=== PATIENT | male | born 1940 | race Caucasian/White ===

== ENCOUNTER 2018-06-30 15:00 | Inpatient (IN) | payer MEDICARE, OTHER ==
[~2018-06-30] VITALS: Ht 185.4 cm; Wt 75.7 kg
--- NOTE | 2018-06-30 15:08 | ERD ---
ER Documentation Chief Complaint Chief Complaint Altered Level of consciousness HPI The patient signed out AGAINST MEDICAL ADVICE. Risks, benefits, alternatives were explained to the patient. Risks include but not limited to and permanent disability The patient is a 77-year-old male, presenting to the ER because he has altered level consciousness since this morning, exact time is unknown. He is unable to provide any history, he knows his name and follow commands. It is unknown what his baseline is. 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 Past surgical history: Tracheostomy, G-tube ROS All systems reviewed and are negative except as per history of present illness. Medications Home Meds Reported Medications Zolpidem Tartrate* (Zolpidem Tartrate*) 5 Mg Tablet, 5 MG GTB Q24H PRN for INSOMNIA, #30 TAB 06/30/18 Fluoxetine Hcl* (Prozac*) 10 Mg Tablet, 10 MG GTB DAILY, TAB 06/30/18 Protein Supplement (Promod) 946 Ml Liquid, 30 ML GTB DAILY 06/30/18 Chlorhexidine Gluconate (Peridex) 473 Ml Mouthwash, 15 ML MM Q12H, BOTTLE 06/30/18 Ondansetron Hcl* (Zofran*) 4 Mg Tab, 4 MG GTB Q6H PRN for NAUSEA AND OR VOMITING, TAB 06/30/18 Multivitamin With Minerals (BIOSUPP) 473 Ml Liquid, 30 ML GTB DAILY 06/30/18 Metoprolol Tartrate* (Lopressor*) 25 Mg Tab, 37.5 MG GTB BID, #60 TAB HOLD IF SBP<110 OR HR<60 06/30/18 Lactobacillus Acidophilus* (Lactinex*) 1 Tab Chew, 1 TAB GTB TID, TAB 06/30/18 Insulin NPH Human Isophane (Humulin N) 100 Unit/1 Ml Vial, 10 UNIT SQ BID, VIAL 06/30/18 Glucagon,Human Recombinant (Glucagon Emergency Kit) 1 Mg Kit, 1 MG IJ NEEDED, KIT 06/30/18 Ferrous Sulfate* (Ferrous Sulfate*) 325 Mg Tabec, 325 MG GTB BID, TAB 06/30/18 Famotidine* (Famotidine*) 20 Mg Tablet, 20 MG GTB BID, #60 TAB 06/30/18 Ipratropium-Albuterol (Ipratropium-Albuterol) 0.5-3 Mg/3 Ml Ampul.neb, 3 ML INHALATION Q6 PRN for SHORTNESS OF BREATH, #30 VIAL 06/30/18 Donepezil* (Donepezil*) 10 Mg Tablet, 10 MG GTB DAILY, #30 TAB 06/30/18 Clonidine Hcl* (Clonidine Hcl*) 0.1 Mg Tab, 0.1 MG GTB Q6 PRN for NEEDED, TAB GIVE IF SBP>160 06/30/18 Atorvastatin Calcium (Atorvastatin Calcium) 10 Mg Tablet, 10 MG GTB QHS, #30 TAB 06/30/18 Amlodipine Besylate* (Amlodipine Besylate*) 2.5 Mg Tablet, 2.5 MG GTB DAILY, #30 TAB HOLD FOR SBP<110 OR HR<60 06/30/18 Insulin Lispro (Humalog Adolph Kwikpen) 100 Unit/1 Ml Ins.pen.hf, 0 SQ SLIDING SCALE IF BS 70-150=0 UNIT,151-200=2 UNITS,201-250=4 UNITS,251-300=6 UNITS,301-350=8 UNITS,351-400=10 UNITS,IF BS>400=12 UNITS AND CALL MD 06/30/18 Acetaminophen* (Acetaminophen* Susp) 325 Mg/10.15 Ml Solution, 650 MG GTB Q6H PRN for MILD PAIN LEVEL 1-3, ML 06/30/18 Allergies Allergies: Coded Allergies: Penicillins (Unverified Allergy, Unknown, 06/30/18) Physical Exam Vitals Vital Signs Date Temp Pulse Resp B/P (MAP) Pulse Ox O2 O2 Flow FiO2 Time Delivery Rate 06/30/18 98.8 116 18 107/70 98 2.0 17:29 (82) 06/30/18 98.9 104 22 128/74 95 15:12 (92) 06/30/18 2 15:00 Physical Exam Const: No acute distress. Head: Atraumatic. Eyes: Normal Conjunctiva. ENT: Normal External Ears, Nose and Mouth. Neck: Full range of motion. No meningismus. Resp: Clear to auscultation bilaterally. Cardio: Irregularly irregular tachycardic. Midsternal incision is erythematous with discharge Abd: Soft, non distended, normal bowel sounds, non tender. Skin: No petechiae or rashes. Back: No midline or flank tenderness. Ext: No cyanosis, or edema. Neur: Due to his condition, follow commands, moving all extremity Psych: Unable to perform due to his condition Result Diagram: 06/30/18 1527 06/30/18 1526 Results 24 hrs Laboratory Tests Test 06/30/18 15:26 06/30/18 15:27 06/30/18 15:29 06/30/18 15:41 Prothrombin 18.6 Sec Time Prothrombin 1.5 Time Ratio INR 1.52 International Normalized Rati o Activated 45.5 Sec Partial Thrombo plast Time Sodium Level 143 mmol/L Potassium Level 3.6 mmol/L Chloride Level 99 mmol/L Carbon Dioxide 38 mmol/L Level Anion Gap 6 Blood Urea 32 mg/dl Nitrogen Creatinine 0.68 mg/dl Est Glomerular mL/min Filtrat Rate mL/min Glucose Level 176 mg/dl Calcium Level 9.7 mg/dl Total Bilirubin 0.6 mg/dl Direct 0.00 mg/dl Bilirubin Indirect 0.6 mg/dl Bilirubin Aspartate Amino 27 IU/L Transf (AST/SGO T) Alanine 28 IU/L Aminotransferas e (ALT/SGPT) Alkaline 93 IU/L Phosphatase Troponin I 0.016 ng/ml Total Protein 6.5 g/dl Albumin 3.5 g/dl Globulin 3.00 g/dl Albumin/Globuli 1.16 n Ratio White Blood 20.3 10^3/ul Count Red Blood Count 3.89 10^6/ul Hemoglobin 11.2 g/dl Hematocrit 36.2 % Mean 93.1 fl Corpuscular Volume Mean 28.8 pg Corpuscular Hemoglobin Mean 30.9 g/dl Corpuscular Hemoglobin Conc ent Red Cell 15.5 % Distribution Width Platelet Count 324 10^3/UL Mean Platelet 10.9 fl Volume Immature 5.400 % Granulocytes % Neutrophils % % Segmented 89 % Neutrophils % (Manual) Band 4 % Neutrophils % (Manual) Lymphocytes % % Lymphocytes % 2 % (Manual) Monocytes % % Monocytes % 3 % (Manual) Eosinophils % % Basophils % % Basophils % 1 % (Manual) Myelocytes % 1 % (Manual) Nucleated Red 0.0 /100WBC Blood Cells % Immature 1.090 10^3/ul Granulocytes # Neutrophils # 10^3/ul Neutrophils # 18.2 10^3/ul (Manual) Band 0.8 10^3/ul Neutrophils # Lymphocytes 0.4 10^3/ul (Manual) Lymphocytes # 10^3/ul Monocytes # 10^3/ul Monocytes # 0.6 10^3/ul (Manual) Eosinophils # 10^3/ul Basophils # 10^3/ul Basophils # 0.2 10^3/ul (Manual) Myelocytes # 0.2 10^3/ul Nucleated Red 10^3/ul Blood Cells # Platelet NORMAL Estimate Poikilocytosis 1+ Anisocytosis 1+ Microcytosis 1+ Ovalocytes 1+ POC Venous 1.7 mmol/L Lactate Urine Color YELLOW Urine Clarity CLEAR Urine pH 5.0 Urine Specific 1.025 [place] Urine Ketones NEGATIVE mg/dL Urine Nitrite NEGATIVE mg/dL Urine Bilirubin NEGATIVE mg/dL Urine 1+ mg/dL Urobilinogen Urine Leukocyte NEGATIVE Cathy/ul Esterase Urine 2 /HPF Microscopic RBC Urine 3 /HPF Microscopic WBC Urine Bacteria FEW /HPF Urine Mucus FEW /HPF Urine NEGATIVE mg/dL Hemoglobin Urine Glucose NEGATIVE mg/dL Urine Total 1+ mg/dl Protein Current Medications Medications Dose Sig/Darrian Start Time Status Last (Trade) Ordered Route PRN Stop Time Admin Dose Reason Admin Sodium 2,270 ml @ BOLUS X1 06/30/18 06/30/18 Chloride 1,135 mls/hr ONCE IV 17:30 17:52 06/30/18 19:29 Vancomycin 250 ml @ ONCE IVPB 06/30/18 06/30/18 HCl 125 mls/hr 17:30 18:29 06/30/18 19:29 50 ml @ ONCE STAT 06/30/18 DC 06/30/18 Meropenem/Sod 100 mls/hr IVPB 17:05 17:52 ium Chloride 06/30/18 17:37 Procedures/MDM [place] [id number] Radiology Main Line: [phone] DIAGNOSTIC IMAGING REPORT Patient: JOE HORTON : 1940 Age: 77 Sex: M MR #: [id number] DOS: 06/30/18 1512 Ordering MD: LITZY HUERTA MD Location: E/R Room/Bed: AMENDMENT: 06/30/2018 3:34:54 PM David Aquino M.d Comparison: 04/25/2018 PROCEDURE: XR Chest. CLINICAL INDICATION: Chest pain TECHNIQUE: Single frontal view of the chest was obtained COMPARISON: None FINDINGS: The lung apices are partially obscured by patient's chin. The heart is enlarged. The thoracic aorta is calcified. There is mild left lower lobe atelectasis. There is a tracheostomy tube in place. There is no pleural effusion or pneumothorax. RPTAT: AA IMPRESSION: Mild cardiomegaly. Calcified aorta consistent with atherosclerotic disease. Limited study. Lung apices not completely seen. Mild left lower lobe atelectasis. .David Aquino MD, MD Date Time Electronically viewed and signed by .David Aquino MD, MD on 06/30/2018 15:34 .S/ CC: LITZY HUERTA MD [phone] The patient is awaiting for the brain MRI because the CT is not working EKG: At 4:46 PM read by emergency physician Rate/Rhythm: Atrial fibrillation 124 beats/min QRS, ST, T-waves: No ST elevation, specific T abnormality Impression: Abnormal EKG EKG: At 5:52 PM read by emergency physician Rate/Rhythm: Atrial fibrillation 128 beats/min QRS, ST, T-waves: No ST elevation, specific T abnormality Impression: Abnormal EKG MEDICAL MAKING DECISION: The patient is a 77-year-old male, presenting with acute encephalopathy of unclear etiology, acute chest cellulitis, atrial fibrillation with RVR, acute dehydration. He was treated with normosaline 30 mm/kg IV, vancomycin IV, meropenem IV for acute chest wall cellulitis and acute dehydration with good response. The differential diagnoses considered include but are not limited to chest cellulitis/abscess, pneumonia, UTI, pyelonephritis, ventilator associated pneumonia, septic encephalopathy, metabolic encephalopathy, delirium, worsening dementia Departure Diagnosis: Primary Impression: Encephalopathy acute Additional Impressions: Cellulitis Atrial fibrillation with RVR Dehydration Anemia Condition: Stable Comments I discussed the findings with the patient. I discussed the patient with the patient's physician Dr. Andino at 5:50 pm who was made aware of the lab, the treatment, the patient condition, pending brain MRI. The patient is admitted to [facility] Disclaimer: Inadvertent spelling and grammatical errors are likely due to EHR/dictation software use and do not reflect on the overall quality of patient care. Also, please note that the electronic time recorded on this note does not necessarily reflect the actual time of the patient encounter. LITZY HUERTA MD Jun 30, 2018 15:07
[2018-06-30] MEDS ORDERED: MEROPENEM 1 GM/50ML(PMX) 50 ML IVPB STA (17:05)
[2018-06-30] MEDS ORDERED: VANCOMYCIN 1 GM (PMX) 250 ML IVPB SCH (17:30)
[2018-06-30] MEDS ORDERED: SOD CHLORIDE 0.9% IV ONE (17:30)
[2018-06-30] MEDS ORDERED: ACET325S GTB (17:56)
[2018-06-30] MEDS ORDERED: INSU100I35 SQ (17:59)
[2018-06-30] MEDS ORDERED: AMLO2.5T78 GTB (18:00)
[2018-06-30] MEDS ORDERED: ATOR10TA65 GTB (18:00)
[2018-06-30] MEDS ORDERED: DONE10TA7 GTB (18:02)
[2018-06-30] MEDS ORDERED: CLON-379 GTB (18:02)
[2018-06-30] MEDS ORDERED: FAMO20TA18 GTB (18:03)
[2018-06-30] MEDS ORDERED: IPRA3AMP29 INHALATION (18:03)
[2018-06-30] MEDS ORDERED: FER325 GTB (18:04)
[2018-06-30] MEDS ORDERED: GLUC1KIT IJ (18:04)
[2018-06-30] MEDS ORDERED: NPH,100V SQ (18:05)
[2018-06-30] MEDS ORDERED: LACTINEX GTB (18:05)
[2018-06-30] MEDS ORDERED: METO-448 GTB (18:07)
[2018-06-30] MEDS ORDERED: ONDA4TAB13 GTB (18:10)
[2018-06-30] MEDS ORDERED: [UNRECOGNIZED DRUG - CODE] GTB (18:10)
[2018-06-30] MEDS ORDERED: CHLO473M4 MM (18:11)
[2018-06-30] MEDS ORDERED: PROT946L GTB (18:12)
[2018-06-30] MEDS ORDERED: ZOLP5TAB7 GTB (18:14)
[2018-06-30] MEDS ORDERED: FLUO10TA GTB (18:14)
[2018-06-30 23:00] VITALS: BP 142/82; PULSE 143; RESP 35
[2018-06-30] MEDS ORDERED: ACETAMINOPHEN 650MG/20.3ML CUP GTB PRN (23:00)
[2018-06-30] MEDS ORDERED: VANCOMYCIN IV PER PHARMACY XX SCH (23:00)
[2018-06-30] MEDS ORDERED: DILTIAZEM 25 MG INJ ONE (23:15)
[2018-06-30] MEDS ORDERED: ACETYLCYSTEINE 20% 4 ML VIAL ONE (23:57)
[2018-06-30] MEDS ORDERED: LEVALBUTEROL (NEB) 0.31 MG/3 ML AMP ONE (23:57)
[2018-07-01] VITALS (69 sets, daily range): BP systolic 66–139; BP diastolic 52–120; PULSE 81–135; RESP 10–28
[2018-07-01] MEDS: SOD CHLORIDE 0.9% 1,000 ML IV SCH ×3 (00:10→20:07)
[2018-07-01] MEDS: LEVALBUTEROL (NEB) 0.63 MG/3 ML AMP HHN SCH ×2 (00:12→05:17)
[2018-07-01] MEDS: ACETYLCYSTEINE 20% 4 ML VIAL NEB SCH ×6 (00:13→21:50)
[2018-07-01] MEDS ORDERED: NORepinephrine 8MG/250 ML (PMX 250 ML IV PRN (01:30)
[2018-07-01] MEDS ORDERED: SOD CHLORIDE 0.9% 1,000 ML IV ONE ×2 (01:30→09:00)
[2018-07-01] MEDS: INSULIN ASPART [NOVOLOG] 3 ML PEN SC SCH ×5 (01:57→23:56)
--- NOTE | 2018-07-01 02:44 | HP ---
DATE OF ADMISSION: 06/30/2018 CHIEF COMPLAINT AND HISTORY OF PRESENT ILLNESS: The patient is a 77-year-old gentleman with a histor y of hypertension, diabetes, atrial fibrillation, depression, dementia, dyslipidemia, and myasthenia gravis who was recently admitted at [facility] and underwent a thymectomy. The patient is c urrently a resident of [facility]. I was called from the [facility] that davey perla is confused, although awake and alert. At baseline, patient is awake, alert, fairly oriented, and is interactive. The patient was sent to [facility] ER because of altered mental status. e patient, however, upon arrival in the ER was noted to be awake, alert, and was oriented to place an d person. The patient did not have any focal weakness. The patient at the time of examination in e ER did not have any vent. The patient underwent multiple diagnostic studies including CBC, which r evealed white count of 20.3, up from 9.1 back in April. Sodium 143, potassium 3.6, BUN 32, creatin ine 0.6, glucose 176, lactic acid 2.7, calcium 9.7. Liver enzymes revealed AST 27, ALT 28, alkaline phosphatase 93. Chest x-ray revealed mild cardiomegaly, mild left lower lobe atelectasis. The patie nt spent most of the time in his bed, although he is able to sit in chair. The patient is being admi tted for further evaluation and management. FAMILY HISTORY: Positive for CAD. SOCIAL HISTORY: No smoking. No alcohol. PAST SURGICAL HISTORY: Thymectomy, tracheostomy, and G-tube placement. PHYSICAL EXAMINATION: GENERAL: The patient is awake, alert, and oriented x2. HEENT: No eye discharge or redness. Conjunctivae and lids normal. Oropharynx clear. NECK: Supple. No mass or thyromegaly. CHEST: Fairly clear. No use of accessory muscles. CARDIOVASCULAR: S1 and S2 normal. No murmur. ABDOMEN: Soft, nondistended, nontender. G-tube in place. NEUROLOGIC: The patient has generalized weakness, although there is no gross focal weakness. LABORATORY DATA: White count 20.3, hemoglobin 9.2, platelets 324. Sodium 143, potassium 3.6, BUN 32 , creatinine 0.6. IMPRESSION: 1. Acute encephalopathy, improved. The patient is approaching his baseline. Continue to monitor cl osely. No sedative at this time. 2. Elevated white count; however, patient has no fever. The patient will be empirically started on vancomycin and meropenem pending result of urine and blood culture. 3. Atrial fibrillation. The patient after admission went into rapid ventricular response and had to be started on Cardizem and Eliquis. We will keep patient on telemetry. 4. ABG done in the ER revealed pH of 7.29, pCO2 of 16.9, pO2 of 55. The patient was diagnosed with acute hypoxemic and hypercarbic respiratory failure. The patient will be attached to the vent, and p ulmonary consult with Dr. Mustafa will be obtained. 5. Dysphagia. Continue G-tube feeding. 6. Diabetes. We will place him on sliding scale insulin for now until more information is available from subacute unit. According to the patient's nurse, there was no medication reconciliation done a nd no medications were available. 7. Myasthenia gravis, status post thymectomy. 8. Dyslipidemia. The patient used to be on Lipitor. Again, the medication list from the [facility] facility has not been received. Continue Lipitor. 9. Hypertension and coronary artery disease. Continue metoprolol and p.r.n. IV diltiazem. 10. The patient apparently also has history of depression. We will resume Prozac. 11. The patient has mild dementia. We will continue Aricept. We will discuss with the family when available. Pulmonary, ID, and cardiac consultation will be obta ined. Further recommendations will depend on the patient's hospital course and recommendations from consultants. Dictated By: ALE LONGORIA/JOSE Conf#: [id number] DID#: [id number]
--- NOTE | 2018-07-01 02:59 | NUR ---
PT IS RECEIVING LOW VOLUMES WITH SETTINGS ORDERED PER MD
--- NOTE | 2018-07-01 03:00 | NUR ---
Pt on vent, no longer in acute resp distress. However, trach site at this time remains blocked, but spo2 maintaining >95%. Dr. Dobbins notified at 2230 upon admission. At that time, orders obtained for medications. MD was notified of resp distress, and uncontrolled afib. Per MD request, RT changed out pt's trach to see if that would resolve the blockage. That was unsuccessful. Shortly after the trach was changed, the pt began desaturating and bradying down in 40's HR. At this time, around 2340, a code blue was called. Prior to the arrival of the ER physician, the pt was able to be appropriate ventilated, saturation levels went back up to 92%, and HR went back up to 100. The ER physician was notified of the guarded nature of the pt condition, however was unable to assist. Shilpi was notified, as was the switch house operator and Dr. Blulock. Dr. Bullock assessed the pt, confirmed the blockage of the trach site. Per Dr. Dobbins's request, I called the pulmonology team for the ICU. I called the exchange service at 0100, 0200, and 0315. I was unable to get through to any bottoming machine operator during these times. After 0130, the pt began tolerating the ventilator and was no longer in acute resp distress.
--- NOTE | 2018-07-01 04:29 | NUR ---
VANCO PER PHARMACY: Diagnosis Acute encephalopathy , acute chest cellulitis Vanco X 1 GM was given in ER Then Vanco 1 .5 gm x1 and thereafter Vanco 1 gm q 12 hrs Predicted peak (mcg/mL): 28 Predicted trough (mcg/mL): 13 Pharmacy to follow
[2018-07-01] MEDS: MEROPENEM 1 GM/50ML(PMX) 50 ML IVPB SCH ×3 (05:39→21:45)
[2018-07-01] MEDS: DILTIAZEM 25 MG INJ IV PRN ×2 (05:50→09:51)
[2018-07-01] MEDS ORDERED: VANCOMYCIN 1.5 GM in SOD CHLORIDE 0.9% 250 ML IVPB SCH (06:00)
--- NOTE | 2018-07-01 07:30 | NUR ---
ALSO RECEIVE PT IN UNCONTROL AFIB WITH HR IN THE 130'S. DR CHUN ORDERED FOR RECORDING CLERK CONSULT AND ALSO 2D ECHO ORDER PENDING. ONGOING CARE WILL CONTINUE
--- NOTE | 2018-07-01 08:15 | NUR ---
RECEIVE PT IN TRACH TO VENT BUT IN RESPIRATORY DISTRESS POSSIBLY D/T AN OBSTRUCTION. NOTED RESP RATE IN THE 30'S AND AUDIBLE LOUD LEAKAGE FROM TRACH SITE. DR BOYER CALLED AND GIVEN THE ABG RESULT WITH PH AT 7.12 CO2 99 AND HCO3 31. NEW ORDER GIVEN TO INTUBATE THE PT. DR PIERCE HERE AND PT INTUBATED PER PROTOCOL Addendum: 07/01/18 at 1530 by FRANKLIN QUAN RN PT'S OLD PORTEX #8 REMOVED POST INTUBATION. GAUZE APPLIED TO SITE. PENDING CONSULT FROM DR HARRELL.
--- NOTE | 2018-07-01 08:54 | CONS ---
Date/Time of Note Date/Time of Note DATE: 07/01/18 TIME: 08:50 Assessment/Plan Assessment/Plan Additional Assessment/Plan Chest x-ray is essentially unremarkable. Ventilator setting; AC of 14, pressure control mode of ventilation, PEEP of 5, 100% FiO2. Assessment recommendations; 1. Patient admitted with altered mental status with severe acute hypercapnic respiratory failure possibly from tracheostomy dislodgment. 2. Possibly early pneumonia. Patient currently on appropriate antimicrobial regimen. 3. History of my [place] gravis. 4. Chronic atrial fibrillation. 5. History of hypertension. 6. History of thymectomy. 7. History of prior CABG. 8. Acute encephalopathy likely from underlying severe hypercapnia and respiratory acidosis. Patient orally intubated without difficulty. Will obtain follow-up ABG. Post intubation chest x-ray is again essentially unremarkable. Resume tube feeding. Further recommendations once culture results are obtained. Further recommendations once his repeat ABG is obtained as well. Will consult cardiothoracic surgeon for redo tracheostomy. 40 minutes of critical care time was spent evaluating the patient. Consultation Date/Type/Reason Admit Date/Time Jun 30, 2018 at 18:05 Date of Consultation: Jul 01, 2018 Type of Consult Pulmonary/critical care History of presenting illness; patient is a 77-year-old male who was transferred over to the hospital from residential because of altered mental status. The patient was found to be severely hypercapnic and apparently there was an issue w ith the tracheostomy being dislodged. The patient having low tidal volumes and had to be switched to pressure control mode of ventilation with persistent severe hypercapnia. By the time I saw him, patient is on ventilator via tracheostomy and is unresponsive. History was obtained from medical records. Past medical history; 1. Chronic respiratory failure, and VDR F. 2. History of myasthenia gravis. 3. Apparently mild dementia. 4. History of tracheostomy and G-tube placement. 5. History of hypertension. 6. Chronic atrial fibrillation. Medications; reviewed. Allergies; penicillin. Social history, family history, occupational history not available. Review of system; unable to be obtained. General exam; elderly male, on ventilator via tracheostomy, unresponsive, tachypneic. Social History Smoking Status: Never smoker Exam/Review of Systems Vital Signs Vitals Vital Signs Date Temp Pulse Resp B/P (MAP) Pulse Ox O2 O2 Flow FiO2 Time Delivery Rate 07/01/18 120 28 126/76 100 Mechanical 06:00 (93) Ventilator 07/01/18 50 05:21 07/01/18 97.6 04:00 06/30/18 10.0 23:00 Intake and Output 06/30/18 06/30/18 07/01/18 1515:00 23:00 07:00 IntakeIntake Total 1395 ml OutputOutput Total 175 ml BalanceBalance 1220 ml Exam HEENT exam; supple neck, no JVD. No lymphadenopathy. Midline trachea. No t hyromegaly. Patient is edentulous. Tracheostomy in place. Chest exam; diminished breath sounds throughout. S1-S2 audible, no murmurs. Irregular rhythm. There is a well-healed sternal scar. Abdomen exam; soft, scaphoid. G-tube in place. Bowel sounds audible. No organomegaly. Extremity exam; no peripheral edema. ELECTRICAL AND INSTRUMENTATION MANAGER exam; patient remains unresponsive. Medications Medications Current Medications Albuterol/ Ipratropium (Duoneb) 3 ml Q6H RESP THERAPY PRN HHN SHORTNESS OF BREATH; Start 06/30/18 at 23:00 Vancomycin HCl (Vanco Iv Per Pharmacy) VANCOMYCIN PER PHARMACY PER PROTOCOL XX ; Start 06/30/18 at 23:00 Meropenem/Sodium Chloride 50 ml @ 100 mls/hr Q8 IVPB Last administered on 07/01/18at 05:39; Admin Dose 100 MLS/HR; Start 07/01/18 at 06:00 Acetaminophen (Tylenol Liquid) 650 mg Q4H PRN GTB MILD PAIN(1-3)OR ELEVATED TEMP; Start 06/30/18 at 23:00 Insulin Aspart (Novolog Insulin Pen) NOVOLOG *MILD* ALGORI... Q6H SC Last a dministered on 07/01/18at 06:08; Admin Dose 2 UNIT; Start 07/01/18 at 00:00 Apixaban (Eliquis) 2.5 mg BID PO ; Start 07/01/18 at 09:00 Sodium Chloride 1,000 ml @ 75 mls/hr [id number] IV Last administered on 07/01/18at 00:10; Admin Dose 75 MLS/HR; Start 06/30/18 at 23:00 Metoprolol Tartrate (Lopressor) 50 mg BID GTB ; Start 07/01/18 at 09:00 Diltiazem HCl (Cardizem Iv) 10 mg Q4H PRN IV for HR>110 Last administered on 07/01/18at 05:50; Admin Dose 10 MG; Start 06/30/18 at 23:00 Acetylcysteine (Mucomyst) 2 ml Q4H RESP THERAPY NEB Last administered on 07/01/18at 05:18; Admin Dose 2 ML; Start 07/01/18 at 00:00 Norepinephrine 250 ml @ 1.875 mls/ hr TITRATE PRN IV BLOOD PRESSURE SUPPORT; Start 07/01/18 at 01:30 Vancomycin HCl 1.5 gm/Sodium Chloride 250 ml @ 83.333 mls/ hr ONCE IVPB Last administered on 07/01/18at 06:07; Admin Dose 83.333 MLS/HR; Start 07/01/18 at 06:00; Stop 07/01/18 at 08:59 Vancomycin HCl 250 ml @ 125 mls/hr Q12H IVPB ; Start 07/01/18 at 18:00 Levalbuterol (Xopenex Hfa) 1 puff Q8H RESP THERAPY INH ; Start 07/01/18 at 16:00 Results Result Diagram: 07/01/18 0520 07/01/18 0520 Results 24 hrs Laboratory Tests Test 06/30/18 15:26 06/30/18 15:27 06/30/18 15:29 06/30/18 15:41 Prothrombin 18.6 #H Time Prothrombin 1.5 Time Ratio INR 1.52 International Normalized Rati o Activated 45.5 H Partial Thrombo plast Time Sodium Level 143 Potassium Level 3.6 Chloride Level 99 Carbon Dioxide 38 H Level Anion Gap 6 Blood Urea 32 H Nitrogen Creatinine 0.68 Est Glomerular Filtrat Rate mL/min Glucose Level 176 Calcium Level 9.7 Total Bilirubin 0.6 Direct 0.00 Bilirubin Indirect 0.6 Bilirubin Aspartate Amino 27 Transf (AST/SGO T) Alanine 28 Aminotransferas e (ALT/SGPT) Alkaline 93 Phosphatase Troponin I 0.016 Total Protein 6.5 Albumin 3.5 Globulin 3.00 Albumin/Globuli 1.16 n Ratio White Blood 20.3 #H Count Red Blood Count 3.89 L Hemoglobin 11.2 L Hematocrit 36.2 L Mean 93.1 Corpuscular Volume Mean 28.8 L Corpuscular Hemoglobin Mean 30.9 L Corpuscular Hemoglobin Conc ent Red Cell 15.5 H Distribution Width Platelet Count 324 Mean Platelet 10.9 H Volume Immature 5.400 H Granulocytes % Neutrophils % Segmented 89 H Neutrophils % (Manual) Band 4 Neutrophils % (Manual) Lymphocytes % Lymphocytes % 2 L (Manual) Monocytes % Monocytes % 3 (Manual) Eosinophils % Basophils % Basophils % 1 (Manual) Myelocytes % 1 H (Manual) Nucleated Red 0.0 Blood Cells % Immature 1.090 H Granulocytes # Neutrophils # Neutrophils # 18.2 H (Manual) Band 0.8 H Neutrophils # Lymphocytes 0.4 L (Manual) Lymphocytes # Monocytes # Monocytes # 0.6 (Manual) Eosinophils # Basophils # Basophils # 0.2 H (Manual) Myelocytes # 0.2 H Nucleated Red Blood Cells # Platelet NORMAL Estimate Poikilocytosis 1+ Anisocytosis 1+ Microcytosis 1+ Ovalocytes 1+ POC Venous 1.7 Lactate Urine Color YELLOW Urine Clarity CLEAR Urine pH 5.0 Urine Specific 1.025 [place] Urine Ketones NEGATIVE Urine Nitrite NEGATIVE Urine Bilirubin NEGATIVE Urine 1+ H Urobilinogen Urine Leukocyte NEGATIVE Esterase Urine 2 Microscopic RBC Urine 3 Microscopic WBC Urine Bacteria FEW A Urine Mucus FEW A Urine NEGATIVE Hemoglobin Urine Glucose NEGATIVE Urine Total 1+ H Protein Test 06/30/18 19:13 06/30/18 22:27 06/30/18 22:50 07/01/18 01:53 Lactic Acid 2.7 *H Level Blood Gas Blood Specimen arterial Source Arterial Blood 06/30/2018 10: Date Drawn 30:27 PM Arterial Blood 7.290 *L pH (Temp corrected ) Arterial Blood 67.9 H pCO2 (Temp correct) Arterial Blood 55.0 L pO2 (Temp corrected ) Arterial Blood 31.9 H HCO3 Arterial Blood 3.5 H Base Excess Arterial Blood 85.7 L Oxygen Saturati on Go Test N/A Arterial Blood Right Gas Brachial Puncture Site Arterial 1.0 Blood Carboxyhe moglobin Arterial Blood 0.1 Methemoglobin Blood Gas A-a 590.1 H O2 Differential Oxyhemoglobin 84.8 L Percent Blood Gas 37.0 Temperature Blood Gas TRACH COLLAR Modality FiO2 100.0 Blood Gas Nadia ROSARIO RN Critical Value Read Back Blood Gas Notified Whom Blood Gas 06/30/2018 10: Notified Time 42:27 PM Bedside Glucose 221 H 241 H Test 07/01/18 03:20 07/01/18 05:20 07/01/18 06:06 07/01/18 07:00 Blood Gas Blood arterial Blood Specimen arterial Source Arterial Blood 07/01/2018 4:03 07/01/2018 7:1 Date Drawn :38 AM 7:00 AM Arterial Blood 7.539 H 7.116 *L pH (Temp corrected ) Arterial Blood 34.5 L 98.6 *H pCO2 (Temp correct) Arterial Blood 541.0 H 468.3 H pO2 (Temp corrected ) Arterial Blood 28.8 H 31.0 H HCO3 Arterial Blood 6.1 H -0.7 Base Excess Arterial Blood 99.6 99.8 Oxygen Saturati on Go Test ACCEPTAB ACCEPTAB Arterial Blood Right Radial Right Radial Gas Puncture Site Arterial 0.3 0.3 Blood Carboxyhe moglobin Arterial Blood 0 0.3 Methemoglobin Blood Gas A-a 137.5 H 146.1 H O2 Differential Oxyhemoglobin 99.3 H 99.2 H Percent Blood Gas 37.0 37.0 Temperature Blood Gas 14.0 14.0 Respiration Rate Blood Gas 15 14 Actual Respiration Rat e Blood Gas VENT - PC VENT - PC Modality FiO2 100.0 100.0 Blood Gas Low 5.0 5.0 PEEP Setting Blood Gas 25.0 Inspiratory Pressure Blood Gas Evan EMERGENCY MANAGEMENT DIRECTOR Notified Whom Blood Gas 07/01/2018 4:17 07/01/2018 7:3 Notified Time :22 AM 5:00 AM White Blood 18.4 H Count Red Blood Count 3.58 L Hemoglobin 10.1 L Hematocrit 33.6 L Mean 93.9 Corpuscular Volume Mean 28.2 L Corpuscular Hemoglobin Mean 30.1 L Corpuscular Hemoglobin Conc ent Red Cell 15.5 H Distribution Width Platelet Count 323 Mean Platelet 11.5 H Volume Immature 4.300 H Granulocytes % Neutrophils % 80.9 H Lymphocytes % 5.9 L Monocytes % 8.6 Eosinophils % 0.1 Basophils % 0.2 Nucleated Red 0.0 Blood Cells % Immature 0.790 H Granulocytes # Neutrophils # 14.9 H Lymphocytes # 1.1 Monocytes # 1.6 H Eosinophils # 0.0 Basophils # 0.0 Nucleated Red 0.0 Blood Cells # Sodium Level 146 H Potassium Level 3.7 Chloride Level 107 Carbon Dioxide 32 H Level Anion Gap 7 Blood Urea 31 H Nitrogen Creatinine 0.72 Est Glomerular Filtrat Rate mL/min Glucose Level 179 Calcium Level 9.0 Bedside Glucose 215 Blood Gas REZA BURCIAGA Critical Value Read Back ANSELMO PIERCE Jul 01, 2018 08:54
--- NOTE | 2018-07-01 08:56 | EN ---
Date/Time of Note Date/Time of Note DATE: 07/01/18 TIME: 08:55 Event Note Medicine Medicine Event Note Oral intubation. Indications tracheostomy dislodgment. Patient was given 10 mg of vecuronium preceded by 40 mg of etomidate IV. Vision was orally intubated with 7.5 endotracheal tube without difficulty. Trache ostomy was subsequently removed. Patient has adequate placement of endotracheal tube. Confirmed by post intubation chest x-ray. Follow-up ABG is pending. ANSELMO PIERCE Jul 01, 2018 08:56
[2018-07-01] MEDS ORDERED: ENOXAPARIN 30 MG/0.3 ML SYG SC SCH (09:00)
[2018-07-01] MEDS ORDERED: METOPROLOL 50 MG TAB GTB SCH (09:00)
[2018-07-01] MEDS ORDERED: APIXABAN 5 MG TABLET PO SCH (09:00)
[2018-07-01] MEDS ORDERED: NORepinephrine 8MG/250 ML (PMX 250 ML IV SCH (09:00)
[2018-07-01] MEDS: LANSOPRAZOLE 30 MG CAP GTB SCH (10:59)
[2018-07-01] MEDS: MIDAZOLAM (DRIP) 50 mg/50 mL 50 ML IV SCH (11:40)
[2018-07-01] MEDS ORDERED: LIDOCAINE 1% (MPF) 5 ML VIAL SC ONE (13:00)
--- NOTE | 2018-07-01 13:37 | CONS ---
Date/Time of Note Date/Time of Note DATE: 07/01/18 TIME: 13:15 Assessment/Plan Assessment/Plan Additional Assessment/Plan Acute on chronic respiratory failure Atrial fibrillation with rapid ventricular rates, improved Preserved ejection fraction Hypotension on IV pressor Myasthenia gravis -Patient presented with respiratory failure thought secondary to tracheal dislodgment. He is status post intubation. Initially with atrial fibrillation with rapid ventricular rates but heart rates have improved. Patient is on IV pressor, titrate as needed to maintain SBP greater than 90 and/or map above 60 with close monitoring of heart rate. Continue anticoagulation if no contraindication. DC beta-eddie in the current time given patient is on IV pressor. Consultation Date/Type/Reason Admit Date/Time Jun 30, 2018 at 18:05 Type of Consult cv Reason for Consultation Atrial fibrillation Hx of Present Illness This is a 69-year-old male with past medical history of respiratory failure, myasthenia gravis, atrial fibrillation who was brought to emergency room secondary to altered mental status and hypoxia. Patient thought to have trach dislodgment and status post intubation. Patient initially with atrial ablation with rapid ventricular rates but has since improved. History and for medical chart and nursing staff. Unable to be performed at the current time given patient intubated and sedated Past Medical History Chronic respiratory failure Myasthenia gravis Atrial fibrillation Hypertension Past Surgical History Including but not limited to tracheostomy, PEG placement Family History Significant Family History: no pertinent family hx Social History Smoking Status: Never smoker Exam/Review of Systems Vital Signs Vitals Vital Signs Date Temp Pulse Resp B/P (MAP) Pulse Ox O2 O2 Flow FiO2 Time Delivery Rate 07/01/18 87 18 100 50 13:04 07/01/18 96.2 136/73 08:00 (94) 07/01/18 Mechanical 07:00 Ventilator 06/30/18 10.0 23:00 Intake and Output 06/30/18 06/30/18 07/01/18 1515:00 23:00 07:00 IntakeIntake Total 1395 ml OutputOutput Total 175 ml BalanceBalance 1220 ml Exam Intubated and sedated, no apparent distress Head: normocephalic ENMT: intubated Respiratory: other (Coarse breath sounds bilaterally, no wheezing) Cardiovascular: irregular rhythm, other (S1-S2 heard) Gastrointestinal: soft, non-tender, bowel sounds Extremities: edema (Trace) Medications Medications Current Medications Albuterol/ Ipratropium (Duoneb) 3 ml Q6H RESP THERAPY PRN HHN SHORTNESS OF BREATH; Start 06/30/18 at 23:00 Vancomycin HCl (Vanco Iv Per Pharmacy) VANCOMYCIN PER PHARMACY PER PROTOCOL XX ; Start 06/30/18 at 23:00 Meropenem/Sodium Chloride 50 ml @ 100 mls/hr Q8 IVPB Last administered on 07/01/18at 05:39; Admin Dose 100 MLS/HR; Start 07/01/18 at 06:00 Acetaminophen (Tylenol Liquid) 650 mg Q4H PRN GTB MILD PAIN(1-3)OR ELEVATED TEMP; Start 06/30/18 at 23:00 Insulin Aspart (Novolog Insulin Pen) NOVOLOG *MILD* ALGORI... Q6H SC Last administered on 07/01/18at 12:50; Admin Dose 1 UNIT; Start 07/01/18 at 00:00 Apixaban (Eliquis) 2.5 mg BID PO Last administered on 07/01/18at 09:50; Admin Dose 2.5 MG; Start 07/01/18 at 09:00 Sodium Chloride 1,000 ml @ 75 mls/hr [id number] IV Last administered on 07/01/18at 00:10; Admin Dose 75 MLS/HR; Start 06/30/18 at 23:00 Metoprolol Tartrate (Lopressor) 50 mg BID GTB ; Start 07/01/18 at 09:00 Diltiazem HCl (Cardizem Iv) 10 mg Q4H PRN IV for HR>110 Last administered on 07/01/18at 09:51; Admin Dose 10 MG; Start 06/30/18 at 23:00 Acetylcysteine (Mucomyst) 2 ml Q4H RESP THERAPY NEB Last administered on 1 09/01/17at 12:25; Admin Dose 2 ML; Start 07/01/18 at 00:00 Vancomycin HCl 250 ml @ 125 mls/hr Q12H IVPB ; Start 07/01/18 at 18:00 Levalbuterol (Xopenex Hfa) 1 puff Q8H RESP THERAPY INH ; Start 07/01/18 at 16:00 Norepinephrine 16 mg/Dextrose 500 ml @ 0 mls/hr TITRATE IV Last administered on 07/01/18at 12:10; Admin Dose 9.38 MLS/HR; Start 07/01/18 at 11:00 Lansoprazole (Prevacid) 30 mg DAILY@06 GTB Last administered on 07/01/18at 10:59; Admin Dose 30 MG; Start 07/01/18 at 09:00 Midazolam HCl 50 ml @ 1 mls/hr TITRATE IV Last administered on 07/01/18at 11:40; Admin Dose 2 MLS/HR; Start 07/01/18 at 11:30 Results Result Diagram: 07/01/18 0520 07/01/18 0520 Results 24 hrs Laboratory Tests Test 06/30/18 15:26 06/30/18 15:27 06/30/18 15:29 06/30/18 15:41 Prothrombin 18.6 #H Time Prothrombin 1.5 Time Ratio INR 1.52 International Normalized Rati o Activated 45.5 H Partial Thrombo plast Time Sodium Level 143 Potassium Level 3.6 Chloride Level 99 Carbon Dioxide 38 H Level Anion Gap 6 Blood Urea 32 H Nitrogen Creatinine 0.68 Est Glomerular Filtrat Rate mL/min Glucose Level 176 Calcium Level 9.7 Total Bilirubin 0.6 Direct 0.00 Bilirubin Indirect 0.6 Bilirubin Aspartate Amino 27 Transf (AST/SGO T) Alanine 28 Aminotransferas e (ALT/SGPT) Alkaline 93 Phosphatase Troponin I 0.016 Total Protein 6.5 Albumin 3.5 Globulin 3.00 Albumin/Globuli 1.16 n Ratio White Blood 20.3 #H Count Red Blood Count 3.89 L Hemoglobin 11.2 L Hematocrit 36.2 L Mean 93.1 Corpuscular Volume Mean 28.8 L Corpuscular Hemoglobin Mean 30.9 L Corpuscular Hemoglobin Conc ent Red Cell 15.5 H Distribution Width Platelet Count 324 Mean Platelet 10.9 H Volume Immature 5.400 H Granulocytes % Neutrophils % Segmented 89 H Neutrophils % (Manual) Band 4 Neutrophils % (Manual) Lymphocytes % Lymphocytes % 2 L (Manual) Monocytes % Monocytes % 3 (Manual) Eosinophils % Basophils % Basophils % 1 (Manual) Myelocytes % 1 H (Manual) Nucleated Red 0.0 Blood Cells % Immature 1.090 H Granulocytes # Neutrophils # Neutrophils # 18.2 H (Manual) Band 0.8 H Neutrophils # Lymphocytes 0.4 L (Manual) Lymphocytes # Monocytes # Monocytes # 0.6 (Manual) Eosinophils # Basophils # Basophils # 0.2 H (Manual) Myelocytes # 0.2 H Nucleated Red Blood Cells # Platelet NORMAL Estimate Poikilocytosis 1+ Anisocytosis 1+ Microcytosis 1+ Ovalocytes 1+ POC Venous 1.7 Lactate Urine Color YELLOW Urine Clarity CLEAR Urine pH 5.0 Urine Specific 1.025 [place] Urine Ketones NEGATIVE Urine Nitrite NEGATIVE Urine Bilirubin NEGATIVE Urine 1+ H Urobilinogen Urine Leukocyte NEGATIVE Esterase Urine 2 Microscopic RBC Urine 3 Microscopic WBC Urine Bacteria FEW A Urine Mucus FEW A Urine NEGATIVE Hemoglobin Urine Glucose NEGATIVE Urine Total 1+ H Protein Test 06/30/18 19:13 06/30/18 22:27 06/30/18 22:50 07/01/18 01:53 Lactic Acid 2.7 *H Level Blood Gas Blood Specimen arterial Source Arterial Blood 06/30/2018 10: Date Drawn 30:27 PM Arterial Blood 7.290 *L pH (Temp corrected ) Arterial Blood 67.9 H pCO2 (Temp correct) Arterial Blood 55.0 L pO2 (Temp corrected ) Arterial Blood 31.9 H HCO3 Arterial Blood 3.5 H Base Excess Arterial Blood 85.7 L Oxygen Saturati on Go Test N/A Arterial Blood Right Gas Brachial Puncture Site Arterial 1.0 Blood Carboxyhe moglobin Arterial Blood 0.1 Methemoglobin Blood Gas A-a 590.1 H O2 Differential Oxyhemoglobin 84.8 L Percent Blood Gas 37.0 Temperature Blood Gas TRACH COLLAR Modality FiO2 100.0 Blood Gas Nadia ROSARIO RN Critical Value Read Back Blood Gas Notified Whom Blood Gas 06/30/2018 10: Notified Time 42:27 PM Bedside Glucose 221 H 241 H Test 07/01/18 03:20 07/01/18 05:18 07/01/18 05:20 07/01/18 06:06 Blood Gas Blood arterial Specimen Source Arterial Blood 07/01/2018 4:03 Date Drawn :38 AM Arterial Blood 7.539 H pH (Temp corrected ) Arterial Blood 34.5 L pCO2 (Temp correct) Arterial Blood 541.0 H pO2 (Temp corrected ) Arterial Blood 28.8 H HCO3 Arterial Blood 6.1 H Base Excess Arterial Blood 99.6 Oxygen Saturati on Go Test ACCEPTAB Arterial Blood Right Radial Gas Puncture Site Arterial 0.3 Blood Carboxyhe moglobin Arterial Blood 0 Methemoglobin Blood Gas A-a 137.5 H O2 Differential Oxyhemoglobin 99.3 H Percent Blood Gas 37.0 Temperature Blood Gas 14.0 Respiration Rate Blood Gas 15 Actual Respiration Rat e Blood Gas VENT - PC Modality FiO2 100.0 Blood Gas Low 5.0 PEEP Setting Blood Gas 25.0 Inspiratory Pressure Blood Gas Evan [facility] Notified Whom Blood Gas 07/01/2018 4:17 Notified Time :22 AM Thyroid 1.810 Stimulating Hormone (TSH) White Blood 18.4 H Count Red Blood Count 3.58 L Hemoglobin 10.1 L Hematocrit 33.6 L Mean 93.9 Corpuscular Volume Mean 28.2 L Corpuscular Hemoglobin Mean 30.1 L Corpuscular Hemoglobin Conc ent Red Cell 15.5 H Distribution Width Platelet Count 323 Mean Platelet 11.5 H Volume Immature 4.300 H Granulocytes % Neutrophils % 80.9 H Lymphocytes % 5.9 L Monocytes % 8.6 Eosinophils % 0.1 Basophils % 0.2 Nucleated Red 0.0 Blood Cells % Immature 0.790 H Granulocytes # Neutrophils # 14.9 H Lymphocytes # 1.1 Monocytes # 1.6 H Eosinophils # 0.0 Basophils # 0.0 Nucleated Red 0.0 Blood Cells # Sodium Level 146 H Potassium Level 3.7 Chloride Level 107 Carbon Dioxide 32 H Level Anion Gap 7 Blood Urea 31 H Nitrogen Creatinine 0.72 Est Glomerular Filtrat Rate mL/min Glucose Level 179 Calcium Level 9.0 Bedside Glucose 215 Test 07/01/18 07:00 07/01/18 09:00 07/01/18 11:45 Blood Gas Blood arterial Blood Specimen arterial Source Arterial Blood 07/01/2018 7:17 07/01/2018 9:1 Date Drawn :00 AM 5:51 AM Arterial Blood 7.116 *L 7.342 L pH (Temp corrected ) Arterial Blood 98.6 *H 47.4 H pCO2 (Temp correct) Arterial Blood 468.3 H 494.8 H pO2 (Temp corrected ) Arterial Blood 31.0 H 25.1 HCO3 Arterial Blood -0.7 -0.9 Base Excess Arterial Blood 99.8 99.8 Oxygen Saturati on Go Test ACCEPTAB ACCEPTAB Arterial Blood Right Radial Right Radial Gas Puncture Site Arterial 0.3 0.3 Blood Carboxyhe moglobin Arterial Blood 0.3 0.1 Methemoglobin Blood Gas A-a 146.1 H 170.8 H O2 Differential Oxyhemoglobin 99.2 H 99.4 H Percent Blood Gas 37.0 37.0 Temperature Blood Gas 14.0 18.0 Respiration Rate Blood Gas 14 18 Actual Respiration Rat e Blood Gas VENT - PC VENT - AC Modality FiO2 100.0 100.0 Blood Gas Low 5.0 5.0 PEEP Setting Blood Gas REZA BURCIAGA Critical Value Read Back Blood Gas TM TM Notified Whom Blood Gas 07/01/2018 7:35 07/01/2018 9:2 Notified Time :00 AM 4:20 AM Blood Gas [place] 500.0 Volume Bedside Glucose 168 Imaging ECG with atrial fibrillation in the 120s, QRS 72 ms, nonspecific ST abnormalities Evan Armas DO Jul 01, 2018 13:34
[2018-07-01] MEDS ORDERED: GLUCOSE GEL 15 GRAM TUBE BUCCAL PRN (14:00)
[2018-07-01] MEDS ORDERED: GLUCOSE GEL 15 GRAM TUBE PO PRN ×2 (14:00)
[2018-07-01] MEDS ORDERED: DEXTROSE 50% 50 ML SYRINGE IV PRN ×2 (14:00)
[2018-07-01] MEDS ORDERED: DIGOXIN 500 MCG INJ IV ONE (14:00)
[2018-07-01] MEDS ORDERED: GLUCAGON 1 MG INJ IM PRN (14:00)
--- NOTE | 2018-07-01 15:25 | NUR ---
VANCOMYCIN PER PHARMACY DUE TO PT'S AGE (77) AND SLIGHT INCREASE IN SCR, CHANGE TO VANCOMYCIN 1.5 GRAM Q24 HOURS FOR NOW. NEXT DOSE DUE 07/02 AT 0600. CHECK TROUGH PRIOR TO 4TH DOSE. PHARMACY WILL FOLLOW. THANK YOU.
--- NOTE | 2018-07-01 15:28 | NUR ---
PICC LINE RN IN ROOM TO INSERT PICC LINE FOR VASOACTIVE INFUSION
--- NOTE | 2018-07-01 15:42 | NUR ---
NUTRITION NOTE: PATIENT ADMIT FROM SNF, CHRONIC TRACH/G-TUBE. ACUTE HYPOXIC/HYPERCARBIC RESPIRATORY FAILURE. HX/O DM2, NO HGB AIC AVAILABLE, POC GLUCOSE <180, ON ASPART MILD ALG. SEDATED, G-TUBE CLAMPED. WHEN MEDICALLY ABLE, TUBE FEEDING MAY BE STARTED W/ DIABETISOURCE AC @ 30 ML/HR TO GOAL OF 50 ML/HR TO PROVIDE 1440 RADHA/ 72 PROT/ 980 FREE WATER. WATER FLUSHES 50 ML Q 6 HOURS OR PER .
--- NOTE | 2018-07-01 16:30 | NUR ---
PICC Insertion. Received order in the Radiology Department for peripherally inserted central catheter (PICC) insertion at bedside. Orders verified and history reviewed. Patient intubated and on a ventilator, eyes closed but withdraws to tactile stimuli, wrist restraints in place. Procedure reviewed prior to starting. Telephone consent on chart for PICC. Mid-LOS circumference 25cm. LUE prepped with chlorhexidene, then maximum barrier drape applied. Xylocaine 1% given SC at the intended insertion site. Left brachial vein accessed with 21G needle. 5 FR double lumen Arrow Power PICC, Lot#[id number], Product #[id number], inserted into brachial vein after trimming catheter down to 44cm, using U/S guidance, sterile technique, and a tika wire to successfully advance the catheter. Brisk blood return from both ports. CXR performed X4. On final image, tip verbally confirmed in the Mid-SVC with 44cm internal and none out. All wires removed and accounted for. Sterile dressing applied. Patient tolerated procedure well.
[2018-07-01] MEDS: LEVALBUTEROL (HFA) 15 GM INHALER INH SCH (16:43)
--- NOTE | 2018-07-01 17:21 | QN ---
Documentation Comment ID consult requested by Dr. Dobbins. Dr. Stanton is aware and will see this pt. Thank you for the consult. PATRICE SANDRA NP Jul 01, 2018 17:21
--- NOTE | 2018-07-01 17:37 | NUR ---
EOSS PT IN BED INTUBATED AND SEDATED WITH VERSED. PT ALSO ON LEVOPHED AT 8 MCGS AT THIS TIME VIA LEFT UPPER ARM PICC LINE. PT'S OLD TRACH REMOVED D/T RESPIRATORY DISTRESS. OLD TRACHED SITE COVERED WITH GAUZE WITH SOME MUCUS SECRETION. PENDING CONSULT FOR RETRACH. PT IS STABLE AT THIS MOMENT WITH BILATERAL SOFT WRIST RESTRAINT. CARE GIVEN PER PROTOCOL
[2018-07-01] MEDS ORDERED: VANCOMYCIN 1 GM 250 ML IVPB SCH (18:00)
[2018-07-01] MEDS: ATORVASTATIN 10 MG TAB GTB SCH (20:07)
[2018-07-01] MEDS: NPH, HUMAN INSULIN ISOPHANE 3ML VIAL SC SCH (20:10)
--- NOTE | 2018-07-01 20:52 | PN ---
Date/Time of Note Date/Time of Note DATE: 07/01/18 TIME: 20:31 Assessment/Plan VTE Prophylaxis Risk score (from Ns)>0 risk: 7 SCD applied (from Ns): Yes Pharmacological prophylaxis: other Lines/Catheters IV Catheter Type (from Nrsg): PICC Line Central line still needed: Yes Urinary Cath still in place: Yes Reason Cath still needed: urinary retention Assessment/Plan Assessment/Plan 1. Acute encephalopathy, improved. The patient is approaching his baseline. Continue to monitor closely. No sedative at this time. 2. Elevated white count; however, patient has no fever. - cont vancomycin and meropenem - pending result of urine and blood culture. 3. Atrial fibrillation. The patient after admission went into rapid ventricular response and had to be started on Cardizem and Eliquis. We will keep patient on telemetry. 4. ABG done in the ER revealed pH of 7.29, pCO2 of 16.9, pO2 of 55. The patient was diagnosed with acute hypoxemic and hypercarbic respiratory failure. The patient will be attached to the vent, and pulmonary consult with Dr. Mustafa will be obtained. 5. Dysphagia. Continue G-tube feeding. 6. Diabetes. We will place him on sliding scale insulin for now until more information is available from subacute unit. According to the patient's nurse, there was no medication reconciliation done and no medications were available. 7. Myasthenia gravis, status post thymectomy. 8. Dyslipidemia. The patient used to be on Lipitor. Again, the medication list from the [place] [facility] facility has not been received. Continue Lipitor. 9. Hypertension and coronary artery disease. Continue metoprolol and p.r.n. IV diltiazem. 10. The patient apparently also has history of depression. We will resume Prozac. 11. The patient has mild dementia. We will continue Aricept. Total critical care time spent [address] Dobbins tried to contact grand daughter Bruna but her voice mail was full. Further recommendations will depend on the patient's hospital course and recommendations from consultants. Subjective 24 Hr Interval Summary Free Text/Dictation -NAD -On Levo 5 mcg now - sp PICC line placement - dw staff Subjective hx not possible: pt non-verbal, pt critical Constitutional: requiring IVF, requiring O2 Exam/Review of Systems Vital Signs Vitals Vital Signs Date Temp Pulse Resp B/P (MAP) Pulse Ox O2 O2 Flow FiO2 Time Delivery Rate 07/01/18 80 18 100 50 19:56 07/01/18 131/79 18:15 (96) 07/01/18 97.8 16:00 07/01/18 Mechanical 12:00 Ventilator 06/30/18 10.0 23:00 Intake and Output 06/30/18 06/30/18 07/01/18 1515:00 23:00 07:00 IntakeIntake Total 1395 ml OutputOutput Total 195 ml BalanceBalance 1200 ml Exam Constitutional: non-verbal Psych: nl mood/affect Eyes: nl lids ENMT: nl external ears & nose Neck: non-tender, other (ET TUBE INTACT) Respiratory: diminished breath sounds Cardiovascular: nl pulses, other (s1s2) Gastrointestinal: soft Musculoskeletal: muscle weakness, range of motion Extremities: normal pulses Neurological: other Skin: other COREY LARIOS Jul 01, 2018 20:42
[2018-07-01] MEDS: ALBUTEROL/IPRATROPIUM (NEB) 3 ML AMP HHN PRN (21:50)
[2018-07-02] VITALS (101 sets, daily range): BP systolic 82–164; BP diastolic 38–120; PULSE 82–152; RESP 9–29
[2018-07-02] MEDS: LEVALBUTEROL (HFA) 15 GM INHALER INH SCH
[2018-07-02] MEDS: MIDAZOLAM (DRIP) 50 mg/50 mL 50 ML IV SCH ×3 (00:06→23:01)
[2018-07-02] MEDS: ALBUTEROL/IPRATROPIUM (NEB) 3 ML AMP HHN PRN (02:41)
[2018-07-02] MEDS: ACETYLCYSTEINE 20% 4 ML VIAL NEB SCH ×2 (02:41→05:15)
--- NOTE | 2018-07-02 05:14 | NUR ---
EOSS Pt intubated, sedated. Afebrile. Spo2>95% on vent. Pt was intubated earlier today due to trach blockage. Trach has been removed. Trach stoma care performed. Pt turned q2h, skin and wound care provided. Pt is sedated, however has periods of agitation, specifically during turns, and attempts to pull lines and tubes. Restraints remain on, per order. Pt's afib is controlled at this time. During periods of agitation, HR in 120's w/ afib but comes down gradually as pt relaxes. TF started, tolerating well. Adequate UOP. Levo titrated to 2mcg at this time, SBP maintained >90. Comfort and safety measures addressed, no other acute events to report.
[2018-07-02] MEDS: LANSOPRAZOLE 30 MG CAP GTB SCH (05:42)
[2018-07-02] MEDS: MEROPENEM 1 GM/50ML(PMX) 50 ML IVPB SCH ×3 (05:42→21:03)
[2018-07-02] MEDS: INSULIN ASPART [NOVOLOG] 3 ML PEN SC SCH ×3 (05:44→18:43)
[2018-07-02] MEDS: VANCOMYCIN 1.5 GM in SOD CHLORIDE 0.9% 250 ML IVPB SCH (06:22)
--- NOTE | 2018-07-02 08:15 | CONS ---
Date/Time of Note Date/Time of Note DATE: 07/02/18 TIME: 08:11 Assessment/Plan Assessment/Plan Additional Assessment/Plan Ventilator setting; AC of 18, tidal volume 500, PEEP of 5, 50% FiO2. Patient is currently on Levophed 1.5 mics per minute, Versed 4 mg/h. Assessment recommendations; 1. Patient admitted with acute hypercapnic respiratory failure due to tracheostomy dislodgment, status post oral intubation with marked improvement in gas exchange. With correction of respiratory acidosis. 2. History of dementia with apparent baseline adequate mental status. 3. Gram-positive bacteremia. 4. Prior CABG. 5. Mild hypotension. Requiring low-dose Levophed. 6. Hypernatremia. 7. History of myasthenia gravis status post thymectomy in the past. 8. Anemia. 9. Chronic atrial fibrillation. Discontinue normal saline drip. Add free water via G-tube to 250 mL every 6 hours. Monitor serum sodium level. Hold sedation to assess mental status. Continue current antibiotics and other supportive measures. Resume Eloquis. Patient scheduled for evaluation of redo tracheostomy. 35 minutes of critical care time was spent evaluating the patient. Consultation Date/Type/Reason Admit Date/Time Jun 30, 2018 at 18:05 Initial Consult Date 07/01/18 Type of Consult Pulmonary/critical care History of presenting illness; patient is a 77-year-old male who was transferred over to the hospital from senior living because of altered mental status. The patient was found to be severely hypercapnic and apparently there was an issue with the tracheostomy being dislodged. The patient having low tidal volumes and had to be switched to pressure control mode of ventilation with persistent severe hypercapnia. By the time I saw him, patient is on ventilator via tr acheostomy and is unresponsive. History was obtained from medical records. Past medical history; 1. Chronic respiratory failure, and VDR F. 2. History of myasthenia gravis. 3. Apparently mild dementia. 4. History of tracheostomy and G-tube placement. 5. History of hypertension. 6. Chronic atrial fibrillation. Medications; reviewed. Allergies; penicillin. Social history, family history, occupational history not available. Review of system; unable to be obtained. General exam; elderly male, on ventilator via tracheostomy, unresponsive, tachypneic. 24 HR Interval Summary Free Text/Dictation Patient's condition remains critical. Patient had to be intubated orally yesterday morning for tracheostomy dislodgment. Follow-up ABG showed significant and marked improvement in PCO2 level. Patient however still sedated as he got agitated and required Versed for sedation. General exam; elderly male, orally intubated, sedated, currently no distress. Exam/Review of Systems Vital Signs Vitals Vital Signs Date Temp Pulse Resp B/P (MAP) Pulse Ox O2 O2 Flow FiO2 Time Delivery Rate 07/02/18 98 14 110/63 97 07:15 (79) 07/02/18 Mechanical 06:00 Ventilator 07/02/18 50 05:28 07/02/18 97.7 04:00 06/30/18 10.0 23:00 Intake and Output 07/01/18 07/01/18 07/02/18 1515:00 23:00 07:00 IntakeIntake Total 1547.88 ml 780.39 ml 1058.15 ml OutputOutput Total 225 ml 425 ml 400 ml BalanceBalance 1322.88 ml 355.39 ml 658.15 ml Exam HEENT exam; supple neck, no JVD. No lymphadenopathy. Midline trachea. No thyromegaly. Orally intubated. Patient is edentulous. Pupils are small bilaterally. No neck masses. Chest exam; diminished but clear breath sounds. S1-S2 audible, no murmurs. Irregular rhythm. There is a well-healed sternal scar. Abdomen exam; soft, scaphoid. No organomegaly. G-tube in place. Bowel sounds audible. Extremity exam; no peripheral edema. [employer] DEVELOPER exam; patient is sedated. ANSELMO PIERCE Jul 02, 2018 08:15
[2018-07-02] MEDS: NPH, HUMAN INSULIN ISOPHANE 3ML VIAL SC SCH ×2 (09:00→20:55)
[2018-07-02] MEDS ORDERED: POTASSIUM CHLORIDE 20 MEQ POWDER FOR ORAL SOLN GTB ONE (09:00)
[2018-07-02] MEDS: APIXABAN 5 MG TABLET PO SCH ×2 (10:57→21:03)
--- NOTE | 2018-07-02 12:01 | NUR ---
Notified Dr. Dobbins of low phos level, received order to replace. Order placed to recheck am labs. Reminded MD to renew Restraint order. Requested consult for Dr. Black, stated that Dr. Carolina already spoke with him yesterday and that order in the computer is unnecessary.
--- NOTE | 2018-07-02 12:28 | RADRPT ---
Echocardiogram Report Patient Name: JOE HORTON Gender: Male Date: 1940 Study Date: 01-Jul-2018 Manager Study: Ethan Trevino RDCS Location: [facility] Ref. Physician: ALE CHUN Quality: Technically Difficult Study Procedures: Transthoracic echocardiogram with complete 2D, M-Mode, and doppler examination. Indications: Atrial Fibrillation. 2D/M Mode Doppler Measurement Value Normal Ranges Measurement Value Normal Ranges LVIDd 2D 3.6 3.5 - 5.6 cm AV Peak Tony 0.9 m/sec LVIDs 2D 2.5 2.1 - 4.1 cm AV Peak PG 3.0 mmHg FS 2D 30.9 % LVOT Peak Tony 0.8 m/sec LVPWd 2D 1.3 0.6 - 1.1 cm LVOT Peak PG 2.0 mmHg IVSd 2D 1.3 0.6 - 1.1 cm TR Peak Tony 2.5 m/sec IVS/LVPW 2D 1.0 TR Peak PG 25.0 mmHg AoR Diam 2D 2.5 2.0 - 3.7 cm RVSP 40.0 mmHg LA/Ao 2D 1 0 - 1 RA Pressure 15.0 EDV 2D 45.1 cm3 ESV 2D 14.9 cm3 LA Dimen 2D 2.6 2.3 - 4.0 cm Findings Left Ventricle: Lower limits of normal systolic function. Normal left ventricular cavity size. Mild concentric left ventricular hypertrophy. Ejection fraction is visually estimated at 50 %. Abnormal Diastolic Function. Right Ventricle: Normal right ventricular size. Normal right ventricular systolic function. Left Atrium: The left atrium is normal in size. Right Atrium: The right atrium is normal in size. Mitral Valve: Mild mitral leaflet calcification. Moderate mitral annular calcification. Mild mitral valve regurgitation. Aortic Valve: No significant aortic stenosis or insufficiency. Aortic cusps appear mildly calcified. Tricuspid Valve: Normal appearance of the tricuspid valve. Estimated peak PA systolic pressure 40 mmHg. There is mild tricuspid regurgitation. Pulmonic Valve: Normal pulmonic valve appearance. Pericardium: Normal pericardium with no significant pericardial effusion. Aorta: Normal aortic root. IVC: Dilated IVC without respiratory collapse, however, patient on ventilator. Conclusions Lower limits of normal systolic function. Normal left ventricular cavity size. Mild concentric left ventricular hypertrophy. Ejection fraction is visually estimated at 50 %. Abnormal Diastolic Function. Normal right ventricular size. Normal right ventricular systolic function. The left atrium is normal in size. The right atrium is normal in size. Mild mitral valve regurgitation. No significant aortic stenosis or insufficiency. Estimated peak PA systolic pressure 40 mmHg. There is mild tricuspid regurgitation. Normal pericardium with no significant pericardial effusion. Electronically Signed By: Evan Armas 02-Jul-2018 12:27:51 -0800 Patient Name: JOE HORTON Study Date: 01-Jul-2018 [id number]
--- NOTE | 2018-07-02 12:51 | CONS ---
Date/Time of Note Date/Time of Note DATE: 07/02/18 TIME: 12:49 Assessment/Plan Assessment/Plan Additional Assessment/Plan Acute on chronic respiratory failure Possible trach dislodgment status post intubation Atrial fibrillation with rapid ventricular rates, improved Preserved ejection fraction Hypotension on IV pressor Myasthenia gravis -Patient's blood pressure improving and on low-dose IV pressor. Continue to titrate off to maintain SBP greater than 90 and/or map above 60. Heart rate trend overall improved. Would order additional potassium supplementation to ideally maintain above 4.0. Continue anticoagulation if no contraindication. Consultation Date/Type/Reason Admit Date/Time Jun 30, 2018 at 18:05 Initial Consult Date 07/01/18 Type of Consult cv 24 HR Interval Summary Free Text/Dictation pt seen and examined Exam/Review of Systems Vital Signs Vitals Vital Signs Date Temp Pulse Resp B/P (MAP) Pulse Ox O2 O2 Flow FiO2 Time Delivery Rate 07/02/18 106 18 100 12:15 07/02/18 98.6 97/55 (69) Mechanical 12:00 Ventilator 07/02/18 50 08:00 06/30/18 10.0 23:00 Intake and Output 07/01/18 07/01/18 07/02/18 1515:00 23:00 07:00 IntakeIntake Total 1547.88 ml 780.39 ml 1088.15 ml OutputOutput Total 225 ml 425 ml 400 ml BalanceBalance 1322.88 ml 355.39 ml 688.15 ml Exam Intubated and sedated, no apparent distress Head: normocephalic ENMT: intubated Respiratory: other (Coarse breath sounds bilaterally, no wheezing) Cardiovascular: irregular rhythm, other (S1-S2 heard) Gastrointestinal: soft, non-tender, bowel sounds Extremities: edema (Trace) Evan Armas DO Jul 02, 2018 12:51
[2018-07-02] MEDS ORDERED: POTASSIUM CHLORIDE 20 MEQ POWDER FOR ORAL SOLN NGT ONE (13:00)
[2018-07-02] MEDS ORDERED: POTASSIUM PHOSPHATE 20 MM in SOD CHLORIDE 0.9% 250 ML IVPB ONE (13:30)
--- NOTE | 2018-07-02 14:42 | PN ---
Date/Time of Note Date/Time of Note DATE: 07/02/18 TIME: 14:35 Assessment/Plan VTE Prophylaxis Risk score (from [facility])>0 risk: 11 SCD applied (from [facility]): Yes SCD contraindicated: other Pharmacological prophylaxis: other Pharm contraindication: other Lines/Catheters IV Catheter Type (from [facility]): PICC Line Central line still needed: Yes Urinary Cath still in place: Yes Reason Cath still needed: urinary retention Assessment/Plan Assessment/Plan - hypokalemia- replaced- fu am labs 1. Acute encephalopathy, improved. The patient is approaching his baseline. Continue to monitor closely. No sedative at this time. 2. Elevated white count; however, patient has no fever. - per ID - cont vancomycin and meropenem - pending result of urine and blood culture. 3. Atrial fibrillation. The patient after admission went into rapid ventricular response and had to be started on Cardizem and Eliquis. We will keep patient on telemetry. 4. Acute hypoxemic and hypercarbic respiratory failure. - PER pulmonary consult with Dr. Mustafa 5. Dysphagia. Continue G-tube feeding. 6. Diabetes. 7. Myasthenia gravis, status post thymectomy. 8. Dyslipidemia. The patient used to be on Lipitor. Again, the medication list from the [place] [facility] facility has not been received. Continue Lipitor. 9. Hypertension and coronary artery disease. Continue metoprolol and p.r.n. IV diltiazem. 10. The patient apparently also has history of depression. We will resume Prozac. 11. The patient has mild dementia. We will continue Aricept. Total critical care time spent [address] Dobbins tried to contact grand daughter Bruna but her voice mail was full. Further recommendations will depend on the patient's hospital course and recommendations from consultants. Subjective 24 Hr Interval Summary Free Text/Dictation - afebrile; tachy; hypotensive - - on vasopressor - restraints renewed Subjective hx not possible: pt non-verbal Constitutional: requiring IVF, requiring O2 Exam/Review of Systems Vital Signs Vitals Vital Signs Date Temp Pulse Resp B/P (MAP) Pulse Ox O2 O2 Flow FiO2 Time Delivery Rate 07/02/18 106 18 100 12:15 07/02/18 98.6 97/55 (69) Mechanical 12:00 Ventilator 07/02/18 50 08:00 06/30/18 10.0 23:00 Intake and Output 07/01/18 07/01/18 07/02/18 1515:00 23:00 07:00 IntakeIntake Total 1547.88 ml 780.39 ml 1088.15 ml OutputOutput Total 225 ml 425 ml 400 ml BalanceBalance 1322.88 ml 355.39 ml 688.15 ml Exam Constitutional: non-verbal, frail Eyes: nl conjunctiva, nl sclera ENMT: nl external ears & nose Neck: non-tender Respiratory: diminished breath sounds Cardiovascular: nl pulses, other (s1s2) Gastrointestinal: soft, other Musculoskeletal: muscle weakness, range of motion Extremities: normal pulses Neurological: lethargic Skin: other COREY LARIOS Jul 02, 2018 14:42
[2018-07-02] MEDS: FENTAnyl (DRIP) 1000 mcg/100mL 100 ML IV SCH (15:25)
--- NOTE | 2018-07-02 15:47 | CONS ---
Date/Time of Note Date/Time of Note DATE: 07/02/18 TIME: 15:47 Assessment/Plan Assessment/Plan Chief Complaint/Hosp Course patient seen and examined. full note to follow momentarily. Consultation Date/Type/Reason Admit Date/Time Jun 30, 2018 at 18:05 Initial Consult Date 07/01/18 Exam/Review of Systems Vital Signs Vitals Vital Signs Date Temp Pulse Resp B/P (MAP) Pulse Ox O2 O2 Flow FiO2 Time Delivery Rate 07/02/18 106 18 100 12:15 07/02/18 98.6 97/55 (69) Mechanical 12:00 Ventilator 07/02/18 50 08:00 06/30/18 10.0 23:00 Intake and Output 07/01/18 07/01/18 07/02/18 1515:00 23:00 07:00 IntakeIntake Total 1547.88 ml 780.39 ml 1088.15 ml OutputOutput Total 225 ml 425 ml 400 ml BalanceBalance 1322.88 ml 355.39 ml 688.15 ml PETER LUTZ MD Jul 02, 2018 15:47
--- NOTE | 2018-07-02 15:59 | CONS ---
Date/Time of Note Date/Time of Note DATE: 07/02/18 TIME: 15:50 Assessment/Plan Assessment/Plan Chief Complaint/Hosp Course 1. Probable MRSA soft tissue abscess--> Septic Shock 2. Resp failure 3. complicated pmh that includes: hypertension, diabetes, atrial fibrillation, depression, dementia, dyslipide oksana, and myasthenia gravis s/p recent thymectomy R: cont. vanco cont. Merrem for now but suspect may be able to stop soon if sputum cx neg. serial cxr will order sputum will review records from recent hospitalization/[place] consider ent evaluation and/or surgical evaluation of trach site as likely source; additional imaging such as CT neck should also be considered wound care neck lesion will continue to follow this critically ill gentleman closely with you ty Consultation Date/Type/Reason Admit Date/Time Jun 30, 2018 at 18:05 Date of Consultation: Jul 02, 2018 Type of Consult ID Reason for Consultation SEPTIC SHOCK Requesting Provider: ALE CHUN MD Hx of Present Illness 77 YO male with pmh of htn, dm, afib, depression, dementia, myasthenia gravis, admitted from [facility] with resp distress and Shock. His cxs have all revealed staph aures. His previous trach site has purulent drainage also growing staph. He is unable to give any hx. He is currently intubated and requiring pressor support. patient unable to provide Past Medical History as per [facility] Medications Current Medications Albuterol/ Ipratropium (Duoneb) 3 ml Q6H RESP THERAPY PRN HHN SHORTNESS OF BREATH Last administered on 07/02/18at 02:41; Admin Dose 3 ML; Start 06/30/18 at 23:00 Vancomycin HCl (Vanco Iv Per Pharmacy) VANCOMYCIN PER PHARMACY PER PROTOCOL XX ; Start 06/30/18 at 23:00 Meropenem/Sodium Chloride 50 ml @ 100 mls/hr Q8 IVPB Last administered on at 14:19; Admin Dose 100 MLS/HR; Start 07/01/18 at 06:00 Acetaminophen (Tylenol Liquid) 650 mg Q4H PRN GTB MILD PAIN(1-3)OR ELEVATED TEMP; Start 06/30/18 at 23:00 Insulin Aspart (Novolog Insulin Pen) NOVOLOG *MILD* ALGORI... Q6H SC Last administered on 07/02/18at 05:44; Admin Dose 1 UNIT; Start 07/01/18 at 00:00 Diltiazem HCl (Cardizem Iv) 10 mg Q4H PRN IV for HR>110 Last administered on 07/01/18at 09:51; Admin Dose 10 MG; Start 06/30/18 at 23:00 Norepinephrine 16 mg/Dextrose 500 ml @ 0 mls/hr TITRATE IV Last administered on 07/01/18at 12:10; Admin Dose 9.38 MLS/HR; Start 07/01/18 at 11:00 Lansoprazole (Prevacid) 30 mg DAILY@06 GTB Last administered on 07/02/18at 05:42; Admin Dose 30 MG; Start 07/01/18 at 09:00 Midazolam HCl 50 ml @ 1 mls/hr TITRATE IV Last administered on 07/02/18at 15:14; Admin Dose 6 MLS/HR; Start 07/01/18 at 11:30 Miscellaneous Information 1 ea NOTE XX ; Start 07/01/18 at 14:00 Glucose (Glutose) 15 gm Q15M PRN PO DECREASED GLUCOSE; Start 07/01/18 at 14:00 Glucose (Glutose) 22.5 gm Q15M PRN PO DECREASED GLUCOSE; Start 07/01/18 at 14:00 Dextrose (D50w Syringe) 25 ml Q15M PRN IV DECREASED GLUCOSE; Start 07/01/18 at 14:00 Dextrose (D50w Syringe) 50 ml Q15M PRN IV DECREASED GLUCOSE; Start 07/01/18 at 14:00 Glucagon (Glucagen) 1 mg Q15M PRN IM DECREASED GLUCOSE; Start 07/01/18 at 14:00 Glucose (Glutose) 15 gm Q15M PRN BUCCAL DECREASED GLUCOSE; Start 07/01/18 at 14:00 Vancomycin HCl 1.5 gm/Sodium Chloride 250 ml @ 83.333 mls/ hr Q24H IVPB Last administered on 07/02/18at 06:22; Admin Dose 83.333 MLS/HR; Start 07/02/18 at 06:00 Atorvastatin Calcium (Lipitor) 10 mg HS GTB Last administered on 07/01/18at 20:07; Admin Dose 10 MG; Start 07/01/18 at 21:00 Insulin Human NPH (Humulin N) 10 unit BID@08,20 SC Last administered on 07/02/18at 09:00; Admin Dose 10 UNIT; Start 07/01/18 at 20:00 IV Flush (NS 10 ml) 10 ml PRN PRN IV IV PROTOCOL; Start 07/01/18 at 17:00 Apixaban (Eliquis) 2.5 mg BID PO Last administered on 07/02/18at 10:57; Admin Dose 2.5 MG; Start 07/02/18 at 09:00 Miscellaneous Information (*Rx Drug Level Order Reminder*) VANCO TR AT 0,500 ONCE ONCE XX ; Start 07/03/18 at 05:00; Stop 07/03/18 at 05:01 Potassium Phosphate 20 mm/ Sodium Chloride 256.6667 ml @ 64.167 m... ONCE ONCE IVPB Last administered on 07/02/18at 12:57; Admin Dose 64.167 MLS/HR; Start 07/02/18 at 13:30; Stop 07/02/18 at 17:29 Fentanyl 100 ml @ 2.5 mls/hr TITRATE IV Last administered on 07/02/18at 15:25; Admin Dose 2.5 MLS/HR; Start 07/02/18 at 16:00 Allergies: Coded Allergies: Penicillins (Unverified Allergy, Unknown, 06/30/18) Social History Smoking Status: Never smoker Exam/Review of Systems Vital Signs Vitals Vital Signs Date Temp Pulse Resp B/P (MAP) Pulse Ox O2 O2 Flow FiO2 Time Delivery Rate 07/02/18 106 18 100 12:15 07/02/18 98.6 97/55 (69) Mechanical 12:00 Ventilator 07/02/18 50 08:00 06/30/18 10.0 23:00 Intake and Output 07/01/18 07/01/18 07/02/18 1515:00 23:00 07:00 IntakeIntake Total 1547.88 ml 780.39 ml 1088.15 ml OutputOutput Total 225 ml 425 ml 400 ml BalanceBalance 1322.88 ml 355.39 ml 688.15 ml Exam Constitutional: non-verbal, distress Psych: confusion Head: normocephalic Eyes: EOMI ENMT: nl external ears & nose, other (previous trach site with purulent drainage) Cardiovascular: regular rate and rhythm Gastrointestinal: soft Neurological: JDE DEVELOPER II-XII intact PETER LUTZ MD Jul 02, 2018 15:59
[2018-07-02] MEDS: DILTIAZEM 25 MG INJ IV PRN (17:05)
--- NOTE | 2018-07-02 18:07 | NUR ---
Pt remains orally intubated on ventilator, only change Fi02 now at 30%, since a.m. Titrated up on Versed and started patient on Fentanyl gtt. Much less agitated and appears more comfortable, furrowed brow gone and not has tense. Remains in Afib, treated with Diltiazem x 1 this evening d/t elevated HR. BP stable, although remains on low dose Levophed. IVF stopped d/t elevated sodium. K+ and phos replaced today, will recheck in the morning. TF's now at goal and tolerating well, free H2O increased to 250mls q6h. Flanagan with adequate UOP. Remains in BUE restraints at this time. Urine and Chest wound culture came back positive for MRSA, sputum specimen ordered and obtained. q2h turns, padded bony prominences, foam dressings on sacrum and heals, and BUE and BLE elevated off of bed with pillows and leg wedge.
[2018-07-02] MEDS: NORepinephrine 8MG/250 ML (PMX 250 ML IV SCH (20:56)
[2018-07-02] MEDS: ATORVASTATIN 10 MG TAB GTB SCH (21:02)
[2018-07-03] VITALS (79 sets, daily range): BP systolic 84–118; BP diastolic 55–88; PULSE 78–123; RESP 7–24
[2018-07-03] MEDS: LANSOPRAZOLE 30 MG CAP GTB SCH (05:16)
[2018-07-03] MEDS: MEROPENEM 1 GM/50ML(PMX) 50 ML IVPB SCH ×3 (05:16→22:04)
[2018-07-03] MEDS: INSULIN ASPART [NOVOLOG] 3 ML PEN SC SCH ×5 (05:59→23:52)
[2018-07-03] MEDS: VANCOMYCIN 1.5 GM in SOD CHLORIDE 0.9% 250 ML IVPB SCH (06:03)
--- NOTE | 2018-07-03 06:11 | NUR ---
end of shift report no acute events over night. pt remains intubated and in restraints. pt continues to attempt to reach for ETT tube, being slighly restless. bed bath done, tolerated well. oral care provided. vitals wnl with 1mcg of levo. pt tolerating feeding well. bs wnl.
[2018-07-03] MEDS: FENTAnyl (DRIP) 1000 mcg/100mL 100 ML IV SCH (06:53)
--- NOTE | 2018-07-03 07:49 | PN ---
DATE: 07/02/2018 ADDENDUM I was able to get in touch with the patient's daughter, Bruna Nicholson, at telephone number . I explained to her regarding patient's condition and diagnosis and explained to her that yuki hennessy remains critically ill. The patient currently is intubated. The patient was in full-blown sept ic shock earlier, but now is off vasopressor. Goals of care including code status discussed with her . She requested that patient remains full code for now. Dictated By: ALE LONGORIA/NTS Conf#: [id number] DID#: [id number]
--- NOTE | 2018-07-03 08:29 | CONS ---
Date/Time of Note Date/Time of Note DATE: 07/03/18 TIME: 08:26 Assessment/Plan Assessment/Plan Additional Assessment/Plan Chest x-ray was reviewed from today which is essentially unremarkable. Ventilator setting; AC of 18, tidal volume 500, PEEP of 5, 30% FiO2. Patient is currently on Levophed at 1 narendra per minute. Fentanyl and Versed are on hold. Assessment recommendations; 1. Patient admitted with severe hypercapnic respiratory failure due to tracheostomy dislodgment, requiring oral intubation. With marked improvement in gas exchange. 2. Possible underlying dementia patient apparently however exhibiting adequate mental status at detention on T-piece. 3. History of myasthenia gravis status post thymectomy. Possibly the reason for tracheostomy. 4. Gram-positive bacteremia, currently on appropriate antimicrobial regimen. Most recent blood cultures are negative. 5. Significant improvement in leukocytosis. 6. Improving hypernatremia. 7. Anemia. Continue to hold sedation. Wean off Levophed as tolerated. Continue current supportive care. The patient likely will need to have a redo tracheostomy performed on basis of history of myasthenia gravis. Patient currently awaiting cardiothoracic surgery evaluation. Consultation Date/Type/Reason Admit Date/Time Jun 30, 2018 at 18:05 Initial Consult Date 07/01/18 Type of Consult Pulmonary/critical care History of presenting illness; patient is a 77-year-old male who was transferred over to the hospital from detention because of altered mental status. The patient was found to be severely hypercapnic and apparently there was an issue with the tracheostomy being dislodged. The patient having low tidal volumes and had to be switched to pressure control mode of ventilation with persistent severe hypercapnia. By the time I saw him, patient is on ventilator via tracheostomy and is unresponsive. History was obtained from medical records. Past medical history; 1. Chronic respiratory failure, and VDR F. 2. History of myasthenia gravis. 3. Apparently mild dementia. 4. History of tracheostomy and G-tube placement. 5. History of hypertension. 6. Chronic atrial fibrillation. Medications; reviewed. Allergies; penicillin. Social history, family history, occupational history not available. Review of system; unable to be obtained. General exam; elderly male, on ventilator via tracheostomy, unresponsive, tachypneic. Requesting Provider: ALE CHUN MD 24 HR Interval Summary Free Text/Dictation Patient's condition is critical. Patient has been taken off sedation around 4 AM today and is still under sedative effect. Patient requiring low-dose Levophed for hypotension. General exam; elderly male, orally intubated, sedated, currently in no distress. Exam/Review of Systems Vital Signs Vitals Vital Signs Date Temp Pulse Resp B/P (MAP) Pulse Ox O2 O2 Flow FiO2 Time Delivery Rate 07/03/18 98 18 93/58 (70) 100 06:00 07/03/18 30 04:45 07/03/18 98.1 04:00 07/02/18 Mechanical 23:00 Ventilator 06/30/18 10.0 23:00 Intake and Output 07/02/18 07/02/18 07/03/18 1414:59 22:59 06:59 IntakeIntake Total 774.38 ml 1163.710 ml 727.000 ml OutputOutput Total 450 ml 300 ml 485 ml BalanceBalance 324.38 ml 863.710 ml 242.000 ml Exam HEENT exam; supple neck, no JVD. No lymphadenopathy. Midline trachea. No thyromegaly. Patient is edentulous. Pupils are small bilaterally. No neck masses. Chest exam; diminished but clear breath sounds. S1-S2 audible, no murmurs. Regular rhythm. There is a well-healed sternal scar. Abdomen exam; soft, no organomegaly. G-tube in place. Bowel sounds audible. Extremity exam; no peripheral edema or clubbing. 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 ANSELMO PIERCE Jul 03, 2018 08:29
[2018-07-03] MEDS ORDERED: POTASSIUM CHLORIDE 20 MEQ POWDER FOR ORAL SOLN GTB ONE (09:00)
[2018-07-03] MEDS: APIXABAN 5 MG TABLET PO SCH ×2 (09:03→21:37)
[2018-07-03] MEDS: NPH, HUMAN INSULIN ISOPHANE 3ML VIAL SC SCH ×2 (09:10→21:37)
--- NOTE | 2018-07-03 09:37 | CONS ---
Date/Time of Note Date/Time of Note DATE: 07/03/18 TIME: 09:36 Assessment/Plan Assessment/Plan Chief Complaint/Hosp Course - Severe sepsis with septic shock d/t MRSA - leukocytosis resolved, tachycardia improving, still on Levophed - MRSA soft tissue abscess on chest - UTI d/t MRSA - MRSA bacteremia - Acute hypercarbic respiratory failure d/t tracheostomy dislodgement requiring oral intubation 07/01/2018 - Acute encephalopathy - Atrial fibrillation s/p RVR - CAD - H/o HTN - T2DM - HLD - Myasthenia gravis s/p recent thymectomy - Dysphagia s/p PEG - Depression - on Prozac at [facility] - Mild dementia - on Aricept at [facility] Recommendations: - continue vancomycin (06/30/2018-) - continue Merrem (06/30/2018-) for now but suspect may be able to stop soon if sputum cx neg. - pending: sputum cx, repeat blood cx (NGTD) - consider ENT evaluation and/or surgical evaluation of trach site as likely source; additional imaging such as CT neck should also be considered - continue local wound care of neck lesion Management d/w [employer]PA[employer] Claudia and Dr. Stanton Critical care time spent: 45 min We will continue to follow this critically ill gentleman closely with you. Thank you. Consultation Date/Type/Reason Admit Date/Time Jun 30, 2018 at 18:05 Initial Consult Date 07/02/18 Type of Consult Infectious Disease Requesting Provider: ALE CHUN MD 24 HR Interval Summary Free Text/Dictation Pt is on Levophed at 1 mcg/min; sputum cx will be re-sent today as lab did not receive specimen that was sent yesterday per d/w [employer] REPA[employer]ER. Subjective hx not possible: pt critical, other (orally intubated and sedated) Exam/Review of Systems Vital Signs Vitals Vital Signs Date Temp Pulse Resp B/P (MAP) Pulse Ox O2 O2 Flow FiO2 Time Delivery Rate 07/03/18 30 08:00 07/03/18 104 08:00 07/03/18 18 93/58 (70) 100 06:00 07/03/18 98.1 04:00 07/02/18 Mechanical 23:00 Ventilator 06/30/18 10.0 23:00 Intake and Output 07/02/18 07/02/18 07/03/18 1414:59 22:59 06:59 IntakeIntake Total 774.38 ml 1163.710 ml 727.000 ml OutputOutput Total 450 ml 300 ml 485 ml BalanceBalance 324.38 ml 863.710 ml 242.000 ml Exam Constitutional: well developed, non-verbal, frail Psych: other (unable to assess) Head: normocephalic, atraumatic Eyes: nl conjunctiva, nl lids ENMT: nl external ears & nose, nl nasal mucosa & septum, other (ETT in place) Neck: other (previous trach site is covered with dressing stained, dry, intact) Respiratory: clear to auscultation, diminished breath sounds; No wheezing Cardiovascular: nl pulses, irregular rhythm Gastrointestinal: soft, non-tender, other (G-tube with tube feedings in progress) Genitourinary - Male: nl penis, nl scrotum, other (Flanagan in place with yellow urine) Musculoskeletal: muscle weakness Extremities: other (LUE PICC c/d/i; bilateral wrist restraints in place); No cyanosis, No edema Neurological: other (sedated) Skin: nl turgor, other (see nurse notes and photos in chart for details - sacrocccyx stage I) Additional Comments CXR 07/02/2018: FINDINGS: Endotracheal tube and left-sided PICC line remain in place. Stable bibasilar atelectasis. No acute infiltrate, pleural effusion or pneumothorax. Stable mild cardiomegaly. Aortic atherosclerotic calcification is noted. Status post sternotomy. The osseous structures are remarkable for degenerative enthesopathy of the spine. IMPRESSION: 1. Lines and tubes remain in place. 2. Stable bibasilar atelectasis. 3. Stable mild cardiomegaly and aortic atherosclerosis. 4. No significant interval change. Labs Hematology Labs Laboratory Tests Test 07/02/18 12:42 07/02/18 18:29 07/02/18 20:51 07/03/18 01:12 Bedside Glucose 110 mg/dL 123 mg/dL 114 mg/dL 87 mg/dL Test 07/03/18 04:00 07/03/18 05:49 White Blood 9.1 10^3/ul Count Red Blood Count 3.17 10^6/ul Hemoglobin 8.9 g/dl Hematocrit 29.3 % Mean Corpuscular 92.4 fl Volume Mean Corpuscular 28.1 pg Hemoglobin Mean Corpuscular 30.4 g/dl Hemoglobin Fransisca nt Red Cell 15.8 % Distribution Width Platelet Count 276 10^3/UL Mean Platelet 11.3 fl Volume Immature 1.400 % Granulocytes % Neutrophils % 76.1 % Lymphocytes % 13.1 % Monocytes % 6.0 % Eosinophils % 3.2 % Basophils % 0.2 % Nucleated Red 0.0 /100WBC Blood Cells % Immature 0.130 10^3/ul Granulocytes # Neutrophils # 6.9 10^3/ul Lymphocytes # 1.2 10^3/ul Monocytes # 0.6 10^3/ul Eosinophils # 0.3 10^3/ul Basophils # 0.0 10^3/ul Nucleated Red 0.0 10^3/ul Blood Cells # Sodium Level 150 mmol/L Potassium Level 3.2 mmol/L Chloride Level 115 mmol/L Carbon Dioxide 34 mmol/L Level Anion Gap 1 Blood Urea 29 mg/dl Nitrogen Creatinine 0.58 mg/dl Est Glomerular mL/min Filtrat Rate mL/min Glucose Level 92 mg/dl Calcium Level 8.0 mg/dl Phosphorus Level 2.3 mg/dl Magnesium Level 2.2 mg/dl Total Bilirubin 0.2 mg/dl Direct Bilirubin 0.00 mg/dl Indirect 0.2 mg/dl Bilirubin Aspartate Amino 20 IU/L Transf (AST/SGOT ) Alanine 28 IU/L Aminotransferase (ALT/SGPT) Alkaline 81 IU/L Phosphatase Total Protein 4.7 g/dl Albumin 2.2 g/dl Globulin 2.50 g/dl Albumin/Globulin 0.88 Ratio Vancomycin Level 10.2 ug/ml Trough Bedside Glucose 96 mg/dL Current Medications Medications Dose Sig/Darrian Start Time Status Last (Trade) Ordered Route PRN Stop Time Admin Dose Reason Admin Sodium 2,270 ml @ BOLUS X1 18 DC 06/30/18 Chloride 1,135 mls/hr ONCE IV 17:30 17:52 06/30/18 19:29 Vancomycin 250 ml @ ONCE IVPB 18 DC 06/30/18 HCl 125 mls/hr 17:30 18:29 18 19:29 50 ml @ ONCE STAT 06/30/18 DC 06/30/18 Meropenem/Sod 100 mls/hr IVPB 17:05 17:52 ium Chloride 06/30/18 17:37 Albuterol/ 3 ml Q6H RESP 06/30/18 07/02/18 Ipratropium THERAPY PRN 23:00 02:41 (Duoneb) HHN SHORTNESS OF BREATH Vancomycin VANCOMYCIN PER 06/30/18 HCl (Vanco PER PHARMACY PROTOCOL XX 23:00 Iv Per Pharmacy) 50 ml @ Q8 IVPB 07/01/18 07/03/18 Meropenem/Sod 100 mls/hr 06:00 05:16 ium Chloride Enoxaparin 30 mg DAILY SC 07/01/18 DC Sodium 09:00 (Lovenox) 07/01/18 09:00 650 mg Q4H PRN 06/30/18 Acetaminophen GTB MILD 23:00 (Tylenol PAIN(1-3)OR Liquid) ELEVATED TEMP Discontinue ONCE ONCE 06/30/18 DC Miscellaneous current oral XX 23:00 sulfonylur... 07/01/18 Information 00:07 (* Miscellaneous Pharmacy Order) ONCE ONCE 06/30/18 DC Miscellaneous HYPOGLYCEMIA XX 23:00 PROTOCOL 07/01/18 Information w... 00:07 (* Miscellaneous Pharmacy Order) Insulin NOVOLOG Q6H SC 18 07/02/18 Aspart *MILD* 00:00 18:43 (Novolog ALGORI... Insulin Pen) Discontinue ONCE ONCE 06/30/18 DC Miscellaneous all previ... XX 23:00 07/01/18 Information 00:07 (* Miscellaneous Pharmacy Order) Apixaban 2.5 mg BID PO 07/01/18 DC 07/01/18 (Eliquis) 09:00 09:50 07/01/18 13:37 Sodium 1,000 ml @ [id number] IV 06/30/18 DC 07/01/18 Chloride 75 mls/hr 23:00 20:07 07/02/18 08:32 Metoprolol 50 mg BID GTB 07/01/18 DC Tartrate 09:00 (Lopressor) 07/01/18 13:37 Diltiazem 10 mg Q4H PRN 06/30/18 07/02/18 HCl IV for 23:00 17:05 (Cardizem Iv) HR>110 Diltiazem 25 mg STK-MED 06/30/18 DC HCl ONCE .ROUTE 23:15 (Cardizem Iv) 06/30/18 23:16 2 ml Q4H RESP 07/01/18 DC 07/02/18 Acetylcystein THERAPY NEB 00:00 05:15 e 07/02/18 (Mucomyst) 13:07 0.63 mg Q4H RESP 07/01/18 DC 07/01/18 Levalbuterol THERAPY HHN 00:00 05:17 (Xopenex 07/01/18 Neb) 08:30 4 ml STK-MED 06/30/18 DC Acetylcystein ONCE .ROUTE 23:57 e 06/30/18 (Mucomyst) 23:58 0.31 mg STK-MED 06/30/18 DC Levalbuterol ONCE .ROUTE 23:57 (Xopenex 06/30/18 Neb) 23:58 Sodium 1,000 ml @ Q1H ONCE 07/01/18 DC 07/01/18 Chloride 1,000 mls/hr IV 01:30 02:00 07/01/18 02:29 250 ml @ TITRATE 07/01/18 DC Norepinephrin 1.875 mls/ PRN IV 01:30 e hr BLOOD 07/01/18 PRESSURE 10:59 SUPPORT Vancomycin 250 ml @ ONCE IVPB 07/01/18 DC 07/01/18 HCl 1.5 83.333 mls/ 06:00 06:07 gm/Sodium hr 07/01/18 Chloride 08:59 Vancomycin 250 ml @ Q12H IVPB 07/01/18 DC HCl 125 mls/hr 18:00 07/01/18 18:00 1 puff Q8H RESP 07/01/18 DC 07/01/18 Levalbuterol THERAPY INH 16:00 16:43 (Xopenex 07/02/18 Hfa) 13:07 Sodium 1,000 ml @ Q1H ONCE 07/01/18 DC 07/01/18 Chloride 1,000 mls/hr IV 09:00 08:35 07/01/18 09:59 250 ml @ TITRATE IV 07/01/18 DC Norepinephrin 1.875 mls/ 09:00 e hr 07/01/18 09:00 500 ml @ 0 TITRATE IV 07/01/18 DC 07/01/18 Norepinephrin mls/hr 11:00 12:10 e 16 12/19/18 mg/Dextrose 19:53 30 mg DAILY@06 07/01/18 07/03/18 Lansoprazole GTB 09:00 05:16 (Prevacid) Midazolam 50 ml @ 1 TITRATE IV 07/01/18 07/02/18 HCl mls/hr 11:30 23:01 Lidocaine 5 ml ONCE ONCE 07/01/18 DC 07/01/18 (Xylocaine SC 13:00 15:45 1% (Mpf)) 07/01/18 13:01 Digoxin 250 mcg ONCE ONCE 07/01/18 DC 07/01/18 (Digoxin) IV 14:00 14:41 07/01/18 14:01 1 ea NOTE XX 07/01/18 Miscellaneous 14:00 Information Glucose 15 gm Q15M PRN 07/01/18 (Glutose) PO DECREASED 14:00 GLUCOSE Glucose 22.5 gm Q15M PRN 07/01/18 (Glutose) PO DECREASED 14:00 GLUCOSE Dextrose 25 ml Q15M PRN 07/01/18 (D50w IV DECREASED 14:00 Syringe) GLUCOSE Dextrose 50 ml Q15M PRN 07/01/18 (D50w IV DECREASED 14:00 Syringe) GLUCOSE Glucagon 1 mg Q15M PRN 07/01/18 (Glucagen) IM DECREASED 14:00 GLUCOSE Glucose 15 gm Q15M PRN 07/01/18 (Glutose) BUCCAL 14:00 DECREASED GLUCOSE Vancomycin 250 ml @ Q24H IVPB 07/02/18 DC 07/03/18 HCl 1.5 83.333 mls/ 06:00 06:03 gm/Sodium hr 07/03/18 Chloride 09:00 10 mg HS GTB 07/01/18 07/02/18 Atorvastatin 21:00 21:02 Calcium (Lipitor) Insulin 10 unit BID@08,20 07/01/18 07/03/18 Human NPH SC 20:00 09:10 (Humulin N) IV Flush 10 ml PRN PRN 07/01/18 (NS 10 ml) IV IV 17:00 PROTOCOL Apixaban 2.5 mg BID PO 07/02/18 07/03/18 (Eliquis) 09:00 09:03 Potassium 40 meq ONCE ONCE 07/02/18 DC 07/02/18 Chloride GTB 09:00 10:57 (Potassium 07/02/18 Chloride 10:00 Pwd/Soln) VANCO TR ONCE ONCE 07/03/18 DC Miscellaneous AT XX 05:00 0,500 07/03/18 Information 05:02 (*Rx Drug Level Order Reminder*) Potassium 256.6667 ml ONCE ONCE 07/02/18 DC 07/02/18 Phosphate 20 @ 64.167 IVPB 13:30 12:57 mm/ Sodium m... 07/02/18 Chloride 17:29 Potassium 40 meq ONCE ONCE 07/02/18 DC Chloride NGT 13:00 (Potassium 07/02/18 Chloride 13:07 Pwd/Soln) Fentanyl 100 ml @ TITRATE IV 07/02/18 07/03/18 2.5 mls/hr 16:00 06:53 250 ml @ TITRATE IV 07/02/18 07/02/18 Norepinephrin 1.875 mls/ 20:00 20:56 e hr Vancomycin 250 ml @ Q12H IVPB 07/03/18 HCl 125 mls/hr 18:00 Potassium 256.6667 ml ONCE ONCE 07/03/18 Phosphate 20 @ 64.167 IVPB 10:00 mm/ Sodium m... 07/03/18 Chloride 13:59 Potassium 40 meq ONCE ONCE 07/03/18 DC 07/03/18 Chloride GTB 09:00 09:03 (Potassium 07/03/18 Chloride 09:01 Pwd/Soln) PATRICE SANDRA NP Jul 03, 2018 09:37
[2018-07-03] MEDS ORDERED: POTASSIUM PHOSPHATE 20 MM in SOD CHLORIDE 0.9% 250 ML IVPB ONE (10:00)
--- NOTE | 2018-07-03 10:42 | NUR ---
WOUND CONSULT: 77 year old male admitted with Leukocytosis, encephalopathy, and atrial fibrillation per record. History of hypertension, diabetes, A.Fib, depression dementia, dyslipidemia, myasthenia gravis, s/p thymectomy per medical history. WBC 9.1. H&H 8.9/29.3. Albumin 2.2. Patient currently intubated. Bilateral soft wrist restrain. Patient appears restless. HR goes up to 140's. Flanagan cath. G-tube feeding. ASSESSMENT: - Trach ostomy site. - Mid upper sternum full thickness wound. Possible abscess per ID doctor. 1.5cmx1.4cmx0.5cm. Undermining from 12 to 12 o'clock. Max 3cm. Full thickness wound with red wound bed and pale yellow tissue. Periwound intact. Large bloody drainage. No odor. RECOMMENDATIONS: - Mid upper sternum wound: Cleanse with normal saline. Pat dry. Cover wound with Silver alginate (Melgisorb) dressing. Then, gauze and secure with Tegaderm. Change daily and as needed. Recommended to consider surgical consult for mid upper sternum wound. - Sacrococcyx: Apply Venelex ointment BID and cover with foam border dressing. - Bilateral heels and Bilateral ankles: Cover with foam border dressing for protection. And, apply socks to prevent friction. - Reposition every 2 hours. - Limit head of bed <30 degree if not contraindicate with patient's condition. Discussed assessment and plan of care with RNClaudia. RN to obtain wound care recommendations from . Maryjane Jaeger BSN RN CWOCN
[2018-07-03] MEDS: BALSAM PERU/CASTOR OIL 60 GM TUBE TOP SCH ×2 (13:00→21:37)
--- NOTE | 2018-07-03 13:41 | NUR ---
Vancomycin per Rx Vancomycin trough = 10.2 (drawn at 04:00) Dose = 1.5 g q24h CC: MRSA in blood, urine & chest cultures Other antibiotics: Merrem WBC 9.1 BUN/Scr 29/0.58 A/P: Increase to Vancomycin 1 gram IVPB q12h. Pharmacy to follow.
--- NOTE | 2018-07-03 15:32 | CONS ---
Date/Time of Note Date/Time of Note DATE: 07/03/18 TIME: 15:30 Assessment/Plan Assessment/Plan Additional Assessment/Plan Acute on chronic respiratory failure Possible trach dislodgment status post intubation Atrial fibrillation with rapid ventricular rates, improved Preserved ejection fraction Hypotension on IV pressor Myasthenia gravis -Patient's blood pressure improving and on low-dose IV pressor. Continue to titrate off to maintain SBP greater than 90 and/or map above 60. Heart rate trend overall stable. Maintain potassium above 4.0 and magnesium above 2.0. Potassium supplementation is already been ordered. Continue anticoagulation if no contraindication. Consultation Date/Type/Reason Admit Date/Time Jun 30, 2018 at 18:05 Initial Consult Date 07/01/18 Type of Consult cv Requesting Provider: ALE CHUN MD 24 HR Interval Summary Free Text/Dictation Patient seen and examined. Blood pressures and overall improving discussion with nursing staff Exam/Review of Systems Vital Signs Vitals Vital Signs Date Temp Pulse Resp B/P (MAP) Pulse Ox O2 O2 Flow FiO2 Time Delivery Rate 07/03/18 101 19 107/67 100 13:30 (80) 07/03/18 Mechanical 13:00 Ventilator 07/03/18 98.5 12:00 07/03/18 30 11:00 06/30/18 10.0 23:00 Intake and Output 07/02/18 07/02/18 07/03/18 1414:59 22:59 06:59 IntakeIntake Total 774.38 ml 1163.710 ml 727.000 ml OutputOutput Total 450 ml 300 ml 485 ml BalanceBalance 324.38 ml 863.710 ml 242.000 ml Exam Sedated and intubated, no apparent distress Head: normocephalic ENMT: intubated Respiratory: other (Coarse breath sounds bilaterally, no wheezing) Cardiovascular: irregular rhythm, other (S1-S2 heard) Gastrointestinal: soft, non-tender, bowel sounds Extremities: other (No significant edema) Evan Armas DO Jul 03, 2018 15:32
--- NOTE | 2018-07-03 16:08 | CONS ---
DATE OF ADMISSION: 06/30/2018 DATE OF CONSULTATION: REASON FOR CONSULTATION: Evaluation for a possible tracheostomy. HISTORY OF PRESENT ILLNESS: This is a 77-year-old male. Patient was admitted with a history of hype rtension, diabetes, atrial fibrillation, depression, dementia, dyslipidemia, myasthenia gravis with a cute encephalopathy, elevated white count, and exacerbation of myasthenia gravis. He had a tracheost dedrick that was dysfunctional, had to remove. Patient is currently intubated and the tracheostomy wound is open with drainage. PAST MEDICAL HISTORY: Hypertension, hyperlipidemia, myasthenia gravis, respiratory failure, hyperten love, atrial fibrillation. PAST SURGICAL HISTORY: G-tube, tracheostomy. ALLERGIES: NONE. SOCIAL HISTORY: Unknown. REVIEW OF SYSTEMS: Unable to be obtained. MEDICATIONS: List reviewed. PHYSICAL EXAMINATION: GENERAL: The patient is orotracheally intubated, comfortable. VITAL SIGNS: Blood pressure is 107/67, pulse is 101, respirations 18. CARDIOVASCULAR: Normal S1, S2. Irregularly irregular. LUNGS: Diminished breath sounds at the base. ABDOMEN: Soft. EXTREMITIES: Warm. Tracheostomy wound inspected. There is an opening with clear drainage. LABORATORY VALUES: Significant for white count of 9.1, hemoglobin 8.9, platelet count 276. INR 1.5. IMPRESSION: Status post tracheostomy, which has now been removed. RECOMMENDATIONS: The patient will need a new tracheostomy. The wound still with significant amount of drainage. We will discuss the timing of the surgery with the referring physicians. Dictated By: MEHREEN HARRELL MD FM/JOSE Conf#: [id number] DID#: [id number] CC: ALE CHUN MD;*EndCC*
--- NOTE | 2018-07-03 17:02 | PN ---
Date/Time of Note Date/Time of Note DATE: 07/03/18 TIME: 16:59 Assessment/Plan VTE Prophylaxis Risk score (from Ns)>0 risk: 13 SCD applied (from [facility]): Yes SCD contraindicated: other Pharmacological prophylaxis: other Lines/Catheters IV Catheter Type (from [facility]): PICC Line Central line still needed: Yes Urinary Cath still in place: Yes Reason Cath still needed: urinary retention Assessment/Plan Assessment/Plan - hypokalemia- replaced- fu am labs 1. Acute encephalopathy, improved. The patient is approaching his baseline. Continue to monitor closely. No sedative at this time. 2. Elevated white count; however, patient has no fever. - per ID - cont vancomycin and meropenem - pending result of urine and blood culture. 3. Atrial fibrillation. The patient after admission went into rapid ventricular response and had to be started on Cardizem and Eliquis. We will keep patient on telemetry. 4. Acute hypoxemic and hypercarbic respiratory failure. - PER pulmonary consult with Dr. Mustafa 5. Dysphagia. Continue G-tube feeding. 6. Diabetes. 7. Myasthenia gravis, status post thymectomy. 8. Dyslipidemia. The patient used to be on Lipitor. Again, the medication list from the group home facility has not been received. Continue Lipitor. 9. Hypertension and coronary artery disease. Continue metoprolol and p.r.n. IV diltiazem. 10. The patient apparently also has history of depression. We will resume Prozac. 11. The patient has mild dementia. We will continue Aricept. Total critical care time spent [address] Dobbins tried to contact grand daughter Bruna but her voice mail was full. Dr Dobbins Further recommendations will depend on the patient's hospital course and recommendations from consultants. Subjective 24 Hr Interval Summary Subjective hx not possible: pt non-verbal Constitutional: requiring IVF, requiring O2 Exam/Review of Systems Vital Signs Vitals Vital Signs Date Temp Pulse Resp B/P (MAP) Pulse Ox O2 O2 Flow FiO2 Time Delivery Rate 07/03/18 89 16:00 07/03/18 19 107/67 100 13:30 (80) 07/03/18 Mechanical 13:00 Ventilator 07/03/18 98.5 12:00 07/03/18 30 11:00 06/30/18 10.0 23:00 Intake and Output 07/02/18 07/02/18 07/03/18 1414:59 22:59 06:59 IntakeIntake Total 774.38 ml 1163.710 ml 727.000 ml OutputOutput Total 450 ml 300 ml 485 ml BalanceBalance 324.38 ml 863.710 ml 242.000 ml Exam Constitutional: non-verbal, frail Eyes: nl conjunctiva, nl lids ENMT: nl external ears & nose Neck: other (trach intact) Respiratory: diminished breath sounds (bilaterally) Cardiovascular: nl pulses Gastrointestinal: soft, other Musculoskeletal: muscle weakness, range of motion Extremities: normal pulses Neurological: unresponsive Skin: other COREY LARIOS Jul 03, 2018 17:02
[2018-07-03] MEDS: VANCOMYCIN 1 GM 250 ML IVPB SCH (18:45)
--- NOTE | 2018-07-03 19:00 | NUR ---
Patient remains orally intubated, no changes to ventilator settings. Levophed titrated off. Remains on Versed and Fentanyl gtts, moments of severe agitation with no commands followed but less agitated than prior days. TFs remain on and at goal, UOP adequate. Wound care consult performed, dressing changes per recommendations. Pts daughter arrived today, spoke with Dr. Shilpi RN unable to be a part of conversation d/t patient care.
[2018-07-03] MEDS: MIDAZOLAM (DRIP) 50 mg/50 mL 50 ML IV SCH (19:30)
[2018-07-03] MEDS: ATORVASTATIN 10 MG TAB GTB SCH (21:37)
[2018-07-04] VITALS (33 sets, daily range): BP systolic 82–111; BP diastolic 50–75; PULSE 82–131; RESP 10–21
[2018-07-04] MEDS: FENTAnyl (DRIP) 1000 mcg/100mL 100 ML IV SCH ×2 (00:34→13:38)
[2018-07-04] MEDS: VANCOMYCIN 1 GM 250 ML IVPB SCH ×2 (05:18→17:54)
[2018-07-04] MEDS: LANSOPRAZOLE 30 MG CAP GTB SCH (05:18)
[2018-07-04] MEDS: MEROPENEM 1 GM/50ML(PMX) 50 ML IVPB SCH ×2 (05:18→14:13)
[2018-07-04] MEDS: INSULIN ASPART [NOVOLOG] 3 ML PEN SC SCH ×4 (05:27→23:40)
--- NOTE | 2018-07-04 06:16 | NUR ---
end of shift report no acute events over night. pt remained off Levo throughout the shift. bed bath given, oral care provided. repositioned q2hrs and prn. urine output wnl.
--- NOTE | 2018-07-04 08:35 | PN ---
Date/Time of Note Date/Time of Note DATE: 07/04/18 TIME: 08:33 Assessment/Plan Lines/Catheters IV Catheter Type (from Nrsg): PICC Line Flanagan in Place (from Nrsg): Yes Assessment/Plan Assessment/Plan MPRESSION: Status post tracheostomy, which has now been removed. RECOMMENDATIONS: The patient will need a new tracheostomy. The wound still with significant amount of drainage. Plan for tracheostomy next week Subjective 24 Hr Interval Summary Constitutional: improved Pain Control: mild Exam/Review of Systems Vital Signs Vitals Vital Signs Date Temp Pulse Resp B/P (MAP) Pulse Ox O2 O2 Flow FiO2 Time Delivery Rate 07/04/18 98 08:01 07/04/18 19 84/63 (70) 100 06:00 07/04/18 30 05:05 07/04/18 98.6 04:00 07/03/18 Mechanical 18:00 Ventilator 06/30/18 10.0 23:00 Intake and Output 07/03/18 07/03/18 07/04/18 1515:00 23:00 07:00 IntakeIntake Total 1009.594 ml 776.0 ml 849.0 ml OutputOutput Total 450 ml 355 ml 620 ml BalanceBalance 559.594 ml 421.0 ml 229.0 ml Exam Eyes: nl conjunctiva, EOMI, nl lids, nl sclera ENMT: nl external ears & nose, nl lips & teeth, nl nasal mucosa & septum, mucos a pink and moist Neck: supple, non-tender Respiratory: clear to auscultation, normal air movement Cardiovascular: nl pulses Gastrointestinal: soft, nl liver, spleen, non-tender Results Result Diagram: 07/04/18 0500 07/04/18 0500 MEHREEN HARRELL MD Jul 04, 2018 08:35
[2018-07-04] MEDS: APIXABAN 5 MG TABLET PO SCH ×2 (09:02→20:40)
[2018-07-04] MEDS: BALSAM PERU/CASTOR OIL 60 GM TUBE TOP SCH ×2 (09:02→20:40)
[2018-07-04] MEDS: NPH, HUMAN INSULIN ISOPHANE 3ML VIAL SC SCH ×2 (09:15→20:48)
--- NOTE | 2018-07-04 09:22 | CONS ---
Date/Time of Note Date/Time of Note DATE: 07/04/18 TIME: 09:19 Assessment/Plan Assessment/Plan Additional Assessment/Plan Ventilator setting; AC of 18, tidal volume 500, PEEP of 5, 30% FiO2. Patient is on fentanyl 75 mics per hour. Assessment recommendations; 1. Patient admitted with tracheostomy dislodgment with severe hypercapnic respiratory failure and respiratory acidosis, Requiring oral intubation with marked improvement in gas exchange and correction of acidosis. 2. Encephalopathy with interval improvement. 3. History of thymectomy and myasthenia gravis. 4. Sternal wound with drainage of pus. 5. MRSA bacteremia as well as UTI. Currently on appropriate antimicrobial regimen. 6. Mild hypernatremia, on appropriate fluid replacement. 7. Chronic dysphagia, status post G-tube placement in the past. Continue current supportive care. Patient awaiting tracheostomy revision once sternal wound starts healing. Consultation Date/Type/Reason Admit Date/Time Jun 30, 2018 at 18:05 Initial Consult Date 07/01/18 Type of Consult Pulmonary/critical care History of presenting illness; patient is a 77-year-old male who was transferred over to the hospital from intermediate because of altered mental status. The patient was found to be severely hypercapnic and apparently there was an issue with the tracheostomy being dislodged. The patient having low tidal volumes and had to be switched to pressure control mode of ventilation with persistent severe hypercapnia. By the time I saw him, patient is on ventilator via tracheostomy and is unresponsive. History was obtained from medical records. Past medical history; 1. Chronic respiratory failure, and VDR F. 2. History of myasthenia gravis. 3. Apparently mild dementia. 4. History of tracheostomy and G-tube placement. 5. History of hypertension. 6. Chronic atrial fibrillation. Medications; reviewed. Allergies; penicillin. Social history, family history, occupational history not available. Review of system; unable to be obtained. General exam; elderly male, on ventilator via tracheostomy, unresponsive, tachypneic. Requesting Provider: ALE CHUN MD 24 HR Interval Summary Free Text/Dictation Patient's condition remains critical but stable. Patient has remained hemodynamically stable. Off Levophed. General exam; elderly male, orally intubated, awake and responsive. Currently in no distress. Exam/Review of Systems Vital Signs Vitals Vital Signs Date Temp Pulse Resp B/P (MAP) Pulse Ox O2 O2 Flow FiO2 Time Delivery Rate 07/04/18 98 08:01 07/04/18 19 84/63 (70) 100 06:00 07/04/18 30 05:05 07/04/18 98.6 04:00 07/03/18 Mechanical 18:00 Ventilator 06/30/18 10.0 23:00 Intake and Output 07/03/18 07/03/18 07/04/18 1515:00 23:00 07:00 IntakeIntake Total 1009.594 ml 776.0 ml 849.0 ml OutputOutput Total 450 ml 355 ml 620 ml BalanceBalance 559.594 ml 421.0 ml 229.0 ml Exam H EENT exam; supple neck, no JVD. No lymphadenopathy. Midline trachea. No thyromegaly. Orally intubated. Pupils are small bilaterally. Chest exam; diminished breath sounds bilaterally. S1-S2 audible, no murmurs. Regular rhythm. There is a well-healed sternal scar. There is a sternal wound with drainage of pus around it. Below the tracheostomy opening. Abdomen exam; soft, no organomegaly. Nondistended. G-tube in place. Bowel sounds audible. Extremity exam; no peripheral edema or clubbing. INSPECTOR AND TESTER exam; awake and responsive. ANSELMO PIERCE Jul 04, 2018 09:22
--- NOTE | 2018-07-04 10:56 | NUR ---
NUTRITION NOTE: Continues on TF Diabeticsource at goal 50 ml/hr. Pending plans for tracheostomy 2/2 pt admitted with trach dislodgement and was intubated orally. Noted Na+ =151, remains elevated over past 48 hours. No supplemental IVF at this time. Receives 250 ml free water flush every 6 hours. If no supplemental IVF is added, suggest changing free water flush to 200 ml every 4 hours.
--- NOTE | 2018-07-04 10:58 | CONS ---
Date/Time of Note Date/Time of Note DATE: 07/04/18 TIME: 10:57 Assessment/Plan Assessment/Plan Chief Complaint/Hosp Course - Severe sepsis with septic shock d/t MRSA - leukocytosis resolved, off pressors, tachycardia improving - MRSA soft tissue abscess on chest - UTI d/t MRSA - MRSA bacteremia d/t above. Repeat blood cx 07/01/2018 shows NGTD. TTE 07/01/2018 does not mention any vegetation - Acute hypercarbic respiratory failure d/t tracheostomy dislodgement requiring oral intubation 07/01/2018 - Acute encephalopathy - Atrial fibrillation with intermittent RVR - CAD - H/o HTN - T2DM - HLD - Myasthenia gravis s/p recent thymectomy - Dysphagia s/p PEG - Depression - on Prozac at [facility] - Mild dementia - on Aricept at [facility] - Moderate protein calorie malnutrition - Hypernatremia Recommendations: - DC Merrem - continue vancomycin (06/30/2018-) - pending: sputum cx, repeat blood cx (NGTD) - consider ENT evaluation and/or surgical evaluation of trach site as likely source; additional imaging such as CT neck should also be considered - continue local wound care of neck lesion Management d/w COMPUTER ANALYST Claudia and Dr. Stanton. Critical care time spent: 40 min Consultation Date/Type/Reason Admit Date/Time Jun 30, 2018 at 18:05 Initial Consult Date 07/02/18 Type of Consult Infectious Disease Requesting Provider: ALE CHUN MD 24 HR Interval Summary Free Text/Dictation Off Levophed since ~1600 yesterday; Low grade temp of 100 F this AM; still intubated and sedated; still with significant purulent drainage from previous trach site per d/w COMPUTER ANALYST. Planning for re-trach next week. WBC remains WNL. Remains intubated and sedated. Sputum cx prelim gram stain growing 2+ PMNs with no organism seen per d/w Mariajose in Micro. Exam/Review of Systems Vital Signs Vitals Vital Signs Date Temp Pulse Resp B/P (MAP) Pulse Ox O2 O2 Flow FiO2 Time Delivery Rate 07/04/18 105 18 96/65 (75) 99 [employer] 09:00 l Ventilato r 07/04/18 30 08:00 07/04/18 100.0 08:00 12/17/18 10.0 23:00 Intake and Output 07/03/18 07/03/18 07/04/18 1515:00 23:00 07:00 IntakeIntake Total 1009.594 ml 776.0 ml 908.5 ml OutputOutput Total 450 ml 355 ml 620 ml BalanceBalance 559.594 ml 421.0 ml 288.5 ml Exam Constitutional: well developed, non-verbal, frail Psych: other (unable to assess) Head: normocephalic, atraumatic Eyes: nl conjunctiva, nl lids ENMT: nl external ears & nose, nl nasal mucosa & septum, other (ETT in place) Neck: other (previous trach site is covered with dressing/Tegaderm intact with mild surrounding erythema) Respiratory: clear to auscultation, diminished breath sounds; No wheezing Cardiovascular: nl pulses, irregular rhythm Gastrointestinal: soft, non-tender, other (G-tube with tube feedings in progress) Genitourinary - Male: nl penis, nl scrotum, other (Flanagan in place with yellow urine) Musculoskeletal: muscle weakness Extremities: edema (trace on R hand), other (LUE PICC c/d/i; bilateral wrist restraints in place); No cyanosis Neurological: other (sedated) Skin: nl turgor, other (see nurse notes and photos in chart for details - sacro cccyx stage I) Additional Comments Laboratory Tests Test 07/03/18 12:30 07/03/18 18:47 07/03/18 21:34 07/03/18 23:52 Bedside Glucose 102 mg/dL 95 mg/dL 107 mg/dL 126 mg/dL Test 07/04/18 05:00 07/04/18 05:23 White Blood 8.8 10^3/ul Count Red Blood Count 3.23 10^6/ul Hemoglobin 9.2 g/dl Hematocrit 30.1 % Mean Corpuscular 93.2 fl Volume Mean Corpuscular 28.5 pg Hemoglobin Mean Corpuscular 30.6 g/dl Hemoglobin Fransisca nt Red Cell 15.9 % Distribution Width Platelet Count 250 10^3/UL Mean Platelet 11.2 fl Volume Immature 2.200 % Granulocytes % Neutrophils % 67.6 % Lymphocytes % 17.3 % Monocytes % 8.5 % Eosinophils % 3.9 % Basophils % 0.5 % Nucleated Red 0.0 /100WBC Blood Cells % Immature 0.190 10^3/ul Granulocytes # Neutrophils # 5.9 10^3/ul Lymphocytes # 1.5 10^3/ul Monocytes # 0.7 10^3/ul Eosinophils # 0.3 10^3/ul Basophils # 0.0 10^3/ul Nucleated Red 0.0 10^3/ul Blood Cells # Sodium Level 151 mmol/L Potassium Level 3.8 mmol/L Chloride Level 111 mmol/L Carbon Dioxide 35 mmol/L Level Anion Gap 5 Blood Urea 25 mg/dl Nitrogen Creatinine 0.55 mg/dl Est Glomerular mL/min Filtrat Rate mL/min Glucose Level 104 mg/dl Calcium Level 7.9 mg/dl Total Bilirubin 0.2 mg/dl Direct Bilirubin 0.00 mg/dl Indirect 0.2 mg/dl Bilirubin Aspartate Amino 20 IU/L Transf (AST/SGOT ) Alanine 24 IU/L Aminotransferase (ALT/SGPT) Alkaline 78 IU/L Phosphatase Total Protein 4.7 g/dl Albumin 2.3 g/dl Globulin 2.40 g/dl Albumin/Globulin 0.95 Ratio Bedside Glucose 116 mg/dL Current Medications Medications Dose Sig/Darrian Start Time Status Last (Trade) Ordered Route PRN Stop Time Admin Dose Reason Admin Sodium 2,270 ml @ BOLUS X1 06/30/18 DC 06/30/18 Chloride 1,135 mls/hr ONCE IV 17:30 17:52 06/30/18 19:29 Vancomycin 250 ml @ ONCE IVPB 06/30/18 DC 06/30/18 HCl 125 mls/hr 17:30 18:29 06/30/18 19:29 50 ml @ ONCE STAT 06/30/18 DC 06/30/18 Meropenem/Sod 100 mls/hr IVPB 17:05 17:52 ium Chloride 06/30/18 17:37 Albuterol/ 3 ml Q6H RESP 06/30/18 07/02/18 Ipratropium THERAPY PRN 23:00 02:41 (Duoneb) HHN SHORTNESS OF BREATH Vancomycin VANCOMYCIN PER 06/30/18 HCl (Vanco PER PHARMACY PROTOCOL XX 23:00 Iv Per Pharmacy) 50 ml @ Q8 IVPB 07/01/18 07/04/18 Meropenem/Sod 100 mls/hr 06:00 05:18 ium Chloride Enoxaparin 30 mg DAILY SC 07/01/18 DC Sodium 09:00 (Lovenox) 07/01/18 09:00 650 mg Q4H PRN 06/30/18 Acetaminophen GTB MILD 23:00 (Tylenol PAIN(1-3)OR Liquid) ELEVATED TEMP Discontinue ONCE ONCE 06/30/18 DC Miscellaneous current oral XX 23:00 sulfonylur... 07/01/18 Information 00:07 (* Miscellaneous Pharmacy Order) ONCE ONCE 06/30/18 DC Miscellaneous HYPOGLYCEMIA XX 23:00 PROTOCOL 07/01/18 Information w... 00:07 (* Miscellaneous Pharmacy Order) Insulin NOVOLOG Q6H SC 18 07/02/18 Aspart *MILD* 00:00 18:43 (Novolog ALGORI... Insulin Pen) Discontinue ONCE ONCE 06/30/18 DC Miscellaneous all previ... XX 23:00 07/01/18 Information 00:07 (* Miscellaneous Pharmacy Order) Apixaban 2.5 mg BID PO 07/01/18 DC 07/01/18 (Eliquis) 09:00 09:50 07/01/18 13:37 Sodium 1,000 ml @ [id number] IV 06/30/18 DC 07/01/18 Chloride 75 mls/hr 23:00 20:07 07/02/18 08:32 Metoprolol 50 mg BID GTB 07/01/18 DC Tartrate 09:00 (Lopressor) 07/01/18 13:37 Diltiazem 10 mg Q4H PRN 06/30/18 07/02/18 HCl IV for 23:00 17:05 (Cardizem Iv) sustained HR>130 Diltiazem 25 mg STK-MED 06/30/18 DC HCl ONCE .ROUTE 23:15 (Cardizem Iv) 06/30/18 23:16 2 ml Q4H RESP 18 DC 07/02/18 Acetylcystein THERAPY NEB 00:00 05:15 e 07/02/18 (Mucomyst) 13:07 0.63 mg Q4H RESP 18 DC 07/01/18 Levalbuterol THERAPY HHN 00:00 05:17 (Xopenex 07/01/18 Neb) 08:30 4 ml STK-MED 06/30/18 DC Acetylcystein ONCE .ROUTE 23:57 e 06/30/18 (Mucomyst) 23:58 0.31 mg STK-MED 06/30/18 DC Levalbuterol ONCE .ROUTE 23:57 (Xopenex 06/30/18 Neb) 23:58 Sodium 1,000 ml @ Q1H ONCE 07/01/18 DC 07/01/18 Chloride 1,000 mls/hr IV 01:30 02:00 07/01/18 02:29 250 ml @ TITRATE 07/01/18 DC Norepinephrin 1.875 mls/ PRN IV 01:30 e hr BLOOD 07/01/18 PRESSURE 10:59 SUPPORT Vancomycin 250 ml @ ONCE IVPB 07/01/18 DC 07/01/18 HCl 1.5 83.333 mls/ 06:00 06:07 gm/Sodium hr 07/01/18 Chloride 08:59 Vancomycin 250 ml @ Q12H IVPB 07/01/18 DC HCl 125 mls/hr 18:00 07/01/18 18:00 1 puff Q8H RESP 07/01/18 DC 07/01/18 Levalbuterol THERAPY INH 16:00 16:43 (Xopenex 07/02/18 Hfa) 13:07 Sodium 1,000 ml @ Q1H ONCE 07/01/18 DC 07/01/18 Chloride 1,000 mls/hr IV 09:00 08:35 07/01/18 09:59 250 ml @ TITRATE IV 07/01/18 DC Norepinephrin 1.875 mls/ 09:00 e hr 07/01/18 09:00 500 ml @ 0 TITRATE IV 07/01/18 DC 07/01/18 Norepinephrin mls/hr 11:00 12:10 e 16 07/02/18 mg/Dextrose 19:53 30 mg DAILY@06 07/01/18 07/04/18 Lansoprazole GTB 09:00 05:18 (Prevacid) Midazolam 50 ml @ 1 TITRATE IV 07/01/18 07/03/18 HCl mls/hr 11:30 19:30 Lidocaine 5 ml ONCE ONCE 07/01/18 DC 07/01/18 (Xylocaine SC 13:00 15:45 1% (Mpf)) 07/01/18 13:01 Digoxin 250 mcg ONCE ONCE 07/01/18 DC 07/01/18 (Digoxin) IV 14:00 14:41 07/01/18 14:01 1 ea NOTE XX 07/01/18 Miscellaneous 14:00 Information Glucose 15 gm Q15M PRN 07/01/18 (Glutose) PO DECREASED 14:00 GLUCOSE Glucose 22.5 gm Q15M PRN 07/01/18 (Glutose) PO DECREASED 14:00 GLUCOSE Dextrose 25 ml Q15M PRN 07/01/18 (D50w IV DECREASED 14:00 Syringe) GLUCOSE Dextrose 50 ml Q15M PRN 07/01/18 (D50w IV DECREASED 14:00 Syringe) GLUCOSE Glucagon 1 mg Q15M PRN 07/01/18 (Glucagen) IM DECREASED 14:00 GLUCOSE Glucose 15 gm Q15M PRN 07/01/18 (Glutose) BUCCAL 14:00 DECREASED GLUCOSE Vancomycin 250 ml @ Q24H IVPB 07/02/18 DC 07/03/18 HCl 1.5 83.333 mls/ 06:00 06:03 gm/Sodium hr 07/03/18 Chloride 09:00 10 mg HS GTB 07/01/18 07/03/18 Atorvastatin 21:00 21:37 Calcium (Lipitor) Insulin 10 unit BID@08,20 07/01/18 07/04/18 Human NPH SC 20:00 09:15 (Humulin N) IV Flush 10 ml PRN PRN 07/01/18 (NS 10 ml) IV IV 17:00 PROTOCOL Apixaban 2.5 mg BID PO 07/02/18 07/04/18 (Eliquis) 09:00 09:02 Potassium 40 meq ONCE ONCE 07/02/18 DC 07/02/18 Chloride GTB 09:00 10:57 (Potassium 07/02/18 Chloride 10:00 Pwd/Soln) VANCO TR ONCE ONCE 07/03/18 DC Miscellaneous AT XX 05:00 0,500 07/03/18 Information 05:02 (*Rx Drug Level Order Reminder*) Potassium 256.6667 ml ONCE ONCE 07/02/18 DC 07/02/18 Phosphate 20 @ 64.167 IVPB 13:30 12:57 mm/ Sodium m... 07/02/18 Chloride 17:29 Potassium 40 meq ONCE ONCE 07/02/18 DC Chloride NGT 13:00 (Potassium 07/02/18 Chloride 13:07 Pwd/Soln) Fentanyl 100 ml @ TITRATE IV 07/02/18 07/04/18 2.5 mls/hr 16:00 00:34 250 ml @ TITRATE IV 07/02/18 07/02/18 Norepinephrin 1.875 mls/ 20:00 20:56 e hr Vancomycin 250 ml @ Q12H IVPB 07/03/18 07/04/18 HCl 125 mls/hr 18:00 05:18 Potassium 256.6667 ml ONCE ONCE 07/03/18 DC 07/03/18 Phosphate 20 @ 64.167 IVPB 10:00 12:32 mm/ Sodium m... 07/03/18 Chloride 13:59 Potassium 40 meq ONCE ONCE 07/03/18 DC 07/03/18 Chloride GTB 09:00 09:03 (Potassium 07/03/18 Chloride 09:01 Pwd/Soln) Docusate 100 mg BID GTB 07/04/18 Sodium 10:00 (Colace Liquid Cup) 17 gm DAILY GTB 07/04/18 Polyethylene 10:00 Glycol (Miralax) TTE 07/01/2018: Lower limits of normal systolic function. Normal left ventricular cavity size. Mild concentric left ventricular hypertrophy. Ejection fraction is visually estimated at 50 %. Abnormal Diastolic Function. Normal right ventricular size. Normal right ventricular systolic function. The left atrium is normal in size. The right atrium is normal in size. Mild mitral valve regurgitation. No significant aortic stenosis or insufficiency. Estimated peak PA systolic pressure 40 mmHg. There is mild tricuspid regurgitation. Normal pericardium with no significant pericardial effusion. PATRICE SANDRA NP Jul 04, 2018 10:58
[2018-07-04] MEDS: POLYETHYLENE GLYCOL 17 GM PACKET GTB SCH (11:53)
[2018-07-04] MEDS: DOCUSATE SODIUM 10 MG/ML (10ML CUP) GTB SCH ×2 (11:53→20:40)
[2018-07-04] MEDS: MIDAZOLAM (DRIP) 50 mg/50 mL 50 ML IV SCH ×2 (11:54→22:23)
--- NOTE | 2018-07-04 13:00 | CONS ---
Date/Time of Note Date/Time of Note DATE: 07/04/18 TIME: 12:58 Assessment/Plan Assessment/Plan Additional Assessment/Plan Acute on chronic respiratory failure Possible trach dislodgment status post intubation Atrial fibrillation with rapid ventricular rates, improved Preserved ejection fraction Hypotension on IV pressor Myasthenia gravis -Continue to titrate IV pressor to maintain SBP greater than 90 and/or map above 60. Patient with episodes of atrial fibrillation with rapid ventricular rates, would give 2 doses of IV digoxin. Maintain potassium above 4.0 and magnesium above 2.0. Consultation Date/Type/Reason Admit Date/Time Jun 30, 2018 at 18:05 Initial Consult Date 07/01/18 Type of Consult cv Requesting Provider: ALE CHUN MD 24 HR Interval Summary Free Text/Dictation Patient seen and examined. Episodes of rapid ventricular rates. Still on IV pressor Exam/Review of Systems Vital Signs Vitals Vital Signs Date Temp Pulse Resp B/P (MAP) Pulse Ox O2 O2 Flow FiO2 Time Delivery Rate 07/04/18 118 12:01 07/04/18 99.9 21 83/55 (64) 99 Mechanical 12:00 Ventilator 07/04/18 30 08:00 06/30/18 10.0 23:00 Intake and Output 07/03/18 07/03/18 07/04/18 1515:00 23:00 07:00 IntakeIntake Total 1009.594 ml 776.0 ml 908.5 ml OutputOutput Total 450 ml 355 ml 620 ml BalanceBalance 559.594 ml 421.0 ml 288.5 ml Exam Sedated and intubated, no apparent distress Head: normocephalic ENMT: intubated Respiratory: other (Coarse breath sounds bilaterally, no wheezing) Cardiovascular: irregular rhythm, other (S1-S2 heard) Gastrointestinal: soft, non-tender, bowel sounds Extremities: edema (Trace) Evan Armas DO Jul 04, 2018 13:00
--- NOTE | 2018-07-04 13:35 | PN ---
Date/Time of Note Date/Time of Note DATE: 07/04/18 TIME: 13:35 Assessment/Plan VTE Prophylaxis Risk score (from [facility])>0 risk: 13 SCD applied (from [facility]): Yes SCD contraindicated: other Pharmacological prophylaxis: other Lines/Catheters IV Catheter Type (from [facility]): PICC Line Central line still needed: Yes Urinary Cath still in place: Yes Reason Cath still needed: urinary retention Assessment/Plan Assessment/Plan - Acute Hypernatremia- fu am labs 1. Acute encephalopathy, improved. The patient is approaching his baseline. Continue to monitor closely. No sedative at this time. 2. Elevated white count; however, patient has no fever. - per ID - cont vancomycin and meropenem - pending result of urine and blood culture. 3. Atrial fibrillation. The patient after admission went into rapid ventricular response and had to be started on Cardizem and Eliquis. We will keep patient on telemetry. 4. Acute hypoxemic and hypercarbic respiratory failure. - PER pulmonary consult with Dr. Mustafa 5. Dysphagia. Continue G-tube feeding. 6. Diabetes. 7. Myasthenia gravis, status post thymectomy. 8. Dyslipidemia. The patient used to be on Lipitor. Again, the medication list from the [facility] facility has not been received. Continue Lipitor. 9. Hypertension and coronary artery disease. Continue metoprolol and p.r.n. IV diltiazem. 10. The patient apparently also has history of depression. We will resume Prozac. 11. The patient has mild dementia. We will continue Aricept. Total critical care time spent [address] Dobbins tried to contact grand daughter Bruna but her voice mail was full. Further recommendations will depend on the patient's hospital course and recommendations from consultants. Subjective 24 Hr Interval Summary Subjective hx not possible: pt non-verbal, pt critical status Constitutional: requiring IVF, requiring O2 Exam/Review of Systems Vital Signs Vitals Vital Signs Date Temp Pulse Resp B/P (MAP) Pulse Ox O2 O2 Flow FiO2 Time Delivery Rate 07/04/18 118 12:01 07/04/18 99.9 21 83/55 (64) 99 Mechanical 12:00 Ventilator 07/04/18 30 08:00 06/30/18 10.0 23:00 Intake and Output 07/03/18 07/03/18 07/04/18 1515:00 23:00 07:00 IntakeIntake Total 1009.594 ml 776.0 ml 908.5 ml OutputOutput Total 450 ml 355 ml 620 ml BalanceBalance 559.594 ml 421.0 ml 288.5 ml Exam Constitutional: non-verbal, frail Psych: nl mood/affect Eyes: nl conjunctiva, nl lids ENMT: nl external ears & nose Neck: supple Respiratory: diminished breath sounds (bilatrally) Cardiovascular: nl pulses, other (s1s2) Gastrointestinal: soft Musculoskeletal: muscle weakness, range of motion Extremities: normal pulses Neurological: unresponsive COREY LARIOS Jul 04, 2018 13:35
[2018-07-04] MEDS: DIGOXIN 500 MCG INJ IV SCH ×3 (14:14→21:47)
[2018-07-04] MEDS: ATORVASTATIN 10 MG TAB GTB SCH (20:40)
[2018-07-05] VITALS (50 sets, daily range): BP systolic 82–145; BP diastolic 52–80; PULSE 42–133; RESP 12–32
--- NOTE | 2018-07-05 04:48 | NUR ---
AOx0; unable to follow commands; VSS with MAP ~66; controlled Afib HR<110; asymptomatic without any complaint during shift; wound care and mouth care done; urine output 50ml/hr; FiO2 30% saturating >92%; BS WNL; tolerating tube feeding with 20ml redidual feeding; continue to monitor and provide total care.
[2018-07-05] MEDS: FENTAnyl (DRIP) 1000 mcg/100mL 100 ML IV SCH (05:15)
[2018-07-05] MEDS: LANSOPRAZOLE 30 MG CAP GTB SCH (05:54)
[2018-07-05] MEDS: INSULIN ASPART [NOVOLOG] 3 ML PEN SC SCH ×4 (05:56→23:34)
--- NOTE | 2018-07-05 08:34 | NUR ---
Vancomycin per Rx Vancomycin trough = 21.9 (drawn at 05:00) Dose = 1 g 12h CC: MRSA bacteremia, UTI, chest wound Other antibiotics: Merrem WBC 9.2 BUN/Scr 23/0.6 A/P: Decrease to Vancomycin 750 mg IVPB q12h. Pharmacy to follow.
--- NOTE | 2018-07-05 08:44 | CONS ---
Date/Time of Note Date/Time of Note DATE: 07/05/18 TIME: 08:41 Assessment/Plan Assessment/Plan Additional Assessment/Plan Ventilator setting; AC of 18, tidal volume 500, PEEP of 5, 30% FiO2. Patient is currently on Versed 2 mg/h, fentanyl 30 mics per hour. Assessment recommendations; 1. Patient admitted with severe hypercapnic respiratory failure and Respiratory acidosis due to tracheostomy dislodgment, status post oral intub ation with marked improvement in gas exchange. 2. Underlying dementia with improvement in mental status. 3. History of myasthenia gravis, history of thymectomy. 4. Sternal abscess. 5. Anemia. 6. Chronic respiratory failure, patient however was maintained on T-piece at shelter. Continue current supportive care. Patient to undergo redo tracheostomy once sternal wound has healed. Meanwhile we will give sedation vacation to assess mental status. Consultation Date/Type/Reason Admit Date/Time Jun 30, 2018 at 18:05 Initial Consult Date 07/01/18 Type of Consult Pulmonary/critical care History of presenting illness; patient is a 77-year-old male who was transferred over to the hospital from shelter because of altered mental status. The patient was found to be severely hypercapnic and apparently there was an issue with the tracheostomy being dislodged. The patient having low tidal volumes and had to be switched to pressure control mode of ventilation with persistent severe hypercapnia. By the time I saw him, patient is on ventilator via tracheostomy and is unresponsive. History was obtained from medical records. Past medical history; 1. Chronic respiratory failure, and VDR F. 2. History of myasthenia gravis. 3. Apparently mild dementia. 4. History of tracheostomy and G-tube placement. 5. History of hypertension. 6. Chronic atrial fibrillation. Medications; reviewed. Allergies; penicillin. Social history, family history, occupational history not available. Review of system; unable to be obtained. General exam; elderly male, on ventilator via tracheostomy, unresponsive, tachypneic. Requesting Provider: ALE CHUN MD 24 HR Interval Summary Free Text/Dictation Patient's condition is critical but stable. Has remained hemodynamically sta ble. General exam; elderly male, orally intubated, sedated, currently in no distress. Exam/Review of Systems Vital Signs Vitals Vital Signs Date Temp Pulse Resp B/P (MAP) Pulse Ox O2 O2 Flow FiO2 Time Delivery Rate 07/05/18 80 23 82/56 (65) 100 Mechanical 06:00 Ventilator 07/05/18 30 05:16 07/05/18 98.5 04:00 Intake and Output 07/04/18 07/04/18 07/05/18 1515:00 23:00 07:00 IntakeIntake Total 1166.0 ml 915.0 ml 930.5 ml OutputOutput Total 435 ml 250 ml 572 ml BalanceBalance 731.0 ml 665.0 ml 358.5 ml Exam H HEENT exam; supple neck, no JVD. No lymphadenopathy. Midline trachea. No thyromegaly. Patient is edentulous. Orally intubated. Chest exam; diminished but clear breath sounds. S1-S2 audible, no murmurs. Dressing applied over prior tracheostomy site. Dressing applied to the sternum with sternal wound draining small amounts of purulent material. Abdomen exam; soft, no organomegaly. G-tube in place. Bowel sounds audible. Extremity exam; peripheral edema clubbing. CHECK PILOT exam; patient is sedated. ANSELMO PIERCE Jul 05, 2018 08:43
[2018-07-05] MEDS: BALSAM PERU/CASTOR OIL 60 GM TUBE TOP SCH ×2 (08:58→20:29)
[2018-07-05] MEDS: POLYETHYLENE GLYCOL 17 GM PACKET GTB SCH (08:58)
[2018-07-05] MEDS: DOCUSATE SODIUM 10 MG/ML (10ML CUP) GTB SCH ×2 (09:05→20:29)
[2018-07-05] MEDS: APIXABAN 5 MG TABLET PO SCH ×2 (09:06→20:29)
[2018-07-05] MEDS: NPH, HUMAN INSULIN ISOPHANE 3ML VIAL SC SCH ×2 (09:19→20:28)
--- NOTE | 2018-07-05 09:52 | CONS ---
Date/Time of Note Date/Time of Note DATE: 07/05/18 TIME: 09:49 Consult Date/Type/Reason Admit Date/Time Jun 30, 2018 at 18:05 Initial Consult Date 07/02/18 Requesting Provider: ALE CHUN MD Subjective Cardiology follow-up progress note Subjective: Case discussed with the staff and telemetry was reviewed. Patient remains in atrial fibrillation. Heart has been overall stable but this morning after weaning heart rate has been more elevated Patient is off pressors now blood pressure on the low side but is stable Patient is unable to provide reliable history to me. Objective: General: Elderly gentleman. Intubated on the vent HEENT: NC/AT. pupils are equal. round. NECK: Status with previous trach. no stridor. CV: Irregularly irregular. systolic murmur; no gallop or rubs. PULM: no wheezing. +honchi. GI: SOFT, NT, ND, no rebound or guarding Extremity: + B/L LE edema. no clubbing. neuro: Opens his eyes but is unable to answer my question Psych: calm rectal: deferred : normal Objective Vital Signs Date Temp Pulse Resp B/P (MAP) Pulse Ox O2 O2 Flow FiO2 Time Delivery Rate 07/05/18 80 23 82/56 (65) 100 Mechanical 06:00 Ventilator 07/05/18 30 05:16 07/05/18 98.5 04:00 Intake and Output 07/04/18 07/04/18 07/05/18 1515:00 23:00 07:00 IntakeIntake Total 1166.0 ml 915.0 ml 930.5 ml OutputOutput Total 435 ml 250 ml 572 ml BalanceBalance 731.0 ml 665.0 ml 358.5 ml Results/Medications Result Diagram: 07/05/18 0500 07/05/18 0500 Results 24 hrs Laboratory Tests Test 07/04/18 11:56 07/04/18 17:53 07/04/18 20:45 07/04/18 23:40 Bedside Glucose 118 116 128 104 Test 07/05/18 05:00 07/05/18 05:45 07/05/18 05:55 07/05/18 09:16 White Blood 9.2 Count Red Blood Count 3.07 L Hemoglobin 8.7 L Hematocrit 29.0 L Mean 94.5 Corpuscular Volume Mean 28.3 L Corpuscular Hemoglobin Mean 30.0 L Corpuscular Hemoglobin Conc ent Red Cell 15.8 H Distribution Width Platelet Count 265 Mean Platelet 11.7 H Volume Immature 2.200 H Granulocytes % Neutrophils % 68.1 Lymphocytes % 18.2 Monocytes % 6.2 Eosinophils % 4.9 Basophils % 0.4 Nucleated Red 0.0 Blood Cells % Immature 0.200 H Granulocytes # Neutrophils # 6.3 Lymphocytes # 1.7 Monocytes # 0.6 Eosinophils # 0.5 Basophils # 0.0 Nucleated Red 0.0 Blood Cells # Sodium Level 148 H Potassium Level 3.8 Chloride Level 110 Carbon Dioxide 33 H Level Anion Gap 5 Blood Urea 23 H Nitrogen Creatinine 0.60 L Est Glomerular Filtrat Rate mL/min Glucose Level 87 Calcium Level 7.7 L Magnesium Level 2.2 Vancomycin 21.9 *H Level Trough Lab Scanned REFERENCE LAB Report Bedside Glucose 111 120 Medications Current Medications Albuterol/ Ipratropium (Duoneb) 3 ml Q6H RESP THERAPY PRN HHN SHORTNESS OF BREATH Last administered on 07/02/18at 02:41; Admin Dose 3 ML; Start 06/30/18 at 23:00 Vancomycin HCl (Vanco Iv Per Pharmacy) VANCOMYCIN PER PHARMACY PER PROTOCOL XX ; Start 06/30/18 at 23:00 Acetaminophen (Tylenol Liquid) 650 mg Q4H PRN GTB MILD PAIN(1-3)OR ELEVATED TEMP; Start 06/30/18 at 23:00 Insulin Aspart (Novolog Insulin Pen) NOVOLOG *MILD* ALGORI... Q6H SC Last administered on 07/02/18at 18:43; Admin Dose 1 UNIT; Start 07/01/18 at 00:00 Diltiazem HCl (Cardizem Iv) 10 mg Q4H PRN IV for sustained HR>130 Last administ ered on 07/02/18at 17:05; Admin Dose 10 MG; Start 06/30/18 at 23:00 Lansoprazole (Prevacid) 30 mg DAILY@06 GTB Last administered on 07/05/18at 05:54; Admin Dose 30 MG; Start 07/01/18 at 09:00 Midazolam HCl 50 ml @ 1 mls/hr TITRATE IV Last administered on 07/04/18at 22:23; Admin Dose 4 MLS/HR; Start 07/01/18 at 11:30 Miscellaneous Information 1 ea NOTE XX ; Start 07/01/18 at 14:00 Glucose (Glutose) 15 gm Q15M PRN PO DECREASED GLUCOSE; Start 07/01/18 at 14:00 Glucose (Glutose) 22.5 gm Q15M PRN PO DECREASED GLUCOSE; Start 07/01/18 at 14:00 Dextrose (D50w Syringe) 25 ml Q15M PRN IV DECREASED GLUCOSE; Start 07/01/18 at 14:00 Dextrose (D50w Syringe) 50 ml Q15M PRN IV DECREASED GLUCOSE; Start 07/01/18 at 14:00 Glucagon (Glucagen) 1 mg Q15M PRN IM DECREASED GLUCOSE; Start 07/01/18 at 14:00 Glucose (Glutose) 15 gm Q15M PRN BUCCAL DECREASED GLUCOSE; Start 07/01/18 at 14:00 Atorvastatin Calcium (Lipitor) 10 mg HS GTB Last administered on 07/04/18at 20:40; Admin Dose 10 MG; Start 07/01/18 at 21:00 Insulin Human NPH (Humulin N) 10 unit BID@08,20 SC Last administered on at 09:19; Admin Dose 10 UNIT; Start 07/01/18 at 20:00 IV Flush (NS 10 ml) 10 ml PRN PRN IV IV PROTOCOL; Start 07/01/18 at 17:00 Apixaban (Eliquis) 2.5 mg BID PO Last administered on 07/05/18at 09:06; Admin Dose 2.5 MG; Start 07/02/18 at 09:00 Fentanyl 100 ml @ 2.5 mls/hr TITRATE IV Last administered on 07/05/18at 05:15; Admin Dose 7.5 MLS/HR; Start 07/02/18 at 16:00 Norepinephrine 250 ml @ 1.875 mls/ hr TITRATE IV Last administered on 07/02/18at 20:56; Admin Dose 1.875 MLS/HR; Start 07/02/18 at 20:00 Docusate Sodium (Colace Liquid Cup) 100 mg BID GTB Last administered on 07/05/18at 09:05; Admin Dose 100 MG; Start 07/04/18 at 10:00 Polyethylene Glycol (Miralax) 17 gm DAILY GTB Last administered on 07/05/18at 08:58; Admin Dose 17 GM; Start 07/04/18 at 10:00 Digoxin (Digoxin) 0.125 mg DAILY@13 PO ; Start 07/05/18 at 13:00 Vancomycin HCl 750 mg/Sodium Chloride 150 ml @ 75 mls/hr Q12H IVPB ; Start 07/05/18 at 10:00 Assessment/Plan Chief Complaint/Hosp Course Acute on chronic respiratory failure s/p trach dislodgment : Intubated now Atrial fibrillation : Heart rate appears to be controlled and patient with Preserved ejection fraction Status post shock and hypotension: Currently off of pressors Myasthenia gravis Anemia Recommendations: Continue with respiratory care. Anticoagulation with Eliquis as long as no active bleeding is noted Check the digoxin level and adjust the dose as needed. Antibiotic management as per internal medicine. Continue with ICU care for now Transfusion as needed Thank you for his referral. We will continue to follow along with you until Dr. Carter returns on Saturday TRUDY GAMBLE MD [facility] TRUDY GAMBLE MD Jul 05, 2018 09:52
--- NOTE | 2018-07-05 10:39 | PN ---
Date/Time of Note Date/Time of Note DATE: 07/05/18 TIME: 10:39 Assessment/Plan VTE Prophylaxis Risk score (from Ns)>0 risk: 11 SCD applied (from Ns): Yes Pharmacological prophylaxis: LMWH Lines/Catheters IV Catheter Type (from Nrs): PICC Line Central line still needed: Yes Urinary Cath still in place: Yes Reason Cath still needed: skin wounds contaminated by urine Assessment/Plan Hospital Course 1. Acute encephalopathy, improved. The patient is approaching his baseline. Continue to monitor closely. No sedative at this time. 2. Elevated white count; however, patient has no fever. - per ID - cont vancomycin and meropenem - pending result of urine and blood culture. 3. Atrial fibrillation. The patient after admission went into rapid ventricula r response and had to be started on Cardizem and Eliquis. We will keep patient on telemetry. 4. Acute hypoxemic and hypercarbic respiratory failure. - PER pulmonary consult with Dr. Mustafa 5. Dysphagia. Continue G-tube feeding. 6. Diabetes. 7. Myasthenia gravis, status post thymectomy. 8. Dyslipidemia. The patient used to be on Lipitor. Again, [facility] not been received. Continue Lipitor. 9. Hypertension and coronary artery disease. Continue metoprolol and p.r.n. IV diltiazem. 10. The patient apparently also has history of depression. We will resume Prozac. 11. The patient has mild dementia. We will continue Aricept. Subjective 24 Hr Interval Summary Free Text/Dictation Patient remain sedated, on ventilator support, blood pressure is on the lower side Exam/Review of Systems Vital Signs Vitals Vital Signs Date Temp Pulse Resp B/P (MAP) Pulse Ox O2 O2 Flow FiO2 Time Delivery Rate 07/05/18 80 23 82/56 (65) 100 Mechanical 06:00 Ventilator 07/05/18 30 05:16 07/05/18 98.5 04:00 Intake and Output 07/04/18 07/04/18 07/05/18 1515:00 23:00 07:00 IntakeIntake Total 1166.0 ml 915.0 ml 942.0 ml OutputOutput Total 435 ml 250 ml 572 ml BalanceBalance 731.0 ml 665.0 ml 370.0 ml Exam Constitutional: well developed Head: normocephalic, atraumatic Neck: supple Respiratory: diminished breath sounds Cardiovascular: regular rate and rhythm Gastrointestinal: soft, non-tender Extremities: normal pulses LISA JAVIER Jul 05, 2018 10:39
[2018-07-05] MEDS: VANCOMYCIN 750 MG in SOD CHLORIDE 0.9% 150 ML IVPB SCH ×2 (10:56→22:14)
[2018-07-05] MEDS: MIDAZOLAM (DRIP) 50 mg/50 mL 50 ML IV SCH (13:50)
[2018-07-05] MEDS: DIGOXIN 0.125 MG TAB PO SCH (14:30)
--- NOTE | 2018-07-05 14:31 | CONS ---
Date/Time of Note Date/Time of Note DATE: 07/05/18 TIME: 14:29 Assessment/Plan Assessment/Plan Chief Complaint/Hosp Course - Severe sepsis with septic shock d/t MRSA - leukocytosis resolved, off pressors, tachycardia improving - MRSA soft tissue abscess on chest - UTI d/t MRSA - MRSA bacteremia d/t above. Repeat blood cx 07/01/2018 shows NGTD. TTE 07/01/2018 does not mention any vegetation - Acute hypercarbic respiratory failure d/t tracheostomy dislodgement requiring oral intubation 07/01/2018 - Acute encephalopathy - Atrial fibrillation with intermittent RVR - CAD - H/o HTN - T2DM - HLD - Myasthenia gravis s/p recent thymectomy - Dysphagia s/p PEG - Depression - on Prozac at [facility] - Mild dementia - on Aricept at [facility] - Moderate protein calorie malnutrition - Hypernatremia Recommendations: - continue vancomycin (06/30/2018-) - f/u cxs - consider ENT evaluation and/or surgical evaluation of trach site as likely source; additional imaging such as CT neck should also be considered - continue local wound care of neck lesion Consultation Date/Type/Reason Admit Date/Time Jun 30, 2018 at 18:05 Initial Consult Date 07/01/18 Type of Consult ID Requesting Provider: ALE CHUN MD 24 HR Interval Summary Free Text/Dictation d/w nursing. on very low dose levophed per nursing with plan for further trach in coming days per report. Exam/Review of Systems Vital Signs Vitals Vital Signs Date Temp Pulse Resp B/P (MAP) Pulse Ox O2 O2 Flow FiO2 Time Delivery Rate 07/05/18 95 22 100 30 13:10 07/05/18 98.9 96/62 (73) Mechanical 12:00 Ventilator Intake and Output 07/04/18 07/04/18 07/05/18 1515:00 23:00 07:00 IntakeIntake Total 1166.0 ml 915.0 ml 992.0 ml OutputOutput Total 435 ml 250 ml 642 ml BalanceBalance 731.0 ml 665.0 ml 350.0 ml Exam Constitutional: alert, other (intubated and sedated) Head: normocephalic, atraumatic Eyes: nl conjunctiva, EOMI, nl lids, nl sclera, PERRL Respiratory: clear to auscultation, normal air movement Musculoskeletal: nl extremities to inspection, nl gait and stance PETER LUTZ MD Jul 05, 2018 14:31
--- NOTE | 2018-07-05 15:56 | PN ---
Date/Time of Note Date/Time of Note DATE: 07/05/18 TIME: 15:54 Assessment/Plan Lines/Catheters IV Catheter Type (from Nrsg): PICC Line Flanagan in Place (from Nrsg): Yes Assessment/Plan Assessment/Plan MPRESSION: Status post tracheostomy, which has now been removed. RECOMMENDATIONS: The patient will need a new tracheostomy. The wound still with significant amount of drainage. Plan for tracheostomy next week Subjective 24 Hr Interval Summary Constitutional: improved Pain Control: mild Exam/Review of Systems Vital Signs Vitals Vital Signs Date Temp Pulse Resp B/P (MAP) Pulse Ox O2 O2 Flow FiO2 Time Delivery Rate 07/05/18 95 22 100 30 13:10 07/05/18 98.9 96/62 (73) Mechanical 12:00 Ventilator Intake and Output 07/04/18 07/04/18 07/05/18 1515:00 23:00 07:00 IntakeIntake Total 1166.0 ml 915.0 ml 992.0 ml OutputOutput Total 435 ml 250 ml 642 ml BalanceBalance 731.0 ml 665.0 ml 350.0 ml Exam ENMT: nl external ears & nose, nl lips & teeth, nl nasal mucosa & septum, mucosa pink and moist Neck: supple, non-tender Respiratory: clear to auscultation, normal air movement Cardiovascular: regular rate and rhythm, nl pulses Gastrointestinal: soft, nl liver, spleen, non-tender Musculoskeletal: nl extremities to inspection, nl gait and stance Results Result Diagram: 07/05/18 0500 07/05/18 0500 MEHREEN HARRELL MD Jul 05, 2018 15:56
--- NOTE | 2018-07-05 19:40 | NUR ---
PT STABLE ON VENTILATOR. DURING SEDATION VACATION; PT BECAME AGITATED; STARTED BACK ON VERSED AT 4MG/HR AND FENTANYL AT 75MCG/HR. A FIB CONTROLLED AND BP STABLE THROUGHOUT SHIFT. TOLERATING TUBE FEEDS WELL. URINE OUTPUT ADEQUATE. AFEBRILE. ALL ABX AND MEDS GIVEN. GAVE 1 UNIT NOVOLOG DURING SHIFT. ALL INFORMATION ENDORSED TO DIGESTER NURSE.
[2018-07-05] MEDS: ATORVASTATIN 10 MG TAB GTB SCH (20:29)
--- NOTE | 2018-07-05 23:10 | NUR ---
Pt endorsed and bedside report given to Brenton BURCIAGA. Pt status and chart reviewed.
[2018-07-06] VITALS (93 sets, daily range): BP systolic 79–141; BP diastolic 46–94; PULSE 39–99; RESP 13–32
[2018-07-06] MEDS: MIDAZOLAM (DRIP) 50 mg/50 mL 50 ML IV SCH ×2 (00:39→15:48)
[2018-07-06] MEDS: FENTAnyl (DRIP) 1000 mcg/100mL 100 ML IV SCH ×2 (00:42→15:49)
[2018-07-06] MEDS: LANSOPRAZOLE 30 MG CAP GTB SCH (05:10)
[2018-07-06] MEDS: INSULIN ASPART [NOVOLOG] 3 ML PEN SC SCH ×4 (05:17→23:20)
[2018-07-06] MEDS: NPH, HUMAN INSULIN ISOPHANE 3ML VIAL SC SCH ×2 (08:04→20:00)
--- NOTE | 2018-07-06 08:29 | CONS ---
Date/Time of Note Date/Time of Note DATE: 07/06/18 TIME: 08:26 Assessment/Plan Assessment/Plan Additional Assessment/Plan Ventilator setting; AC of 16, tidal volume 500, PEEP of 5, 30% FiO2. Patient is currently on Versed 4 mg/h. Assessment recommendations; 1 patient with history of chronic respiratory failure admitted for tracheostomy dislodgment with severe respiratory acidosis and hypercapnia with significant improvement in gas exchange after patient orally intubated. 2. Underlying dementia. 3. Prior thymectomy due to myasthenia gravis. 4. At [facility], patient maintained on T-piece. 5. Anemia. 6. Sternal wound with Subcutaneous abscess. Continue current supportive care. Patient scheduled for revision tracheostomy once sternal wound starts healing. Consultation Date/Type/Reason Admit Date/Time Jun 30, 2018 at 18:05 Initial Consult Date 07/01/18 Type of Consult Pulmonary/critical care History of presenting illness; patient is a 77-year-old male who was transferred over to the hospital from [facility] because of altered mental status. The patient was found to be severely hypercapnic and apparently there was an issue with the tracheostomy being dislodged. The patient having low tidal volumes and had to be switched to pressure control mode of ventilation with persistent severe hypercapnia. By the time I saw him, patient is on ventilator via t racheostomy and is unresponsive. History was obtained from medical records. Past medical history; 1. Chronic respiratory failure, and VDR F. 2. History of myasthenia gravis. 3. Apparently mild dementia. 4. History of tracheostomy and G-tube placement. 5. History of hypertension. 6. Chronic atrial fibrillation. Medications; reviewed. Allergies; penicillin. Social history, family history, occupational history not available. Review of system; unable to be obtained. General exam; elderly male, on ventilator via tracheostomy, unresponsive, tachypneic. Requesting Provider: ALE CHUN MD 24 HR Interval Summary Free Text/Dictation Patient's condition is critical but stable. Patient currently on Versed drip at 4 mg/h. Patient exhibiting adequate mental status off sedation. General exam; elderly male, orally intubated, sedated, currently in no distress. Exam/Review of Systems Vital Signs Vitals Vital Signs Date Temp Pulse Resp B/P (MAP) Pulse Ox O2 O2 Flow FiO2 Time Delivery Rate 07/06/18 98 14 110/70 99 08:15 (83) 07/06/18 98.2 Mechanical 08:00 Ventilator 07/06/18 30 05:10 Intake and Output 07/05/18 07/05/18 07/06/18 1515:00 23:00 07:00 IntakeIntake Total 831.5 ml 710.0 ml 867.125 ml OutputOutput Total 535 ml 645 ml 345 ml BalanceBalance 296.5 ml 65.0 ml 522.125 ml Exam H EENT exam; supple neck, no JVD. No lymphadenopathy. Midline trachea. No thyromegaly. Patient is edentulous. Orally intubated. Chest exam; diminished but clear breath sounds. S1-S2 audible, no murmurs. Irregular rhythm. Dressing applied over prior tracheostomy site. Dressing applied over sternal wound. Pus is still draining from it. Abdomen exam; soft, scaphoid. No organomegaly. G-tube in place. Bowel sounds audible. Extremity exam; no edema or clubbing. [employer] exam; patient is sedated. ANSELMO PIERCE Jul 06, 2018 08:29
[2018-07-06] MEDS: DOCUSATE SODIUM 10 MG/ML (10ML CUP) GTB SCH ×2 (09:11→20:31)
[2018-07-06] MEDS: POLYETHYLENE GLYCOL 17 GM PACKET GTB SCH (09:11)
[2018-07-06] MEDS: APIXABAN 5 MG TABLET PO SCH ×2 (09:12→20:31)
[2018-07-06] MEDS: BALSAM PERU/CASTOR OIL 60 GM TUBE TOP SCH ×2 (09:12→20:30)
[2018-07-06] MEDS: VANCOMYCIN 750 MG in SOD CHLORIDE 0.9% 150 ML IVPB SCH ×2 (10:06→22:15)
[2018-07-06] MEDS: MUPIROCIN 2% 22 GM OINT TOP SCH ×2 (10:31→20:30)
--- NOTE | 2018-07-06 10:45 | PN ---
Date/Time of Note Date/Time of Note DATE: 07/06/18 TIME: 10:45 Assessment/Plan VTE Prophylaxis Risk score (from Ns)>0 risk: 11 SCD applied (from Ns): Yes Pharmacological prophylaxis: LMWH Lines/Catheters IV Catheter Type (from Nrs): PICC Line Central line still needed: Yes Urinary Cath still in place: Yes Reason Cath still needed: skin wounds contaminated by urine Assessment/Plan Hospital Course 1. Acute encephalopathy, improved. The patient is approaching his baseline. Continue to monitor closely. No sedative at this time. 2. Elevated white count; however, patient has no fever. - per ID - cont vancomycin and meropenem - pending result of urine and blood culture. 3. Atrial fibrillation. The patient after admission went into rapid ventricula r response and had to be started on Cardizem and Eliquis. We will keep patient on telemetry. 4. Acute hypoxemic and hypercarbic respiratory failure. - PER pulmonary consult with Dr. Mustafa 5. Dysphagia. Continue G-tube feeding. 6. Diabetes. 7. Myasthenia gravis, status post thymectomy. 8. Dyslipidemia. The patient used to be on Lipitor. Again, the medication list from the group home facility has not been received. Continue Lipitor. 9. Hypertension and coronary artery disease. Continue metoprolol and p.r.n. IV diltiazem. 10. The patient apparently also has history of depression. We will resume Prozac. 11. The patient has mild dementia. We will continue Aricept. Subjective 24 Hr Interval Summary Free Text/Dictation Patient remain sedated and intubated, plan is to place trach next week Exam/Review of Systems Vital Signs Vitals Vital Signs Date Temp Pulse Resp B/P (MAP) Pulse Ox O2 O2 Flow FiO2 Time Delivery Rate 07/06/18 98 14 110/70 99 08:15 (83) 07/06/18 30 08:00 07/06/18 98.2 Mechanical 08:00 Ventilator Intake and Output 07/05/18 07/05/18 07/06/18 1515:00 23:00 07:00 IntakeIntake Total 831.5 ml 710.0 ml 917.125 ml OutputOutput Total 535 ml 645 ml 405 ml BalanceBalance 296.5 ml 65.0 ml 512.125 ml Exam Constitutional: well developed Head: normocephalic, atraumatic Neck: supple Respiratory: diminished breath sounds Cardiovascular: regular rate and rhythm Gastrointestinal: soft, non-tender Extremities: normal pulses LISA JAVIER Jul 06, 2018 10:45
[2018-07-06] MEDS: DIGOXIN 0.125 MG TAB PO SCH (13:00)
--- NOTE | 2018-07-06 14:39 | PN ---
Date/Time of Note Date/Time of Note DATE: 07/06/18 TIME: 14:38 Assessment/Plan Lines/Catheters IV Catheter Type (from Nrsg): PICC Line Flanagan in Place (from Nrsg): Yes Subjective 24 Hr Interval Summary Constitutional: improved Pain Control: mild Exam/Review of Systems Vital Signs Vitals Vital Signs Date Temp Pulse Resp B/P (MAP) Pulse Ox O2 O2 Flow FiO2 Time Delivery Rate 07/06/18 59 18 116/69 100 12:30 (85) 07/06/18 98.4 Mechanical 12:00 Ventilator 07/06/18 30 08:00 Intake and Output 07/05/18 07/05/18 07/06/18 1515:00 23:00 07:00 IntakeIntake Total 831.5 ml 710.0 ml 917.125 ml OutputOutput Total 535 ml 645 ml 405 ml BalanceBalance 296.5 ml 65.0 ml 512.125 ml Exam Eyes: nl conjunctiva, EOMI, nl lids, nl sclera ENMT: nl external ears & nose, nl lips & teeth, nl nasal mucosa & septum, mucosa pink and moist Neck: supple, non-tender Respiratory: clear to auscultation, normal air movement Cardiovascular: regular rate and rhythm, nl pulses Gastrointestinal: soft, nl liver, spleen, non-tender Results Result Diagram: 07/05/18 0500 07/05/18 0500 MEHREEN HARRELL MD Jul 06, 2018 14:39
--- NOTE | 2018-07-06 15:24 | CONS ---
Date/Time of Note Date/Time of Note DATE: 07/06/18 TIME: 15:20 Assessment/Plan Assessment/Plan Chief Complaint/Hosp Course - Severe sepsis with septic shock d/t MRSA - leukocytosis resolved, levophed restarted, tachycardia improving - MRSA soft tissue abscess on chest - UTI d/t MRSA - MRSA bacteremia d/t above. Repeat blood cx 07/01/2018 shows NGTD. TTE 07/01/2018 does not mention any vegetation - MRSA nasal colonization - Acute hypercarbic respiratory failure d/t tracheostomy dislodgement requiring oral intubation 07/01/2018 - Acute encephalopathy - Atrial fibrillation with intermittent RVR - CAD - H/o HTN - T2DM - HLD - Myasthenia gravis s/p recent thymectomy - Dysphagia s/p PEG - Depression - on Prozac at [facility] - Mild dementia - on Aricept at [facility] - Moderate protein calorie malnutrition - Hypernatremia Recommendations: - ordered to repeat blood cx x2, 15 min apart (one set from PICC, one set peripheral stick) - continue vancomycin (06/30/2018-) - pending: repeat blood cx (staph aureus in 1 of 2 bottles on 07/01) - ordered mupirocin (07/06/2018-) to nares, bilateral axilla, groin, and anus for MRSA de-colonization - ordered chlorhexidine body wash daily - consider ENT evaluation and/or surgical evaluation of trach site as likely source; additional imaging such as CT neck should also be considered - continue local wound care of neck/upper chest lesion Management d/w ICU RNs Jan and Kenya and with Dr. Stanton. Critical care time spent: 45 min Consultation Date/Type/Reason Admit Date/Time Jun 30, 2018 at 18:05 Initial Consult Date 07/02/18 Type of Consult Infectious Disease Requesting Provider: ALE CHUN MD 24 HR Interval Summary Free Text/Dictation Repeat blood cx from 07/01/2018 is growing Staph aureus in 1 of 2 bottles. Remains intubated and sedated on Fentanyl and Versed. Pt still in Afib with episodes of bradycardia. Levophed restarted last night for hypotension. Upper chest wound with decreased purulent drainage per d/w [employer]. Mupirocin added for +MRSA in nares. Subjective hx not possible: pt non-verbal, pt critical status Exam/Review of Systems Vital Signs Vitals Vital Signs Date Temp Pulse Resp B/P (MAP) Pulse Ox O2 O2 Flow FiO2 Time Delivery Rate 07/06/18 73 20 100 30 14:56 07/06/18 112/66 14:45 (81) 07/06/18 Mechanical 14:00 Ventilator 07/06/18 98.4 12:00 Intake and Output 07/05/18 07/05/18 07/06/18 1515:00 23:00 07:00 IntakeIntake Total 831.5 ml 710.0 ml 917.125 ml OutputOutput Total 535 ml 645 ml 405 ml BalanceBalance 296.5 ml 65.0 ml 512.125 ml Exam Constitutional: well developed, non-verbal, frail, other (appears more alert) Psych: other (difficult to assess since on sedation but otherwise appears calm) Head: normocephalic, atraumatic Eyes: nl conjunctiva, nl lids ENMT: nl external ears & nose, nl nasal mucosa & septum, other (ETT in place; MM dry) Neck: other (previous trach site with closing wound with scant purulent drainage. Upper anterior chest is covered with dressing/Tegaderm intact with beige stain with mild surrounding erythema, less purulent drainage) Respiratory: clear to auscultation, diminished breath sounds; No wheezing Cardiovascular: nl pulses, irregular rhythm, other (RUE swollen with BP cuff in place) Gastrointestinal: soft, non-tender, other (G-tube with tube feedings in progress) Genitourinary - Male: nl penis, nl scrotum, other (Flanagan in place with yellow urine) Musculoskeletal: muscle weakness Extremities: edema (RUE), other (LUE PICC c/d/i; bilateral wrist restraints in place); No cyanosis Neurological: other (sedated; eyes open but no tracking and no commands) Skin: nl turgor, other (see nurse notes and photos in chart for details - sacrocccyx stage I) Additional Comments Laboratory Tests Test 07/05/18 18:57 07/05/18 20:25 07/05/18 23:34 07/06/18 05:16 Bedside Glucose 134 mg/dL 141 mg/dL 134 mg/dL 123 mg/dL Test 07/06/18 07:36 07/06/18 12:58 Bedside Glucose 135 mg/dL 90 mg/dL Current Medications Medications Dose Sig/Darrian Start Time Status Last (Trade) Ordered Route PRN Stop Time Admin Dose Reason Admin Sodium 2,270 ml @ BOLUS X1 06/30/18 DC 06/30/18 Chloride 1,135 mls/hr ONCE IV 17:30 17:52 06/30/18 19:29 Vancomycin 250 ml @ ONCE IVPB 18 DC 06/30/18 HCl 125 mls/hr 17:30 18:29 06/30/18 19:29 50 ml @ ONCE STAT 06/30/18 DC 06/30/18 Meropenem/Sod 100 mls/hr IVPB 17:05 17:52 ium Chloride 06/30/18 17:37 Albuterol/ 3 ml Q6H RESP 06/30/18 07/02/18 Ipratropium THERAPY PRN 23:00 02:41 (Duoneb) HHN SHORTNESS OF BREATH Vancomycin VANCOMYCIN PER 06/30/18 HCl (Vanco PER PHARMACY PROTOCOL XX 23:00 Iv Per Pharmacy) 50 ml @ Q8 IVPB 07/01/18 DC 07/04/18 Meropenem/Sod 100 mls/hr 06:00 14:13 ium Chloride 07/04/18 14:37 Enoxaparin 30 mg DAILY SC 07/01/18 DC Sodium 09:00 (Lovenox) 07/01/18 09:00 650 mg Q4H PRN 06/30/18 Acetaminophen GTB MILD 23:00 (Tylenol PAIN(1-3)OR Liquid) ELEVATED TEMP Discontinue ONCE ONCE 06/30/18 DC Miscellaneous current oral XX 23:00 sulfonylur... 07/01/18 Information 00:07 (* Miscellaneous Pharmacy Order) ONCE ONCE 06/30/18 DC Miscellaneous HYPOGLYCEMIA XX 23:00 PROTOCOL 07/01/18 Information w... 00:07 (* Miscellaneous Pharmacy Order) Insulin NOVOLOG Q6H SC 07/01/18 07/05/18 Aspart *MILD* 00:00 12:19 (Novolog ALGORI... Insulin Pen) Discontinue ONCE ONCE 06/30/18 DC Miscellaneous all previ... XX 23:00 07/01/18 Information 00:07 (* Miscellaneous Pharmacy Order) Apixaban 2.5 mg BID PO 12/18/18 DC 07/01/18 (Eliquis) 09:00 09:50 07/01/18 13:37 Sodium 1,000 ml @ [id number] IV 06/30/18 DC 07/01/18 Chloride 75 mls/hr 23:00 20:07 07/02/18 08:32 Metoprolol 50 mg BID GTB 07/01/18 DC Tartrate 09:00 (Lopressor) 07/01/18 13:37 Diltiazem 10 mg Q4H PRN 06/30/18 07/02/18 HCl IV for 23:00 17:05 (Cardizem Iv) sustained HR>130 Diltiazem 25 mg STK-MED 06/30/18 DC HCl ONCE .ROUTE 23:15 (Cardizem Iv) 06/30/18 23:16 2 ml Q4H RESP 07/01/18 DC 07/02/18 Acetylcystein THERAPY NEB 00:00 05:15 e 07/02/18 (Mucomyst) 13:07 0.63 mg Q4H RESP 07/01/18 DC 07/01/18 Levalbuterol THERAPY HHN 00:00 05:17 (Xopenex 07/01/18 Neb) 08:30 4 ml STK-MED 06/30/18 DC Acetylcystein ONCE .ROUTE 23:57 e 06/30/18 (Mucomyst) 23:58 0.31 mg STK-MED 06/30/18 DC Levalbuterol ONCE .ROUTE 23:57 (Xopenex 06/30/18 Neb) 23:58 Sodium 1,000 ml @ Q1H ONCE 07/01/18 DC 07/01/18 Chloride 1,000 mls/hr IV 01:30 02:00 07/01/18 02:29 250 ml @ TITRATE 07/01/18 DC Norepinephrin 1.875 mls/ PRN IV 01:30 e hr BLOOD 07/01/18 PRESSURE 10:59 SUPPORT Vancomycin 250 ml @ ONCE IVPB 07/01/18 DC 07/01/18 HCl 1.5 83.333 mls/ 06:00 06:07 gm/Sodium hr 07/01/18 Chloride 08:59 Vancomycin 250 ml @ Q12H IVPB 07/01/18 DC HCl 125 mls/hr 18:00 07/01/18 18:00 1 puff Q8H RESP 07/01/18 DC 07/01/18 Levalbuterol THERAPY INH 16:00 16:43 (Xopenex 07/02/18 Hfa) 13:07 Sodium 1,000 ml @ Q1H ONCE 07/01/18 DC 07/01/18 Chloride 1,000 mls/hr IV 09:00 08:35 07/01/18 09:59 250 ml @ TITRATE IV 07/01/18 DC Norepinephrin 1.875 mls/ 09:00 e hr 07/01/18 09:00 500 ml @ 0 TITRATE IV 07/01/18 DC 07/01/18 Norepinephrin mls/hr 11:00 12:10 e 16 07/02/18 mg/Dextrose 19:53 30 mg DAILY@06 07/01/18 07/06/18 Lansoprazole GTB 09:00 05:10 (Prevacid) Midazolam 50 ml @ 1 TITRATE IV 07/01/18 07/06/18 HCl mls/hr 11:30 00:39 Lidocaine 5 ml ONCE ONCE 07/01/18 DC 07/01/18 (Xylocaine SC 13:00 15:45 1% (Mpf)) 07/01/18 13:01 Digoxin 250 mcg ONCE ONCE 07/01/18 DC 07/01/18 (Digoxin) IV 14:00 14:41 07/01/18 14:01 1 ea NOTE XX 07/01/18 Miscellaneous 14:00 Information Glucose 15 gm Q15M PRN 07/01/18 (Glutose) PO DECREASED 14:00 GLUCOSE Glucose 22.5 gm Q15M PRN 07/01/18 (Glutose) PO DECREASED 14:00 GLUCOSE Dextrose 25 ml Q15M PRN 07/01/18 (D50w IV DECREASED 14:00 Syringe) GLUCOSE Dextrose 50 ml Q15M PRN 07/01/18 (D50w IV DECREASED 14:00 Syringe) GLUCOSE Glucagon 1 mg Q15M PRN 07/01/18 (Glucagen) IM DECREASED 14:00 GLUCOSE Glucose 15 gm Q15M PRN 07/01/18 (Glutose) BUCCAL 14:00 DECREASED GLUCOSE Vancomycin 250 ml @ Q24H IVPB 07/02/18 DC 07/03/18 HCl 1.5 83.333 mls/ 06:00 06:03 gm/Sodium hr 07/03/18 Chloride 09:00 10 mg HS GTB 07/01/18 07/05/18 Atorvastatin 21:00 20:29 Calcium (Lipitor) Insulin 10 unit BID@08,20 07/01/18 07/06/18 Human NPH SC 20:00 08:04 (Humulin N) IV Flush 10 ml PRN PRN 07/01/18 (NS 10 ml) IV IV 17:00 PROTOCOL Apixaban 2.5 mg BID PO 07/02/18 07/06/18 (Eliquis) 09:00 09:12 Potassium 40 meq ONCE ONCE 07/02/18 DC 07/02/18 Chloride GTB 09:00 10:57 (Potassium 07/02/18 Chloride 10:00 Pwd/Soln) VANCO TR ONCE ONCE 07/03/18 DC Miscellaneous AT XX 05:00 0,500 07/03/18 Information 05:02 (*Rx Drug Level Order Reminder*) Potassium 256.6667 ml ONCE ONCE 07/02/18 DC 07/02/18 Phosphate 20 @ 64.167 IVPB 13:30 12:57 mm/ Sodium m... 07/02/18 Chloride 17:29 Potassium 40 meq ONCE ONCE 07/02/18 DC Chloride NGT 13:00 (Potassium 07/02/18 Chloride 13:07 Pwd/Soln) Fentanyl 100 ml @ TITRATE IV 07/02/18 07/06/18 2.5 mls/hr 16:00 00:42 250 ml @ TITRATE IV 07/02/18 07/02/18 Norepinephrin 1.875 mls/ 20:00 20:56 e hr Vancomycin 250 ml @ Q12H IVPB 07/03/18 DC 07/04/18 HCl 125 mls/hr 18:00 17:54 07/05/18 05:47 Potassium 256.6667 ml ONCE ONCE 07/03/18 DC 07/03/18 Phosphate 20 @ 64.167 IVPB 10:00 12:32 mm/ Sodium m... 07/03/18 Chloride 13:59 Potassium 40 meq ONCE ONCE 07/03/18 DC 07/03/18 Chloride GTB 09:00 09:03 (Potassium 07/03/18 Chloride 09:01 Pwd/Soln) Docusate 100 mg BID GTB 07/04/18 07/06/18 Sodium 10:00 09:11 (Colace Liquid Cup) 17 gm DAILY GTB 07/04/18 07/06/18 Polyethylene 10:00 09:11 Glycol (Miralax) VANCO ONCE ONCE 07/05/18 DC Miscellaneous TROUGH @ XX 05:00 0,500 ON ... 07/05/18 Information 05:01 (*Rx Drug Level Order Reminder*) Digoxin 250 mcg Q6H IV 07/04/18 DC 07/04/18 (Digoxin) 13:00 21:47 07/04/18 19:01 Digoxin 0.125 mg DAILY@13 07/05/18 07/05/18 (Digoxin) PO 13:00 14:30 Vancomycin 150 ml @ Q12H IVPB 07/05/18 07/06/18 HCl 750 75 mls/hr 10:00 10:06 mg/Sodium Chloride Mupirocin 1 applic BID TOP 07/06/18 07/06/18 (Bactroban) 09:00 10:31 VANCO ONCE ONCE 07/06/18 Miscellaneous TROUGH @ XX 21:00 2,100 ON ... 07/06/18 Information 21:01 (*Rx Drug Level Order Reminder*) PATRICE SANDRA NP Jul 06, 2018 15:24
--- NOTE | 2018-07-06 15:29 | CONS ---
Date/Time of Note Date/Time of Note DATE: 07/06/18 TIME: 15:25 Consult Date/Type/Reason Admit Date/Time Jun 30, 2018 at 18:05 Initial Consult Date 07/02/18 Requesting Provider: ALE CHUN MD Subjective Cardiology follow-up progress note Subjective: Case discussed with the staff and telemetry was reviewed. Patient remains in atrial fibrillation. Heart has been low side over night and pt has been hypotensive and back on Levophed again Patient is unable to provide reliable history to me. He remains intubated on the vent Objective: General: Elderly gentleman. Intubated on the vent HEENT: NC/AT. pupils are equal. round. NECK: Status with previous trach. no stridor. CV: Irregularly irregular. systolic murmur; no gallop or rubs. PULM: no wheezing. +honchi. GI: SOFT, NT, ND, no rebound or guarding Extremity: + B/L LE edema. no clubbing. neuro: Opens his eyes but is unable to answer my question Psych: calm rectal: deferred : normal Objective Vital Signs Date Temp Pulse Resp B/P (MAP) Pulse Ox O2 O2 Flow FiO2 Time Delivery Rate 07/06/18 73 20 100 30 14:56 07/06/18 112/66 14:45 (81) 07/06/18 Mechanical 14:00 Ventilator 07/06/18 98.4 12:00 Intake and Output 07/05/18 07/05/18 07/06/18 1515:00 23:00 07:00 IntakeIntake Total 831.5 ml 710.0 ml 917.125 ml OutputOutput Total 535 ml 645 ml 405 ml BalanceBalance 296.5 ml 65.0 ml 512.125 ml Results/Medications Result Diagram: 07/05/18 0500 07/05/18 0500 Results 24 hrs Laboratory Tests Test 07/05/18 18:57 07/05/18 20:25 07/05/18 23:34 07/06/18 05:16 Bedside Glucose 134 141 134 123 Test 07/06/18 07:36 07/06/18 12:58 Bedside Glucose 135 90 Medications Current Medications Albuterol/ Ipratropium (Duoneb) 3 ml Q6H RESP THERAPY PRN HHN SHORTNESS OF BREATH Last administered on 07/02/18at 02:41; Admin Dose 3 ML; Start 06/30/18 at 23:00 Vancomycin HCl (Vanco Iv Per Pharmacy) VANCOMYCIN PER PHARMACY PER PROTOCOL XX ; Start 06/30/18 at 23:00 Acetaminophen (Tylenol Liquid) 650 mg Q4H PRN GTB MILD PAIN(1-3)OR ELEVATED TEMP; Start 06/30/18 at 23:00 Insulin Aspart (Novolog Insulin Pen) NOVOLOG *MILD* ALGORI... Q6H SC Last administered on 07/05/18at 12:19; Admin Dose 1 UNIT; Start 07/01/18 at 00:00 Diltiazem HCl (Cardizem Iv) 10 mg Q4H PRN IV for sustained HR>130 Last administered on 07/02/18at 17:05; Admin Dose 10 MG; Start 06/30/18 at 23:00 Lansoprazole (Prevacid) 30 mg DAILY@06 GTB Last administered on 07/06/18at 05:10; Admin Dose 30 MG; Start 07/01/18 at 09:00 Midazolam HCl 50 ml @ 1 mls/hr TITRATE IV Last administered on 07/06/18at 00:39; Admin Dose 4 MLS/HR; Start 07/01/18 at 11:30 Miscellaneous Information 1 ea NOTE XX ; Start 07/01/18 at 14:00 Glucose (Glutose) 15 gm Q15M PRN PO DECREASED GLUCOSE; Start 07/01/18 at 14:00 Glucose (Glutose) 22.5 gm Q15M PRN PO DECREASED GLUCOSE; Start 07/01/18 at 14:00 Dextrose (D50w Syringe) 25 ml Q15M PRN IV DECREASED GLUCOSE; Start 07/01/18 at 14:00 Dextrose (D50w Syringe) 50 ml Q15M PRN IV DECREASED GLUCOSE; Start 07/01/18 at 14:00 Glucagon (Glucagen) 1 mg Q15M PRN IM DECREASED GLUCOSE; Start 07/01/18 at 14:00 Glucose (Glutose) 15 gm Q15M PRN BUCCAL DECREASED GLUCOSE; Start 07/01/18 at 14:00 Atorvastatin Calcium (Lipitor) 10 mg HS GTB Last administered on 07/05/18at 20:29; Admin Dose 10 MG; Start 07/01/18 at 21:00 Insulin Human NPH (Humulin N) 10 unit BID@08,20 SC Last administered on 07/06/18 08:04; Admin Dose 10 UNIT; Start 07/01/18 at 20:00 IV Flush (NS 10 ml) 10 ml PRN PRN IV IV PROTOCOL; Start 07/01/18 at 17:00 Apixaban (Eliquis) 2.5 mg BID PO Last administered on 07/06/18 09:12; Admin Dose 2.5 MG; Start 07/02/18 at 09:00 Fentanyl 100 ml @ 2.5 mls/hr TITRATE IV Last administered on 07/06/18at 00:42; Admin Dose 7.5 MLS/HR; Start 07/02/18 at 16:00 Norepinephrine 250 ml @ 1.875 mls/ hr TITRATE IV Last administered on 07/02/18at 20:56; Admin Dose 1.875 MLS/HR; Start 07/02/18 at 20:00 Docusate Sodium (Colace Liquid Cup) 100 mg BID GTB Last administered on 07/06/18at 09:11; Admin Dose 100 MG; Start 07/04/18 at 10:00 Polyethylene Glycol (Miralax) 17 gm DAILY GTB Last administered on 07/06/18 09:11; Admin Dose 17 GM; Start 07/04/18 at 10:00 Digoxin (Digoxin) 0.125 mg DAILY@13 PO Last administered on 07/05/18at 14:30; Admin Dose 0.125 MG; Start 07/05/18 at 13:00 Vancomycin HCl 750 mg/Sodium Chloride 150 ml @ 75 mls/hr Q12H IVPB Last administered on 07/06/18at 10:06; Admin Dose 75 MLS/HR; Start 07/05/18 at 10:00 Mupirocin (Bactroban) 1 applic BID TOP Last administered on 07/06/18at 10:31; Admin Dose 1 APPLIC; Start 07/06/18 at 09:00 Miscellaneous Information (*Rx Drug Level Order Reminder*) VANCO TROUGH @ 2,100 ON ... ONCE ONCE XX ; Start 07/06/18 at 21:00; Stop 07/06/18 at 21:01 Assessment/Plan Chief Complaint/Hosp Course Acute on chronic respiratory failure s/p trach dislodgment : Intubated now Atrial fibrillation : Heart rate appears to be controlled and patient with Preserved ejection fraction Status post shock and hypotension: Currently off of pressors Myasthenia gravis Anemia Recommendations: Continue with respiratory care. Anticoagulation with Eliquis as long as no active bleeding is noted Check the digoxin level and adjust the dose as needed. Antibiotic management as per internal medicine. Continue with ICU care for now Transfusion as needed levophed as needed Thank you for his referral. We will continue to follow along with you until Dr. Armas returns on Saturday TRUDY GAMBLE MD [facility] TRUDY GAMBLE MD Jul 06, 2018 15:29
--- NOTE | 2018-07-06 18:31 | NUR ---
EOSS PT STABLE ON VENTILATOR. PT STILL ON LEVOPHED DRIP (BP BETWEEN 90-100'S.). CURRENTLY ON FENTANYL AT 75MCG/HR, VERSED AT 4MG/HR AND LEVO AT 2. HELD DIGOXIN D/T HR BRADYING DOWN TO 39-40'S BUT IS CURRENTLY BETWEEN 60'S-80'S, DR. PALOMO AWARE. RESTRAINTS RENEWED THIS AM. URINE OUTPUT ADEQUATE. AFEBRILE. PT POSITIVE FOR MRSA IN NARES, STARTED ON BACTROBAN. LARISA IBRAHIM PUT IN ORDER FOR CHLORHEXADINE BODY WASH AT NIGHT AND BACTROBAN IN NARES, AXILLA, GROIN AND ANUS. . GASTRIC RESIDUALS 450 AT 1600, WILL FOLLOW UP WITH MD. ALL INFORMATION WILL ENDORSE TO WOODS MANAGER NURSE.
--- NOTE | 2018-07-06 18:59 | NUR ---
TF RESIDUAL > 450ML, DR JAVIER INFORMED. HOLD TF FOR 3-4 HOURS AND THEN RECHECK.
[2018-07-06] MEDS: ATORVASTATIN 10 MG TAB GTB SCH (20:31)
[2018-07-07] VITALS (106 sets, daily range): BP systolic 85–129; BP diastolic 50–84; PULSE 54–87; RESP 6–29
[2018-07-07] MEDS: MIDAZOLAM (DRIP) 50 mg/50 mL 50 ML IV SCH ×4 (01:27→22:55)
[2018-07-07] MEDS: INSULIN ASPART [NOVOLOG] 3 ML PEN SC SCH ×3 (06:00→18:00)
[2018-07-07] MEDS: FENTAnyl (DRIP) 1000 mcg/100mL 100 ML IV SCH ×2 (06:27→15:50)
[2018-07-07] MEDS: LANSOPRAZOLE 30 MG CAP GTB SCH (06:29)
[2018-07-07] MEDS: NORepinephrine 8MG/250 ML (PMX 250 ML IV SCH (06:46)
[2018-07-07] MEDS: NPH, HUMAN INSULIN ISOPHANE 3ML VIAL SC SCH ×2 (07:56→20:00)
--- NOTE | 2018-07-07 08:02 | NUR ---
Vancomycin per Rx Vancomycin trough = 16.6 (drawn at 21:08 on 07/06) Dose = 750 mg q12h CC: MRSA+ blood, chest & urine BUN/Scr 23/0.6 A/P: Continue Vancomycin 750 mg IVPB q12h. Pharmacy to follow.
--- NOTE | 2018-07-07 08:02 | CONS ---
Date/Time of Note Date/Time of Note DATE: 07/07/18 TIME: 07:59 Assessment/Plan Assessment/Plan Additional Assessment/Plan Ventilator setting; AC of 18, tidal volume 500, PEEP of 5, 30% FiO2. Patient is currently on Levophed at 2 mics per minute, Versed 8 mg/h. Assessment and recommendations; 1. Patient with history of myasthenia gravis status post thymectomy and sternotomy admitted for severe hypercapnic respiratory failure due to tracheostomy dislodgment, requiring oral intubation with marked improvement in gas exchange and correction of respiratory acidosis. 2. Chronic dementia with waxing and waning mental status. 3. Chronic atrial fibrillation. 4. Anemia. 5. Sternal wound. 6. MRSA sepsis. Continue current supportive care. Once the sternal wound starts healing, patient will undergo revision tracheostomy. Consultation Date/Type/Reason Admit Date/Time Jun 30, 2018 at 18:05 Initial Consult Date 07/01/18 Type of Consult Pulmonary/critical care History of presenting illness; patient is a 77-year-old male who was transferred over to the hospital from assisted because of altered mental status. The patient was found to be severely hypercapnic and apparently there was an issue with the tracheostomy being dislodged. The patient having low tidal volumes and had to be switched to pressure control mode of ventilation with persistent severe hypercapnia. By the time I saw him, patient is on ventilator via tracheostomy and is unresponsive. History was obtained from medical records. Past medical history; 1. Chronic respiratory failure, and VDR F. 2. History of myasthenia gravis. 3. Apparently mild dementia. 4. History of tracheostomy and G-tube placement. 5. History of hypertension. 6. Chronic atrial fibrillation. Medications; reviewed. Allergies; penicillin. Social history, family history, occupational history not available. Review of system; unable to be obtained. General exam; elderly male, on ventilator via tracheostomy, unresponsive, tachypneic. Requesting Provider: ALE CHUN MD 24 HR Interval Summary Free Text/Dictation Patient's condition remains critical but stable. Still requiring low-dose Levophed. General exam; elderly male, orally intubated, sedated, currently in no distress. Exam/Review of Systems Vital Signs Vitals Vital Signs Date Temp Pulse Resp B/P (MAP) Pulse Ox O2 O2 Flow FiO2 Time Delivery Rate 07/07/18 79 18 104/73 07:45 (83) 07/07/18 100 07:15 07/07/18 Mechanical 07:00 Ventilator 07/07/18 30 05:50 07/07/18 99.2 04:00 Intake and Output 07/06/18 07/06/18 07/07/18 1515:00 23:00 07:00 IntakeIntake Total 922.00 ml 722.75 ml 544.75 ml OutputOutput Total 460 ml 765 ml 630 ml BalanceBalance 462.00 ml -42.25 ml -85.25 ml Exam H EENT exam; supple neck, no JVD. No lymphadenopathy. Midline trachea. No thyromegaly. Edentulous. Orally intubated. No neck masses. Chest exam; diminished but clear breath sounds. S1-S2 audible, no murmurs. Irregular rhythm. Dressing applied over prior tracheostomy site. Dressing applied with sternal wound. There is a sternal wound with purulent discharge. Abdomen exam; soft, no organomegaly. G-tube in place. Bowel sounds audible. Extremity exam; no peripheral edema or clubbing. [employer] exam; patient is sedated. ANSELMO PIERCE Jul 07, 2018 08:02
[2018-07-07] MEDS: POLYETHYLENE GLYCOL 17 GM PACKET GTB SCH (08:21)
[2018-07-07] MEDS: DOCUSATE SODIUM 10 MG/ML (10ML CUP) GTB SCH ×2 (08:21→20:47)
[2018-07-07] MEDS: APIXABAN 5 MG TABLET PO SCH ×2 (08:22→20:48)
[2018-07-07] MEDS: BALSAM PERU/CASTOR OIL 60 GM TUBE TOP SCH ×2 (08:22→20:48)
[2018-07-07] MEDS: MUPIROCIN 2% 22 GM OINT TOP SCH ×2 (08:22→20:48)
[2018-07-07] MEDS: VANCOMYCIN 750 MG in SOD CHLORIDE 0.9% 150 ML IVPB SCH ×2 (10:28→22:24)
--- NOTE | 2018-07-07 10:45 | PN ---
Date/Time of Note Date/Time of Note DATE: 07/07/18 TIME: 10:44 Assessment/Plan VTE Prophylaxis Risk score (from Ns)>0 risk: 12 SCD applied (from Ns): Yes Pharmacological prophylaxis: LMWH Lines/Catheters IV Catheter Type (from Nrs): PICC Line Central line still needed: Yes Urinary Cath still in place: Yes Reason Cath still needed: skin wounds contaminated by urine Assessment/Plan Hospital Course 1. Acute encephalopathy, improved. The patient is approaching his baseline. Continue to monitor closely. No sedative at this time. 2. Elevated white count; however, patient has no fever. - per ID - cont vancomycin and meropenem - pending result of urine and blood culture. 3. Atrial fibrillation. The patient after admission went into rapid ventricula r response and had to be started on Cardizem and Eliquis. We will keep patient on telemetry. 4. Acute hypoxemic and hypercarbic respiratory failure. - PER pulmonary consult with Dr. Mustafa 5. Dysphagia. Continue G-tube feeding. 6. Diabetes. 7. Myasthenia gravis, status post thymectomy. 8. Dyslipidemia. The patient used to be on Lipitor. Again, [facility] has not been received. Continue Lipitor. 9. Hypertension and coronary artery disease. Continue metoprolol and p.r.n. IV diltiazem. 10. The patient apparently also has history of depression. We will resume Prozac. 11. The patient has mild dementia. We will continue Aricept. Subjective 24 Hr Interval Summary Free Text/Dictation Patient sedated, on vent Exam/Review of Systems Vital Signs Vitals Vital Signs Date Temp Pulse Resp B/P (MAP) Pulse Ox O2 O2 Flow FiO2 Time Delivery Rate 07/07/18 66 08:00 07/07/18 18 104/73 07:45 (83) 07/07/18 100 07:15 07/07/18 Mechanical 07:00 Ventilator 07/07/18 30 05:50 07/07/18 99.2 04:00 Intake and Output 07/06/18 07/06/18 07/07/18 1515:00 23:00 07:00 IntakeIntake Total 922.00 ml 722.75 ml 544.75 ml OutputOutput Total 460 ml 765 ml 630 ml BalanceBalance 462.00 ml -42.25 ml -85.25 ml Exam Constitutional: well developed Head: normocephalic, atraumatic Neck: supple Respiratory: diminished breath sounds Cardiovascular: regular rate and rhythm Gastrointestinal: soft, non-tender Extremities: normal pulses LISA JAVIER Jul 07, 2018 10:45
--- NOTE | 2018-07-07 13:25 | CONS ---
Date/Time of Note Date/Time of Note DATE: 07/07/18 TIME: 13:21 Assessment/Plan Assessment/Plan Additional Assessment/Plan Acute on chronic respiratory failure Possible trach dislodgment status post intubation Atrial fibrillation with rapid ventricular rates, improved Preserved ejection fraction Hypotension on IV pressor Myasthenia gravis -Patient still on IV pressor, titrate to maintain SBP greater than 90 and/or map above 60. Heart rate at times has been lower side, would DC digoxin. Otherwise antibiotics as per infectious disease. Consultation Date/Type/Reason Admit Date/Time Jun 30, 2018 at 18:05 Initial Consult Date 07/01/18 Type of Consult cv Requesting Provider: ALE CHUN MD 24 HR Interval Summary Free Text/Dictation Patient seen and examined. On low-dose IV pressor. Heart rate on the lower side at times in discussion with nursing staff Exam/Review of Systems Vital Signs Vitals Vital Signs Date Temp Pulse Resp B/P (MAP) Pulse Ox O2 O2 Flow FiO2 Time Delivery Rate 07/07/18 67 12:00 07/07/18 100 30 11:31 07/07/18 104/73 07:45 (83) 07/07/18 Mechanical 07:00 Ventilator 07/07/18 99.2 04:00 Intake and Output 07/06/18 07/06/18 07/07/18 1414:59 22:59 06:59 IntakeIntake Total 923.875 ml 618.25 ml 714.50 ml OutputOutput Total 470 ml 690 ml 755 ml BalanceBalance 453.875 ml -71.75 ml -40.50 ml Exam Sedated and intubated, no apparent distress Head: normocephalic ENMT: intubated Respiratory: other (Coarse breath sounds bilaterally, no wheezing) Cardiovascular: irregular rhythm, other (S1-S2 heard) Gastrointestinal: soft, non-tender, bowel sounds Extremities: edema Medications Medications Current Medications Albuterol/ Ipratropium (Duoneb) 3 ml Q6H RESP THERAPY PRN HHN SHORTNESS OF BREATH Last administered on 07/02/18at 02:41; Admin Dose 3 ML; Start 06/30/18 at 23:00 Vancomycin HCl (Vanco Iv Per Pharmacy) VANCOMYCIN PER PHARMACY PER PROTOCOL XX ; Start 06/30/18 at 23:00 Acetaminophen (Tylenol Liquid) 650 mg Q4H PRN GTB MILD PAIN(1-3)OR ELEVATED TEMP; Start 06/30/18 at 23:00 Insulin Aspart (Novolog Insulin Pen) NOVOLOG *MILD* ALGORI... Q6H SC Last administered on 07/05/18at 12:19; Admin Dose 1 UNIT; Start 07/01/18 at 00:00 Diltiazem HCl (Cardizem Iv) 10 mg Q4H PRN IV for sustained HR>130 Last adminis tered on 07/02/18at 17:05; Admin Dose 10 MG; Start 06/30/18 at 23:00 Lansoprazole (Prevacid) 30 mg DAILY@06 GTB Last administered on 07/07/18at 06:29; Admin Dose 30 MG; Start 07/01/18 at 09:00 Midazolam HCl 50 ml @ 1 mls/hr TITRATE IV Last administered on 07/07/18at 10:19; Admin Dose 8 MLS/HR; Start 07/01/18 at 11:30 Miscellaneous Information 1 ea NOTE XX ; Start 07/01/18 at 14:00 Glucose (Glutose) 15 gm Q15M PRN PO DECREASED GLUCOSE; Start 07/01/18 at 14:00 Glucose (Glutose) 22.5 gm Q15M PRN PO DECREASED GLUCOSE; Start 07/01/18 at 14:00 Dextrose (D50w Syringe) 25 ml Q15M PRN IV DECREASED GLUCOSE; Start 07/01/18 at 14:00 Dextrose (D50w Syringe) 50 ml Q15M PRN IV DECREASED GLUCOSE; Start 07/01/18 at 14:00 Glucagon (Glucagen) 1 mg Q15M PRN IM DECREASED GLUCOSE; Start 07/01/18 at 14:00 Glucose (Glutose) 15 gm Q15M PRN BUCCAL DECREASED GLUCOSE; Start 07/01/18 at 14:00 Atorvastatin Calcium (Lipitor) 10 mg HS GTB Last administered on 07/06/18at 20:31; Admin Dose 10 MG; Start 07/01/18 at 21:00 Insulin Human NPH (Humulin N) 10 unit BID@08,20 SC Last administered on 07/07/18at 07:56; Admin Dose 10 UNIT; Start 07/01/18 at 20:00 IV Flush (NS 10 ml) 10 ml PRN PRN IV IV PROTOCOL; Start 07/01/18 at 17:00 Apixaban (Eliquis) 2.5 mg BID PO Last administered on 07/07/18 08:22; Admin Dose 2.5 MG; Start 07/02/18 at 09:00 Fentanyl 100 ml @ 2.5 mls/hr TITRATE IV Last administered on 07/07/18 06:27; Admin Dose 10 MLS/HR; Start 07/02/18 at 16:00 Norepinephrine 250 ml @ 1.875 mls/ hr TITRATE IV Last administered on 07/07/18 06:46; Admin Dose 3.75 MLS/HR; Start 07/02/18 at 20:00 Docusate Sodium (Colace Liquid Cup) 100 mg BID GTB Last administered on 07/07/18 08:21; Admin Dose 100 MG; Start 07/04/18 at 10:00 Polyethylene Glycol (Miralax) 17 gm DAILY GTB Last administered on 07/07/18 08:21; Admin Dose 17 GM; Start 07/04/18 at 10:00 Digoxin (Digoxin) 0.125 mg DAILY@13 PO Last administered on 07/05/18 14:30; Admin Dose 0.125 MG; Start 07/05/18 at 13:00; Status Hold Vancomycin HCl 750 mg/Sodium Chloride 150 ml @ 75 mls/hr Q12H IVPB Last administered on 07/07/18 10:28; Admin Dose 75 MLS/HR; Start 07/05/18 at 10:00 Mupirocin (Bactroban) 1 applic BID TOP Last administered on 07/07/18 08:22; Admin Dose 1 APPLIC; Start 07/06/18 at 09:00; Stop 07/16/18 at 08:59 Evan Armas DO Jul 07, 2018 13:25
--- NOTE | 2018-07-07 14:29 | CONS ---
Date/Time of Note Date/Time of Note DATE: 07/07/18 TIME: 14:29 Assessment/Plan Assessment/Plan Chief Complaint/Hosp Course patient seen and examined. Plan coordinated and directed with CYBER SECURITY ADMINISTRATOR. Consultation Date/Type/Reason Admit Date/Time Jun 30, 2018 at 18:05 Initial Consult Date 07/01/18 Type of Consult ID Requesting Provider: ALE CHUN MD Exam/Review of Systems Vital Signs Vitals Vital Signs Date Temp Pulse Resp B/P (MAP) Pulse Ox O2 O2 Flow FiO2 Time Delivery Rate 07/07/18 67 12:00 07/07/18 18 100 30 11:31 07/07/18 104/73 07:45 (83) 07/07/18 Mechanical 07:00 Ventilator 07/07/18 99.2 04:00 Intake and Output 07/06/18 07/06/18 07/07/18 1515:00 23:00 07:00 IntakeIntake Total 922.00 ml 722.75 ml 594.75 ml OutputOutput Total 460 ml 765 ml 690 ml BalanceBalance 462.00 ml -42.25 ml -95.25 ml Medications Medications Current Medications Albuterol/ Ipratropium (Duoneb) 3 ml Q6H RESP THERAPY PRN HHN SHORTNESS OF BREATH Last administered on 07/02/18at 02:41; Admin Dose 3 ML; Start 06/30/18 at 23:00 Vancomycin HCl (Vanco Iv Per Pharmacy) VANCOMYCIN PER PHARMACY PER PROTOCOL XX ; Start 06/30/18 at 23:00 Acetaminophen (Tylenol Liquid) 650 mg Q4H PRN GTB MILD PAIN(1-3)OR ELEVATED TEMP; Start 06/30/18 at 23:00 Insulin Aspart (Novolog Insulin Pen) NOVOLOG *MILD* ALGORI... Q6H SC Last administered on 07/05/18at 12:19; Admin Dose 1 UNIT; Start 07/01/18 at 00:00 Diltiazem HCl (Cardizem Iv) 10 mg Q4H PRN IV for sustained HR>130 Last administered on 07/02/18at 17:05; Admin Dose 10 MG; Start 06/30/18 at 23:00 Lansoprazole (Prevacid) 30 mg DAILY@06 GTB Last administered on 07/07/18at 06:29; Admin Dose 30 MG; Start 07/01/18 at 09:00 Midazolam HCl 50 ml @ 1 mls/hr TITRATE IV Last administered on 07/07/18at 10:19; Admin Dose 8 MLS/HR; Start 07/01/18 at 11:30 Miscellaneous Information 1 ea NOTE XX ; Start 07/01/18 at 14:00 Glucose (Glutose) 15 gm Q15M PRN PO DECREASED GLUCOSE; Start 07/01/18 at 14:00 Glucose (Glutose) 22.5 gm Q15M PRN PO DECREASED GLUCOSE; Start 07/01/18 at 14:00 Dextrose (D50w Syringe) 25 ml Q15M PRN IV DECREASED GLUCOSE; Start 07/01/18 at 14:00 Dextrose (D50w Syringe) 50 ml Q15M PRN IV DECREASED GLUCOSE; Start 07/01/18 at 14:00 Glucagon (Glucagen) 1 mg Q15M PRN IM DECREASED GLUCOSE; Start 07/01/18 at 14:00 Glucose (Glutose) 15 gm Q15M PRN BUCCAL DECREASED GLUCOSE; Start 07/01/18 at 14:00 Atorvastatin Calcium (Lipitor) 10 mg HS GTB Last administered on 07/06/18at 20:31; Admin Dose 10 MG; Start 07/01/18 at 21:00 Insulin Human NPH (Humulin N) 10 unit BID@08,20 SC Last administered on 07/07/18at 07:56; Admin Dose 10 UNIT; Start 07/01/18 at 20:00 IV Flush (NS 10 ml) 10 ml PRN PRN IV IV PROTOCOL; Start 07/01/18 at 17:00 Apixaban (Eliquis) 2.5 mg BID PO Last administered on 07/07/18at 08:22; Admin Dose 2.5 MG; Start 07/02/18 at 09:00 Fentanyl 100 ml @ 2.5 mls/hr TITRATE IV Last administered on 07/07/18at 06:27; Admin Dose 10 MLS/HR; Start 07/02/18 at 16:00 Norepinephrine 250 ml @ 1.875 mls/ hr TITRATE IV Last administered on 07/07/18at 06:46; Admin Dose 3.75 MLS/HR; Start 07/02/18 at 20:00 Docusate Sodium (Colace Liquid Cup) 100 mg BID GTB Last administered on 07/07/18 08:21; Admin Dose 100 MG; Start 07/04/18 at 10:00 Polyethylene Glycol (Miralax) 17 gm DAILY GTB Last administered on 07/07/18 08:21; Admin Dose 17 GM; Start 07/04/18 at 10:00 Vancomycin HCl 750 mg/Sodium Chloride 150 ml @ 75 mls/hr Q12H IVPB Last administered on 07/07/18 10:28; Admin Dose 75 MLS/HR; Start 07/05/18 at 10:00 Mupirocin (Bactroban) 1 applic BID TOP Last administered on 07/07/18 08:22; Admin Dose 1 APPLIC; Start 07/06/18 at 09:00; Stop 07/16/18 at 08:59 PETER LUTZ MD Jul 07, 2018 14:29
--- NOTE | 2018-07-07 14:45 | CONS ---
Date/Time of Note Date/Time of Note DATE: 07/07/18 TIME: 14:44 Assessment/Plan Assessment/Plan Chief Complaint/Hosp Course - Severe sepsis with septic shock d/t MRSA - leukocytosis resolved, levophed restarted, tachycardia improving - MRSA soft tissue abscess on chest - UTI d/t MRSA - MRSA bacteremia d/t above. Repeat blood cx 07/01/2018 shows NGTD x1 bottle, MRSA 1 bottle. Repeat cultures are pending. TTE 07/01/2018 does not mention any vegetation - MRSA nasal colonization - Acute hypercarbic respiratory failure d/t tracheostomy dislodgement requiring oral intubation 07/01/2018 - Acute encephalopathy - Atrial fibrillation with intermittent RVR - CAD - H/o HTN - T2DM - HLD - Myasthenia gravis s/p recent thymectomy - Dysphagia s/p PEG - Depression - on Prozac at [facility] - Mild dementia - on Aricept at [facility] - Moderate protein calorie malnutrition - Hypernatremia Recommendations: - F/u the repeat blood cx x2, 15 min apart (one set from PICC, one set peripheral stick) - these are pending in process and RN will call for 24 hour prelim results to be sent to EMR - Continue vancomycin (06/30/2018-) - Continue mupirocin (07/06/2018-) to nares, bilateral axilla, groin, and anus for MRSA de-colonization - Continue chlorhexidine body wash daily - Consider ENT evaluation and/or surgical evaluation of trach site as likely source; - Additional imaging such as CT neck should also be considered - Continue local wound care of neck/upper chest lesion Management d/w ICU RNs Jan and [place] and with Dr. Stanton. Critical care time spent: 40 min Thank you Consultation Date/Type/Reason Admit Date/Time Jun 30, 2018 at 18:05 Initial Consult Date 07/02/18 Reason for Consultation ID Consult Requesting Provider: ALE CHUN MD 24 HR Interval Summary Free Text/Dictation Patient has remained afebrile. Sternal wound still with small amt of pus draining. Patient is unable to contribute to ROS d/t intubated and sedated. Exam/Review of Systems Vital Signs Vitals Vital Signs Date Temp Pulse Resp B/P (MAP) Pulse Ox O2 O2 Flow FiO2 Time Delivery Rate 07/07/18 74 18 104/59 14:30 (74) 07/07/18 Mechanical 14:00 Ventilator 07/07/18 100 12:30 07/07/18 97.9 12:00 07/07/18 30 11:31 Intake and Output 07/06/18 07/06/18 07/07/18 1515:00 23:00 07:00 IntakeIntake Total 922.00 ml 722.75 ml 594.75 ml OutputOutput Total 460 ml 765 ml 690 ml BalanceBalance 462.00 ml -42.25 ml -95.25 ml Allergies Coded Allergies Penicillins (Unverified Allergy, Unknown, 06/30/18) CXR 07/07/18 IMPRESSION: Mild cardiomegaly with worsening pulmonary vascular congestion. Worsening bibasilar infiltrates and bilateral pleural effusions, right greater than left. No other significant change. Exam Constitutional: well developed, other (frail appearing) Psych: other (appears comfortable, he is sedated with versed and fentanyl ) Head: normocephalic, atraumatic Eyes: nl conjunctiva, nl lids, nl sclera ENMT: nl external ears & nose, nl nasal mucosa & septum (op visualization limited d/t ett in place ) Neck: supple, non-tender, other (previous trach site with closing wound, no drainage noted today; Upper anterior chest is covered with a gauze and tegaderm) Respiratory: clear to auscultation, normal air movement, diminished breath sounds (bibasilarlly ) Cardiovascular: nl pulses, other (irregular rhythm) Gastrointestinal: soft, non-tender, other (GT site is cdi, with TF running ) Genitourinary - Male: nl penis, nl scrotum, other (f/c draining clear yellow ur ine ) Musculoskeletal: muscle weakness, other (BUE Restraints on ) Extremities: normal pulses, edema (RUE), other (LUE picc site cdi) Neurological: other (sedated with versed and fentanyl) Skin: nl turgor, other (see nsg notes/pics sacrococcyx stage I) Medications Medications Current Medications Albuterol/ Ipratropium (Duoneb) 3 ml Q6H RESP THERAPY PRN HHN SHORTNESS OF BREATH Last administered on 07/02/18at 02:41; Admin Dose 3 ML; Start 06/30/18 at 23:00 Vancomycin HCl (Vanco Iv Per Pharmacy) VANCOMYCIN PER PHARMACY PER PROTOCOL XX ; Start 06/30/18 at 23:00 Acetaminophen (Tylenol Liquid) 650 mg Q4H PRN GTB MILD PAIN(1-3)OR ELEVATED TEMP; Start 06/30/18 at 23:00 Insulin Aspart (Novolog Insulin Pen) NOVOLOG *MILD* ALGORI... Q6H SC Last adm inistered on 07/05/18at 12:19; Admin Dose 1 UNIT; Start 07/01/18 at 00:00 Diltiazem HCl (Cardizem Iv) 10 mg Q4H PRN IV for sustained HR>130 Last administered on 07/02/18at 17:05; Admin Dose 10 MG; Start 06/30/18 at 23:00 Lansoprazole (Prevacid) 30 mg DAILY@06 GTB Last administered on 07/07/18at 06:29; Admin Dose 30 MG; Start 07/01/18 at 09:00 Midazolam HCl 50 ml @ 1 mls/hr TITRATE IV Last administered on 07/07/18at 10:19; Admin Dose 8 MLS/HR; Start 07/01/18 at 11:30 Miscellaneous Information 1 ea NOTE XX ; Start 07/01/18 at 14:00 Glucose (Glutose) 15 gm Q15M PRN PO DECREASED GLUCOSE; Start 07/01/18 at 14:00 Glucose (Glutose) 22.5 gm Q15M PRN PO DECREASED GLUCOSE; Start 07/01/18 at 14:00 Dextrose (D50w Syringe) 25 ml Q15M PRN IV DECREASED GLUCOSE; Start 07/01/18 at 14:00 Dextrose (D50w Syringe) 50 ml Q15M PRN IV DECREASED GLUCOSE; Start 07/01/18 at 14:00 Glucagon (Glucagen) 1 mg Q15M PRN IM DECREASED GLUCOSE; Start 07/01/18 at 14:00 Glucose (Glutose) 15 gm Q15M PRN BUCCAL DECREASED GLUCOSE; Start 07/01/18 at 14:00 Atorvastatin Calcium (Lipitor) 10 mg HS GTB Last administered on 07/06/18at 20:31; Admin Dose 10 MG; Start 07/01/18 at 21:00 Insulin Human NPH (Humulin N) 10 unit BID@08,20 SC Last administered on 07/07/18 07:56; Admin Dose 10 UNIT; Start 07/01/18 at 20:00 IV Flush (NS 10 ml) 10 ml PRN PRN IV IV PROTOCOL; Start 07/01/18 at 17:00 Apixaban (Eliquis) 2.5 mg BID PO Last administered on 07/07/18 08:22; Admin Dose 2.5 MG; Start 07/02/18 at 09:00 Fentanyl 100 ml @ 2.5 mls/hr TITRATE IV Last administered on 07/07/18 06:27; Admin Dose 10 MLS/HR; Start 07/02/18 at 16:00 Norepinephrine 250 ml @ 1.875 mls/ hr TITRATE IV Last administered on 07/07/18 06:46; Admin Dose 3.75 MLS/HR; Start 07/02/18 at 20:00 Docusate Sodium (Colace Liquid Cup) 100 mg BID GTB Last administered on 07/07/18 08:21; Admin Dose 100 MG; Start 07/04/18 at 10:00 Polyethylene Glycol (Miralax) 17 gm DAILY GTB Last administered on 07/07/18 08:21; Admin Dose 17 GM; Start 07/04/18 at 10:00 Vancomycin HCl 750 mg/Sodium Chloride 150 ml @ 75 mls/hr Q12H IVPB Last administered on 07/07/18 10:28; Admin Dose 75 MLS/HR; Start 07/05/18 at 10:00 Mupirocin (Bactroban) 1 applic BID TOP Last administered on 07/07/18 08:22; Admin Dose 1 APPLIC; Start 07/06/18 at 09:00; Stop 07/16/18 at 08:59 STEVE DOBSON NP Jul 07, 2018 14:45
--- NOTE | 2018-07-07 16:56 | NUR ---
DURING ASSESSMENT, FOUND DTI ON R UPPER ANKLE AND STAGE 2 ON LEFT UPPER ANKLE. DOCUMENTED, PUT IN WOUND CARE CONSULT, ONLINE INCIDENT REPORT AND INITIATED WOUND CARE ORDERS. POSSIBLE DEVICE RELATED (SCD'S). WILL ENDORSE TO MARK UP DESIGNER NURSE.
[2018-07-07] MEDS ORDERED: PENDING SANTYL ORDER FOR WOUND CARE XX PRN (17:00)
--- NOTE | 2018-07-07 18:25 | PN ---
Date/Time of Note Date/Time of Note DATE: 07/07/18 TIME: 18:23 Assessment/Plan Lines/Catheters IV Catheter Type (from Nrsg): PICC Line Flanagan in Place (from Nrsg): Yes Assessment/Plan Assessment/Plan MPRESSION: Status post tracheostomy, which has now been removed. RECOMMENDATIONS: The patient will need a new tracheostomy. The wound still with significant amount of drainage. Plan for tracheostomy next week Subjective 24 Hr Interval Summary Constitutional: improved Pain Control: mild Exam/Review of Systems Vital Signs Vitals Vital Signs Date Temp Pulse Resp B/P (MAP) Pulse Ox O2 O2 Flow FiO2 Time Delivery Rate 07/07/18 61 18 97/57 (70) 17:30 07/07/18 100 16:30 07/07/18 99.7 Mechanical 16:00 Ventilator 07/07/18 30 15:01 Intake and Output 07/06/18 07/06/18 07/07/18 1515:00 23:00 07:00 IntakeIntake Total 922.00 ml 722.75 ml 611.50 ml OutputOutput Total 460 ml 765 ml 690 ml BalanceBalance 462.00 ml -42.25 ml -78.50 ml Exam Eyes: nl conjunctiva, EOMI, nl lids, nl sclera ENMT: nl external ears & nose, nl lips & teeth, nl nasal mucosa & septum, mucosa pink and moist Neck: supple, non-tender Respiratory: clear to auscultation, normal air movement Cardiovascular: regular rate and rhythm, nl pulses Gastrointestinal: soft, nl liver, spleen, non-tender Musculoskeletal: nl extremities to inspection, nl gait and stance Results Result Diagram: 07/05/18 0500 07/07/18 0530 MEHREEN HARRELL MD Jul 07, 2018 18:24
--- NOTE | 2018-07-07 18:45 | NUR ---
PT STABLE ON VENTILATOR. AFEBRILE. URINE OUTPUT ADEQUATE. BLOOD GLUCOSE WNL; DID NOT ADMIN NOVOLOG INSULIN. DID NOT CHANGE LEVO BECAUSE BP REMAINED IN 80'S-90'S THROUGHOUT SHIFT; LEVO AT 2. GASTRIC RESIDUALS LOW, PT TOLERATING TF WELL. FOUND WOUNDS IN R AND L UPPER ANKLES; INITIATED WOUND CARE PROTOCOL. WILL ENDORSE TO HEAD CHEF NURSE.
[2018-07-07] MEDS: ATORVASTATIN 10 MG TAB GTB SCH (20:47)
[2018-07-08] VITALS (95 sets, daily range): BP systolic 86–121; BP diastolic 48–75; PULSE 56–85; RESP 18–25
[2018-07-08] MEDS: MIDAZOLAM (DRIP) 50 mg/50 mL 50 ML IV SCH ×3 (03:08→15:51)
[2018-07-08] MEDS: FENTAnyl (DRIP) 1000 mcg/100mL 100 ML IV SCH ×2 (03:10→14:43)
--- NOTE | 2018-07-08 03:10 | NUR ---
skin breakdown on cheek bones discovered after tube fastener changed.
[2018-07-08] MEDS: INSULIN ASPART [NOVOLOG] 3 ML PEN SC SCH ×4 (06:00→18:47)
[2018-07-08] MEDS: LANSOPRAZOLE 30 MG CAP GTB SCH (06:40)
[2018-07-08] MEDS: NPH, HUMAN INSULIN ISOPHANE 3ML VIAL SC SCH ×2 (08:00→20:56)
--- NOTE | 2018-07-08 08:22 | CONS ---
Date/Time of Note Date/Time of Note DATE: 07/08/18 TIME: 08:19 Assessment/Plan Assessment/Plan Additional Assessment/Plan Ventilator settings; assist control of 18, tidal volume 500, PEEP of 5, 30% FiO2. Patient is currently on fentanyl 100 mics per hour, Levophed 2 mics per minute, Versed 8 mg/h. Assessment recommendations; 1. Patient with history of respiratory failure due to myasthenia gravis status post thymectomy admitted for severe hypercapnia due to tracheostomy dislodgment requiring oral intubation with marked improvement in gas exchange and correction of acidosis. 2. Underlying dementia. Patient however was maintained on T-piece for [facility]. 3. Prior sternotomy for thymectomy. 4. Chronic atrial fibrillation. 5. MRSA isolated from sputum as well as from sternal wound. Patient having significant drainage still. Continue current supportive care. Patient will require a revision tracheostomy once his sternal wound heals. Meanwhile decrease fentanyl dosing. Consultation Date/Type/Reason Admit Date/Time Jun 30, 2018 at 18:05 Initial Consult Date 07/01/18 Type of Consult Pulmonary/critical care History of presenting illness; patient is a 77-year-old male who was transferred over to the hospital from [facility] because of altered mental status. The patient was found to be severely hypercapnic and apparently there was an issue with the tracheostomy being dislodged. The patient having low tidal volumes and had to be switched to pressure control mode of ventilation with persistent severe hypercapnia. By the time I saw him, patient is on ventilator via tracheostomy and is unresponsive. History was obtained from medical records. Past medical history; 1. Chronic respiratory failure, and VDR F. 2. History of myasthenia gravis. 3. Apparently mild dementia. 4. History of tracheostomy and G-tube placement. 5. History of hypertension. 6. Chronic atrial fibrillation. Medications; reviewed. Allergies; penicillin. Social history, family history, occupational history not available. Review of system; unable to be obtained. General exam; elderly male, on ventilator via tracheostomy, unresponsive, tachypneic. Requesting Provider: ALE CHUN MD 24 HR Interval Summary Free Text/Dictation Patient's condition remains critical. Remains mildly hypotensive requiring low- dose Levophed. General exam; elderly male, orally intubated, sedated, currently in no distress. Exam/Review of Systems Vital Signs Vitals Vital Signs Date Temp Pulse Resp B/P (MAP) Pulse Ox O2 O2 Flow FiO2 Time Delivery Rate 07/08/18 61 08:00 07/08/18 18 105/53 100 06:45 (70) 07/08/18 Mechanical 06:00 Ventilator 07/08/18 30 05:30 07/08/18 98.3 04:00 Intake and Output 07/07/18 07/07/18 07/08/18 1515:00 23:00 07:00 IntakeIntake Total 974.00 ml 1232.00 ml 753.25 ml OutputOutput Total 500 ml 415 ml 500 ml BalanceBalance 474.00 ml 817.00 ml 253.25 ml Exam H EENT exam; supple neck, no JVD. No lymphadenopathy. Midline trachea. No thyromegaly. Patient is edentulous. Tracheostomy stoma has closed. Orally intubated. No neck masses. There is a well-healed sternal scar. Dressing applied over sternal wound. Chest exam; diminished but clear breath sounds. S1-S2 audible, no murmurs. Irregular rhythm. Abdomen exam; soft, no organomegaly. G-tube in place. Bowel sounds audible. Extremity exam; no edema or clubbing. SWEATBAND DRUMMER exam; patient is sedated. Medications Medications Current Medications Albuterol/ Ipratropium (Duoneb) 3 ml Q6H RESP THERAPY PRN HHN SHORTNESS OF BREATH Last administered on 07/02/18at 02:41; Admin Dose 3 ML; Start 06/30/18 at 23:00 Vancomycin HCl (Vanco Iv Per Pharmacy) VANCOMYCIN PER PHARMACY PER PROTOCOL XX ; Start 06/30/18 at 23:00 Acetaminophen (Tylenol Liquid) 650 mg Q4H PRN GTB MILD PAIN(1-3)OR ELEVATED TEMP; Start 06/30/18 at 23:00 Insulin Aspart (Novolog Insulin Pen) NOVOLOG *MILD* ALGORI... Q6H SC Last administered on 07/05/18at 12:19; Admin Dose 1 UNIT; Start 07/01/18 at 00:00 Diltiazem HCl (Cardizem Iv) 10 mg Q4H PRN IV for sustained HR>130 Last administered on 07/02/18at 17:05; Admin Dose 10 MG; Start 06/30/18 at 23:00 Lansoprazole (Prevacid) 30 mg DAILY@06 GTB Last administered on 07/08/18at 06:40; Admin Dose 30 MG; Start 07/01/18 at 09:00 Midazolam HCl 50 ml @ 1 mls/hr TITRATE IV Last administered on 07/08/18 03:08; Admin Dose 8 MLS/HR; Start 07/01/18 at 11:30 Miscellaneous Information 1 ea NOTE XX ; Start 07/01/18 at 14:00 Glucose (Glutose) 15 gm Q15M PRN PO DECREASED GLUCOSE; Start 07/01/18 at 14:00 Glucose (Glutose) 22.5 gm Q15M PRN PO DECREASED GLUCOSE; Start 07/01/18 at 14:00 Dextrose (D50w Syringe) 25 ml Q15M PRN IV DECREASED GLUCOSE; Start 07/01/18 at 14:00 Dextrose (D50w Syringe) 50 ml Q15M PRN IV DECREASED GLUCOSE; Start 07/01/18 at 14:00 Glucagon (Glucagen) 1 mg Q15M PRN IM DECREASED GLUCOSE; Start 07/01/18 at 14:00 Glucose (Glutose) 15 gm Q15M PRN BUCCAL DECREASED GLUCOSE; Start 07/01/18 at 14:00 Atorvastatin Calcium (Lipitor) 10 mg HS GTB Last administered on 07/07/18at 20:47; Admin Dose 10 MG; Start 07/01/18 at 21:00 Insulin Human NPH (Humulin N) 10 unit BID@08,20 SC Last administered on 07/07/18at 07:56; Admin Dose 10 UNIT; Start 07/01/18 at 20:00 IV Flush (NS 10 ml) 10 ml PRN PRN IV IV PROTOCOL; Start 07/01/18 at 17:00 Apixaban (Eliquis) 2.5 mg BID PO Last administered on 07/07/18at 20:48; Admin Dose 2.5 MG; Start 07/02/18 at 09:00 Fentanyl 100 ml @ 2.5 mls/hr TITRATE IV Last administered on 07/08/18 03:10; Admin Dose 10 MLS/HR; Start 07/02/18 at 16:00 Norepinephrine 250 ml @ 1.875 mls/ hr TITRATE IV Last administered on 07/07/18 06:46; Admin Dose 3.75 MLS/HR; Start 07/02/18 at 20:00 Docusate Sodium (Colace Liquid Cup) 100 mg BID GTB Last administered on 07/07/18at 20:47; Admin Dose 100 MG; Start 07/04/18 at 10:00 Polyethylene Glycol (Miralax) 17 gm DAILY GTB Last administered on 07/07/18 08:21; Admin Dose 17 GM; Start 07/04/18 at 10:00 Vancomycin HCl 750 mg/Sodium Chloride 150 ml @ 75 mls/hr Q12H IVPB Last administered on 07/07/18 22:24; Admin Dose 75 MLS/HR; Start 07/05/18 at 10:00 Mupirocin (Bactroban) 1 applic BID TOP Last administered on 07/07/18at 20:48; Admin Dose 1 APPLIC; Start 07/06/18 at 09:00; Stop 07/16/18 at 08:59 Miscellaneous Information (Pending [facility] Order For Wound Care) This patient man... PRN PRN XX CRISTINE; Start 07/07/18 at 17:00 ANSELMO PIERCE Jul 08, 2018 08:22
[2018-07-08] MEDS: MUPIROCIN 2% 22 GM OINT TOP SCH ×2 (08:23→20:54)
[2018-07-08] MEDS: APIXABAN 5 MG TABLET PO SCH ×2 (08:23→20:53)
[2018-07-08] MEDS: DOCUSATE SODIUM 10 MG/ML (10ML CUP) GTB SCH ×2 (08:23→20:54)
[2018-07-08] MEDS: POLYETHYLENE GLYCOL 17 GM PACKET GTB SCH (08:23)
[2018-07-08] MEDS: BALSAM PERU/CASTOR OIL 60 GM TUBE TOP SCH ×2 (08:23→20:54)
--- NOTE | 2018-07-08 09:39 | CONS ---
Date/Time of Note Date/Time of Note DATE: 07/08/18 TIME: 09:37 Consult Date/Type/Reason Admit Date/Time Jun 30, 2018 at 18:05 Initial Consult Date 07/02/18 Requesting Provider: ALE CHUN MD Subjective Cardiology follow-up progress note Subjective: Case discussed with the staff and telemetry was reviewed. Patient remains in atrial fibrillation. Heart has been stable over night pt has been hypotensive and is till on Levophed drip again Patient is unable to provide reliable history to me. He remains intubated on the vent Objective: General: Elderly gentleman. Intubated on the vent HEENT: NC/AT. pupils are pinpoint NECK: Status with previous trach. no stridor. CV: Irregularly irregular. systolic murmur; no gallop or rubs. PULM: no wheezing. +honchi. GI: SOFT, NT, ND, no rebound or guarding Extremity: + B/L LE edema. no clubbing. neuro: Lethargic and sedated Psych: calm rectal: deferred : normal Objective Vital Signs Date Temp Pulse Resp B/P (MAP) Pulse Ox O2 O2 Flow FiO2 Time Delivery Rate 07/08/18 61 08:00 07/08/18 18 105/53 100 06:45 (70) 07/08/18 Mechanical 06:00 Ventilator 07/08/18 30 05:30 07/08/18 98.3 04:00 Intake and Output 07/07/18 07/07/18 07/08/18 1515:00 23:00 07:00 IntakeIntake Total 974.00 ml 1232.00 ml 753.25 ml OutputOutput Total 500 ml 415 ml 500 ml BalanceBalance 474.00 ml 817.00 ml 253.25 ml Results/Medications Result Diagram: 07/05/18 0500 07/07/18 0530 Results 24 hrs Laboratory Tests Test 07/07/18 11:38 07/07/18 18:19 07/07/18 20:49 07/08/18 00:08 Bedside Glucose 89 96 103 120 Test 07/08/18 06:34 07/08/18 08:28 Bedside Glucose 120 112 Medications Current Medications Albuterol/ Ipratropium (Duoneb) 3 ml Q6H RESP THERAPY PRN HHN SHORTNESS OF BREATH Last administered on 07/02/18at 02:41; Admin Dose 3 ML; Start 06/30/18 at 23:00 Vancomycin HCl (Vanco Iv Per Pharmacy) VANCOMYCIN PER PHARMACY PER PROTOCOL XX ; Start 06/30/18 at 23:00 Acetaminophen (Tylenol Liquid) 650 mg Q4H PRN GTB MILD PAIN(1-3)OR ELEVATED TEMP; Start 06/30/18 at 23:00 Insulin Aspart (Novolog Insulin Pen) NOVOLOG *MILD* ALGORI... Q6H SC Last administered on 07/05/18at 12:19; Admin Dose 1 UNIT; Start 07/01/18 at 00:00 Diltiazem HCl (Cardizem Iv) 10 mg Q4H PRN IV for sustained HR>130 Last administered on 07/02/18at 17:05; Admin Dose 10 MG; Start 06/30/18 at 23:00 Lansoprazole (Prevacid) 30 mg DAILY@06 GTB Last administered on 07/08/18at 06:40; Admin Dose 30 MG; Start 07/01/18 at 09:00 Midazolam HCl 50 ml @ 1 mls/hr TITRATE IV Last administered on 07/08/18at 08:38; Admin Dose 8 MLS/HR; Start 07/01/18 at 11:30 Miscellaneous Information 1 ea NOTE XX ; Start 07/01/18 at 14:00 Glucose (Glutose) 15 gm Q15M PRN PO DECREASED GLUCOSE; Start 07/01/18 at 14:00 Glucose (Glutose) 22.5 gm Q15M PRN PO DECREASED GLUCOSE; Start 07/01/18 at 14:00 Dextrose (D50w Syringe) 25 ml Q15M PRN IV DECREASED GLUCOSE; Start 07/01/18 at 14:00 Dextrose (D50w Syringe) 50 ml Q15M PRN IV DECREASED GLUCOSE; Start 07/01/18 at 14:00 Glucagon (Glucagen) 1 mg Q15M PRN IM DECREASED GLUCOSE; Start 07/01/18 at 14:00 Glucose (Glutose) 15 gm Q15M PRN BUCCAL DECREASED GLUCOSE; Start 07/01/18 at 14:00 Atorvastatin Calcium (Lipitor) 10 mg HS GTB Last administered on 07/07/18at 20:47; Admin Dose 10 MG; Start 07/01/18 at 21:00 Insulin Human NPH (Humulin N) 10 unit BID@08,20 SC Last administered on 07/07/18at 07:56; Admin Dose 10 UNIT; Start 07/01/18 at 20:00 IV Flush (NS 10 ml) 10 ml PRN PRN IV IV PROTOCOL; Start 07/01/18 at 17:00 Apixaban (Eliquis) 2.5 mg BID PO Last administered on 07/08/18 08:23; Admin Dose 2.5 MG; Start 07/02/18 at 09:00 Fentanyl 100 ml @ 2.5 mls/hr TITRATE IV Last administered on 07/08/18 03:10; Admin Dose 10 MLS/HR; Start 07/02/18 at 16:00 Norepinephrine 250 ml @ 1.875 mls/ hr TITRATE IV Last administered on 07/07/18 06:46; Admin Dose 3.75 MLS/HR; Start 07/02/18 at 20:00 Docusate Sodium (Colace Liquid Cup) 100 mg BID GTB Last administered on 07/08/18 08:23; Admin Dose 100 MG; Start 07/04/18 at 10:00 Polyethylene Glycol (Miralax) 17 gm DAILY GTB Last administered on 07/08/18 08:23; Admin Dose 17 GM; Start 07/04/18 at 10:00 Vancomycin HCl 750 mg/Sodium Chloride 150 ml @ 75 mls/hr Q12H IVPB Last administered on 07/07/18 22:24; Admin Dose 75 MLS/HR; Start 07/05/18 at 10:00 Mupirocin (Bactroban) 1 applic BID TOP Last administered on 07/08/18 08:23; Admin Dose 1 APPLIC; Start 07/06/18 at 09:00; Stop 07/16/18 at 08:59 Miscellaneous Information (Pending [facility] Order For Wound Care) This patient man... PRN PRN XX SLOUGH; Start 07/07/18 at 17:00 Assessment/Plan Chief Complaint/Hosp Course Acute on chronic respiratory failure s/p trach dislodgment : Intubated now Atrial fibrillation : Heart rate appears to be controlled and patient with Preserved ejection fraction Status post shock and hypotension: Currently off of pressors Myasthenia gravis Anemia Recommendations: Continue with respiratory care. Anticoagulation with Eliquis as long as no active bleeding is noted Off of digoxin now. Antibiotic management as per internal medicine. Continue with ICU care for now Transfusion as needed levophed as needed Thank you for his referral. We will continue to follow along with you until Dr. Armas returns TRUDY GAMBLE MD [facility] TRUDY GAMBLE MD Jul 08, 2018 09:39
--- NOTE | 2018-07-08 11:18 | PN ---
Date/Time of Note Date/Time of Note DATE: 07/08/18 TIME: 11:17 Assessment/Plan VTE Prophylaxis Risk score (from Ns)>0 risk: 12 SCD applied (from Ns): Yes Pharmacological prophylaxis: LMWH Lines/Catheters IV Catheter Type (from Nrs): PICC Line Central line still needed: Yes Urinary Cath still in place: Yes Reason Cath still needed: skin wounds contaminated by urine Assessment/Plan Hospital Course 1. Acute encephalopathy, improved. The patient is approaching his baseline. Continue to monitor closely. No sedative at this time. 2. Elevated white count; however, patient has no fever. - per ID - cont vancomycin and meropenem - pending result of urine and blood culture. 3. Atrial fibrillation. The patient after admission went into rapid ventricular response and had to be started on Cardizem and Eliquis. We will keep patient on telemetry. 4. Acute hypoxemic and hypercarbic respiratory failure. - PER pulmonary consult with Dr. Mustafa 5. Dysphagia. Continue G-tube feeding. 6. Diabetes. 7. Myasthenia gravis, status post thymectomy. 8. Dyslipidemia. The patient used to be on Lipitor. Again, the medication list from the long-term facility has not been received. Continue Lipitor. 9. Hypertension and coronary artery disease. Continue metoprolol and p.r.n. IV diltiazem. 10. The patient apparently also has history of depression. We will resume Prozac. 11. The patient has mild dementia. We will continue Aricept. Result Diagram: 07/05/18 0500 07/07/18 0530 Results 24hrs Laboratory Tests Test 07/07/18 11:38 07/07/18 18:19 07/07/18 20:49 07/08/18 00:08 Bedside Glucose 89 96 103 120 Test 07/08/18 06:34 07/08/18 08:28 Bedside Glucose 120 112 Subjective 24 Hr Interval Summary Free Text/Dictation Patient is sedated, intubated, to have trach placed Exam/Review of Systems Vital Signs Vitals Vital Signs Date Temp Pulse Resp B/P (MAP) Pulse Ox O2 O2 Flow FiO2 Time Delivery Rate 07/08/18 60 18 100/62 99 09:30 (75) 07/08/18 98.6 Mechanical 08:00 Ventilator 07/08/18 30 08:00 Intake and Output 07/07/18 07/07/18 07/08/18 1515:00 23:00 07:00 IntakeIntake Total 974.00 ml 1232.00 ml 753.25 ml OutputOutput Total 500 ml 415 ml 500 ml BalanceBalance 474.00 ml 817.00 ml 253.25 ml Exam Constitutional: well developed Head: normocephalic, atraumatic Neck: supple Respiratory: diminished breath sounds Cardiovascular: regular rate and rhythm Gastrointestinal: soft, non-tender Extremities: normal pulses Medications Medications Current Medications Albuterol/ Ipratropium (Duoneb) 3 ml Q6H RESP THERAPY PRN HHN SHORTNESS OF BREATH Last administered on 07/02/18at 02:41; Admin Dose 3 ML; Start 06/30/18 at 23:00 Vancomycin HCl (Vanco Iv Per Pharmacy) VANCOMYCIN PER PHARMACY PER PROTOCOL XX ; Start 06/30/18 at 23:00 Acetaminophen (Tylenol Liquid) 650 mg Q4H PRN GTB MILD PAIN(1-3)OR ELEVATED TEMP; Start 06/30/18 at 23:00 Insulin Aspart (Novolog Insulin Pen) NOVOLOG *MILD* ALGORI... Q6H SC Last administered on 07/05/18at 12:19; Admin Dose 1 UNIT; Start 07/01/18 at 00:00 Diltiazem HCl (Cardizem Iv) 10 mg Q4H PRN IV for sustained HR>130 Last administered on 07/02/18at 17:05; Admin Dose 10 MG; Start 06/30/18 at 23:00 Lansoprazole (Prevacid) 30 mg DAILY@06 GTB Last administered on 07/08/18at 06:40; Admin Dose 30 MG; Start 07/01/18 at 09:00 Midazolam HCl 50 ml @ 1 mls/hr TITRATE IV Last administered on 07/08/18at 08:38 ; Admin Dose 8 MLS/HR; Start 07/01/18 at 11:30 Miscellaneous Information 1 ea NOTE XX ; Start 07/01/18 at 14:00 Glucose (Glutose) 15 gm Q15M PRN PO DECREASED GLUCOSE; Start 07/01/18 at 14:00 Glucose (Glutose) 22.5 gm Q15M PRN PO DECREASED GLUCOSE; Start 07/01/18 at 14:00 Dextrose (D50w Syringe) 25 ml Q15M PRN IV DECREASED GLUCOSE; Start 07/01/18 at 14:00 Dextrose (D50w Syringe) 50 ml Q15M PRN IV DECREASED GLUCOSE; Start 07/01/18 at 14:00 Glucagon (Glucagen) 1 mg Q15M PRN IM DECREASED GLUCOSE; Start 07/01/18 at 14:00 Glucose (Glutose) 15 gm Q15M PRN BUCCAL DECREASED GLUCOSE; Start 07/01/18 at 14:00 Atorvastatin Calcium (Lipitor) 10 mg HS GTB Last administered on 07/07/18at 20:47; Admin Dose 10 MG; Start 07/01/18 at 21:00 Insulin Human NPH (Humulin N) 10 unit BID@08,20 SC Last administered on 07/07/18at 07:56; Admin Dose 10 UNIT; Start 07/01/18 at 20:00 IV Flush (NS 10 ml) 10 ml PRN PRN IV IV PROTOCOL; Start 07/01/18 at 17:00 Apixaban (Eliquis) 2.5 mg BID PO Last administered on 07/08/18 08:23; Admin Dose 2.5 MG; Start 07/02/18 at 09:00 Fentanyl 100 ml @ 2.5 mls/hr TITRATE IV Last administered on 07/08/18 03:10; Admin Dose 10 MLS/HR; Start 07/02/18 at 16:00 Norepinephrine 250 ml @ 1.875 mls/ hr TITRATE IV Last administered on 07/07/18 06:46; Admin Dose 3.75 MLS/HR; Start 07/02/18 at 20:00 Docusate Sodium (Colace Liquid Cup) 100 mg BID GTB Last administered on 07/08/18 08:23; Admin Dose 100 MG; Start 07/04/18 at 10:00 Polyethylene Glycol (Miralax) 17 gm DAILY GTB Last administered on 07/08/18 08:23; Admin Dose 17 GM; Start 07/04/18 at 10:00 Vancomycin HCl 750 mg/Sodium Chloride 150 ml @ 75 mls/hr Q12H IVPB Last administered on 07/07/18 22:24; Admin Dose 75 MLS/HR; Start 07/05/18 at 10:00 Mupirocin (Bactroban) 1 applic BID TOP Last administered on 07/08/18at 08:23; Admin Dose 1 APPLIC; Start 07/06/18 at 09:00; Stop 07/16/18 at 08:59 Miscellaneous Information (Pending [facility] Order For Wound Care) This patient man... PRN PRN XX KELINUGH; Start 07/07/18 at 17:00 LISA JAVIER Jul 08, 2018 11:18
[2018-07-08] MEDS: VANCOMYCIN 750 MG in SOD CHLORIDE 0.9% 150 ML IVPB SCH ×2 (11:50→22:31)
--- NOTE | 2018-07-08 13:49 | CONS ---
Date/Time of Note Date/Time of Note DATE: 07/08/18 TIME: 13:39 Assessment/Plan Assessment/Plan Chief Complaint/Hosp Course - Severe sepsis with septic shock d/t MRSA - leukocytosis resolved, Levophed restarted, tachycardia improving - MRSA soft tissue abscess on chest - UTI d/t MRSA - MRSA bacteremia d/t above. Repeat blood cx 07/01/2018 shows neg x1 bottle, MRSA 1 bottle. Repeat cultures 07/06/18 are NGTD; TTE 07/01/2018 does not mention any vegetation - MRSA nasal colonization - Acute hypercarbic respiratory failure d/t tracheostomy dislodgement requiring oral intubation 07/01/2018 - Acute encephalopathy - Atrial fibrillation with intermittent RVR - CAD - H/o HTN - T2DM - HLD - Myasthenia gravis s/p recent thymectomy - Dysphagia s/p PEG - Depression - on Prozac at [facility] - Mild dementia - on Aricept at [facility] - Moderate protein calorie malnutrition - Hypernatremia Recommendations: - F/u the repeat blood cx x2, 15 min apart (one set from PICC, one set peripheral stick) - NGTD - Continue vancomycin (06/30/2018-) - Continue mupirocin (07/06/2018-) to nares, bilateral axilla, groin, and anus for MRSA de-colonization - Continue chlorhexidine body wash daily - Consider ENT evaluation and/or surgical evaluation of trach site as likely source; - Additional imaging such as CT neck/upper chest region should also be considered to evaluate extent of infection - Continue local wound care of neck/upper chest lesion Management d/w Dr. Stanton. Critical care time spent: 35 min Thank you Consultation Date/Type/Reason Admit Date/Time Jun 30, 2018 at 18:05 Initial Consult Date 07/02/18 Reason for Consultation ID Consult Requesting Provider: ALE CHUN MD 24 HR Interval Summary Free Text/Dictation Patient is unable to contribute to ROS d/t intubated. Patient remains afebrile with no acute issues reported by nursing. Exam/Review of Systems Vital Signs Vitals Vital Signs Date Temp Pulse Resp B/P (MAP) Pulse Ox O2 O2 Flow FiO2 Time Delivery Rate 07/08/18 75 12:00 07/08/18 18 100 30 11:00 07/08/18 100/62 09:30 (75) 07/08/18 98.6 Mechanical 08:00 Ventilator Intake and Output 07/07/18 07/07/18 07/08/18 1515:00 23:00 07:00 IntakeIntake Total 974.00 ml 1232.00 ml 753.25 ml OutputOutput Total 500 ml 415 ml 500 ml BalanceBalance 474.00 ml 817.00 ml 253.25 ml Allergies Coded Allergies Penicillins (Unverified Allergy, Unknown, 06/30/18) Exam Constitutional: well developed, other (frail appearing) Psych: other (appears comfortable, he is sedated with versed and fentanyl) Head: normocephalic, atraumatic Eyes: nl conjunctiva, nl lids, nl sclera ENMT: nl external ears & nose, nl nasal mucosa & septum (op visualization limited d/t ett in place) Neck: supple, non-tender, other (previous trach site with closing wound, no drainage noted today; Upper anterior chest with small amt of pus draining, covered with a dry gauze and tegaderm) Respiratory: clear to auscultation, normal air movement, diminished breath sounds (bibasilarly) Cardiovascular: nl pulses, other (irregular rhythm, LUE PICC site is cdi) Gastrointestinal: soft, non-tender, other (GT site is cdi, with TF running ) Genitourinary - Male: nl penis, nl scrotum, other (f/c draining clear yellow urine ) Musculoskeletal: muscle weakness, other (BUE Restraints on ) Extremities: normal pulses, edema (RUE) Neurological: other (sedated with versed and fentanyl) Skin: nl turgor, other (see nsg notes/pics sacrococcyx stage I) Medications Medications Current Medications Albuterol/ Ipratropium (Duoneb) 3 ml Q6H RESP THERAPY PRN HHN SHORTNESS OF BREATH Last administered on 07/02/18at 02:41; Admin Dose 3 ML; Start 06/30/18 at 23:00 Vancomycin HCl (Vanco Iv Per Pharmacy) VANCOMYCIN PER PHARMACY PER PROTOCOL XX ; Start 06/30/18 at 23:00 Acetaminophen (Tylenol Liquid) 650 mg Q4H PRN GTB MILD PAIN(1-3)OR ELEVATED TEMP; Start 06/30/18 at 23:00 Insulin Aspart (Novolog Insulin Pen) NOVOLOG *MILD* ALGORI... Q6H SC Last administered on 07/08/18at 11:59; Admin Dose 1 UNIT; Start 07/01/18 at 00:00 Diltiazem HCl (Cardizem Iv) 10 mg Q4H PRN IV for sustained HR>130 Last administered on 07/02/18at 17:05; Admin Dose 10 MG; Start 06/30/18 at 23:00 Lansoprazole (Prevacid) 30 mg DAILY@06 GTB Last administered on 07/08/18at 06:40; Admin Dose 30 MG; Start 07/01/18 at 09:00 Midazolam HCl 50 ml @ 1 mls/hr TITRATE IV Last administered on 07/08/18at 08:38; Admin Dose 8 MLS/HR; Start 07/01/18 at 11:30 Miscellaneous Information 1 ea NOTE XX ; Start 07/01/18 at 14:00 Glucose (Glutose) 15 gm Q15M PRN PO DECREASED GLUCOSE; Start 07/01/18 at 14:00 Glucose (Glutose) 22.5 gm Q15M PRN PO DECREASED GLUCOSE; Start 07/01/18 at 14:00 Dextrose (D50w Syringe) 25 ml Q15M PRN IV DECREASED GLUCOSE; Start 07/01/18 at 14:00 Dextrose (D50w Syringe) 50 ml Q15M PRN IV DECREASED GLUCOSE; Start 07/01/18 at 14:00 Glucagon (Glucagen) 1 mg Q15M PRN IM DECREASED GLUCOSE; Start 07/01/18 at 14:0 0 Glucose (Glutose) 15 gm Q15M PRN BUCCAL DECREASED GLUCOSE; Start 07/01/18 at 14:00 Atorvastatin Calcium (Lipitor) 10 mg HS GTB Last administered on 07/07/18at 20:47; Admin Dose 10 MG; Start 07/01/18 at 21:00 Insulin Human NPH (Humulin N) 10 unit BID@08,20 SC Last administered on 07/07/18at 07:56; Admin Dose 10 UNIT; Start 07/01/18 at 20:00 IV Flush (NS 10 ml) 10 ml PRN PRN IV IV PROTOCOL; Start 07/01/18 at 17:00 Apixaban (Eliquis) 2.5 mg BID PO Last administered on 07/08/18 08:23; Admin Dose 2.5 MG; Start 07/02/18 at 09:00 Fentanyl 100 ml @ 2.5 mls/hr TITRATE IV Last administered on 07/08/18 03:10; Admin Dose 10 MLS/HR; Start 07/02/18 at 16:00 Norepinephrine 250 ml @ 1.875 mls/ hr TITRATE IV Last administered on 07/07/18 06:46; Admin Dose 3.75 MLS/HR; Start 07/02/18 at 20:00 Docusate Sodium (Colace Liquid Cup) 100 mg BID GTB Last administered on 07/08/18 08:23; Admin Dose 100 MG; Start 07/04/18 at 10:00 Polyethylene Glycol (Miralax) 17 gm DAILY GTB Last administered on 07/08/18 08:23; Admin Dose 17 GM; Start 07/04/18 at 10:00 Vancomycin HCl 750 mg/Sodium Chloride 150 ml @ 75 mls/hr Q12H IVPB Last admi nistered on 07/08/18 11:50; Admin Dose 75 MLS/HR; Start 07/05/18 at 10:00 Mupirocin (Bactroban) 1 applic BID TOP Last administered on 07/08/18 08:23; Admin Dose 1 APPLIC; Start 07/06/18 at 09:00; Stop 07/16/18 at 08:59 Miscellaneous Information (Pending [facility] Order For [facility]) This patient man... PRN PRN XX KELINUGH; Start 07/07/18 at 17:00 STEVE DOBSON NP Jul 08, 2018 13:49
--- NOTE | 2018-07-08 19:08 | NUR ---
Report given to oncoming nurse. VSS
[2018-07-08] MEDS: ATORVASTATIN 10 MG TAB GTB SCH (20:53)
[2018-07-09] VITALS (100 sets, daily range): BP systolic 78–126; BP diastolic 46–76; PULSE 57–82; RESP 5–24
[2018-07-09] MEDS: INSULIN ASPART [NOVOLOG] 3 ML PEN SC SCH ×4 (00:07→17:41)
[2018-07-09] MEDS: MIDAZOLAM (DRIP) 50 mg/50 mL 50 ML IV SCH ×3 (00:08→16:56)
[2018-07-09] MEDS: LANSOPRAZOLE 30 MG CAP GTB SCH (06:11)
[2018-07-09] MEDS: NPH, HUMAN INSULIN ISOPHANE 3ML VIAL SC SCH ×2 (07:44→20:33)
--- NOTE | 2018-07-09 08:28 | CONS ---
Date/Time of Note Date/Time of Note DATE: 07/09/18 TIME: 08:25 Consult Date/Type/Reason Admit Date/Time Jun 30, 2018 at 18:05 Initial Consult Date 07/01/18 Type of Consult Pulmonary Requesting Provider: ALE CHUN MD Subjective Patient's condition is stable. Still requiring low-dose Levophed on a tapering dose. General exam; elderly male, orally intubated, sedated, currently in no distress. Objective Vital Signs Date Temp Pulse Resp B/P (MAP) Pulse Ox O2 O2 Flow FiO2 Time Delivery Rate 07/09/18 69 18 97/63 (74) 100 06:45 07/09/18 Mechanical 06:00 Ventilator 07/09/18 30 04:56 07/09/18 99.2 04:00 Intake and Output 07/08/18 07/08/18 07/09/18 1515:00 23:00 07:00 IntakeIntake Total 689.00 ml 776.00 ml 870.30 ml OutputOutput Total 340 ml 695 ml 505 ml BalanceBalance 349.00 ml 81.00 ml 365.30 ml Exam H EENT exam; supple neck, no JVD. No lymphadenopathy. Midline trachea. No thyromegaly. Orally intubated. Patient is edentulous. Chest exam; diminished but clear breath sounds. There is a well-healed sternotomy scar. Dressing applied over the sternum at the site of abscess. S1-S2 audible, no murmurs. Irregular rhythm. Abdomen exam; soft, no organomegaly. Nondistended. G-tube in place. Bowel sounds audible. Extremity exam; no peripheral edema or clubbing. [employer]AT[employer] INSTRU[employer] exam; patient is sedated. Vent Setting Ventilator Support Mode: AC Fraction of Inspired Oxygen pe: 30 Positive End Expiratory Pressu: 5.0 Results/Medications Result Diagram: 07/05/18 0500 07/07/18 0530 Results 24 hrs Laboratory Tests Test 07/08/18 08:28 07/08/18 11:54 07/08/18 18:43 07/08/18 20:48 Bedside Glucose 112 148 150 165 Test 07/09/18 00:05 07/09/18 06:14 07/09/18 07:41 Bedside Glucose 161 135 157 Medications Current Medications Albuterol/ Ipratropium (Duoneb) 3 ml Q6H RESP THERAPY PRN HHN SHORTNESS OF B REATH Last administered on 07/02/18at 02:41; Admin Dose 3 ML; Start 06/30/18 at 23:00 Vancomycin HCl (Vanco Iv Per Pharmacy) VANCOMYCIN PER PHARMACY PER PROTOCOL XX ; Start 06/30/18 at 23:00 Acetaminophen (Tylenol Liquid) 650 mg Q4H PRN GTB MILD PAIN(1-3)OR ELEVATED TEMP; Start 06/30/18 at 23:00 Insulin Aspart (Novolog Insulin Pen) NOVOLOG *MILD* ALGORI... Q6H SC Last administered on 07/09/18at 00:07; Admin Dose 1 UNIT; Start 07/01/18 at 00:00 Diltiazem HCl (Cardizem Iv) 10 mg Q4H PRN IV for sustained HR>130 Last administered on 07/02/18at 17:05; Admin Dose 10 MG; Start 06/30/18 at 23:00 Lansoprazole (Prevacid) 30 mg DAILY@06 GTB Last administered on 07/09/18at 06:11; Admin Dose 30 MG; Start 07/01/18 at 09:00 Midazolam HCl 50 ml @ 1 mls/hr TITRATE IV Last administered on 07/09/18at 06:15; Admin Dose 8 MLS/HR; Start 07/01/18 at 11:30 Miscellaneous Information 1 ea NOTE XX ; Start 07/01/18 at 14:00 Glucose (Glutose) 15 gm Q15M PRN PO DECREASED GLUCOSE; Start 07/01/18 at 14:00 Glucose (Glutose) 22.5 gm Q15M PRN PO DECREASED GLUCOSE; Start 07/01/18 at 14:00 Dextrose (D50w Syringe) 25 ml Q15M PRN IV DECREASED GLUCOSE; Start 07/01/18 at 14:00 Dextrose (D50w Syringe) 50 ml Q15M PRN IV DECREASED GLUCOSE; Start 07/01/18 at 14:00 Glucagon (Glucagen) 1 mg Q15M PRN IM DECREASED GLUCOSE; Start 07/01/18 at 14:00 Glucose (Glutose) 15 gm Q15M PRN BUCCAL DECREASED GLUCOSE; Start 07/01/18 at 14:00 Atorvastatin Calcium (Lipitor) 10 mg HS GTB Last administered on 07/08/18at 20:53; Admin Dose 10 MG; Start 07/01/18 at 21:00 Insulin Human NPH (Humulin N) 10 unit BID@08,20 SC Last administered on 07/09/18 07:44; Admin Dose 10 UNIT; Start 07/01/18 at 20:00 IV Flush (NS 10 ml) 10 ml PRN PRN IV IV PROTOCOL; Start 07/01/18 at 17:00 Apixaban (Eliquis) 2.5 mg BID PO Last administered on 07/08/18 20:53; Admin Dose 2.5 MG; Start 07/02/18 at 09:00 Fentanyl 100 ml @ 2.5 mls/hr TITRATE IV Last administered on 07/08/18 14:43; Admin Dose 2.5 MLS/HR; Start 07/02/18 at 16:00 Norepinephrine 250 ml @ 1.875 mls/ hr TITRATE IV Last administered on 07/07/18 06:46; Admin Dose 3.75 MLS/HR; Start 07/02/18 at 20:00 Docusate Sodium (Colace Liquid Cup) 100 mg BID GTB Last administered on 07/08/18 08:23; Admin Dose 100 MG; Start 07/04/18 at 10:00 Polyethylene Glycol (Miralax) 17 gm DAILY GTB Last administered on 07/08/18 08:23; Admin Dose 17 GM; Start 07/04/18 at 10:00 Vancomycin HCl 750 mg/Sodium Chloride 150 ml @ 75 mls/hr Q12H IVPB Last administered on 07/08/18 22:31; Admin Dose 75 MLS/HR; Start 07/05/18 at 10:00 Mupirocin (Bactroban) 1 applic BID TOP Last administered on 07/08/18 20:54; Admin Dose 1 APPLIC; Start 07/06/18 at 09:00; Stop 07/16/18 at 08:59 Miscellaneous Information (Pending [facility] Order For Wound Care) This patient man... PRN PRN XX SLOUGH; Start 07/07/18 at 17:00 Assessment/Plan Additional Assessment/Plan Ventilator setting; AC of 18, tidal volume 500, PEEP of 5, 30% FiO2. Patient is currently on Levophed 1 mics per minute, Versed 6 mg/h, fentanyl 25 mics per hour. Assessment recommendations; 1. Patient with history of dementia and respiratory failure maintained on T- piece at shelter admitted for tracheostomy dislodgment with severe hypercapnic respiratory failure with marked overall improvement in gas exchange after orally intubated. 2. History of myasthenia gravis, status post sternotomy with thymectomy in the past. 3. Chronic atrial fibrillation. 4. Anemia. 5. Sternal abscess. MRSA isolated from wound culture. Continue with supportive care. Patient scheduled for revision tracheostomy once sternal abscess starts improving. ANSELMO PIERCE Jul 09, 2018 08:28
[2018-07-09] MEDS: APIXABAN 5 MG TABLET PO SCH ×2 (08:41→20:31)
[2018-07-09] MEDS: BALSAM PERU/CASTOR OIL 60 GM TUBE TOP SCH ×2 (08:41→20:31)
[2018-07-09] MEDS: POLYETHYLENE GLYCOL 17 GM PACKET GTB SCH (08:41)
[2018-07-09] MEDS: DOCUSATE SODIUM 10 MG/ML (10ML CUP) GTB SCH ×2 (08:41→20:31)
[2018-07-09] MEDS: MUPIROCIN 2% 22 GM OINT TOP SCH ×2 (08:41→20:31)
[2018-07-09] MEDS: VANCOMYCIN 750 MG in SOD CHLORIDE 0.9% 150 ML IVPB SCH ×2 (09:56→22:51)
--- NOTE | 2018-07-09 10:25 | PN ---
Date/Time of Note Date/Time of Note DATE: 07/09/18 TIME: 10:24 Assessment/Plan Lines/Catheters IV Catheter Type (from Nrsg): PICC Line Flanagan in Place (from Nrsg): Yes Assessment/Plan Assessment/Plan Assessment/Plan MPRESSION: Status post tracheostomy, which has now been removed. RECOMMENDATIONS: The patient will need a new tracheostomy. The wound still wit h significant amount of drainage. Plan for tracheostomy tomorrow Subjective 24 Hr Interval Summary Constitutional: improved Pain Control: mild Exam/Review of Systems Vital Signs Vitals Vital Signs Date Temp Pulse Resp B/P (MAP) Pulse Ox O2 O2 Flow FiO2 Time Delivery Rate 07/09/18 72 18 92/63 (73) 100 Mechanical 10:00 Ventilator 07/09/18 98.4 08:00 07/09/18 30 08:00 Intake and Output 07/08/18 07/08/18 07/09/18 1515:00 23:00 07:00 IntakeIntake Total 689.00 ml 776.00 ml 887.05 ml OutputOutput Total 340 ml 695 ml 505 ml BalanceBalance 349.00 ml 81.00 ml 382.05 ml Exam Eyes: nl conjunctiva, EOMI, nl lids, nl sclera ENMT: nl external ears & nose, nl lips & teeth, nl nasal mucosa & septum, mucosa pink and moist Neck: supple, non-tender Respiratory: clear to auscultation, normal air movement Cardiovascular: regular rate and rhythm, nl pulses Gastrointestinal: soft, nl liver, spleen, non-tender Musculoskeletal: nl extremities to inspection, nl gait and stance Results Result Diagram: 07/05/18 0500 07/07/18 0530 MEHREEN HARRELL MD Jul 09, 2018 10:25
--- NOTE | 2018-07-09 10:26 | PN ---
Date/Time of Note Date/Time of Note DATE: 07/08/18 TIME: 10:26 Assessment/Plan Lines/Catheters IV Catheter Type (from Nrsg): PICC Line Flanagan in Place (from Nrsg): Yes Assessment/Plan Assessment/Plan Assessment/Plan MPRESSION: Status post tracheostomy, which has now been removed. RECOMMENDATIONS: The patient will need a new tracheostomy. The wound still wit h significant amount of drainage. Plan for tracheostomy on Subjective 24 Hr Interval Summary Constitutional: no complaints, improved, ambulates, BM, flatus, urine output Pain Control: mild Exam/Review of Systems Vital Signs Vitals Vital Signs Date Temp Pulse Resp B/P (MAP) Pulse Ox O2 O2 Flow FiO2 Time Delivery Rate 07/09/18 72 18 92/63 (73) 100 Mechanical 10:00 Ventilator 07/09/18 98.4 08:00 07/09/18 30 08:00 Intake and Output 07/08/18 07/08/18 07/09/18 1515:00 23:00 07:00 IntakeIntake Total 689.00 ml 776.00 ml 887.05 ml OutputOutput Total 340 ml 695 ml 505 ml BalanceBalance 349.00 ml 81.00 ml 382.05 ml Exam ENMT: nl external ears & nose, nl lips & teeth, nl nasal mucosa & septum, mucosa pink and moist Neck: supple, non-tender Respiratory: clear to auscultation, normal air movement Cardiovascular: regular rate and rhythm, nl pulses Gastrointestinal: soft, nl liver, spleen, non-tender Results Result Diagram: 07/05/18 0500 07/07/18 0530 MEHREEN HARRELL MD Jul 09, 2018 10:26
--- NOTE | 2018-07-09 11:22 | PN ---
Date/Time of Note Date/Time of Note DATE: 07/09/18 TIME: 11:21 Assessment/Plan VTE Prophylaxis Risk score (from Ns)>0 risk: 13 SCD applied (from Ns): Yes Pharmacological prophylaxis: LMWH Lines/Catheters IV Catheter Type (from Nrs): PICC Line Central line still needed: Yes Urinary Cath still in place: Yes Reason Cath still needed: skin wounds contaminated by urine Assessment/Plan Hospital Course 1. Acute encephalopathy, improved. The patient is approaching his baseline. Continue to monitor closely. No sedative at this time. 2. Elevated white count; however, patient has no fever. - per ID - cont vancomycin and meropenem - pending result of urine and blood culture. 3. Atrial fibrillation. The patient after admission went into rapid ventricular response and had to be started on Cardizem and Eliquis. We will keep patient on telemetry. 4. Acute hypoxemic and hypercarbic respiratory failure. - PER pulmonary consult with Dr. Mustafa 5. Dysphagia. Continue G-tube feeding. 6. Diabetes. 7. Myasthenia gravis, status post thymectomy. 8. Dyslipidemia. The patient used to be on Lipitor. Again, the medication list from the retirement facility has not been received. Continue Lipitor. 9. Hypertension and coronary artery disease. Continue metoprolol and p.r.n. IV diltiazem. 10. The patient apparently also has history of depression. We will resume Prozac. 11. The patient has mild dementia. We will continue Aricept. Result Diagram: 07/05/18 0500 07/07/18 0530 Results 24hrs Laboratory Tests Test 07/08/18 11:54 07/08/18 18:43 07/08/18 20:48 07/09/18 00:05 Bedside Glucose 148 150 165 161 Test 07/09/18 06:14 07/09/18 07:41 Bedside Glucose 135 157 Subjective 24 Hr Interval Summary Free Text/Dictation Patient is sedated, not responsive to voice or touch Exam/Review of Systems Vital Signs Vitals Vital Signs Date Temp Pulse Resp B/P (MAP) Pulse Ox O2 O2 Flow FiO2 Time Delivery Rate 07/09/18 72 18 92/63 (73) 100 Mechanical 10:00 Ventilator 07/09/18 98.4 08:00 07/09/18 30 08:00 Intake and Output 07/08/18 07/08/18 07/09/18 1515:00 23:00 07:00 IntakeIntake Total 689.00 ml 776.00 ml 887.05 ml OutputOutput Total 340 ml 695 ml 505 ml BalanceBalance 349.00 ml 81.00 ml 382.05 ml Exam Constitutional: well developed Head: normocephalic, atraumatic Neck: supple Respiratory: diminished breath sounds Cardiovascular: regular rate and rhythm Gastrointestinal: soft, non-tender Extremities: normal pulses Medications Medications Current Medications Albuterol/ Ipratropium (Duoneb) 3 ml Q6H RESP THERAPY PRN HHN SHORTNESS OF BREATH Last administered on 07/02/18at 02:41; Admin Dose 3 ML; Start 06/30/18 at 23:00 Vancomycin HCl (Vanco Iv Per Pharmacy) VANCOMYCIN PER PHARMACY PER PROTOCOL XX ; Start 06/30/18 at 23:00 Acetaminophen (Tylenol Liquid) 650 mg Q4H PRN GTB MILD PAIN(1-3)OR ELEVATED TEMP; Start 06/30/18 at 23:00 Insulin Aspart (Novolog Insulin Pen) NOVOLOG *MILD* ALGORI... Q6H SC Last administered on 07/09/18at 00:07; Admin Dose 1 UNIT; Start 07/01/18 at 00:00 Diltiazem HCl (Cardizem Iv) 10 mg Q4H PRN IV for sustained HR>130 Last administered on 07/02/18at 17:05; Admin Dose 10 MG; Start 06/30/18 at 23:00 Lansoprazole (Prevacid) 30 mg DAILY@06 GTB Last administered on 07/09/18at 06:11; Admin Dose 30 MG; Start 07/01/18 at 09:00 Midazolam HCl 50 ml @ 1 mls/hr TITRATE IV Last administered on 07/09/18at 06:1 5; Admin Dose 8 MLS/HR; Start 07/01/18 at 11:30 Miscellaneous Information 1 ea NOTE XX ; Start 07/01/18 at 14:00 Glucose (Glutose) 15 gm Q15M PRN PO DECREASED GLUCOSE; Start 07/01/18 at 14:00 Glucose (Glutose) 22.5 gm Q15M PRN PO DECREASED GLUCOSE; Start 07/01/18 at 14:00 Dextrose (D50w Syringe) 25 ml Q15M PRN IV DECREASED GLUCOSE; Start 07/01/18 at 14:00 Dextrose (D50w Syringe) 50 ml Q15M PRN IV DECREASED GLUCOSE; Start 07/01/18 at 14:00 Glucagon (Glucagen) 1 mg Q15M PRN IM DECREASED GLUCOSE; Start 07/01/18 at 14:00 Glucose (Glutose) 15 gm Q15M PRN BUCCAL DECREASED GLUCOSE; Start 07/01/18 at 14:00 Atorvastatin Calcium (Lipitor) 10 mg HS GTB Last administered on 07/08/18at 20: 53; Admin Dose 10 MG; Start 07/01/18 at 21:00 Insulin Human NPH (Humulin N) 10 unit BID@08,20 SC Last administered on 07/09/18 07:44; Admin Dose 10 UNIT; Start 07/01/18 at 20:00 IV Flush (NS 10 ml) 10 ml PRN PRN IV IV PROTOCOL; Start 07/01/18 at 17:00 Apixaban (Eliquis) 2.5 mg BID PO Last administered on 07/09/18 08:41; Admin Dose 2.5 MG; Start 07/02/18 at 09:00 Fentanyl 100 ml @ 2.5 mls/hr TITRATE IV Last administered on 07/08/18 14:43; Admin Dose 2.5 MLS/HR; Start 07/02/18 at 16:00 Norepinephrine 250 ml @ 1.875 mls/ hr TITRATE IV Last administered on 07/07/18 06:46; Admin Dose 3.75 MLS/HR; Start 07/02/18 at 20:00 Docusate Sodium (Colace Liquid Cup) 100 mg BID GTB Last administered on 07/09/18 08:41; Admin Dose 100 MG; Start 07/04/18 at 10:00 Polyethylene Glycol (Miralax) 17 gm DAILY GTB Last administered on 07/09/18 08:41; Admin Dose 17 GM; Start 07/04/18 at 10:00 Vancomycin HCl 750 mg/Sodium Chloride 150 ml @ 75 mls/hr Q12H IVPB Last administered on 07/09/18 09:56; Admin Dose 75 MLS/HR; Start 07/05/18 at 10:00 Mupirocin (Bactroban) 1 applic BID TOP Last administered on 07/09/18at 08:41; Admin Dose 1 APPLIC; Start 07/06/18 at 09:00; Stop 07/16/18 at 08:59 Miscellaneous Information (Pending [facility] Order For Wound Care) This patient man... PRN PRN XX KELINUGH; Start 07/07/18 at 17:00 LISA JAVIER Jul 09, 2018 11:22
--- NOTE | 2018-07-09 11:35 | NUR ---
Attempted to reach daughter Bruna for consent regarding planned tracheostomy. Did not answer, unable to leave voicemail as box is full. Will attempt again later today.
--- NOTE | 2018-07-09 12:39 | CONS ---
Date/Time of Note Date/Time of Note DATE: 07/09/18 TIME: 12:36 Assessment/Plan Assessment/Plan Assessment/Plan Acute on chronic respiratory failure Possible trach dislodgment status post intubation Atrial fibrillation with rapid ventricular rates, improved Preserved ejection fraction Hypotension off IV pressor Myasthenia gravis -Patient has been titrated off IV pressors this morning, hold any antihypertensives at the current time. Heart rate improved. Antibiotics as per infectious disease. Result Diagram: 07/05/18 0500 07/07/18 0530 Results 24hrs Laboratory Tests Test 07/08/18 18:43 07/08/18 20:48 07/09/18 00:05 07/09/18 06:14 Bedside Glucose 150 165 161 135 Test 07/09/18 07:41 07/09/18 11:51 Bedside Glucose 157 119 Consultation Date/Type/Reason Admit Date/Time Jun 30, 2018 at 18:05 Initial Consult Date 07/01/18 Type of Consult cv Requesting Provider: ALE CHUN MD 24 HR Interval Summary Free Text/Dictation Patient seen and examined. No new cardiac issues as per nursing staff Exam/Review of Systems Vital Signs Vitals Vital Signs Date Temp Pulse Resp B/P (MAP) Pulse Ox O2 O2 Flow FiO2 Time Delivery Rate 07/09/18 72 18 100 30 11:00 07/09/18 92/63 (73) Mechanical 10:00 Ventilator 07/09/18 98.4 08:00 Intake and Output 07/08/18 07/08/18 07/09/18 1515:00 23:00 07:00 IntakeIntake Total 689.00 ml 776.00 ml 887.05 ml OutputOutput Total 340 ml 695 ml 505 ml BalanceBalance 349.00 ml 81.00 ml 382.05 ml Exam Sedated and intubated, no apparent distress Head: normocephalic ENMT: intubated Respiratory: other (Coarse breath sounds bilaterally, no wheezing) Cardiovascular: irregular rhythm, other (S1-S2 heard) Gastrointestinal: soft, non-tender, bowel sounds Extremities: other (No significant edema) Medications Medications Current Medications Albuterol/ Ipratropium (Duoneb) 3 ml Q6H RESP THERAPY PRN HHN SHORTNESS OF BREATH Last administered on 07/02/18at 02:41; Admin Dose 3 ML; Start 06/30/18 at 23:00 Vancomycin HCl (Vanco Iv Per Pharmacy) VANCOMYCIN PER PHARMACY PER PROTOCOL XX ; Start 06/30/18 at 23:00 Acetaminophen (Tylenol Liquid) 650 mg Q4H PRN GTB MILD PAIN(1-3)OR ELEVATED TEMP; Start 06/30/18 at 23:00 Insulin Aspart (Novolog Insulin Pen) NOVOLOG *MILD* ALGORI... Q6H SC Last administered on 07/09/18at 00:07; Admin Dose 1 UNIT; Start 07/01/18 at 00:00 Diltiazem HCl (Cardizem Iv) 10 mg Q4H PRN IV for sustained HR>130 Last administered on 07/02/18at 17:05; Admin Dose 10 MG; Start 06/30/18 at 23:00 Lansoprazole (Prevacid) 30 mg DAILY@06 GTB Last administered on 07/09/18at 06:11; Admin Dose 30 MG; Start 07/01/18 at 09:00 Midazolam HCl 50 ml @ 1 mls/hr TITRATE IV Last administered on 07/09/18at 06:15; Admin Dose 8 MLS/HR; Start 07/01/18 at 11:30 Miscellaneous Information 1 ea NOTE XX ; Start 07/01/18 at 14:00 Glucose (Glutose) 15 gm Q15M PRN PO DECREASED GLUCOSE; Start 07/01/18 at 14:00 Glucose (Glutose) 22.5 gm Q15M PRN PO DECREASED GLUCOSE; Start 07/01/18 at 14:00 Dextrose (D50w Syringe) 25 ml Q15M PRN IV DECREASED GLUCOSE; Start 07/01/18 at 14:00 Dextrose (D50w Syringe) 50 ml Q15M PRN IV DECREASED GLUCOSE; Start 07/01/18 at 14:00 Glucagon (Glucagen) 1 mg Q15M PRN IM DECREASED GLUCOSE; Start 07/01/18 at 14:00 Glucose (Glutose) 15 gm Q15M PRN BUCCAL DECREASED GLUCOSE; Start 07/01/18 at 14:00 Atorvastatin Calcium (Lipitor) 10 mg HS GTB Last administered on 07/08/18at 20:53; Admin Dose 10 MG; Start 07/01/18 at 21:00 Insulin Human NPH (Humulin N) 10 unit BID@08,20 SC Last administered on 07/09/18 07:44; Admin Dose 10 UNIT; Start 07/01/18 at 20:00 IV Flush (NS 10 ml) 10 ml PRN PRN IV IV PROTOCOL; Start 07/01/18 at 17:00 Apixaban (Eliquis) 2.5 mg BID PO Last administered on 07/09/18 08:41; Admin Dose 2.5 MG; Start 07/02/18 at 09:00 Fentanyl 100 ml @ 2.5 mls/hr TITRATE IV Last administered on 07/08/18 14:43; Admin Dose 2.5 MLS/HR; Start 07/02/18 at 16:00 Norepinephrine 250 ml @ 1.875 mls/ hr TITRATE IV Last administered on 07/07/18 06:46; Admin Dose 3.75 MLS/HR; Start 07/02/18 at 20:00 Docusate Sodium (Colace Liquid Cup) 100 mg BID GTB Last administered on 07/09/18 08:41; Admin Dose 100 MG; Start 07/04/18 at 10:00 Polyethylene Glycol (Miralax) 17 gm DAILY GTB Last administered on 07/09/18 08:41; Admin Dose 17 GM; Start 07/04/18 at 10:00 Vancomycin HCl 750 mg/Sodium Chloride 150 ml @ 75 mls/hr Q12H IVPB Last administered on 07/09/18 09:56; Admin Dose 75 MLS/HR; Start 07/05/18 at 10:00 Mupirocin (Bactroban) 1 applic BID TOP Last administered on 07/09/18 08:41; Admin Dose 1 APPLIC; Start 07/06/18 at 09:00; Stop 07/16/18 at 08:59 Miscellaneous Information (Pending [facility] Order For Wound Care) This patient man... PRN PRN XX CRISTINE; Start 07/07/18 at 17:00 Evan Armas DO Jul 09, 2018 12:39
--- NOTE | 2018-07-09 12:52 | NUR ---
SS NOTE: LOS PT TRANSFERRED FROM [facility] DUE TO LEUKOCYTOSIS, ENCEPHALOPATHY, A-FIB. PT WITH HX OF TRACH BUT CURRENTLY ORALLY INTUBATED AND WAITING FOR A NEW TRACH. SW ATTEMPTED TO CONTACT PT'S DTR, DEVANTE RICHARDSON SHE IS LISTED PT'S DECISION MAKER. DTR'S VOICE MAIL IS FULL AND UNABLE TO RECEIVE MESSAGES. PT HAS A POLST FORM IN THE CHART FOR FULL CODE BUT IT IS NOT VALID IT IS NOT SIGNED BY MD. SW WILL F/U WITH PT'S FAMILY TO DISCUSS PT'S CODE STATUS AND D/C PLANS. RN, EDNA NEELY.
[2018-07-09] MEDS: FENTAnyl (DRIP) 1000 mcg/100mL 100 ML IV SCH (12:56)
--- NOTE | 2018-07-09 14:17 | NUR ---
Attempted to call daughter Bruna in order to notify of hospital acquired pressure injuries to bilateral cheeks and bilateral feet. No answer and unable to leave voicemail. Will attempt to notify again at a later time.
--- NOTE | 2018-07-09 15:43 | CONS ---
Date/Time of Note Date/Time of Note DATE: 07/09/18 TIME: 15:41 cct 2 hours Assessment/Plan Assessment/Plan Hospital Course - Severe sepsis with septic shock d/t MRSA - leukocytosis resolved, Levophed restarted, tachycardia improving - MRSA soft tissue abscess on chest - UTI d/t MRSA - MRSA bacteremia d/t above. Repeat blood cx 07/01/2018 shows neg x1 bottle, MRSA 1 bottle. Repeat cultures 07/06/18 are NGTD; TTE 07/01/2018 does not mention any vegetation - MRSA nasal colonization - Acute hypercarbic respiratory failure d/t tracheostomy dislodgement requiring oral intubation 07/01/2018 - Acute encephalopathy - Atrial fibrillation with intermittent RVR - CAD - H/o HTN - T2DM - HLD - Myasthenia gravis s/p recent thymectomy - Dysphagia s/p PEG - Depression - on Prozac at [facility] - Mild dementia - on Aricept at [facility] - Moderate protein calorie malnutrition - Hypernatremia Recommendations: - F/u the repeat blood cxs- so far ngtd - Continue vancomycin (06/30/2018-) - Continue mupirocin (07/06/2018-) to nares, bilateral axilla, groin, and anus for MRSA de-colonization - Continue chlorhexidine body wash daily - Additional imaging such as CT neck/upper chest region should also be co nsidered to evaluate extent of infection; of particular concern is Mediastinitis - Continue local wound care of neck/upper chest lesion Result Diagram: 07/05/18 0500 07/07/18 0530 Results 24hrs Laboratory Tests Test 07/08/18 18:43 07/08/18 20:48 07/09/18 00:05 07/09/18 06:14 Bedside Glucose 150 165 161 135 Test 07/09/18 07:41 07/09/18 11:51 Bedside Glucose 157 119 Consultation Date/Type/Reason Admit Date/Time Jun 30, 2018 at 18:05 Initial Consult Date 07/01/18 Type of Consult ID Requesting Provider: ALE CHUN MD 24 HR Interval Summary Free Text/Dictation plan for trach in place Exam/Review of Systems Vital Signs Vitals Vital Signs Date Temp Pulse Resp B/P (MAP) Pulse Ox O2 O2 Flow FiO2 Time Delivery Rate 07/09/18 66 12:00 07/09/18 18 100 30 11:00 07/09/18 92/63 (73) Mechanical 10:00 Ventilator 07/09/18 98.4 08:00 Intake and Output 07/08/18 07/08/18 07/09/18 1515:00 23:00 07:00 IntakeIntake Total 689.00 ml 776.00 ml 887.05 ml OutputOutput Total 340 ml 695 ml 505 ml BalanceBalance 349.00 ml 81.00 ml 382.05 ml Exam Constitutional: alert, oriented Psych: no complaints, nl mood/affect Eyes: EOMI Respiratory: clear to auscultation Cardiovascular: regular rate and rhythm Gastrointestinal: soft Neurological: GLUE SPRAYER II-XII intact Medications Medications Current Medications Albuterol/ Ipratropium (Duoneb) 3 ml Q6H RESP THERAPY PRN HHN SHORTNESS OF BREATH Last administered on 07/02/18at 02:41; Admin Dose 3 ML; Start 06/30/18 at 23:00 Vancomycin HCl (Vanco Iv Per Pharmacy) VANCOMYCIN PER PHARMACY PER PROTOCOL XX ; Start 06/30/18 at 23:00 Acetaminophen (Tylenol Liquid) 650 mg Q4H PRN GTB MILD PAIN(1-3)OR ELEVATED TEMP; Start 06/30/18 at 23:00 Insulin Aspart (Novolog Insulin Pen) NOVOLOG *MILD* ALGORI... Q6H SC Last administered on 07/09/18at 00:07; Admin Dose 1 UNIT; Start 07/01/18 at 00:00 Diltiazem HCl (Cardizem Iv) 10 mg Q4H PRN IV for sustained HR>130 Last administered on 07/02/18at 17:05; Admin Dose 10 MG; Start 06/30/18 at 23:00 Lansoprazole (Prevacid) 30 mg DAILY@06 GTB Last administered on 07/09/18at 06:11; Admin Dose 30 MG; Start 07/01/18 at 09:00 Midazolam HCl 50 ml @ 1 mls/hr TITRATE IV Last administered on 07/09/18at 06:15; Admin Dose 8 MLS/HR; Start 07/01/18 at 11:30 Miscellaneous Information 1 ea NOTE XX ; Start 07/01/18 at 14:00 Glucose (Glutose) 15 gm Q15M PRN PO DECREASED GLUCOSE; Start 07/01/18 at 14:00 Glucose (Glutose) 22.5 gm Q15M PRN PO DECREASED GLUCOSE; Start 07/01/18 at 14:00 Dextrose (D50w Syringe) 25 ml Q15M PRN IV DECREASED GLUCOSE; Start 07/01/18 at 14:00 Dextrose (D50w Syringe) 50 ml Q15M PRN IV DECREASED GLUCOSE; Start 07/01/18 at 14:00 Glucagon (Glucagen) 1 mg Q15M PRN IM DECREASED GLUCOSE; Start 07/01/18 at 14:00 Glucose (Glutose) 15 gm Q15M PRN BUCCAL DECREASED GLUCOSE; Start 07/01/18 at 14:00 Atorvastatin Calcium (Lipitor) 10 mg HS GTB Last administered on 07/08/18at 20:53; Admin Dose 10 MG; Start 07/01/18 at 21:00 Insulin Human NPH (Humulin N) 10 unit BID@08,20 SC Last administered on 07/09/18at 07:44; Admin Dose 10 UNIT; Start 07/01/18 at 20:00 IV Flush (NS 10 ml) 10 ml PRN PRN IV IV PROTOCOL; Start 07/01/18 at 17:00 Apixaban (Eliquis) 2.5 mg BID PO Last administered on 07/09/18at 08:41; Admin Dose 2.5 MG; Start 07/02/18 at 09:00 Fentanyl 100 ml @ 2.5 mls/hr TITRATE IV Last administered on 07/09/18at 12:56; Admin Dose 2.5 MLS/HR; Start 07/02/18 at 16:00 Norepinephrine 250 ml @ 1.875 mls/ hr TITRATE IV Last administered on 07/07/18at 06:46; Admin Dose 3.75 MLS/HR; Start 07/02/18 at 20:00 Docusate Sodium (Colace Liquid Cup) 100 mg BID GTB Last administered on 07/09/18at 08:41; Admin Dose 100 MG; Start 07/04/18 at 10:00 Polyethylene Glycol (Miralax) 17 gm DAILY GTB Last administered on 07/09/18at 08:41; Admin Dose 17 GM; Start 07/04/18 at 10:00 Vancomycin HCl 750 mg/Sodium Chloride 150 ml @ 75 mls/hr Q12H IVPB Last administered on 07/09/18at 09:56; Admin Dose 75 MLS/HR; Start 07/05/18 at 10:00 Mupirocin (Bactroban) 1 applic BID TOP Last administered on 07/09/18at 08:41; Admin Dose 1 APPLIC; Start 07/06/18 at 09:00; Stop 07/16/18 at 08:59 Miscellaneous Information (Pending [facility] Order For Wound Care) This patient man... PRN PRN XX SLOUGH; Start 07/07/18 at 17:00 Miscellaneous Information (*Rx Drug Level Order Reminder*) VANCO TROUGH @ 0,900 ONCE ONCE XX ; Start 07/10/18 at 09:00; Stop 07/10/18 at 09:01 PETER LUTZ MD Jul 09, 2018 15:43
--- NOTE | 2018-07-09 16:02 | NUR ---
WOUND CARE FOLLOW UP : Patient previously seen by Credit Control Administrator for chest and sacrococcyx wounds. Re-evaluating on this admission for Deep Tissue device-related wounds to bilateral dorsal ankles and bilateral cheekbones. Patient is pending tracheostomy placement ASSESSMENT: - Left Dorsal Ankle Intact Deep Tissue Injury. Condition not present on admission. Measuring approx. 1.8cm x 1.5cm x 0cm. Surrounding skin is clean dry and intact. Most probably r/t friction from sequential stockings - Right Dorsal Ankle Intact Deep Tissue Injury. Condition not present on admission. Measuring approx. 0.8cm x 1.2cm x 0cm. Surrounding skin is clean dry and intact. Most probably r/t friction from sequential stockings - Bilateral cheekbone Deep tissue injury. Condition not present on admission. Measuring approx. 0.8cm x 0.5cm x 0cm respectively. Patient with ETT tape stephen discovered after changing equipment RECOMMENDATIONS: - Continue application of Venelex ointment BID to Deep Tissue Injury areas. Cover dorsal ankle/foot wounds with foam border dressing and inspect Q shift. - Apply soft pads or ABD under the edge of SCDs to prevent further breakdown of skin. - Remove SCDs at least 30 minutes every shift - Low air loss surface. - Reposition Endotracheal tube per Respiratory guidelines - Reposition every 2 hours. - Float heels off bed with pillows. Discussed assessment and plan of care with RN. RN to obtain wound care recommendations from MD. Claudia Goncalves, RN, MSN, CCRN, C
[2018-07-09] MEDS: ATORVASTATIN 10 MG TAB GTB SCH (20:31)
[2018-07-10] VITALS (98 sets, daily range): BP systolic 67–167; BP diastolic 27–90; PULSE 57–93; RESP 0–22
[2018-07-10] MEDS: MIDAZOLAM (DRIP) 50 mg/50 mL 50 ML IV SCH ×2 (05:30→15:23)
[2018-07-10] MEDS: LANSOPRAZOLE 30 MG CAP GTB SCH (05:57)
[2018-07-10] MEDS: INSULIN ASPART [NOVOLOG] 3 ML PEN SC SCH ×4 (05:59→18:00)
--- NOTE | 2018-07-10 07:53 | NUR ---
EOSS Pt remained intubated/sedated. Pt does not follow commands but withdraws to pain. Pt remains in controlled Afib, BP remains low but able to reduce and eventually stop levophed drip while maintaining BP in goal range Pt SpO2 remained >92% on current vent settings. Trach placement planned for today. Pt tolerating tube feeds, 1 BM during shift. hickman remains patent. All wounds redressed as needed/ordered, skin assessed, skin integrity maintained. bedside report given to dayshift RN.
--- NOTE | 2018-07-10 08:35 | CONS ---
Date/Time of Note Date/Time of Note DATE: 07/10/18 TIME: 08:32 Consult Date/Type/Reason Admit Date/Time Jun 30, 2018 at 18:05 Initial Consult Date 07/01/18 Type of Consult Pulmonary Requesting Provider: ALE CHUN MD Subjective Patient's condition is stable. Patient is now off pressor support. Has remained hemodynamically stable. General exam; elderly male, orally intubated, sedated, currently in no distress. Objective Vital Signs Date Temp Pulse Resp B/P (MAP) Pulse Ox O2 O2 Flow FiO2 Time Delivery Rate 07/10/18 99.5 83 20 110/69 100 Mechanical 08:00 (83) Ventilator 07/10/18 30 05:35 Intake and Output 07/09/18 07/09/18 07/10/18 1515:00 23:00 07:00 IntakeIntake Total 1228.750 ml 790.00 ml 890.125 ml OutputOutput Total 345 ml 560 ml 425 ml BalanceBalance 883.750 ml 230.00 ml 465.125 ml Exam H EENT exam; supple neck, no JVD. No lymphadenopathy. Midline trachea. No thyromegaly. Patient is edentulous. Dressing applied over prior tracheostomy, stoma is almost closed. Dressing applied over scrotum. There is significant reduction in drainage from sternal abscess. Chest exam; clear to auscultation. S1-S2 audible, no murmurs. Irregular rhythm. There is a well-healed sternal scar. Abdomen exam; soft, no organomegaly. G-tube in place. Bowel sounds audible. Extremity exam; no edema or clubbing. PROJ ENGINEER exam; patient is sedated. Vent Setting Ventilator Support Mode: AC Fraction of Inspired Oxygen pe: 30 Positive End Expiratory Pressu: 5.0 Results/Medications Result Diagram: 07/10/18 0433 07/10/18 0433 Results 24 hrs Laboratory Tests Test 07/09/18 11:51 07/09/18 17:34 07/09/18 20:31 07/10/18 00:23 Bedside Glucose 119 116 126 117 Test 07/10/18 04:33 07/10/18 05:56 White Blood 8.8 Count Red Blood Count 2.71 L Hemoglobin 7.7 L Hematocrit 24.7 L Mean Corpuscular 91.1 Volume Mean Corpuscular 28.4 L Hemoglobin Mean Corpuscular 31.2 L Hemoglobin Fransisca nt Red Cell 15.4 H Distribution Width Platelet Count 346 # Mean Platelet 11.7 H Volume Immature 1.400 H Granulocytes % Neutrophils % 69.1 Lymphocytes % 16.3 Monocytes % 7.0 Eosinophils % 5.9 Basophils % 0.3 Nucleated Red 0.0 Blood Cells % Immature 0.120 H Granulocytes # Neutrophils # 6.1 Lymphocytes # 1.4 Monocytes # 0.6 Eosinophils # 0.5 Basophils # 0.0 Nucleated Red 0.0 Blood Cells # Activated 40.0 H Partial Thrombop last Time Sodium Level 140 Potassium Level 3.1 L Chloride Level 105 Carbon Dioxide 31 Level Anion Gap 4 L Blood Urea 17 Nitrogen Creatinine 0.64 Est Glomerular Filtrat Rate mL/min Glucose Level 103 Calcium Level 7.4 L Bedside Glucose 92 Medications Current Medications Albuterol/ Ipratropium (Duoneb) 3 ml Q6H RESP THERAPY PRN HHN SHORTNESS OF BREATH Last administered on 07/02/18at 02:41; Admin Dose 3 ML; Start 06/30/18 at 23:00 Vancomycin HCl (Vanco Iv Per Pharmacy) VANCOMYCIN PER PHARMACY PER PROTOCOL XX ; Start 06/30/18 at 23:00 Acetaminophen (Tylenol Liquid) 650 mg Q4H PRN GTB MILD PAIN(1-3)OR ELEVATED TEMP; Start 06/30/18 at 23:00 Insulin Aspart (Novolog Insulin Pen) NOVOLOG *MILD* ALGORI... Q6H SC Last administered on 07/09/18at 00:07; Admin Dose 1 UNIT; Start 07/01/18 at 00:00 Diltiazem HCl (Cardizem Iv) 10 mg Q4H PRN IV for sustained HR>130 Last adminis tered on 07/02/18at 17:05; Admin Dose 10 MG; Start 06/30/18 at 23:00 Lansoprazole (Prevacid) 30 mg DAILY@06 GTB Last administered on 07/10/18at 05:57; Admin Dose 30 MG; Start 07/01/18 at 09:00 Midazolam HCl 50 ml @ 1 mls/hr TITRATE IV Last administered on 07/10/18at 05:30; Admin Dose 5 MLS/HR; Start 07/01/18 at 11:30 Miscellaneous Information 1 ea NOTE XX ; Start 07/01/18 at 14:00 Glucose (Glutose) 15 gm Q15M PRN PO DECREASED GLUCOSE; Start 07/01/18 at 14:00 Glucose (Glutose) 22.5 gm Q15M PRN PO DECREASED GLUCOSE; Start 07/01/18 at 14:00 Dextrose (D50w Syringe) 25 ml Q15M PRN IV DECREASED GLUCOSE; Start 07/01/18 at 14:00 Dextrose (D50w Syringe) 50 ml Q15M PRN IV DECREASED GLUCOSE; Start 07/01/18 at 14:00 Glucagon (Glucagen) 1 mg Q15M PRN IM DECREASED GLUCOSE; Start 07/01/18 at 14:00 Glucose (Glutose) 15 gm Q15M PRN BUCCAL DECREASED GLUCOSE; Start 07/01/18 at 14:00 Atorvastatin Calcium (Lipitor) 10 mg HS GTB Last administered on 07/09/18at 20:31; Admin Dose 10 MG; Start 07/01/18 at 21:00 Insulin Human NPH (Humulin N) 10 unit BID@08,20 SC Last administered on 07/09at 20:33; Admin Dose 10 UNIT; Start 07/01/18 at 20:00 IV Flush (NS 10 ml) 10 ml PRN PRN IV IV PROTOCOL; Start 07/01/18 at 17:00 Apixaban (Eliquis) 2.5 mg BID PO Last administered on 07/09/18at 20:31; Admin Dose 2.5 MG; Start 07/02/18 at 09:00 Fentanyl 100 ml @ 2.5 mls/hr TITRATE IV Last administered on 07/09/18at 12:56; Admin Dose 2.5 MLS/HR; Start 07/02/18 at 16:00 Norepinephrine 250 ml @ 1.875 mls/ hr TITRATE IV Last administered on 07/07/18at 06:46; Admin Dose 3.75 MLS/HR; Start 07/02/18 at 20:00 Docusate Sodium (Colace Liquid Cup) 100 mg BID GTB Last administered on 07/09/18at 20:31; Admin Dose 100 MG; Start 07/04/18 at 10:00 Polyethylene Glycol (Miralax) 17 gm DAILY GTB Last administered on 07/09/18at 08:41; Admin Dose 17 GM; Start 07/04/18 at 10:00 Vancomycin HCl 750 mg/Sodium Chloride 150 ml @ 75 mls/hr Q12H IVPB Last administered on 07/09/18at 22:51; Admin Dose 75 MLS/HR; Start 07/05/18 at 10:00 Mupirocin (Bactroban) 1 applic BID TOP Last administered on 07/09/18at 20:31; Admin Dose 1 APPLIC; Start 07/06/18 at 09:00; Stop 07/16/18 at 08:59 [facility]isc[facility] This patient man... PRN PRN XX SLOUGH; Start 07/07/18 at 17:00 Miscellaneous Information (*Rx Drug Level Order Reminder*) VANCO TROUGH @ 0,900 ONCE ONCE XX ; Start 07/10/18 at 09:00; Stop 07/10/18 at 09:01 Assessment/Plan Additional Assessment/Plan Ventilator setting; AC of 18, tidal volume 500, PEEP of 5, 30% FiO2. Assessment recommendations; 1. Patient with history of dementia and chronic respiratory failure maintained on T-piece admitted for tracheostomy dislodgment with severe hypercapnic respi ratory failure, requiring oral intubation with marked improvement in gas exchange. 2. Interval correction of respiratory acidosis. 3. 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 Patient currently on appropriate antimicrobial regimen. 4. Anemia. 5. Chronic atrial fibrillation.. 6. Chronic dysphagia, status post G-tube placement in the past. Continue current supportive care. Patient scheduled for revision tracheostomy today. ANSELMO PIERCE Jul 10, 2018 08:35
[2018-07-10] MEDS: POLYETHYLENE GLYCOL 17 GM PACKET GTB SCH (08:48)
[2018-07-10] MEDS: DOCUSATE SODIUM 10 MG/ML (10ML CUP) GTB SCH ×2 (08:48→20:35)
[2018-07-10] MEDS: APIXABAN 5 MG TABLET PO SCH ×2 (08:48→20:35)
[2018-07-10] MEDS: BALSAM PERU/CASTOR OIL 60 GM TUBE TOP SCH ×2 (08:58→20:35)
[2018-07-10] MEDS: MUPIROCIN 2% 22 GM OINT TOP SCH ×2 (08:59→20:35)
[2018-07-10] MEDS: NPH, HUMAN INSULIN ISOPHANE 3ML VIAL SC SCH ×2 (09:02→20:00)
--- NOTE | 2018-07-10 09:34 | NUR ---
FAMILY COMMUNICATION: CALL TO DAUGHTER DEVANTE RICHARDSON TO NOTIFY REGARDING PRESSURE INJURIES. IS FULL, UNABLE TO LEAVE [facility] CALL [facility].
--- NOTE | 2018-07-10 09:44 | NUR ---
RESTRAINTS RECEIVED PATIENT AT CHANGE OF SHIFT WITH NO RESTRAINTS ON. ORDER FOR RESTRAINTS ENTERED THIS MORNING BY MD. HOWEVER, PATIENT DID NOT NEED RESTRAINTS. NOTIFIED MD, AND CANCELLED ORDER.
[2018-07-10] MEDS: VANCOMYCIN 750 MG in SOD CHLORIDE 0.9% 150 ML IVPB SCH ×2 (10:09→21:43)
--- NOTE | 2018-07-10 10:16 | NUR ---
WOUND CARE WOUND CARE TEAM AT BEDSIDE FOR PATIENT EVALUATION. PER CIARRA BURCIAGA, BILATERAL CHEEKS ARE NOT DTI. INSTEAD, IRRITATION FROM [facility] RICHARDSON ADHESIVE. RECOMMENDATION TO APPLY VENELEX AND LEAVE OPEN TO AIR.
--- NOTE | 2018-07-10 10:38 | PN ---
Date/Time of Note Date/Time of Note DATE: 07/10/18 TIME: 10:37 Assessment/Plan VTE Prophylaxis Risk score (from Ns)>0 risk: 13 SCD applied (from Ns): Yes Pharmacological prophylaxis: LMWH Lines/Catheters IV Catheter Type (from Nrs): PICC Line Central line still needed: Yes Urinary Cath still in place: Yes Reason Cath still needed: skin wounds contaminated by urine Assessment/Plan Hospital Course 1. Acute encephalopathy, improved. The patient is approaching his baseline. Continue to monitor closely. No sedative at this time. 2. Elevated white count; however, patient has no fever. - per ID - cont vancomycin and meropenem - pending result of urine and blood culture. 3. Atrial fibrillation. The patient after admission went into rapid ventricular response and had to be started on Cardizem and Eliquis. We will keep patient on telemetry. 4. Acute hypoxemic and hypercarbic respiratory failure. - PER pulmonary consult with Dr. Mustafa 5. Dysphagia. Continue G-tube feeding. 6. Diabetes. 7. Myasthenia gravis, status post thymectomy. 8. Dyslipidemia. The patient used to be on Lipitor. Again, the medication list from the long term facility has not been received. Continue Lipitor. 9. Hypertension and coronary artery disease. Continue metoprolol and p.r.n. IV diltiazem. 10. The patient apparently also has history of depression. We will resume Prozac. 11. The patient has mild dementia. We will continue Aricept. Result Diagram: 07/10/18 0433 07/10/18 0433 Results 24hrs Laboratory Tests Test 07/09/18 11:51 07/09/18 17:34 07/09/18 20:31 07/10/18 00:23 Bedside Glucose 119 116 126 117 Test 07/10/18 04:33 07/10/18 05:56 07/10/18 08:57 07/10/18 09:00 White Blood 8.8 Count Red Blood Count 2.71 L Hemoglobin 7.7 L Hematocrit 24.7 L Mean Corpuscular 91.1 Volume Mean Corpuscular 28.4 L Hemoglobin Mean Corpuscular 31.2 L Hemoglobin Fransisca nt Red Cell 15.4 H Distribution Width Platelet Count 346 # Mean Platelet 11.7 H Volume Immature 1.400 H Granulocytes % Neutrophils % 69.1 Lymphocytes % 16.3 Monocytes % 7.0 Eosinophils % 5.9 Basophils % 0.3 Nucleated Red 0.0 Blood Cells % Immature 0.120 H Granulocytes # Neutrophils # 6.1 Lymphocytes # 1.4 Monocytes # 0.6 Eosinophils # 0.5 Basophils # 0.0 Nucleated Red 0.0 Blood Cells # Activated 40.0 H Partial Thrombop last Time Sodium Level 140 Potassium Level 3.1 L Chloride Level 105 Carbon Dioxide 31 Level Anion Gap 4 L Blood Urea 17 Nitrogen Creatinine 0.64 Est Glomerular Filtrat Rate mL/min Glucose Level 103 Calcium Level 7.4 L Bedside Glucose 92 89 Vancomycin Level 16.6 Trough Subjective 24 Hr Interval Summary Free Text/Dictation Patient remain sedated and intubated Exam/Review of Systems Vital Signs Vitals Vital Signs Date Temp Pulse Resp B/P (MAP) Pulse Ox O2 O2 Flow FiO2 Time Delivery Rate 07/10/18 74 18 76/53 (61) 100 Mechanical 10:00 Ventilator 07/10/18 30 09:16 07/10/18 99.5 08:00 Intake and Output 07/09/18 07/09/18 07/10/18 1515:00 23:00 07:00 IntakeIntake Total 1228.750 ml 790.00 ml 890.125 ml OutputOutput Total 345 ml 560 ml 425 ml BalanceBalance 883.750 ml 230.00 ml 465.125 ml Exam Constitutional: well developed Head: normocephalic, atraumatic Neck: supple Respiratory: diminished breath sounds Cardiovascular: regular rate and rhythm Gastrointestinal: soft, non-tender Extremities: normal pulses Medications Medications Current Medications Albuterol/ Ipratropium (Duoneb) 3 ml Q6H RESP THERAPY PRN HHN SHORTNESS OF BREATH Last administered on 07/02/18at 02:41; Admin Dose 3 ML; Start 06/30/18 at 23:00 Vancomycin HCl (Vanco Iv Per Pharmacy) VANCOMYCIN PER PHARMACY PER PROTOCOL XX ; Start 06/30/18 at 23:00 Acetaminophen (Tylenol Liquid) 650 mg Q4H PRN GTB MILD PAIN(1-3)OR ELEVATED TEMP; Start 06/30/18 at 23:00 Insulin Aspart (Novolog Insulin Pen) NOVOLOG *MILD* ALGORI... Q6H SC Last administered on 07/09/18at 00:07; Admin Dose 1 UNIT; Start 07/01/18 at 00:00 Diltiazem HCl (Cardizem Iv) 10 mg Q4H PRN IV for sustained HR>130 Last administered on 07/02/18at 17:05; Admin Dose 10 MG; Start 06/30/18 at 23:00 Lansoprazole (Prevacid) 30 mg DAILY@06 GTB Last administered on 07/10/18at 05:57; Admin Dose 30 MG; Start 07/01/18 at 09:00 Midazolam HCl 50 ml @ 1 mls/hr TITRATE IV Last administered on 07/10/18at 05:30; Admin Dose 5 MLS/HR; Start 07/01/18 at 11:30 Miscellaneous Information 1 ea NOTE XX ; Start 07/01/18 at 14:00 Glucose (Glutose) 15 gm Q15M PRN PO DECREASED GLUCOSE; Start 07/01/18 at 14:00 Glucose (Glutose) 22.5 gm Q15M PRN PO DECREASED GLUCOSE; Start 07/01/18 at 14:00 Dextrose (D50w Syringe) 25 ml Q15M PRN IV DECREASED GLUCOSE; Start 07/01/18 at 14:00 Dextrose (D50w Syringe) 50 ml Q15M PRN IV DECREASED GLUCOSE; Start 07/01/18 at 14:00 Glucagon (Glucagen) 1 mg Q15M PRN IM DECREASED GLUCOSE; Start 07/01/18 at 14:00 Glucose (Glutose) 15 gm Q15M PRN BUCCAL DECREASED GLUCOSE; Start 07/01/18 at 14:00 Atorvastatin Calcium (Lipitor) 10 mg HS GTB Last administered on 07/09/18at 20:31; Admin Dose 10 MG; Start 07/01/18 at 21:00 Insulin Human NPH (Humulin N) 10 unit BID@08,20 SC Last administered on 07/10/18at 09:02; Admin Dose 10 UNIT; Start 07/01/18 at 20:00 IV Flush (NS 10 ml) 10 ml PRN PRN IV IV PROTOCOL; Start 07/01/18 at 17:00 Apixaban (Eliquis) 2.5 mg BID PO Last administered on 07/09/18at 20:31; Admin Dose 2.5 MG; Start 07/02/18 at 09:00 Fentanyl 100 ml @ 2.5 mls/hr TITRATE IV Last administered on 07/09/18at 12:56; Admin Dose 2.5 MLS/HR; Start 07/02/18 at 16:00 Norepinephrine 250 ml @ 1.875 mls/ hr TITRATE IV Last administered on 07/07at 06:46; Admin Dose 3.75 MLS/HR; Start 07/02/18 at 20:00 Docusate Sodium (Colace Liquid Cup) 100 mg BID GTB Last administered on 07/09/18at 20:31; Admin Dose 100 MG; Start 07/04/18 at 10:00 Polyethylene Glycol (Miralax) 17 gm DAILY GTB Last administered on 07/09/18at 08:41; Admin Dose 17 GM; Start 07/04/18 at 10:00 Vancomycin HCl 750 mg/Sodium Chloride 150 ml @ 75 mls/hr Q12H IVPB Last administered on 07/10/18at 10:09; Admin Dose 75 MLS/HR; Start 07/05/18 at 10:00 Mupirocin (Bactroban) 1 applic BID TOP Last administered on 07/10/18at 08:59; Admin Dose 1 APPLIC; Start 07/06/18 at 09:00; Stop 07/16/18 at 08:59 Miscellaneous Information ([facility]ending [facility] For [facility]ound Care) This patient man... PRN PRN XX CRISTINE; Start 07/07/18 at 17:00 Potassium Chloride 100 ml @ 50 mls/hr Q2H IVPB ; Start 07/10/18 at 11:00; Stop 07/10/18 at 14:59; Status UNLISA CHACKO Jul 10, 2018 10:38
--- NOTE | 2018-07-10 10:40 | NUR ---
WOUND CARE FOLLOW UP: Patient seen by wound nurse Claudia on 07/09/18. Patient currently intubated. Possible tracheostomy today per Primary RN. Reassessment for cheeks and bilateral lower extremities wounds. ASSESSMENT/RECOMMENDATIONS: Bilateral lower extremities edema. Generalized edema. - Left Dorsal Ankle Intact deep tissue pressure injury possible related to SCD. Condition not present on admission. Flatten blood blister. Periwound intact. No drainage. No odor. - Right Dorsal Ankle Intact deep tissue pressure injury possible related to SCD. Condition not present on admission. Maroon discoloration. Periwound intact. No drainage. No odor. - Bilateral cheekbone redness non-pressure related. The redness is causing by the Hydrocolloid dressing of the ETT tube stephen's tape. RT reposition the stephen. Continue Venelex ointment to bilateral dorsal ankles and cover with foam border dressing. Position SCD tubing away from skin. Apply ABD pad to edges as needed for skin protection. Bilateral cheeks continue Venelex BID and leave open to air. - Low air loss surface. - Reposition Endotracheal tube per Respiratory guidelines - Reposition every 2 hours. - Float heels off bed with pillows. Discussed assessment and plan of care with RNElsy. Maryjane Jaeger, BSN RN CWOCN
--- NOTE | 2018-07-10 11:06 | NUR ---
VANCOMYCIN PER PHARMACY NOTE JHONY TR=16.6 PLEASE CONTINUE VANCOMYCIN 750MG IV Q12 HOURS WITH NO CHANGES FOR NOW. PHARMACY WILL FOLLOW. THANK YOU.
[2018-07-10] MEDS: POTASSIUM CHLORIDE 100 ML IVPB SCH ×2 (11:09→13:13)
--- NOTE | 2018-07-10 11:10 | NUR ---
CT CHEST ORDER ENTERED BY DR. LISA JAVIER. THIS RN CONTACTED CT; HOWEVER, NO CONSULTING NURSE. WILL CALL AGAIN AND ATTEMPT TO SCHEDULE SOON POSSIBLE. Addendum: 07/10/18 at 1122 by BENEDICTO PENDLETON RN MARLEY AYERS CT ([id number]) CALLED THIS RN TO SCHEDULE CT. NOTIFIED RESPIRATORY THERAPIST.
[2018-07-10] MEDS ORDERED: IOHEXOL 300MG/ML 150 ML BTL ONE (11:32)
[2018-07-10] MEDS ORDERED: SOD CHLORIDE 0.9% 100 ML ONE (11:32)
[2018-07-10] MEDS: NORepinephrine 8MG/250 ML (PMX 250 ML IV SCH (12:46)
--- NOTE | 2018-07-10 13:50 | NUR ---
TRACH PLACEMENT SCHEDULED THIS RN CONTACTED OR TO VERIFY PATIENT IS STILL ON SCHEDULE FOR TRACH PLACEMENT TODAY. OR PROOFSHEET CORRECTOR, JEREMIAS, INFORMED THIS RN THAT PATIENT HAS BEEN RE-SCHEDULED TO 1330 TOMORROW. TUBE FEEDINGS TO BE RE-INITIATED. WILL CONTINUE TO MONITOR PATIENT CLOSELY, AND INTERVENE NECESSARY.
--- NOTE | 2018-07-10 14:15 | CONS ---
Date/Time of Note Date/Time of Note DATE: 07/10/18 TIME: 14:14 Assessment/Plan Assessment/Plan Assessment/Plan Acute on chronic respiratory failure Possible trach dislodgment status post intubation Atrial fibrillation with rapid ventricular rates, improved Preserved ejection fraction Hypotension off IV pressor Myasthenia gravis -Heart rate trend overall remained stable, blood pressure on the lower side which inhibits use of diuretics. Consider thoracentesis if can not give diuretics.. Antibiotics as per infectious disease. Result Diagram: 07/10/18 0433 07/10/18 0433 Results 24hrs Laboratory Tests Test 07/09/18 17:34 07/09/18 20:31 07/10/18 00:23 07/10/18 04:33 Bedside Glucose 116 126 117 White Blood 8.8 Count Red Blood Count 2.71 L Hemoglobin 7.7 L Hematocrit 24.7 L Mean Corpuscular 91.1 Volume Mean Corpuscular 28.4 L Hemoglobin Mean Corpuscular 31.2 L Hemoglobin Fransisca nt Red Cell 15.4 H Distribution Width Platelet Count 346 # Mean Platelet 11.7 H Volume Immature 1.400 H Granulocytes % Neutrophils % 69.1 Lymphocytes % 16.3 Monocytes % 7.0 Eosinophils % 5.9 Basophils % 0.3 Nucleated Red 0.0 Blood Cells % Immature 0.120 H Granulocytes # Neutrophils # 6.1 Lymphocytes # 1.4 Monocytes # 0.6 Eosinophils # 0.5 Basophils # 0.0 Nucleated Red 0.0 Blood Cells # Activated 40.0 H Partial Thrombop last Time Sodium Level 140 Potassium Level 3.1 L Chloride Level 105 Carbon Dioxide 31 Level Anion Gap 4 L Blood Urea 17 Nitrogen Creatinine 0.64 Est Glomerular Filtrat Rate mL/min Glucose Level 103 Calcium Level 7.4 L Test 07/10/18 05:56 07/10/18 08:57 07/10/18 09:00 07/10/18 12:20 Bedside Glucose 92 89 70 Vancomycin Level 16.6 Trough Consultation Date/Type/Reason Admit Date/Time Jun 30, 2018 at 18:05 Initial Consult Date 07/01/18 Type of Consult cv Requesting Provider: ALE CHUN MD 24 HR Interval Summary Free Text/Dictation Patient seen and examined. Remains intubated and sedated Exam/Review of Systems Vital Signs Vitals Vital Signs Date Temp Pulse Resp B/P (MAP) Pulse Ox O2 O2 Flow FiO2 Time Delivery Rate 07/10/18 70 18 97/53 (68) 100 13:45 07/10/18 Mechanical 13:00 Ventilator 07/10/18 99.4 12:00 07/10/18 30 09:16 Intake and Output 07/09/18 07/09/18 07/10/18 1515:00 23:00 07:00 IntakeIntake Total 1228.750 ml 790.00 ml 890.125 ml OutputOutput Total 345 ml 560 ml 425 ml BalanceBalance 883.750 ml 230.00 ml 465.125 ml Exam Intubated and sedated, no apparent distress Head: normocephalic ENMT: intubated Respiratory: other (Coarse breath sounds bilaterally, decreased at the bases) Cardiovascular: irregular rhythm, other (S1-S2 heard) Gastrointestinal: soft, non-tender, bowel sounds Extremities: edema Medications Medications Current Medications Albuterol/ Ipratropium (Duoneb) 3 ml Q6H RESP THERAPY PRN HHN SHORTNESS OF BREATH Last administered on 07/02/18at 02:41; Admin Dose 3 ML; Start 06/30/18 at 23:00 Vancomycin HCl (Vanco Iv Per Pharmacy) VANCOMYCIN PER PHARMACY PER PROTOCOL XX ; Start 06/30/18 at 23:00 Acetaminophen (Tylenol Liquid) 650 mg Q4H PRN GTB MILD PAIN(1-3)OR ELEVATED T EMP; Start 06/30/18 at 23:00 Insulin Aspart (Novolog Insulin Pen) NOVOLOG *MILD* ALGORI... Q6H SC Last administered on 07/09/18at 00:07; Admin Dose 1 UNIT; Start 07/01/18 at 00:00 Diltiazem HCl (Cardizem Iv) 10 mg Q4H PRN IV for sustained HR>130 Last administered on 07/02/18at 17:05; Admin Dose 10 MG; Start 06/30/18 at 23:00 Lansoprazole (Prevacid) 30 mg DAILY@06 GTB Last administered on 07/10/18at 05:57; Admin Dose 30 MG; Start 07/01/18 at 09:00 Midazolam HCl 50 ml @ 1 mls/hr TITRATE IV Last administered on 07/10/18at 05:30; Admin Dose 5 MLS/HR; Start 07/01/18 at 11:30 Miscellaneous Information 1 ea NOTE XX ; Start 07/01/18 at 14:00 Glucose (Glutose) 15 gm Q15M PRN PO DECREASED GLUCOSE; Start 07/01/18 at 14:00 Glucose (Glutose) 22.5 gm Q15M PRN PO DECREASED GLUCOSE; Start 07/01/18 at 14:00 Dextrose (D50w Syringe) 25 ml Q15M PRN IV DECREASED GLUCOSE; Start 07/01/18 at 14:00 Dextrose (D50w Syringe) 50 ml Q15M PRN IV DECREASED GLUCOSE; Start 07/01/18 at 14:00 Glucagon (Glucagen) 1 mg Q15M PRN IM DECREASED GLUCOSE; Start 07/01/18 at 14:00 Glucose (Glutose) 15 gm Q15M PRN BUCCAL DECREASED GLUCOSE; Start 07/01/18 at 14:00 Atorvastatin Calcium (Lipitor) 10 mg HS GTB Last administered on 07/09/18at 20:31; Admin Dose 10 MG; Start 07/01/18 at 21:00 Insulin Human NPH (Humulin N) 10 unit BID@08,20 SC Last administered on 07/10/18at 09:02; Admin Dose 10 UNIT; Start 07/01/18 at 20:00 IV Flush (NS 10 ml) 10 ml PRN PRN IV IV PROTOCOL; Start 07/01/18 at 17:00 Apixaban (Eliquis) 2.5 mg BID PO Last administered on 07/09/18at 20:31; Admin Dose 2.5 MG; Start 07/02/18 at 09:00 Fentanyl 100 ml @ 2.5 mls/hr TITRATE IV Last administered on 07/09/18at 12:56; Admin Dose 2.5 MLS/HR; Start 07/02/18 at 16:00 Norepinephrine 250 ml @ 1.875 mls/ hr TITRATE IV Last administered on 07/10/18at 12:46; Admin Dose 7.5 MLS/HR; Start 07/02/18 at 20:00 Docusate Sodium (Colace Liquid Cup) 100 mg BID GTB Last administered on 07/09/18at 20:31; Admin Dose 100 MG; Start 07/04/18 at 10:00 Polyethylene Glycol (Miralax) 17 gm DAILY GTB Last administered on 07/09/18at 08:41; Admin Dose 17 GM; Start 07/04/18 at 10:00 Vancomycin HCl 750 mg/Sodium Chloride 150 ml @ 75 mls/hr Q12H IVPB Last administered on 07/10/18at 10:09; Admin Dose 75 MLS/HR; Start 07/05/18 at 10:00 Mupirocin (Bactroban) 1 applic BID TOP Last administered on 07/10/18at 08:59; Admin Dose 1 APPLIC; Start 07/06/18 at 09:00; Stop 07/16/18 at 08:59 [facility] This patient man... PRN PRN XX SLOUGH; Start 07/07/18 at 17:00 Potassium Chloride 100 ml @ 50 mls/hr Q2H IVPB Last administered on 07/10/18at 13:13; Admin Dose 50 MLS/HR; Start 07/10/18 at 11:00; Stop 07/10/18 at 14:59 Evan Armas DO Jul 10, 2018 14:15
[2018-07-10] MEDS ORDERED: POTASSIUM CHLORIDE 20 MEQ POWDER FOR ORAL SOLN NGT ONE (14:30)
--- NOTE | 2018-07-10 15:31 | CONS ---
Date/Time of Note Date/Time of Note DATE: 07/10/18 TIME: 15:29 cct 2 hours Assessment/Plan Assessment/Plan Hospital Course - Severe sepsis with septic shock d/t MRSA - leukocytosis resolved, Levophed restarted, tachycardia improving - MRSA soft tissue abscess on chest - UTI d/t MRSA - MRSA bacteremia d/t above. Repeat blood cx 07/01/2018 shows neg x1 bottle, MRSA 1 bottle. Repeat cultures 07/06/18 are NGTD; TTE 07/01/2018 does not mention any vegetation - MRSA nasal colonization - Acute hypercarbic respiratory failure d/t tracheostomy dislodgement requiring oral intubation 07/01/2018 - Acute encephalopathy - Atrial fibrillation with intermittent RVR - CAD - H/o HTN - T2DM - HLD - Myasthenia gravis s/p recent thymectomy - Dysphagia s/p PEG - Depression - on Prozac at [facility] - Mild dementia - on Aricept at [facility] - Moderate protein calorie malnutrition - Hypernatremia Recommendations: - Consider drainage of retrosternal fluid collection via surgery or CT guided drainage. - F/u the repeat blood cxs- so far ngtd - Continue vancomycin (06/30/2018-) - Continue mupirocin (07/06/2018-) to nares, bilateral axilla, groin, and anus for MRSA de-colonization - Continue chlorhexidine body wash daily - Continue local wound care of neck/upper chest lesion Result Diagram: 07/10/18 0433 07/10/18 0433 Results 24hrs Laboratory Tests Test 07/09/18 17:34 07/09/18 20:31 07/10/18 00:23 07/10/18 04:33 Bedside Glucose 116 126 117 White Blood 8.8 Count Red Blood Count 2.71 L Hemoglobin 7.7 L Hematocrit 24.7 L Mean Corpuscular 91.1 Volume Mean Corpuscular 28.4 L Hemoglobin Mean Corpuscular 31.2 L Hemoglobin Fransisca nt Red Cell 15.4 H Distribution Width Platelet Count 346 # Mean Platelet 11.7 H Volume Immature 1.400 H Granulocytes % Neutrophils % 69.1 Lymphocytes % 16.3 Monocytes % 7.0 Eosinophils % 5.9 Basophils % 0.3 Nucleated Red 0.0 Blood Cells % Immature 0.120 H Granulocytes # Neutrophils # 6.1 Lymphocytes # 1.4 Monocytes # 0.6 Eosinophils # 0.5 Basophils # 0.0 Nucleated Red 0.0 Blood Cells # Activated 40.0 H Partial Thrombop last Time Sodium Level 140 Potassium Level 3.1 L Chloride Level 105 Carbon Dioxide 31 Level Anion Gap 4 L Blood Urea 17 Nitrogen Creatinine 0.64 Est Glomerular Filtrat Rate mL/min Glucose Level 103 Calcium Level 7.4 L Test 07/10/18 05:56 07/10/18 08:57 07/10/18 09:00 07/10/18 12:20 Bedside Glucose 92 89 70 Vancomycin Level 16.6 Trough Consultation Date/Type/Reason Admit Date/Time Jun 30, 2018 at 18:05 Initial Consult Date 07/01/18 Type of Consult ID Requesting Provider: ALE CHUN MD Exam/Review of Systems Vital Signs Vitals Vital Signs Date Temp Pulse Resp B/P (MAP) Pulse Ox O2 O2 Flow FiO2 Time Delivery Rate 07/10/18 81 16 131/76 100 15:15 (94) 07/10/18 Mechanical 15:00 Ventilator 07/10/18 99.4 12:00 07/10/18 30 09:16 Intake and Output 07/09/18 07/09/18 07/10/18 1515:00 23:00 07:00 IntakeIntake Total 1228.750 ml 790.00 ml 890.125 ml OutputOutput Total 345 ml 560 ml 425 ml BalanceBalance 883.750 ml 230.00 ml 465.125 ml Exam Constitutional: non-verbal Head: normocephalic Eyes: EOMI Respiratory: clear to auscultation Cardiovascular: regular rate and rhythm Medications Medications Current Medications Albuterol/ Ipratropium (Duoneb) 3 ml Q6H RESP THERAPY PRN HHN SHORTNESS OF BREATH Last administered on 07/02/18at 02:41; Admin Dose 3 ML; Start 06/30/18 at 23:00 Vancomycin HCl (Vanco Iv Per Pharmacy) VANCOMYCIN PER PHARMACY PER PROTOCOL XX ; Start 06/30/18 at 23:00 Acetaminophen (Tylenol Liquid) 650 mg Q4H PRN GTB MILD PAIN(1-3)OR ELEVATED TEMP; Start 06/30/18 at 23:00 Insulin Aspart (Novolog Insulin Pen) NOVOLOG *MILD* ALGORI... Q6H SC Last administered on 07/09/18 00:07; Admin Dose 1 UNIT; Start 07/01/18 at 00:00 Diltiazem HCl (Cardizem Iv) 10 mg Q4H PRN IV for sustained HR>130 Last administered on 07/02/18at 17:05; Admin Dose 10 MG; Start 06/30/18 at 23:00 Lansoprazole (Prevacid) 30 mg DAILY@06 GTB Last administered on 07/10/18at 05:57; Admin Dose 30 MG; Start 07/01/18 at 09:00 Midazolam HCl 50 ml @ 1 mls/hr TITRATE IV Last administered on 07/10/18 15:23; Admin Dose 5 MLS/HR; Start 07/01/18 at 11:30 Miscellaneous Information 1 ea NOTE XX ; Start 07/01/18 at 14:00 Glucose (Glutose) 15 gm Q15M PRN PO DECREASED GLUCOSE; Start 07/01/18 at 14:00 Glucose (Glutose) 22.5 gm Q15M PRN PO DECREASED GLUCOSE; Start 07/01/18 at 14:00 Dextrose (D50w Syringe) 25 ml Q15M PRN IV DECREASED GLUCOSE; Start 07/01/18 at 14:00 Dextrose (D50w Syringe) 50 ml Q15M PRN IV DECREASED GLUCOSE; Start 07/01/18 at 14:00 Glucagon (Glucagen) 1 mg Q15M PRN IM DECREASED GLUCOSE; Start 07/01/18 at 14:00 Glucose (Glutose) 15 gm Q15M PRN BUCCAL DECREASED GLUCOSE; Start 07/01/18 at 14:00 Atorvastatin Calcium (Lipitor) 10 mg HS GTB Last administered on 07/09/18at 20:31; Admin Dose 10 MG; Start 07/01/18 at 21:00 Insulin Human NPH (Humulin N) 10 unit BID@08,20 SC Last administered on 07/10/18at 09:02; Admin Dose 10 UNIT; Start 07/01/18 at 20:00 IV Flush (NS 10 ml) 10 ml PRN PRN IV IV PROTOCOL; Start 07/01/18 at 17:00 Apixaban (Eliquis) 2.5 mg BID PO Last administered on 07/09/18at 20:31; Admin Dose 2.5 MG; Start 07/02/18 at 09:00 Fentanyl 100 ml @ 2.5 mls/hr TITRATE IV Last administered on 07/09/18 12:56; Admin Dose 2.5 MLS/HR; Start 07/02/18 at 16:00 Norepinephrine 250 ml @ 1.875 mls/ hr TITRATE IV Last administered on 07/10/18 12:46; Admin Dose 7.5 MLS/HR; Start 07/02/18 at 20:00 Docusate Sodium (Colace Liquid Cup) 100 mg BID GTB Last administered on 07/09/18at 20:31; Admin Dose 100 MG; Start 07/04/18 at 10:00 Polyethylene Glycol (Miralax) 17 gm DAILY GTB Last administered on 07/09/18 08:41; Admin Dose 17 GM; Start 07/04/18 at 10:00 Vancomycin HCl 750 mg/Sodium Chloride 150 ml @ 75 mls/hr Q12H IVPB Last administered on 07/10/18 10:09; Admin Dose 75 MLS/HR; Start 07/05/18 at 10:00 Mupirocin (Bactroban) 1 applic BID TOP Last administered on 07/10/18at 08:59; Admin Dose 1 APPLIC; Start 07/06/18 at 09:00; Stop 07/16/18 at 08:59 Miscellaneous Information (Pending [facility] Order For Wound Care) This patient man... PRN PRN GARRY COLUNGA; Start 07/07/18 at 17:00 PETER LUTZ MD Jul 10, 2018 15:31
--- NOTE | 2018-07-10 15:55 | NUR ---
PT TO MRI ON MONITOR WITH JOSE BURCIAGA AND KENNETH CHOPRA. Addendum: 07/10/18 at 1622 by YAMILET WILSON RN PLEASE DISREGARD, INCORRECT PT
--- NOTE | 2018-07-10 18:57 | NUR ---
END OF SHIFT SUMMARY Patient sedated on Versed and Fentanyl drips. Patient afebrile. Rhythm as charted. BP managed by Levophed administration. Patient tolerating current mechanical ventilator settings. Maintained aspiration precautions, and suctioned PRN. Provided oral care, as well as percussion/vibration therapies via bed functions. Tolerating tube feedings; running at goal rate with residuals charted. No bowel movement this shift. Urine output as charted. Skin/wound care provided. Patient turned/repositioned Q2H per protocol. Comfort and safety measures/ fall precautions in place. Plan for tracheostomy placement tomorrow (07/11/18 at 1330). All of patient's needs met, and no acute distress/events. Will continue to monitor, and endorse care to retail shift leader RN.
--- NOTE | 2018-07-10 19:49 | PN ---
Date/Time of Note Date/Time of Note DATE: 07/10/18 TIME: 19:48 Assessment/Plan Lines/Catheters IV Catheter Type (from Nrsg): PICC Line Flanagan in Place (from Nrsg): Yes Assessment/Plan Assessment/Plan MPRESSION: Status post tracheostomy, which has now been removed. RECOMMENDATIONS: The patient will need a new tracheostomy. The wound still with significant amount of drainage. Plan for tracheostomy tracheostomy Subjective 24 Hr Interval Summary Constitutional: improved Pain Control: mild Exam/Review of Systems Vital Signs Vitals Vital Signs Date Temp Pulse Resp B/P (MAP) Pulse Ox O2 O2 Flow FiO2 Time Delivery Rate 07/10/18 72 18 100 30 19:20 07/10/18 117/63 Mechanical 19:00 (81) Ventilator 07/10/18 97.4 16:00 Intake and Output 07/09/18 07/09/18 07/10/18 1515:00 23:00 07:00 IntakeIntake Total 1228.750 ml 790.00 ml 890.125 ml OutputOutput Total 345 ml 560 ml 425 ml BalanceBalance 883.750 ml 230.00 ml 465.125 ml Exam Eyes: nl conjunctiva, EOMI, nl lids, nl sclera ENMT: nl external ears & nose, nl lips & teeth, nl nasal mucosa & septum, mucosa pink and moist Neck: supple, non-tender Respiratory: clear to auscultation, normal air movement Cardiovascular: regular rate and rhythm, nl pulses Musculoskeletal: nl extremities to inspection, nl gait and stance Results Result Diagram: 07/10/18 0433 07/10/18 0433 MEHREEN HARRELL MD Jul 10, 2018 19:49
--- NOTE | 2018-07-10 20:00 | NUR ---
Notified Dr. Parry of blood glucose 75, okay to hold Humulin 10 U. No sign of hypoglycemia. Will check blood glucose again at 0000.
[2018-07-10] MEDS: ATORVASTATIN 10 MG TAB GTB SCH (20:34)
[2018-07-11] VITALS (103 sets, daily range): BP systolic 83–146; BP diastolic 45–88; PULSE 60–90; RESP 0–22
--- NOTE | 2018-07-11 | NUR ---
TUBE FEEDING HELP FOR TRACH PROCEDURE 07/11/18. BLOOD GLUCOSE 99. WILL CONTINUE TO MONITOR. Addendum: 07/11/18 at 0823 by SHAD MESSER RN TUBE FEEDING HELD FOR TRACH PROCEDURE
[2018-07-11] MEDS: MIDAZOLAM (DRIP) 50 mg/50 mL 50 ML IV SCH ×4 (00:55→16:28)
[2018-07-11] MEDS: FENTAnyl (DRIP) 1000 mcg/100mL 100 ML IV SCH (05:55)
[2018-07-11] MEDS: LANSOPRAZOLE 30 MG CAP GTB SCH (05:59)
[2018-07-11] MEDS: INSULIN ASPART [NOVOLOG] 3 ML PEN SC SCH ×5 (06:00→23:41)
[2018-07-11] MEDS ORDERED: ROCURONIUM 50 MG INJ ONE (07:00)
--- NOTE | 2018-07-11 07:00 | NUR ---
EOSS: Patient alert x1. 7.5 ETT 25 at lip. AC 18 FIO2 30% TV 500 PEEP 5. Tube feeding was held at 0000, for trach placement by Dr. Black at 07/11/18 at 1330. Blood glucose WNL. Patient on levo at 2, versed at 8, fentanyl at 25. No acute events on PM shift.
[2018-07-11] MEDS: NPH, HUMAN INSULIN ISOPHANE 3ML VIAL SC SCH ×2 (08:00→21:05)
[2018-07-11] MEDS: POLYETHYLENE GLYCOL 17 GM PACKET GTB SCH (09:25)
[2018-07-11] MEDS: APIXABAN 5 MG TABLET PO SCH ×2 (09:25→21:05)
[2018-07-11] MEDS: MUPIROCIN 2% 22 GM OINT TOP SCH ×2 (09:26→21:06)
[2018-07-11] MEDS: DOCUSATE SODIUM 10 MG/ML (10ML CUP) GTB SCH ×2 (09:26→21:05)
[2018-07-11] MEDS: VANCOMYCIN 750 MG (PMX) 250 ML IVPB SCH ×2 (09:26→22:13)
[2018-07-11] MEDS: BALSAM PERU/CASTOR OIL 60 GM TUBE TOP SCH ×2 (09:26→21:06)
--- NOTE | 2018-07-11 11:12 | CONS ---
Date/Time of Note Date/Time of Note DATE: 07/11/18 TIME: 11:09 Consult Date/Type/Reason Admit Date/Time Jun 30, 2018 at 18:05 Initial Consult Date 07/02/18 Type of Consultation: Pulmonary ICU Requesting Provider: ALE CHUN MD Subjective Patient remained stable on mechanical ventilation. Grimaces to painful stimuli currently on low-dose vasopressor support. Pending tracheostomy. Objective Vital Signs Date Temp Pulse Resp B/P (MAP) Pulse Ox O2 O2 Flow FiO2 Time Delivery Rate 07/11/18 76 18 103/54 100 Mechanical 10:00 (70) Ventilator 07/11/18 98.3 08:00 07/11/18 30 05:15 Intake and Output 07/10/18 07/10/18 07/11/18 1515:00 23:00 07:00 IntakeIntake Total 570.660 ml 828.855 ml 163.125 ml OutputOutput Total 340 ml 528 ml 580 ml BalanceBalance 230.660 ml 300.855 ml -416.875 ml Exam GENERAL: Elderly gentleman orally intubated VITAL SIGNS: per chart NECK: Supple. No JVD or lymphadenopathy. CARDIAC EXAM: S1, S2. No added sounds or murmurs. CHEST: Diminished air entry bilaterally ABDOMEN: Soft, nontender. No guarding or rebound. EXTREMITIES: No cyanosis, clubbing or edema. NEUROLOGIC: Generalized weakness. No focal deficits. Results/Medications Result Diagram: 07/11/18 0430 07/11/18 0430 Results 24 hrs Laboratory Tests Test 07/10/18 12:20 07/10/18 18:33 07/10/18 19:51 07/11/18 00:16 Bedside Glucose 70 77 75 99 Test 07/11/18 04:00 07/11/18 04:30 07/11/18 06:07 Bedside Glucose 109 102 White Blood 8.2 Count Red Blood Count 2.76 L Hemoglobin 7.9 L Hematocrit 25.2 L Mean Corpuscular 91.3 Volume Mean Corpuscular 28.6 L Hemoglobin Mean Corpuscular 31.3 L Hemoglobin Fransisca nt Red Cell 15.1 H Distribution Width Platelet Count 343 Mean Platelet 12.4 H Volume Immature 1.300 H Granulocytes % Neutrophils % 69.2 Lymphocytes % 15.4 Monocytes % 8.0 Eosinophils % 5.6 Basophils % 0.5 Nucleated Red 0.0 Blood Cells % Immature 0.110 H Granulocytes # Neutrophils # 5.7 Lymphocytes # 1.3 Monocytes # 0.7 Eosinophils # 0.5 Basophils # 0.0 Nucleated Red 0.0 Blood Cells # Sodium Level 143 Potassium Level 3.9 Chloride Level 105 Carbon Dioxide 30 Level Anion Gap 8 Blood Urea 16 Nitrogen Creatinine 0.61 Est Glomerular Filtrat Rate mL/min Glucose Level 90 Calcium Level 7.9 L Magnesium Level 2.1 Medications Current Medications Albuterol/ Ipratropium (Duoneb) 3 ml Q6H RESP THERAPY PRN HHN SHORTNESS OF BREATH Last administered on 07/02/18at 02:41; Admin Dose 3 ML; Start 06/30/18 at 23:00 Vancomycin HCl (Vanco Iv Per Pharmacy) VANCOMYCIN PER PHARMACY PER PROTOCOL XX ; Start 06/30/18 at 23:00 Acetaminophen (Tylenol Liquid) 650 mg Q4H PRN GTB MILD PAIN(1-3)OR ELEVATED TEMP; Start 06/30/18 at 23:00 Insulin Aspart (Novolog Insulin Pen) NOVOLOG *MILD* ALGORI... Q6H SC Last administered on 07/09/18at 00:07; Admin Dose 1 UNIT; Start 07/01/18 at 00:00 Diltiazem HCl (Cardizem Iv) 10 mg Q4H PRN IV for sustained HR>130 Last admin istered on 07/02/18at 17:05; Admin Dose 10 MG; Start 06/30/18 at 23:00 Lansoprazole (Prevacid) 30 mg DAILY@06 GTB Last administered on 07/11/18at 05:59; Admin Dose 30 MG; Start 07/01/18 at 09:00 Midazolam HCl 50 ml @ 1 mls/hr TITRATE IV Last administered on 07/11/18at 05:59; Admin Dose 8 MLS/HR; Start 07/01/18 at 11:30 Miscellaneous Information 1 ea NOTE XX ; Start 07/01/18 at 14:00 Glucose (Glutose) 15 gm Q15M PRN PO DECREASED GLUCOSE; Start 07/01/18 at 14:00 Glucose (Glutose) 22.5 gm Q15M PRN PO DECREASED GLUCOSE; Start 07/01/18 at 14:00 Dextrose (D50w Syringe) 25 ml Q15M PRN IV DECREASED GLUCOSE; Start 07/01/18 at 14:00 Dextrose (D50w Syringe) 50 ml Q15M PRN IV DECREASED GLUCOSE; Start 07/01/18 at 14:00 Glucagon (Glucagen) 1 mg Q15M PRN IM DECREASED GLUCOSE; Start 07/01/18 at 14:00 Glucose (Glutose) 15 gm Q15M PRN BUCCAL DECREASED GLUCOSE; Start 07/01/18 at 14:00 Atorvastatin Calcium (Lipitor) 10 mg HS GTB Last administered on 07/10/18at 20:34; Admin Dose 10 MG; Start 07/01/18 at 21:00 Insulin Human NPH (Humulin N) 10 unit BID@08,20 SC Last administered on 09:02; Admin Dose 10 UNIT; Start 07/01/18 at 20:00 IV Flush (NS 10 ml) 10 ml PRN PRN IV IV PROTOCOL; Start 07/01/18 at 17:00 Apixaban (Eliquis) 2.5 mg BID PO Last administered on 07/11/18 09:25; Admin Dose 2.5 MG; Start 07/02/18 at 09:00 Fentanyl 100 ml @ 2.5 mls/hr TITRATE IV Last administered on 07/11/18at 05:55; Admin Dose 2.5 MLS/HR; Start 07/02/18 at 16:00 Norepinephrine 250 ml @ 1.875 mls/ hr TITRATE IV Last administered on 07/10/18at 12:46; Admin Dose 7.5 MLS/HR; Start 07/02/18 at 20:00 Docusate Sodium (Colace Liquid Cup) 100 mg BID GTB Last administered on 8at 09:26; Admin Dose 100 MG; Start 07/04/18 at 10:00 Polyethylene Glycol (Miralax) 17 gm DAILY GTB Last administered on 07/11/18 09:25; Admin Dose 17 GM; Start 07/04/18 at 10:00 Mupirocin (Bactroban) 1 applic BID TOP Last administered on 07/11/18 09:26; Admin Dose 1 APPLIC; Start 07/06/18 at 09:00; Stop 07/16/18 at 08:59 Miscellaneous Information (Pending [facility] Order For Wound Care) This patient man... PRN PRN XX CRISTINE; Start 07/07/18 at 17:00 Vancomycin/Sodium Chloride 250 ml @ 125 mls/hr Q12H IVPB Last administered on 07/11/18at 09:26; Admin Dose 125 MLS/HR; Start 07/11/18 at 10:00 Assessment/Plan Chief Complaint/Hosp Course Assessment 1. Acute hypoxemic respiratory failure failed multiple weaning trials now pending tracheostomy 2. Encephalopathy with possible underlying dementia 3. Dysphagia with G-tube 4. Anemia likely of chronic disease rule out GI bleed 5. Septic shock with sternal abscess, MRSA 6. Chronic atrial fibrillation Plan 1. Continue mechanical ventilation pending tracheostomy 2. Continue tube feeding as tolerated 3. Antibiotics and wound care 4. Rate control per cardiology 5. GI evaluation re-anemia consider transfusion of another unit of packed red blood cells DC planning [place] evaluation MIRIAM NÚÑEZ MD, [facility] Jul 11, 2018 11:12
--- NOTE | 2018-07-11 11:39 | CONS ---
Date/Time of Note Date/Time of Note DATE: 07/11/18 TIME: 11:38 Assessment/Plan Assessment/Plan Assessment/Plan Acute on chronic respiratory failure Possible trach dislodgment status post intubation Atrial fibrillation with rapid ventricular rates, improved Preserved ejection fraction Hypotension off IV pressor Myasthenia gravis -Heart rate trend overall remained stable, blood pressure on the lower side which inhibits use of diuretics. Consider thoracentesis if can not give diuretics.. Antibiotics as per infectious disease. Result Diagram: 07/11/18 0430 07/11/18 0430 Results 24hrs Laboratory Tests Test 07/10/18 12:20 07/10/18 18:33 07/10/18 19:51 07/11/18 00:16 Bedside Glucose 70 77 75 99 Test 07/11/18 04:00 07/11/18 04:30 07/11/18 06:07 Bedside Glucose 109 102 White Blood 8.2 Count Red Blood Count 2.76 L Hemoglobin 7.9 L Hematocrit 25.2 L Mean Corpuscular 91.3 Volume Mean Corpuscular 28.6 L Hemoglobin Mean Corpuscular 31.3 L Hemoglobin Fransisca nt Red Cell 15.1 H Distribution Width Platelet Count 343 Mean Platelet 12.4 H Volume Immature 1.300 H Granulocytes % Neutrophils % 69.2 Lymphocytes % 15.4 Monocytes % 8.0 Eosinophils % 5.6 Basophils % 0.5 Nucleated Red 0.0 Blood Cells % Immature 0.110 H Granulocytes # Neutrophils # 5.7 Lymphocytes # 1.3 Monocytes # 0.7 Eosinophils # 0.5 Basophils # 0.0 Nucleated Red 0.0 Blood Cells # Sodium Level 143 Potassium Level 3.9 Chloride Level 105 Carbon Dioxide 30 Level Anion Gap 8 Blood Urea 16 Nitrogen Creatinine 0.61 Est Glomerular Filtrat Rate mL/min Glucose Level 90 Calcium Level 7.9 L Magnesium Level 2.1 Consultation Date/Type/Reason Admit Date/Time Jun 30, 2018 at 18:05 Initial Consult Date 07/01/18 Type of Consult cv Requesting Provider: ALE CHUN MD 24 HR Interval Summary Free Text/Dictation Patient seen and examined. Exam/Review of Systems Vital Signs Vitals Vital Signs Date Temp Pulse Resp B/P (MAP) Pulse Ox O2 O2 Flow FiO2 Time Delivery Rate 07/11/18 79 18 116/68 100 11:15 (84) 07/11/18 Mechanical 11:00 Ventilator 07/11/18 98.3 08:00 07/11/18 30 05:15 Intake and Output 07/10/18 07/10/18 07/11/18 1515:00 23:00 07:00 IntakeIntake Total 570.660 ml 828.855 ml 163.125 ml OutputOutput Total 340 ml 528 ml 580 ml BalanceBalance 230.660 ml 300.855 ml -416.875 ml Exam Sedated and intubated, no apparent distress Head: normocephalic ENMT: intubated Respiratory: other (Coarse breath sounds bilaterally, no wheezing) Cardiovascular: irregular rhythm, other (S1-S2 heard) Gastrointestinal: soft, non-tender, bowel sounds Extremities: other (No significant edema) Medications Medications Current Medications Albuterol/ Ipratropium (Duoneb) 3 ml Q6H RESP THERAPY PRN HHN SHORTNESS OF BREATH Last administered on 07/02/18at 02:41; Admin Dose 3 ML; Start 06/30/18 at 23:00 Vancomycin HCl (Vanco Iv Per Pharmacy) VANCOMYCIN PER PHARMACY PER PROTOCOL XX ; Start 06/30/18 at 23:00 Acetaminophen (Tylenol Liquid) 650 mg Q4H PRN GTB MILD PAIN(1-3)OR ELEVATED TEMP; Start 06/30/18 at 23:00 Insulin Aspart (Novolog Insulin Pen) NOVOLOG *MILD* ALGORI... Q6H SC Last administered on 07/09/18at 00:07; Admin Dose 1 UNIT; Start 07/01/18 at 00:00 Diltiazem HCl (Cardizem Iv) 10 mg Q4H PRN IV for sustained HR>130 Last administered on 07/02/18at 17:05; Admin Dose 10 MG; Start 06/30/18 at 23:00 Lansoprazole (Prevacid) 30 mg DAILY@06 GTB Last administered on 07/11/18at 05:59; Admin Dose 30 MG; Start 07/01/18 at 09:00 Midazolam HCl 50 ml @ 1 mls/hr TITRATE IV Last administered on 07/11/18at 05:59; Admin Dose 8 MLS/HR; Start 07/01/18 at 11:30 Miscellaneous Information 1 ea NOTE XX ; Start 07/01/18 at 14:00 Glucose (Glutose) 15 gm Q15M PRN PO DECREASED GLUCOSE; Start 07/01/18 at 14:00 Glucose (Glutose) 22.5 gm Q15M PRN PO DECREASED GLUCOSE; Start 07/01/18 at 14:00 Dextrose (D50w Syringe) 25 ml Q15M PRN IV DECREASED GLUCOSE; Start 07/01/18 at 14:00 Dextrose (D50w Syringe) 50 ml Q15M PRN IV DECREASED GLUCOSE; Start 07/01/18 at 14:00 Glucagon (Glucagen) 1 mg Q15M PRN IM DECREASED GLUCOSE; Start 07/01/18 at 14:00 Glucose (Glutose) 15 gm Q15M PRN BUCCAL DECREASED GLUCOSE; Start 07/01/18 at 14:00 Atorvastatin Calcium (Lipitor) 10 mg HS GTB Last administered on 07/10/18at 20:34; Admin Dose 10 MG; Start 07/01/18 at 21:00 Insulin Human NPH (Humulin N) 10 unit BID@08,20 SC Last administered on 07/10/18at 09:02; Admin Dose 10 UNIT; Start 07/01/18 at 20:00 IV Flush (NS 10 ml) 10 ml PRN PRN IV IV PROTOCOL; Start 07/01/18 at 17:00 Apixaban (Eliquis) 2.5 mg BID PO Last administered on 07/11/18at 09:25; Admin Dose 2.5 MG; Start 07/02/18 at 09:00 Fentanyl 100 ml @ 2.5 mls/hr TITRATE IV Last administered on 07/11/18at 05:55; Admin Dose 2.5 MLS/HR; Start 07/02/18 at 16:00 Norepinephrine 250 ml @ 1.875 mls/ hr TITRATE IV Last administered on 07/10/18at 12:46; Admin Dose 7.5 MLS/HR; Start 07/02/18 at 20:00 Docusate Sodium (Colace Liquid Cup) 100 mg BID GTB Last administered on 07/11/18 09:26; Admin Dose 100 MG; Start 07/04/18 at 10:00 Polyethylene Glycol (Miralax) 17 gm DAILY GTB Last administered on 07/11/18 09:25; Admin Dose 17 GM; Start 07/04/18 at 10:00 Mupirocin (Bactroban) 1 applic BID TOP Last administered on 07/11/18at 09:26; Admin Dose 1 APPLIC; Start 07/06/18 at 09:00; Stop 07/16/18 at 08:59 [facility] This patient man... PRN PRN XX KELINUGH; Start 07/07/18 at 17:00 Vancomycin/Sodium Chloride 250 ml @ 125 mls/hr Q12H IVPB Last administered on 07/11/18at 09:26; Admin Dose 125 MLS/HR; Start 07/11/18 at 10:00 Evan Armas DO Jul 11, 2018 11:39
--- NOTE | 2018-07-11 13:00 | PREAC ---
Date/Time of Note Date/Time of Note DATE: 07/11/18 TIME: 12:58 Anesthesia Eval and Record Evaluation Time Pre-Procedure Interview DATE: 07/11/18 TIME: 12:58 Age 77 Sex male NPO: 8 hrs Preoperative diagnosis Respiratory Failure Planned procedure Tracheostomy placement Past Medical History Past Medical History: Includes Cardio: HTN, Dyslipidemia, CAD, Arrythmia (A-fib) Endo: Diabetes Musculoskeletal: Other (Myasthenia gravis) GI: GERD Heme: Anemia Psych: Depression Surgery & Anesthesia Issues No known issue Meds Anticoagulation: No Beta Alek within 24 hr: Yes Reported Medications Zolpidem Tartrate* (Zolpidem Tartrate*) 5 Mg Tablet, 5 MG GTB Q24H PRN for INSOMNIA, #30 TAB 06/30/18 Fluoxetine Hcl* (Prozac*) 10 Mg Tablet, 10 MG GTB DAILY, TAB 06/30/18 Protein Supplement (Promod) 946 Ml Liquid, 30 ML GTB DAILY 06/30/18 Chlorhexidine Gluconate (Peridex) 473 Ml Mouthwash, 15 ML MM Q12H, BOTTLE 06/30/18 Ondansetron Hcl* (Zofran*) 4 Mg Tab, 4 MG GTB Q6H PRN for NAUSEA AND OR VOMITING, TAB 06/30/18 Multivitamin With Minerals (BIOSUPP) 473 Ml Liquid, 30 ML GTB DAILY 06/30/18 Metoprolol Tartrate* (Lopressor*) 25 Mg Tab, 37.5 MG GTB BID, #60 TAB HOLD IF SBP<110 OR HR<60 06/30/18 Lactobacillus Acidophilus* (Lactinex*) 1 Tab Chew, 1 TAB GTB TID, TAB 06/30/18 Insulin NPH Human Isophane (Humulin N) 100 Unit/1 Ml Vial, 10 UNIT SQ BID, VIAL 06/30/18 Glucagon,Human Recombinant (Glucagon Emergency Kit) 1 Mg Kit, 1 MG IJ NEEDED, KIT 06/30/18 Ferrous Sulfate* (Ferrous Sulfate*) 325 Mg Tabec, 325 MG GTB BID, TAB 06/30/18 Famotidine* (Famotidine*) 20 Mg Tablet, 20 MG GTB BID, #60 TAB 06/30/18 Ipratropium-Albuterol (Ipratropium-Albuterol) 0.5-3 Mg/3 Ml Ampul.neb, 3 ML INHA LATION Q6 PRN for SHORTNESS OF BREATH, #30 VIAL 06/30/18 Donepezil* (Donepezil*) 10 Mg Tablet, 10 MG GTB DAILY, #30 TAB 06/30/18 Clonidine Hcl* (Clonidine Hcl*) 0.1 Mg Tab, 0.1 MG GTB Q6 PRN for NEEDED, TAB GIVE IF SBP>160 06/30/18 Atorvastatin Calcium (Atorvastatin Calcium) 10 Mg Tablet, 10 MG GTB QHS, #30 TAB 06/30/18 Amlodipine Besylate* (Amlodipine Besylate*) 2.5 Mg Tablet, 2.5 MG GTB DAILY, #30 TAB HOLD FOR SBP<110 OR HR<60 06/30/18 Insulin Lispro (Humalog Adolph Kwikpen) 100 Unit/1 Ml Ins.pen.hf, 0 SQ SLIDING SCALE IF BS 70-150=0 UNIT,151-200=2 UNITS,201-250=4 UNITS,251-300=6 UNITS,301-350=8 UNITS,351-400=10 UNITS,IF BS>400=12 UNITS AND CALL MD 06/30/18 Acetaminophen* (Acetaminophen* Susp) 325 Mg/10.15 Ml Solution, 650 MG GTB Q6H PRN for MILD PAIN LEVEL 1-3, ML 06/30/18 Current Medications Albuterol/ Ipratropium (Duoneb) 3 ml Q6H RESP THERAPY PRN HHN SHORTNESS OF BREATH Last administered on 07/02/18at 02:41; Admin Dose 3 ML; Start 06/30/18 at 23:00 Vancomycin HCl (Vanco Iv Per Pharmacy) VANCOMYCIN PER PHARMACY PER PROTOCOL XX ; Start 06/30/18 at 23:00 Acetaminophen (Tylenol Liquid) 650 mg Q4H PRN GTB MILD PAIN(1-3)OR ELEVATED TEMP; Start 06/30/18 at 23:00 Insulin Aspart (Novolog Insulin Pen) NOVOLOG *MILD* ALGORI... Q6H SC Last administered on 07/09/18at 00:07; Admin Dose 1 UNIT; Start 07/01/18 at 00:00 Diltiazem HCl (Cardizem Iv) 10 mg Q4H PRN IV for sustained HR>130 Last administered on 07/02/18at 17:05; Admin Dose 10 MG; Start 06/30/18 at 23:00 Lansoprazole (Prevacid) 30 mg DAILY@06 GTB Last administered on 07/11/18at 05:59; Admin Dose 30 MG; Start 07/01/18 at 09:00 Midazolam HCl 50 ml @ 1 mls/hr TITRATE IV Last administered on 07/11/18at 12:01; Admin Dose 7 MLS/HR; Start 07/01/18 at 11:30 Miscellaneous Information 1 ea NOTE XX ; Start 07/01/18 at 14:00 Glucose (Glutose) 15 gm Q15M PRN PO DECREASED GLUCOSE; Start 07/01/18 at 14:00 Glucose (Glutose) 22.5 gm Q15M PRN PO DECREASED GLUCOSE; Start 07/01/18 at 14:00 Dextrose (D50w Syringe) 25 ml Q15M PRN IV DECREASED GLUCOSE; Start 07/01/18 at 14:00 Dextrose (D50w Syringe) 50 ml Q15M PRN IV DECREASED GLUCOSE; Start 07/01/18 at 14:00 Glucagon (Glucagen) 1 mg Q15M PRN IM DECREASED GLUCOSE; Start 07/01/18 at 14:00 Glucose (Glutose) 15 gm Q15M PRN BUCCAL DECREASED GLUCOSE; Start 07/01/18 at 14:00 Atorvastatin Calcium (Lipitor) 10 mg HS GTB Last administered on 07/10/18at 20:34; Admin Dose 10 MG; Start 07/01/18 at 21:00 Insulin Human NPH (Humulin N) 10 unit BID@08,20 SC Last administered on 07/10/18at 09:02; Admin Dose 10 UNIT; Start 07/01/18 at 20:00 IV Flush (NS 10 ml) 10 ml PRN PRN IV IV PROTOCOL; Start 07/01/18 at 17:00 Apixaban (Eliquis) 2.5 mg BID PO Last administered on 07/11/18at 09:25; Admin Dose 2.5 MG; Start 07/02/18 at 09:00 Fentanyl 100 ml @ 2.5 mls/hr TITRATE IV Last administered on 07/11/18at 05:55; Admin Dose 2.5 MLS/HR; Start 07/02/18 at 16:00 Norepinephrine 250 ml @ 1.875 mls/ hr TITRATE IV Last administered on 07/10/18at 12:46; Admin Dose 7.5 MLS/HR; Start 07/02/18 at 20:00 Docusate Sodium (Colace Liquid Cup) 100 mg BID GTB Last administered on 07/11/18at 09:26; Admin Dose 100 MG; Start 07/04/18 at 10:00 Polyethylene Glycol (Miralax) 17 gm DAILY GTB Last administered on 07/11/18 09:25; Admin Dose 17 GM; Start 07/04/18 at 10:00 Mupirocin (Bactroban) 1 applic BID TOP Last administered on 07/11/18 09:26; Admin Dose 1 APPLIC; Start 07/06/18 at 09:00; Stop 07/16/18 at 08:59 Miscellaneous Information (Pending [facility] Order For Wound Care) This patient man... PRN PRN XX SLOUGH; Start 07/07/18 at 17:00 Vancomycin/Sodium Chloride 250 ml @ 125 mls/hr Q12H IVPB Last administered on 07/11/18 09:26; Admin Dose 125 MLS/HR; Start 07/11/18 at 10:00 Meds reviewed: Yes Allergies Coded Allergies: Penicillins (Unverified Allergy, Unknown, 06/30/18) Allergies Reviewed: Yes Labs/Studies Labs Reviewed: Reviewed by anesthesiologist Result Diagram: 07/11/18 0430 07/11/18 0430 Laboratory Tests 07/11/18 04:30 test: N/A Studies: CXR (Mild cardiomegaly with worsening pulmonary vascular congestion.) Pre-procedure Exam Last vitals Vital Signs Date Temp Pulse Resp B/P (MAP) Pulse Ox O2 O2 Flow FiO2 Time Delivery Rate 07/11/18 79 18 116/68 100 11:15 (84) 07/11/18 Mechanical 11:00 Ventilator 07/11/18 98.3 08:00 07/11/18 30 05:15 Airway: Adequate mouth opening Mallampati: Mallampati II Teeth: Normal Lung: Normal Heart: Normal ASA Physical Status ASA physical status: 3 Emergency: None Planned Anesthetic General/MAC: ETT Pre-operative Attestations Prior to commencing anesthesia and surgery, the patient was re-evaluated, there was verification of: *The patient's identity *The results of appropriate recent lab work and preoperative vital signs *The above evaluation not changing prior to induction *Anesthetic plan, risk benefits, alternative and complications discussed with patient/family; questions answered; patient/family understands, accepts and wishes to proceed. ELISABETH BARRIOS Jul 11, 2018 13:00
--- NOTE | 2018-07-11 13:23 | PREAC ---
Date/Time of Note Date/Time of Note DATE: 07/11/18 TIME: 13:21 Anesthesia Eval and Record Evaluation Time Pre-Procedure Interview DATE: 07/11/18 TIME: 13:21 Age 77 Sex male NPO: 8 hrs Preoperative diagnosis RESPIRATORY FAILURE Planned procedure TRACH Past Medical History Past Medical History: Includes Cardio: Arrythmia (A FIB) Pulm: Other (Acute on chronic respiratory failure) Musculoskeletal: Other (MYESTHENIA GRAVIS) Surgery & Anesthesia Issues No known issue Meds Anticoagulation: No Beta Alek within 24 hr: No Reason Beta Alek not given: Pt. not on B-Alek Reported Medications Zolpidem Tartrate* (Zolpidem Tartrate*) 5 Mg Tablet, 5 MG GTB Q24H PRN for INSOMNIA, #30 TAB 06/30/18 Fluoxetine Hcl* (Prozac*) 10 Mg Tablet, 10 MG GTB DAILY, TAB 06/30/18 Protein Supplement (Promod) 946 Ml Liquid, 30 ML GTB DAILY 06/30/18 Chlorhexidine Gluconate (Peridex) 473 Ml Mouthwash, 15 ML MM Q12H, BOTTLE 06/30/18 Ondansetron Hcl* (Zofran*) 4 Mg Tab, 4 MG GTB Q6H PRN for NAUSEA AND OR VOMITING , TAB 06/30/18 Multivitamin With Minerals (BIOSUPP) 473 Ml Liquid, 30 ML GTB DAILY 06/30/18 Metoprolol Tartrate* (Lopressor*) 25 Mg Tab, 37.5 MG GTB BID, #60 TAB HOLD IF SBP<110 OR HR<60 06/30/18 Lactobacillus Acidophilus* (Lactinex*) 1 Tab Chew, 1 TAB GTB TID, TAB 06/30/18 Insulin NPH Human Isophane (Humulin N) 100 Unit/1 Ml Vial, 10 UNIT SQ BID, VIAL 06/30/18 Glucagon,Human Recombinant (Glucagon Emergency Kit) 1 Mg Kit, 1 MG IJ NEEDED, KIT 06/30/18 Ferrous Sulfate* (Ferrous Sulfate*) 325 Mg Tabec, 325 MG GTB BID, TAB 06/30/18 Famotidine* (Famotidine*) 20 Mg Tablet, 20 MG GTB BID, #60 TAB 06/30/18 Ipratropium-Albuterol (Ipratropium-Albuterol) 0.5-3 Mg/3 Ml Ampul.neb, 3 ML INHALATION Q6 PRN for SHORTNESS OF BREATH, #30 VIAL 06/30/18 Donepezil* (Donepezil*) 10 Mg Tablet, 10 MG GTB DAILY, #30 TAB 06/30/18 Clonidine Hcl* (Clonidine Hcl*) 0.1 Mg Tab, 0.1 MG GTB Q6 PRN for NEEDED, TAB GIVE IF SBP>160 06/30/18 Atorvastatin Calcium (Atorvastatin Calcium) 10 Mg Tablet, 10 MG GTB QHS, #30 TAB 06/30/18 Amlodipine Besylate* (Amlodipine Besylate*) 2.5 Mg Tablet, 2.5 MG GTB DAILY, #30 TAB HOLD FOR SBP<110 OR HR<60 06/30/18 Insulin Lispro (Humalog Adolph Kwikpen) 100 Unit/1 Ml Ins.pen.hf, 0 SQ SLIDING SCALE IF BS 70-150=0 UNIT,151-200=2 UNITS,201-250=4 UNITS,251-300=6 UNITS,301-350=8 UNITS,351-400=10 UNITS,IF BS>400=12 UNITS AND CALL MD 06/30/18 Acetaminophen* (Acetaminophen* Susp) 325 Mg/10.15 Ml Solution, 650 MG GTB Q6H PRN for MILD PAIN LEVEL 1-3, ML 06/30/18 Current Medications Albuterol/ Ipratropium (Duoneb) 3 ml Q6H RESP THERAPY PRN HHN SHORTNESS OF BREATH Last administered on 07/02/18at 02:41; Admin Dose 3 ML; Start 06/30/18 at 23:00 Vancomycin HCl (Vanco Iv Per Pharmacy) VANCOMYCIN PER PHARMACY PER PROTOCOL XX ; Start 06/30/18 at 23:00 Acetaminophen (Tylenol Liquid) 650 mg Q4H PRN GTB MILD PAIN(1-3)OR ELEVATED TEMP; Start 06/30/18 at 23:00 Insulin Aspart (Novolog Insulin Pen) NOVOLOG *MILD* ALGORI... Q6H SC Last administered on 07/09/18at 00:07; Admin Dose 1 UNIT; Start 07/01/18 at 00:00 Diltiazem HCl (Cardizem Iv) 10 mg Q4H PRN IV for sustained HR>130 Last administered on 07/02/18at 17:05; Admin Dose 10 MG; Start 06/30/18 at 23:00 Lansoprazole (Prevacid) 30 mg DAILY@06 GTB Last administered on 07/11/18at 05:59; Admin Dose 30 MG; Start 07/01/18 at 09:00 Midazolam HCl 50 ml @ 1 mls/hr TITRATE IV Last administered on 07/11/18at 12:01; Admin Dose 7 MLS/HR; Start 07/01/18 at 11:30 Miscellaneous Information 1 ea NOTE XX ; Start 07/01/18 at 14:00 Glucose (Glutose) 15 gm Q15M PRN PO DECREASED GLUCOSE; Start 07/01/18 at 14:00 Glucose (Glutose) 22.5 gm Q15M PRN PO DECREASED GLUCOSE; Start 07/01/18 at 14:00 Dextrose (D50w Syringe) 25 ml Q15M PRN IV DECREASED GLUCOSE; Start 07/01/18 at 14:00 Dextrose (D50w Syringe) 50 ml Q15M PRN IV DECREASED GLUCOSE; Start 07/01/18 at 14:00 Glucagon (Glucagen) 1 mg Q15M PRN IM DECREASED GLUCOSE; Start 07/01/18 at 14:00 Glucose (Glutose) 15 gm Q15M PRN BUCCAL DECREASED GLUCOSE; Start 07/01/18 at 14:00 Atorvastatin Calcium (Lipitor) 10 mg HS GTB Last administered on 07/10/18at 20:34; Admin Dose 10 MG; Start 07/01/18 at 21:00 Insulin Human NPH (Humulin N) 10 unit BID@08,20 SC Last administered on 07/10/18at 09:02; Admin Dose 10 UNIT; Start 07/01/18 at 20:00 IV Flush (NS 10 ml) 10 ml PRN PRN IV IV PROTOCOL; Start 07/01/18 at 17:00 Apixaban (Eliquis) 2.5 mg BID PO Last administered on 07/11/18at 09:25; Admin Dose 2.5 MG; Start 07/02/18 at 09:00 Fentanyl 100 ml @ 2.5 mls/hr TITRATE IV Last administered on 07/11/18at 05:55; Admin Dose 2.5 MLS/HR; Start 07/02/18 at 16:00 Norepinephrine 250 ml @ 1.875 mls/ hr TITRATE IV Last administered on at 12:46; Admin Dose 7.5 MLS/HR; Start 07/02/18 at 20:00 Docusate Sodium (Colace Liquid Cup) 100 mg BID GTB Last administered on 07/11/18at 09:26; Admin Dose 100 MG; Start 07/04/18 at 10:00 Polyethylene Glycol (Miralax) 17 gm DAILY GTB Last administered on 07/11/18 09:25; Admin Dose 17 GM; Start 07/04/18 at 10:00 Mupirocin (Bactroban) 1 applic BID TOP Last administered on 07/11/18 09:26; Admin Dose 1 APPLIC; Start 07/06/18 at 09:00; Stop 07/16/18 at 08:59 Miscellaneous Information (Pending [facility] Order For Wound Care) This patient man... PRN PRN XX SLOUGH; Start 07/07/18 at 17:00 Vancomycin/Sodium Chloride 250 ml @ 125 mls/hr Q12H IVPB Last administered on 07/11/18 09:26; Admin Dose 125 MLS/HR; Start 07/11/18 at 10:00 Meds reviewed: Yes Allergies Coded Allergies: Penicillins (Unverified Allergy, Unknown, 06/30/18) Allergies Reviewed: Yes Labs/Studies Labs Reviewed: Reviewed by anesthesiologist Result Diagram: 07/11/18 0430 07/11/18 0430 Laboratory Tests 07/11/18 04:30 test: N/A Studies: CXR (Mild cardiomegaly with worsening pulmonary vascular congestion.) Pre-procedure Exam Last vitals Vital Signs Date Temp Pulse Resp B/P (MAP) Pulse Ox O2 O2 Flow FiO2 Time Delivery Rate 07/11/18 79 18 116/68 100 11:15 (84) 07/11/18 Mechanical 11:00 Ventilator 07/11/18 98.3 08:00 07/11/18 30 05:15 Airway: Adequate mouth opening, Adequate thyromental dist Mallampati: Mallampati II Teeth: Normal Lung: Normal Heart: Normal ASA Physical Status ASA physical status: 4 Emergency: None Planned Anesthetic General/MAC: ETT Planned Pain Management Parenteral pain med Pre-operative Attestations Prior to commencing anesthesia and surgery, the patient was re-evaluated, there was verification of: *The patient's identity *The results of appropriate recent lab work and preoperative vital signs *The above evaluation not changing prior to induction *Anesthetic plan, risk benefits, alternative and complications discussed with patient/family; questions answered; patient/family understands, accepts and wishes to proceed. Talib Rodriguez M.D. Jul 11, 2018 13:23
--- NOTE | 2018-07-11 13:40 | PN ---
Date/Time of Note Date/Time of Note DATE: 07/11/18 TIME: 13:39 Assessment/Plan VTE Prophylaxis Risk score (from Ns)>0 risk: 10 SCD applied (from Ns): Yes Pharmacological prophylaxis: LMWH Lines/Catheters IV Catheter Type (from Nrs): PICC Line Central line still needed: Yes Urinary Cath still in place: Yes Reason Cath still needed: skin wounds contaminated by urine Assessment/Plan Hospital Course 1. Acute encephalopathy, improved. The patient is approaching his baseline. Continue to monitor closely. No sedative at this time. 2. Elevated white count; however, patient has no fever. - per ID - cont vancomycin and meropenem - pending result of urine and blood culture. 3. Atrial fibrillation. The patient after admission went into rapid ventricular response and had to be started on Cardizem and Eliquis. We will keep patient on telemetry. 4. Acute hypoxemic and hypercarbic respiratory failure. - PER pulmonary consult with Dr. Mustafa 5. Dysphagia. Continue G-tube feeding. 6. Diabetes. 7. Myasthenia gravis, status post thymectomy. 8. Dyslipidemia. The patient used to be on Lipitor. Again, the medication list from the longterm facility has not been received. Continue Lipitor. 9. Hypertension and coronary artery disease. Continue metoprolol and p.r.n. IV diltiazem. 10. The patient apparently also has history of depression. We will resume Prozac. 11. The patient has mild dementia. We will continue Aricept. Result Diagram: 07/11/18 0430 07/11/18 0430 Results 24hrs Laboratory Tests Test 07/10/18 18:33 07/10/18 19:51 07/11/18 00:16 07/11/18 04:00 Bedside Glucose 77 75 99 109 Test 07/11/18 04:30 07/11/18 06:07 07/11/18 11:39 White Blood 8.2 Count Red Blood Count 2.76 L Hemoglobin 7.9 L Hematocrit 25.2 L Mean Corpuscular 91.3 Volume Mean Corpuscular 28.6 L Hemoglobin Mean Corpuscular 31.3 L Hemoglobin Fransisca nt Red Cell 15.1 H Distribution Width Platelet Count 343 Mean Platelet 12.4 H Volume Immature 1.300 H Granulocytes % Neutrophils % 69.2 Lymphocytes % 15.4 Monocytes % 8.0 Eosinophils % 5.6 Basophils % 0.5 Nucleated Red 0.0 Blood Cells % Immature 0.110 H Granulocytes # Neutrophils # 5.7 Lymphocytes # 1.3 Monocytes # 0.7 Eosinophils # 0.5 Basophils # 0.0 Nucleated Red 0.0 Blood Cells # Sodium Level 143 Potassium Level 3.9 Chloride Level 105 Carbon Dioxide 30 Level Anion Gap 8 Blood Urea 16 Nitrogen Creatinine 0.61 Est Glomerular Filtrat Rate mL/min Glucose Level 90 Calcium Level 7.9 L Magnesium Level 2.1 Bedside Glucose 102 107 Subjective 24 Hr Interval Summary Free Text/Dictation Patient remain sedated and intubated Exam/Review of Systems Vital Signs Vitals Vital Signs Date Temp Pulse Resp B/P (MAP) Pulse Ox O2 O2 Flow FiO2 Time Delivery Rate 07/11/18 65 18 100 30 13:05 07/11/18 103/64 Mechanical 13:00 (77) Ventilator 07/11/18 98.0 12:00 Intake and Output 07/10/18 07/10/18 07/11/18 1414:59 22:59 06:59 IntakeIntake Total 519.785 ml 804.855 ml 294.000 ml OutputOutput Total 325 ml 503 ml 630 ml BalanceBalance 194.785 ml 301.855 ml -336.000 ml Exam Constitutional: well developed Head: normocephalic, atraumatic Neck: supple Respiratory: diminished breath sounds Cardiovascular: regular rate and rhythm Gastrointestinal: soft, non-tender Extremities: normal pulses Medications Medications Current Medications Albuterol/ Ipratropium (Duoneb) 3 ml Q6H RESP THERAPY PRN HHN SHORTNESS OF BREATH Last administered on 07/02/18at 02:41; Admin Dose 3 ML; Start 06/30/18 at 23:00 Vancomycin HCl (Vanco Iv Per Pharmacy) VANCOMYCIN PER PHARMACY PER PROTOCOL XX ; Start 06/30/18 at 23:00 Acetaminophen (Tylenol Liquid) 650 mg Q4H PRN GTB MILD PAIN(1-3)OR ELEVATED TEMP; Start 06/30/18 at 23:00 Insulin Aspart (Novolog Insulin Pen) NOVOLOG *MILD* ALGORI... Q6H SC Last administered on 07/09/18at 00:07; Admin Dose 1 UNIT; Start 07/01/18 at 00:00 Diltiazem HCl (Cardizem Iv) 10 mg Q4H PRN IV for sustained HR>130 Last administered on 07/02/18at 17:05; Admin Dose 10 MG; Start 06/30/18 at 23:00 Lansoprazole (Prevacid) 30 mg DAILY@06 GTB Last administered on 07/11/18at 05:59; Admin Dose 30 MG; Start 07/01/18 at 09:00 Midazolam HCl 50 ml @ 1 mls/hr TITRATE IV Last administered on 07/11/18at 12:01; Admin Dose 7 MLS/HR; Start 07/01/18 at 11:30 Miscellaneous Information 1 ea NOTE XX ; Start 07/01/18 at 14:00 Glucose (Glutose) 15 gm Q15M PRN PO DECREASED GLUCOSE; Start 07/01/18 at 14:00 Glucose (Glutose) 22.5 gm Q15M PRN PO DECREASED GLUCOSE; Start 07/01/18 at 14:00 Dextrose (D50w Syringe) 25 ml Q15M PRN IV DECREASED GLUCOSE; Start 07/01/18 at 14:00 Dextrose (D50w Syringe) 50 ml Q15M PRN IV DECREASED GLUCOSE; Start 07/01/18 at 14:00 Glucagon (Glucagen) 1 mg Q15M PRN IM DECREASED GLUCOSE; Start 07/01/18 at 14:00 Glucose (Glutose) 15 gm Q15M PRN BUCCAL DECREASED GLUCOSE; Start 07/01/18 at 14:00 Atorvastatin Calcium (Lipitor) 10 mg HS GTB Last administered on 07/10/18at 20:34; Admin Dose 10 MG; Start 07/01/18 at 21:00 Insulin Human NPH (Humulin N) 10 unit BID@08,20 SC Last administered on 07/10/18at 09:02; Admin Dose 10 UNIT; Start 07/01/18 at 20:00 IV Flush (NS 10 ml) 10 ml PRN PRN IV IV PROTOCOL; Start 07/01/18 at 17:00 Apixaban (Eliquis) 2.5 mg BID PO Last administered on 07/11/18at 09:25; Admin Dose 2.5 MG; Start 07/02/18 at 09:00 Fentanyl 100 ml @ 2.5 mls/hr TITRATE IV Last administered on 07/11/18at 05:55; Admin Dose 2.5 MLS/HR; Start 07/02/18 at 16:00 Norepinephrine 250 ml @ 1.875 mls/ hr TITRATE IV Last administered on 07/10/18at 12:46; Admin Dose 7.5 MLS/HR; Start 07/02/18 at 20:00 Docusate Sodium (Colace Liquid Cup) 100 mg BID GTB Last administered on 07/11/18 09:26; Admin Dose 100 MG; Start 07/04/18 at 10:00 Polyethylene Glycol (Miralax) 17 gm DAILY GTB Last administered on 07/11/18at 09:25; Admin Dose 17 GM; Start 07/04/18 at 10:00 Mupirocin (Bactroban) 1 applic BID TOP Last administered on 07/11/18 09:26; Admin Dose 1 APPLIC; Start 07/06/18 at 09:00; Stop 07/16/18 at 08:59 Miscellaneous Information (Pending [facility] Order For Wound Care) This patient man... PRN PRN XX CRISTINE; Start 07/07/18 at 17:00 Vancomycin/Sodium Chloride 250 ml @ 125 mls/hr Q12H IVPB Last administered on 07/11/18 09:26; Admin Dose 125 MLS/HR; Start 07/11/18 at 10:00 LISA JAVIER Jul 11, 2018 13:40
[2018-07-11] MEDS ORDERED: PROPOFOL 40 ML ONE (13:49)
[2018-07-11] MEDS ORDERED: LIDOCAINE 100 MG SYRINGE ONE (13:49)
[2018-07-11] MEDS ORDERED: CEFAZOLIN 1 GM INJ ONE (13:49)
[2018-07-11] MEDS ORDERED: PHENYLephrine (100 MCG/ML) 5ML SYG ONE (13:51)
--- NOTE | 2018-07-11 15:00 | OPR ---
Date/Time of Note Date/Time of Note DATE: 07/11/18 TIME: 14:57 Operative Report Procedure Date: Jul 11, 2018 Preoperative Diagnosis Respiratory failure Postoperative Diagnosis Respiratory failure Operation/Procedure Performed Tracheostomy Surgeon see signature line Photostat Operator None Anesthesia Type: general Estimated Blood Loss: minimal Transfusion none Specimen None Grafts/Implants none Complications none Disposition: PACU Procedure Description Patient was placed supine position prepped and draped in usual sterile fashion timeout was called I start I made a 1 cm incision over the previous scar anterior neck over the previous tracheostomy incision Incision was taken down to subcutaneous tissue Vicryl was advanced through without any difficulty Continuous tissues were dilated using progressively larger dilator Endotracheal tube was removed 8 cuffed tracheostomy tube advanced into the trachea secured to skin using 2-0 nylon sutures and a trach tie Protective foam pad was applied patient tolerated procedure well MEHREEN HARRELL MD Jul 11, 2018 15:00
--- NOTE | 2018-07-11 15:02 | PAC ---
Date/Time of Note Date/Time of Note DATE: 07/11/18 TIME: 15:02 Post-Anesthesia Notes Post-Anesthesia Note Last documented vital signs Vital Signs Date Temp Pulse Resp B/P (MAP) Pulse Ox O2 O2 Flow FiO2 Time Delivery Rate 07/11/18 79 18 116/68 100 11:15 (84) 07/11/18 Mechanical 11:00 Ventilator 07/11/18 98.3 08:00 07/11/18 30 05:15 Activity: WNL Respiratory function: WNL Cardiovascular function: WNL Mental status: Baseline Pain reasonably controlled: Yes Hydration appropriate: Yes Nausea/Vomiting absent: Yes Tlaib Rodriguez M.D. Jul 11, 2018 15:02
[2018-07-11] MEDS ORDERED: LEVALBUTEROL (NEB) 1.25 MG/0.5 ML AMP ONE (15:08)
--- NOTE | 2018-07-11 16:48 | CONS ---
Date/Time of Note Date/Time of Note DATE: 07/11/18 TIME: 16:48 Assessment/Plan Assessment/Plan Assessment/Plan - Severe sepsis with septic shock d/t MRSA - leukocytosis resolved, Levophed restarted, tachycardia improving - MRSA soft tissue abscess on chest - UTI d/t MRSA - MRSA bacteremia d/t above. Repeat blood cx 07/01/2018 shows neg x1 bottle, MRSA 1 bottle. Repeat cultures 07/06/18 are NGTD; TTE 07/01/2018 does not mention any vegetation - MRSA nasal colonization - Acute hypercarbic respiratory failure d/t tracheostomy dislodgement requiring oral intubation 07/01/2018 - Acute encephalopathy - Atrial fibrillation with intermittent RVR - CAD - H/o HTN - T2DM - HLD - Myasthenia gravis s/p recent thymectomy - Dysphagia s/p PEG - Depression - on Prozac at [facility] - Mild dementia - on Aricept at [facility] - Moderate protein calorie malnutrition - Hypernatremia- resolved - Anemia Recommendations: - Consider drainage of retrosternal fluid collection via surgery or CT guided drainage. - F/u the repeat blood cxs- so far ngtd - Continue vancomycin (06/30/2018-) - Continue mupirocin (07/06/2018-) to nares, bilateral axilla, groin, and anus for MRSA de-colonization - Continue chlorhexidine body wash daily - Continue local wound care of neck/upper chest lesion Patient seen in collaboration with Dr Stanton Result Diagram: 07/11/18 0430 07/11/18 0430 Results 24hrs Laboratory Tests Test 07/10/18 18:33 07/10/18 19:51 07/11/18 00:16 07/11/18 04:00 Bedside Glucose 77 75 99 109 Test 07/11/18 04:30 07/11/18 06:07 07/11/18 11:39 White Blood 8.2 Count Red Blood Count 2.76 L Hemoglobin 7.9 L Hematocrit 25.2 L Mean Corpuscular 91.3 Volume Mean Corpuscular 28.6 L Hemoglobin Mean Corpuscular 31.3 L Hemoglobin Fransisca nt Red Cell 15.1 H Distribution Width Platelet Count 343 Mean Platelet 12.4 H Volume Immature 1.300 H Granulocytes % Neutrophils % 69.2 Lymphocytes % 15.4 Monocytes % 8.0 Eosinophils % 5.6 Basophils % 0.5 Nucleated Red 0.0 Blood Cells % Immature 0.110 H Granulocytes # Neutrophils # 5.7 Lymphocytes # 1.3 Monocytes # 0.7 Eosinophils # 0.5 Basophils # 0.0 Nucleated Red 0.0 Blood Cells # Sodium Level 143 Potassium Level 3.9 Chloride Level 105 Carbon Dioxide 30 Level Anion Gap 8 Blood Urea 16 Nitrogen Creatinine 0.61 Est Glomerular Filtrat Rate mL/min Glucose Level 90 Calcium Level 7.9 L Magnesium Level 2.1 Bedside Glucose 102 107 Consultation Date/Type/Reason Admit Date/Time Jun 30, 2018 at 18:05 Initial Consult Date 07/02/18 Type of Consult ID Reason for Consultation SEPSIS Requesting Provider: ALE CHUN MD 24 HR Interval Summary Free Text/Dictation - WNC wnl. afebrile - sp tracheostomy placement today - no new issues reported overnight by staff Subjective hx not possible: pt non-verbal, pt critical Constitutional: requiring IVF, requiring O2 Exam/Review of Systems Vital Signs Vitals Vital Signs Date Temp Pulse Resp B/P (MAP) Pulse Ox O2 O2 Flow FiO2 Time Delivery Rate 07/11/18 79 18 99/75 (83) 16:30 07/11/18 98.0 100 Mechanical 16:00 Ventilator Trach Collar 07/11/18 30 13:05 Intake and Output 07/10/18 07/10/18 07/11/18 1515:00 23:00 07:00 IntakeIntake Total 570.660 ml 828.855 ml 163.125 ml OutputOutput Total 340 ml 528 ml 580 ml BalanceBalance 230.660 ml 300.855 ml -416.875 ml Exam Constitutional: non-verbal, frail Eyes: nl lids ENMT: nl external ears & nose Neck: supple, other (trach intact) Respiratory: diminished breath sounds Cardiovascular: nl pulses, other (s1s2) Gastrointestinal: soft, other (feedin tube intact) Musculoskeletal: muscle weakness, range of motion Extremities: normal pulses Neurological: unresponsive Medications Medications Current Medications Albuterol/ Ipratropium (Duoneb) 3 ml Q6H RESP THERAPY PRN HHN SHORTNESS OF BREATH Last administered on 07/02/18at 02:41; Admin Dose 3 ML; Start 06/30/18 at 23:00 Vancomycin HCl (Vanco Iv Per Pharmacy) VANCOMYCIN PER PHARMACY PER PROTOCOL XX ; Start 06/30/18 at 23:00 Acetaminophen (Tylenol Liquid) 650 mg Q4H PRN GTB MILD PAIN(1-3)OR ELEVATED TE MP; Start 06/30/18 at 23:00 Insulin Aspart (Novolog Insulin Pen) NOVOLOG *MILD* ALGORI... Q6H SC Last administered on 07/09/18at 00:07; Admin Dose 1 UNIT; Start 07/01/18 at 00:00 Diltiazem HCl (Cardizem Iv) 10 mg Q4H PRN IV for sustained HR>130 Last administered on 07/02/18at 17:05; Admin Dose 10 MG; Start 06/30/18 at 23:00 Lansoprazole (Prevacid) 30 mg DAILY@06 GTB Last administered on 07/11/18at 05:59; Admin Dose 30 MG; Start 07/01/18 at 09:00 Midazolam HCl 50 ml @ 1 mls/hr TITRATE IV Last administered on 07/11/18at 16:28; Admin Dose 7 MLS/HR; Start 07/01/18 at 11:30 Miscellaneous Information 1 ea NOTE XX ; Start 07/01/18 at 14:00 Glucose (Glutose) 15 gm Q15M PRN PO DECREASED GLUCOSE; Start 07/01/18 at 14:00 Glucose (Glutose) 22.5 gm Q15M PRN PO DECREASED GLUCOSE; Start 07/01/18 at 14:00 Dextrose (D50w Syringe) 25 ml Q15M PRN IV DECREASED GLUCOSE; Start 07/01/18 at 14:00 Dextrose (D50w Syringe) 50 ml Q15M PRN IV DECREASED GLUCOSE; Start 07/01/18 at 14:00 Glucagon (Glucagen) 1 mg Q15M PRN IM DECREASED GLUCOSE; Start 07/01/18 at 14:00 Glucose (Glutose) 15 gm Q15M PRN BUCCAL DECREASED GLUCOSE; Start 07/01/18 at 14:00 Atorvastatin Calcium (Lipitor) 10 mg HS GTB Last administered on 07/10/18at 20:34; Admin Dose 10 MG; Start 07/01/18 at 21:00 Insulin Human NPH (Humulin N) 10 unit BID@08,20 SC Last administered on 07/10/18at 09:02; Admin Dose 10 UNIT; Start 07/01/18 at 20:00 IV Flush (NS 10 ml) 10 ml PRN PRN IV IV PROTOCOL; Start 07/01/18 at 17:00 Apixaban (Eliquis) 2.5 mg BID PO Last administered on 07/11/18 09:25; Admin Dose 2.5 MG; Start 07/02/18 at 09:00 Fentanyl 100 ml @ 2.5 mls/hr TITRATE IV Last administered on 07/11/18 05:55; Admin Dose 2.5 MLS/HR; Start 07/02/18 at 16:00 Norepinephrine 250 ml @ 1.875 mls/ hr TITRATE IV Last administered on 07/10/18 12:46; Admin Dose 7.5 MLS/HR; Start 07/02/18 at 20:00 Docusate Sodium (Colace Liquid Cup) 100 mg BID GTB Last administered on 07/11/18 09:26; Admin Dose 100 MG; Start 07/04/18 at 10:00 Polyethylene Glycol (Miralax) 17 gm DAILY GTB Last administered on 07/11/18 09:25; Admin Dose 17 GM; Start 07/04/18 at 10:00 Mupirocin (Bactroban) 1 applic BID TOP Last administered on 07/11/18 09:26; Admin Dose 1 APPLIC; Start 07/06/18 at 09:00; Stop 07/16/18 at 08:59 Miscellaneous Information [facility] This patient man... PRN PRN XX SLOUGH; Start 07/07/18 at 17:00 Vancomycin/Sodium Chloride 250 ml @ 125 mls/hr Q12H IVPB Last administered on 07/11/18 09:26; Admin Dose 125 MLS/HR; Start 07/11/18 at 10:00 COREY LARIOS Jul 11, 2018 16:48
--- NOTE | 2018-07-11 19:00 | NUR ---
END OF SHIFT: All needs attended. No significant change in condition. Stable during the shift. Remains on Fentanyl 50mcg. and Versed 7mg. RASS-2. Levophed drip off at 1500. Patient was trached by Dr. Patiño around 1430. Shiley #[id number]. Sutures intact. No active bleeding at the site. Patient tolerated procedure. Vent settings remains AC= 18, TV-500, Fi02=30%, PEEP=5. Report given incoming shift RN: Vik. Beside performed for validation.
[2018-07-11] MEDS: ATORVASTATIN 10 MG TAB GTB SCH (21:05)
[2018-07-12] VITALS (68 sets, daily range): BP systolic 82–134; BP diastolic 48–89; PULSE 64–131; RESP 4–22
[2018-07-12] MEDS: FENTAnyl (DRIP) 1000 mcg/100mL 100 ML IV SCH (00:23)
[2018-07-12] MEDS: MIDAZOLAM (DRIP) 50 mg/50 mL 50 ML IV SCH (00:40)
[2018-07-12] MEDS: INSULIN ASPART [NOVOLOG] 3 ML PEN SC SCH ×4 (06:00→23:39)
[2018-07-12] MEDS: LANSOPRAZOLE 30 MG CAP GTB SCH (06:30)
--- NOTE | 2018-07-12 07:35 | NUR ---
EOSS Pt remained on ventilator with new trach. Neuro status remains unchanged. Pt trach had some minor bleeding at stoma site, dressing changed as needed, airway remained protected and patent. Pt BG was trending down, notified NPH dose adjusted for 1999 and TF started. Pt BG remained WNL afterwards. 1 small BM. Flanagan remains patent. Bedbath given and all wounds redressed. pt turned q2h. Bedside report given to dayshift RN.
[2018-07-12] MEDS: NPH, HUMAN INSULIN ISOPHANE 3ML VIAL SC SCH ×2 (08:00→20:05)
[2018-07-12] MEDS: DOCUSATE SODIUM 10 MG/ML (10ML CUP) GTB SCH ×2 (09:24→20:03)
[2018-07-12] MEDS: POLYETHYLENE GLYCOL 17 GM PACKET GTB SCH (09:24)
[2018-07-12] MEDS: APIXABAN 5 MG TABLET PO SCH ×2 (09:25→20:03)
[2018-07-12] MEDS: MUPIROCIN 2% 22 GM OINT TOP SCH ×2 (09:25→20:10)
[2018-07-12] MEDS: BALSAM PERU/CASTOR OIL 60 GM TUBE TOP SCH ×2 (09:25→20:11)
--- NOTE | 2018-07-12 10:06 | CONS ---
Date/Time of Note Date/Time of Note DATE: 07/12/18 TIME: 10:03 Assessment/Plan Assessment/Plan Hospital Course Acute on chronic respiratory failure Atrial fibrillation with rapid ventricular rates, improved Preserved ejection fraction Hypotension off IV pressor Myasthenia gravis Assessment/Plan 1) consideration of thoracocentesis 2) AFIB controlled now Result Diagram: 07/12/18 0505 07/12/18 0505 Results 24hrs Laboratory Tests Test 07/11/18 11:39 07/11/18 17:10 07/11/18 20:46 07/11/18 23:40 Bedside Glucose 107 92 75 81 Test 07/12/18 05:05 07/12/18 06:24 07/12/18 09:19 White Blood 6.8 Count Red Blood Count 2.94 L Hemoglobin 8.3 L Hematocrit 26.4 L Mean Corpuscular 89.8 Volume Mean Corpuscular 28.2 L Hemoglobin Mean Corpuscular 31.4 L Hemoglobin Fransisca nt Red Cell 15.1 H Distribution Width Platelet Count 346 Mean Platelet 11.5 H Volume Immature 1.200 H Granulocytes % Neutrophils % 66.3 Lymphocytes % 16.8 Monocytes % 9.1 Eosinophils % 6.2 Basophils % 0.4 Nucleated Red 0.0 Blood Cells % Immature 0.080 H Granulocytes # Neutrophils # 4.5 Lymphocytes # 1.1 Monocytes # 0.6 Eosinophils # 0.4 Basophils # 0.0 Nucleated Red 0.0 Blood Cells # Sodium Level 143 Potassium Level 3.5 Chloride Level 107 Carbon Dioxide 30 Level Anion Gap 6 Blood Urea 16 Nitrogen Creatinine 0.65 Est Glomerular Filtrat Rate mL/min Glucose Level 85 Calcium Level 7.8 L Phosphorus Level 3.8 Magnesium Level 2.1 Bedside Glucose 84 83 Consultation Date/Type/Reason Admit Date/Time Jun 30, 2018 at 18:05 Initial Consult Date 07/02/18 Requesting Provider: ALE CHUN MD 24 HR Interval Summary Free Text/Dictation nonverbal, on vent Subjective hx not possible: pt non-verbal, pt critical status Exam/Review of Systems Vital Signs Vitals Vital Signs Date Temp Pulse Resp B/P (MAP) Pulse Ox O2 O2 Flow FiO2 Time Delivery Rate 07/12/18 85 08:00 07/12/18 30 08:00 07/12/18 97.7 18 94/57 (69) 100 Mechanical 08:00 Ventilator Trach Collar Intake and Output 07/11/18 07/11/18 07/12/18 1515:00 23:00 07:00 IntakeIntake Total 362.250 ml 688 ml 821 ml OutputOutput Total 395 ml 525 ml 305 ml BalanceBalance -32.750 ml 163 ml 516 ml Exam Constitutional: non-verbal Head: normocephalic, atraumatic Neck: supple Respiratory: clear to auscultation Cardiovascular: irregular rhythm Gastrointestinal: soft Musculoskeletal: nl extremities to inspection Extremities: normal pulses Neurological: lethargic Medications Medications Current Medications Albuterol/ Ipratropium (Duoneb) 3 ml Q6H RESP THERAPY PRN HHN SHORTNESS OF BREATH Last administered on 07/02/18at 02:41; Admin Dose 3 ML; Start 06/30/18 at 23:00 Vancomycin HCl (Vanco Iv Per Pharmacy) VANCOMYCIN PER PHARMACY PER PROTOCOL XX ; Start 06/30/18 at 23:00 Acetaminophen (Tylenol Liquid) 650 mg Q4H PRN GTB MILD PAIN(1-3)OR ELEVATED TEMP; Start 06/30/18 at 23:00 Insulin Aspart (Novolog Insulin Pen) NOVOLOG *MILD* ALGORI... Q6H SC Last administered on 07/09/18at 00:07; Admin Dose 1 UNIT; Start 07/01/18 at 00:00 Diltiazem HCl (Cardizem Iv) 10 mg Q4H PRN IV for sustained HR>130 Last administered on 07/02/18at 17:05; Admin Dose 10 MG; Start 06/30/18 at 23:00 Lansoprazole (Prevacid) 30 mg DAILY@06 GTB Last administered on 07/12/18at 06:30; Admin Dose 30 MG; Start 07/01/18 at 09:00 Midazolam HCl 50 ml @ 1 mls/hr TITRATE IV Last administered on 07/12/18at 00:40; Admin Dose 7 MLS/HR; Start 07/01/18 at 11:30 Miscellaneous Information 1 ea NOTE XX ; Start 07/01/18 at 14:00 Glucose (Glutose) 15 gm Q15M PRN PO DECREASED GLUCOSE; Start 07/01/18 at 14:00 Glucose (Glutose) 22.5 gm Q15M PRN PO DECREASED GLUCOSE; Start 07/01/18 at 14:00 Dextrose (D50w Syringe) 25 ml Q15M PRN IV DECREASED GLUCOSE; Start 07/01/18 at 14:00 Dextrose (D50w Syringe) 50 ml Q15M PRN IV DECREASED GLUCOSE; Start 07/01/18 at 14:00 Glucagon (Glucagen) 1 mg Q15M PRN IM DECREASED GLUCOSE; Start 07/01/18 at 14:00 Glucose (Glutose) 15 gm Q15M PRN BUCCAL DECREASED GLUCOSE; Start 07/01/18 at 14:00 Atorvastatin Calcium (Lipitor) 10 mg HS GTB Last administered on 07/11/18 21:05; Admin Dose 10 MG; Start 07/01/18 at 21:00 Insulin Human NPH (Humulin N) 10 unit BID@08,20 SC Last administered on 07/11/18 21:05; Admin Dose 5 UNIT; Start 07/01/18 at 20:00 IV Flush (NS 10 ml) 10 ml PRN PRN IV IV PROTOCOL; Start 07/01/18 at 17:00 Apixaban (Eliquis) 2.5 mg BID PO Last administered on 07/12/18 09:25; Admin Dose 2.5 MG; Start 07/02/18 at 09:00 Fentanyl 100 ml @ 2.5 mls/hr TITRATE IV Last administered on 07/12/18 00:23; Admin Dose 5 MLS/HR; Start 07/02/18 at 16:00 Norepinephrine 250 ml @ 1.875 mls/ hr TITRATE IV Last administered on 07/10/18at 12:46; Admin Dose 7.5 MLS/HR; Start 07/02/18 at 20:00 Docusate Sodium (Colace Liquid Cup) 100 mg BID GTB Last administered on 07/12/18 09:24; Admin Dose 100 MG; Start 07/04/18 at 10:00 Polyethylene Glycol (Miralax) 17 gm DAILY GTB Last administered on 07/12/18 09:24; Admin Dose 17 GM; Start 07/04/18 at 10:00 Mupirocin (Bactroban) 1 applic BID TOP Last administered on 07/12/18 09:25; Admin Dose 1 APPLIC; Start 07/06/18 at 09:00; Stop 07/16/18 at 08:59 Miscellaneous Information (Pending [facility] Order For Wound Care) This patient man... PRN PRN XX SLOUGH; Start 07/07/18 at 17:00 Vancomycin/Sodium Chloride 250 ml @ 125 mls/hr Q12H IVPB Last administered on 07/11/18at 22:13; Admin Dose 125 MLS/HR; Start 07/11/18 at 10:00 CARLEY WANG MD Jul 12, 2018 10:06
--- NOTE | 2018-07-12 11:05 | PN ---
Date/Time of Note Date/Time of Note DATE: 07/12/18 TIME: 11:05 Assessment/Plan VTE Prophylaxis Risk score (from Ns)>0 risk: 11 SCD applied (from Ns): Yes Pharmacological prophylaxis: LMWH Lines/Catheters IV Catheter Type (from Nrs): PICC Line Central line still needed: Yes Urinary Cath still in place: Yes Reason Cath still needed: skin wounds contaminated by urine Assessment/Plan Hospital Course 1. Acute encephalopathy, improved. The patient is approaching his baseline. Continue to monitor closely. No sedative at this time. 2. Elevated white count; however, patient has no fever. - per ID - cont vancomycin and meropenem - pending result of urine and blood culture. 3. Atrial fibrillation. The patient after admission went into rapid ventricular response and had to be started on Cardizem and Eliquis. We will keep patient on telemetry. 4. Acute hypoxemic and hypercarbic respiratory failure. - PER pulmonary consult with Dr. Mustafa 5. Dysphagia. Continue G-tube feeding. 6. Diabetes. 7. Myasthenia gravis, status post thymectomy. 8. Dyslipidemia. The patient used to be on Lipitor. Again, the medication list from the [facility] facility has not been received. Continue Lipitor. 9. Hypertension and coronary artery disease. Continue metoprolol and p.r.n. IV diltiazem. 10. The patient apparently also has history of depression. We will resume Prozac. 11. The patient has mild dementia. We will continue Aricept. Result Diagram: 07/12/18 0505 07/12/18 0505 Results 24hrs Laboratory Tests Test 07/11/18 11:39 07/11/18 17:10 07/11/18 20:46 07/11/18 23:40 Bedside Glucose 107 92 75 81 Test 07/12/18 05:05 07/12/18 06:24 07/12/18 09:19 White Blood 6.8 Count Red Blood Count 2.94 L Hemoglobin 8.3 L Hematocrit 26.4 L Mean Corpuscular 89.8 Volume Mean Corpuscular 28.2 L Hemoglobin Mean Corpuscular 31.4 L Hemoglobin Fransisca nt Red Cell 15.1 H Distribution Width Platelet Count 346 Mean Platelet 11.5 H Volume Immature 1.200 H Granulocytes % Neutrophils % 66.3 Lymphocytes % 16.8 Monocytes % 9.1 Eosinophils % 6.2 Basophils % 0.4 Nucleated Red 0.0 Blood Cells % Immature 0.080 H Granulocytes # Neutrophils # 4.5 Lymphocytes # 1.1 Monocytes # 0.6 Eosinophils # 0.4 Basophils # 0.0 Nucleated Red 0.0 Blood Cells # Sodium Level 143 Potassium Level 3.5 Chloride Level 107 Carbon Dioxide 30 Level Anion Gap 6 Blood Urea 16 Nitrogen Creatinine 0.65 Est Glomerular Filtrat Rate mL/min Glucose Level 85 Calcium Level 7.8 L Phosphorus Level 3.8 Magnesium Level 2.1 Bedside Glucose 84 83 Subjective 24 Hr Interval Summary Free Text/Dictation Patient remain sedated, trach placed last night Exam/Review of Systems Vital Signs Vitals Vital Signs Date Temp Pulse Resp B/P (MAP) Pulse Ox O2 O2 Flow FiO2 Time Delivery Rate 07/12/18 86 18 93/57 (69) 10:45 07/12/18 Mechanical 10:00 Ventilator 07/12/18 100 09:45 07/12/18 30 08:00 07/12/18 97.7 08:00 Intake and Output 07/11/18 07/11/18 07/12/18 1515:00 23:00 07:00 IntakeIntake Total 362.250 ml 688 ml 821 ml OutputOutput Total 395 ml 525 ml 305 ml BalanceBalance -32.750 ml 163 ml 516 ml Exam Constitutional: well developed Head: normocephalic, atraumatic Neck: supple Respiratory: diminished breath sounds Cardiovascular: regular rate and rhythm Gastrointestinal: soft, non-tender Extremities: normal pulses Medications Medications Current Medications Albuterol/ Ipratropium (Duoneb) 3 ml Q6H RESP THERAPY PRN HHN SHORTNESS OF BREATH Last administered on 07/02/18at 02:41; Admin Dose 3 ML; Start 06/30/18 at 23:00 Vancomycin HCl (Vanco Iv Per Pharmacy) VANCOMYCIN PER PHARMACY PER PROTOCOL XX ; Start 06/30/18 at 23:00 Acetaminophen (Tylenol Liquid) 650 mg Q4H PRN GTB MILD PAIN(1-3)OR ELEVATED TEMP; Start 06/30/18 at 23:00 Insulin Aspart (Novolog Insulin Pen) NOVOLOG *MILD* ALGORI... Q6H SC Last administered on 07/09/18at 00:07; Admin Dose 1 UNIT; Start 07/01/18 at 00:00 Diltiazem HCl (Cardizem Iv) 10 mg Q4H PRN IV for sustained HR>130 Last administered on 07/02/18at 17:05; Admin Dose 10 MG; Start 06/30/18 at 23:00 Lansoprazole (Prevacid) 30 mg DAILY@06 GTB Last administered on 07/12/18at 06:30; Admin Dose 30 MG; Start 07/01/18 at 09:00 Midazolam HCl 50 ml @ 1 mls/hr TITRATE IV Last administered on 07/12/18at 00:40; Admin Dose 7 MLS/HR; Start 07/01/18 at 11:30 Miscellaneous Information 1 ea NOTE XX ; Start 07/01/18 at 14:00 Glucose (Glutose) 15 gm Q15M PRN PO DECREASED GLUCOSE; Start 07/01/18 at 14:00 Glucose (Glutose) 22.5 gm Q15M PRN PO DECREASED GLUCOSE; Start 07/01/18 at 14:00 Dextrose (D50w Syringe) 25 ml Q15M PRN IV DECREASED GLUCOSE; Start 07/01/18 at 14:00 Dextrose (D50w Syringe) 50 ml Q15M PRN IV DECREASED GLUCOSE; Start 07/01/18 at 14:00 Glucagon (Glucagen) 1 mg Q15M PRN IM DECREASED GLUCOSE; Start 07/01/18 at 14:00 Glucose (Glutose) 15 gm Q15M PRN BUCCAL DECREASED GLUCOSE; Start 07/01/18 at 14:00 Atorvastatin Calcium (Lipitor) 10 mg HS GTB Last administered on 07/11/18at 21:05; Admin Dose 10 MG; Start 07/01/18 at 21:00 Insulin Human NPH (Humulin N) 10 unit BID@08,20 SC Last administered on 07/11/18at 21:05; Admin Dose 5 UNIT; Start 07/01/18 at 20:00 IV Flush (NS 10 ml) 10 ml PRN PRN IV IV PROTOCOL; Start 07/01/18 at 17:00 Apixaban (Eliquis) 2.5 mg BID PO Last administered on 07/12/18at 09:25; Admin Dose 2.5 MG; Start 07/02/18 at 09:00 Fentanyl 100 ml @ 2.5 mls/hr TITRATE IV Last administered on 07/12/18 00:23; Admin Dose 5 MLS/HR; Start 07/02/18 at 16:00 Norepinephrine 250 ml @ 1.875 mls/ hr TITRATE IV Last administered on 07/10/18 12:46; Admin Dose 7.5 MLS/HR; Start 07/02/18 at 20:00 Docusate Sodium (Colace Liquid Cup) 100 mg BID GTB Last administered on 07/12/18 09:24; Admin Dose 100 MG; Start 07/04/18 at 10:00 Polyethylene Glycol (Miralax) 17 gm DAILY GTB Last administered on 07/12/18 09:24; Admin Dose 17 GM; Start 07/04/18 at 10:00 Mupirocin (Bactroban) 1 applic BID TOP Last administered on 07/12/18 09:25; Admin Dose 1 APPLIC; Start 07/06/18 at 09:00; Stop 07/16/18 at 08:59 Miscellaneous Information (Pending [facility] Order For Wound Care) This patient man... PRN PRN XX CRISTINE; Start 07/07/18 at 17:00 Vancomycin/Sodium Chloride 250 ml @ 125 mls/hr Q12H IVPB Last administered on 07/11/18 22:13; Admin Dose 125 MLS/HR; Start 07/11/18 at 10:00 LISA JAVIER Jul 12, 2018 11:05
[2018-07-12] MEDS: VANCOMYCIN 750 MG (PMX) 250 ML IVPB SCH ×2 (11:16→21:48)
--- NOTE | 2018-07-12 11:22 | CONS ---
Date/Time of Note Date/Time of Note DATE: 07/12/18 TIME: 11:20 Consult Date/Type/Reason Admit Date/Time Jun 30, 2018 at 18:05 Initial Consult Date 07/02/18 Type of Consultation: Pulmonary ICU Requesting Provider: ALE CHUN MD Subjective s/p trach post-op day #1. No events overnight. Objective Vital Signs Date Temp Pulse Resp B/P (MAP) Pulse Ox O2 O2 Flow FiO2 Time Delivery Rate 07/12/18 86 18 93/57 (69) 10:45 07/12/18 Mechanical 10:00 Ventilator 07/12/18 100 09:45 07/12/18 30 08:00 07/12/18 97.7 08:00 Intake and Output 07/11/18 07/11/18 07/12/18 1515:00 23:00 07:00 IntakeIntake Total 362.250 ml 688 ml 821 ml OutputOutput Total 395 ml 525 ml 305 ml BalanceBalance -32.750 ml 163 ml 516 ml Exam GENERAL: Elderly gentleman with trach in place VITAL SIGNS: per chart NECK: Supple. No JVD or lymphadenopathy. CARDIAC EXAM: S1, S2. No added sounds or murmurs. CHEST: Diminished air entry bilaterally ABDOMEN: Soft, nontender. No guarding or rebound. EXTREMITIES: No cyanosis, clubbing or edema. NEUROLOGIC: Generalized weakness. No focal deficits. Results/Medications Result Diagram: 07/12/18 0505 07/12/18 0505 Results 24 hrs Laboratory Tests Test 07/11/18 11:39 07/11/18 17:10 07/11/18 20:46 07/11/18 23:40 Bedside Glucose 107 92 75 81 Test 07/12/18 05:05 07/12/18 06:24 07/12/18 09:19 White Blood 6.8 Count Red Blood Count 2.94 L Hemoglobin 8.3 L Hematocrit 26.4 L Mean Corpuscular 89.8 Volume Mean Corpuscular 28.2 L Hemoglobin Mean Corpuscular 31.4 L Hemoglobin Fransisca nt Red Cell 15.1 H Distribution Width Platelet Count 346 Mean Platelet 11.5 H Volume Immature 1.200 H Granulocytes % Neutrophils % 66.3 Lymphocytes % 16.8 Monocytes % 9.1 Eosinophils % 6.2 Basophils % 0.4 Nucleated Red 0.0 Blood Cells % Immature 0.080 H Granulocytes # Neutrophils # 4.5 Lymphocytes # 1.1 Monocytes # 0.6 Eosinophils # 0.4 Basophils # 0.0 Nucleated Red 0.0 Blood Cells # Sodium Level 143 Potassium Level 3.5 Chloride Level 107 Carbon Dioxide 30 Level Anion Gap 6 Blood Urea 16 Nitrogen Creatinine 0.65 Est Glomerular Filtrat Rate mL/min Glucose Level 85 Calcium Level 7.8 L Phosphorus Level 3.8 Magnesium Level 2.1 Bedside Glucose 84 83 Medications Current Medications Albuterol/ Ipratropium (Duoneb) 3 ml Q6H RESP THERAPY PRN HHN SHORTNESS OF BREATH Last administered on 07/02/18at 02:41; Admin Dose 3 ML; Start 06/30/18 at 23:00 Vancomycin HCl (Vanco Iv Per Pharmacy) VANCOMYCIN PER PHARMACY PER PROTOCOL XX ; Start 06/30/18 at 23:00 Acetaminophen (Tylenol Liquid) 650 mg Q4H PRN GTB MILD PAIN(1-3)OR ELEVATED TEMP; Start 06/30/18 at 23:00 Insulin Aspart (Novolog Insulin Pen) NOVOLOG *MILD* ALGORI... Q6H SC Last administered on 07/09/18at 00:07; Admin Dose 1 UNIT; Start 07/01/18 at 00:00 Diltiazem HCl (Cardizem Iv) 10 mg Q4H PRN IV for sustained HR>130 Last administered on 07/02/18at 17:05; Admin Dose 10 MG; Start 06/30/18 at 23:00 Lansoprazole (Prevacid) 30 mg DAILY@06 GTB Last administered on 07/12/18at 06:30; Admin Dose 30 MG; Start 07/01/18 at 09:00 Midazolam HCl 50 ml @ 1 mls/hr TITRATE IV Last administered on 07/12/18at 00:40; Admin Dose 7 MLS/HR; Start 07/01/18 at 11:30 Miscellaneous Information 1 ea NOTE XX ; Start 07/01/18 at 14:00 Glucose (Glutose) 15 gm Q15M PRN PO DECREASED GLUCOSE; Start 07/01/18 at 14:00 Glucose (Glutose) 22.5 gm Q15M PRN PO DECREASED GLUCOSE; Start 07/01/18 at 14:00 Dextrose (D50w Syringe) 25 ml Q15M PRN IV DECREASED GLUCOSE; Start 07/01/18 at 14:00 Dextrose (D50w Syringe) 50 ml Q15M PRN IV DECREASED GLUCOSE; Start 07/01/18 at 14:00 Glucagon (Glucagen) 1 mg Q15M PRN IM DECREASED GLUCOSE; Start 07/01/18 at 14:00 Glucose (Glutose) 15 gm Q15M PRN BUCCAL DECREASED GLUCOSE; Start 07/01/18 at 14:00 Atorvastatin Calcium (Lipitor) 10 mg HS GTB Last administered on 07/11/18at 21:05; Admin Dose 10 MG; Start 07/01/18 at 21:00 Insulin Human NPH (Humulin N) 10 unit BID@08,20 SC Last administered on 07/11/18 21:05; Admin Dose 5 UNIT; Start 07/01/18 at 20:00 IV Flush (NS 10 ml) 10 ml PRN PRN IV IV PROTOCOL; Start 07/01/18 at 17:00 Apixaban (Eliquis) 2.5 mg BID PO Last administered on 07/12/18 09:25; Admin Dose 2.5 MG; Start 07/02/18 at 09:00 Fentanyl 100 ml @ 2.5 mls/hr TITRATE IV Last administered on 07/12/18 00:23; Admin Dose 5 MLS/HR; Start 07/02/18 at 16:00 Norepinephrine 250 ml @ 1.875 mls/ hr TITRATE IV Last administered on 07/10/18at 12:46; Admin Dose 7.5 MLS/HR; Start 07/02/18 at 20:00 Docusate Sodium (Colace Liquid Cup) 100 mg BID GTB Last administered on 07/12/18 09:24; Admin Dose 100 MG; Start 07/04/18 at 10:00 Polyethylene Glycol (Miralax) 17 gm DAILY GTB Last administered on 07/12/18 09:24; Admin Dose 17 GM; Start 07/04/18 at 10:00 Mupirocin (Bactroban) 1 applic BID TOP Last administered on 07/12/18 09:25; Admin Dose 1 APPLIC; Start 07/06/18 at 09:00; Stop 07/16/18 at 08:59 Miscellaneous Information (Pending [facility] Order For Wound Care) This patient man... PRN PRN XX SLOUGH; Start 07/07/18 at 17:00 Vancomycin/Sodium Chloride 250 ml @ 125 mls/hr Q12H IVPB Last administered on 07/12/18at 11:16; Admin Dose 125 MLS/HR; Start 07/11/18 at 10:00 Assessment/Plan Additional Assessment/Plan IMP: 1. Acute hypoxemic respiratory failure failed multiple weaning trials now pending tracheostomy 2. Encephalopathy with possible underlying dementia 3. Dysphagia with G-tube 4. Anemia likely of chronic disease rule out GI bleed 5. Septic shock with sternal abscess, MRSA 6. Chronic atrial fibrillation RECS: 1. Trach care 2. Continue tube feeding as tolerated 3. Antibiotics and wound care 4. D/C sedation 5. Follow H/H 6. Okay for tele if BP holds 35 min cc time MOMO LOTT MD Jul 12, 2018 11:22
[2018-07-12] MEDS: LORAZEPAM 4 MG/ML VIAL IV PRN ×2 (12:47→21:00)
--- NOTE | 2018-07-12 15:07 | PN ---
Date/Time of Note Date/Time of Note DATE: 07/12/18 TIME: 15:06 Assessment/Plan Lines/Catheters IV Catheter Type (from Nrsg): PICC Line Flanagan in Place (from Nrsg): Yes Assessment/Plan Assessment/Plan Respiratory failure Status post tracheostomy Tracheostomy site is clean no evidence of any bleeding Continue vent support Trach care Matos toilet Subjective 24 Hr Interval Summary Constitutional: improved Pain Control: mild Exam/Review of Systems Vital Signs Vitals Vital Signs Date Temp Pulse Resp B/P (MAP) Pulse Ox O2 O2 Flow FiO2 Time Delivery Rate 07/12/18 96 13 104/64 12:30 (77) 07/12/18 98.2 100 Mechanical 12:00 Ventilator 07/12/18 30 11:00 Intake and Output 07/11/18 07/11/18 07/12/18 1515:00 23:00 07:00 IntakeIntake Total 362.250 ml 688 ml 821 ml OutputOutput Total 395 ml 525 ml 305 ml BalanceBalance -32.750 ml 163 ml 516 ml Exam Eyes: nl conjunctiva, EOMI, nl lids, nl sclera ENMT: nl external ears & nose, nl lips & teeth, nl nasal mucosa & septum, mucosa pink and moist Neck: supple, non-tender Respiratory: clear to auscultation, normal air movement Cardiovascular: regular rate and rhythm, nl pulses Gastrointestinal: soft, nl liver, spleen, non-tender Musculoskeletal: nl extremities to inspection, nl gait and stance Results Result Diagram: 07/12/18 0505 07/12/18 0505 MEHREEN HARRELL MD Jul 12, 2018 15:07
[2018-07-12] MEDS: morphine 2 MG INJ IV PRN ×2 (17:43→23:08)
--- NOTE | 2018-07-12 19:38 | NUR ---
END OF SHIFT: All needs attended. No significant change in condition. Patient remains stable. Versed & Fentanyl drip off since around 1130am. Patient for transfer to [facility] or [place] when bed is available. Trach care provided. Vent settings remains the same: AC=18, TV-500, Fi02=30%, PEEP=5. Vital signs stable. Turned and repositioned [id number]. No new wound identified. Blood glucose [id number] within normal limits. Endorsed to incoming shift RN: Ria.
[2018-07-12] MEDS: ATORVASTATIN 10 MG TAB GTB SCH (20:03)
--- NOTE | 2018-07-12 22:54 | CONS ---
Jan [facility] HCIS Consult Follow-up Patient Name: Gavin Muñiz Unit Number: [id number] Date of : 1940 Patient Status: Admitted Inpatient Attending Doctor: Ale Chun MD Edit: DHEERAJ FARIAS M.D. on 07/13/18 @ 20:36 I discussed the management with INFUSION RN Robert Date/Time of Note Date/Time of Note DATE: 07/12/18 TIME: 22:54 Assessment/Plan Assessment/Plan Assessment/Plan - Severe sepsis with septic shock d/t MRSA - leukocytosis resolved, Levophed restarted, tachycardia improving - MRSA soft tissue abscess on chest - UTI d/t MRSA - MRSA bacteremia d/t above. Repeat blood cx 07/01/2018 shows neg x1 bottle, MRSA 1 bottle. Repeat cultures 07/06/18 are NGTD; TTE 07/01/2018 does not mention any vegetation - MRSA nasal colonization - Acute hypercarbic respiratory failure d/t tracheostomy dislodgement requiring oral intubation 07/01/2018 - Acute encephalopathy - Atrial fibrillation with intermittent RVR - CAD - H/o HTN - T2DM - HLD - Myasthenia gravis s/p recent thymectomy - Dysphagia s/p PEG - Depression - on Prozac at [facility] - Mild dementia - on Aricept at [facility] - Moderate protein calorie malnutrition - Hypernatremia- resolved - Anemia Recommendations: - Consider drainage of retrosternal fluid collection via surgery or CT guided drainage. - F/u the repeat blood cxs- so far ngtd - Continue vancomycin (06/30/2018-) - Continue mupirocin (07/06/2018-) to nares, bilateral axilla, groin, and anus for MRSA de-colonization - Continue chlorhexidine body wash daily - Continue local wound care of neck/upper chest lesion Patient seen in collaboration with Dr Miyasaki. Result Diagram: 07/12/18 0505 07/12/18 0505 Results 24hrs Laboratory Tests Test 07/11/18 23:40 07/12/18 05:05 07/12/18 06:24 07/12/18 09:19 Bedside Glucose 81 84 83 White Blood 6.8 Count Red Blood Count 2.94 L Hemoglobin 8.3 L Hematocrit 26.4 L Mean Corpuscular 89.8 Volume Mean Corpuscular 28.2 L Hemoglobin Mean Corpuscular 31.4 L Hemoglobin Fransisca nt Red Cell 15.1 H Distribution Width Platelet Count 346 Mean Platelet 11.5 H Volume Immature 1.200 H Granulocytes % Neutrophils % 66.3 Lymphocytes % 16.8 Monocytes % 9.1 Eosinophils % 6.2 Basophils % 0.4 Nucleated Red 0.0 Blood Cells % Immature 0.080 H Granulocytes # Neutrophils # 4.5 Lymphocytes # 1.1 Monocytes # 0.6 Eosinophils # 0.4 Basophils # 0.0 Nucleated Red 0.0 Blood Cells # Sodium Level 143 Potassium Level 3.5 Chloride Level 107 Carbon Dioxide 30 Level Anion Gap 6 Blood Urea 16 Nitrogen Creatinine 0.65 Est Glomerular Filtrat Rate mL/min Glucose Level 85 Calcium Level 7.8 L Phosphorus Level 3.8 Magnesium Level 2.1 Test 07/12/18 12:46 07/12/18 17:42 07/12/18 19:42 Bedside Glucose 114 113 117 Consultation Date/Type/Reason Admit Date/Time Jun 30, 2018 at 18:05 Initial Consult Date 07/02/18 Type of Consult ID Requesting Provider: ALE CHUN MD 24 HR Interval Summary Free Text/Dictation -afebrile - seems comfortable - no new issues reported overnight Subjective hx not possible: pt non-verbal Constitutional: requiring IVF, requiring O2 Exam/Review of Systems Vital Signs Vitals Vital Signs Date Temp Pulse Resp B/P (MAP) Pulse Ox O2 O2 Flow FiO2 Time Delivery Rate 07/12/18 65 18 86/49 (61) 100 Mechanical 22:00 Ventilator 07/12/18 30 20:17 07/12/18 98.8 19:30 Intake and Output 07/11/18 07/11/18 07/12/18 1414:59 22:59 06:59 IntakeIntake Total 350.875 ml 514.875 ml 996 ml OutputOutput Total 350 ml 570 ml 325 ml BalanceBalance 0.875 ml -55.125 ml 671 ml Exam Constitutional: non-verbal, frail Head: atraumatic Eyes: nl lids ENMT: nl external ears & nose Neck: other (trach intact) Respiratory: diminished breath sounds Cardiovascular: nl pulses, other (s1s2) Gastrointestinal: soft Musculoskeletal: muscle weakness, range of motion Extremities: normal pulses Neurological: unresponsive Medications Medications Current Medications Albuterol/ Ipratropium (Duoneb) 3 ml Q6H RESP THERAPY PRN HHN SHORTNESS OF BREATH Last administered on 07/02/18at 02:41; Admin Dose 3 ML; Start 06/30/18 at 23:00 Vancomycin HCl (Vanco Iv Per Pharmacy) VANCOMYCIN PER PHARMACY PER PROTOCOL XX ; Start 06/30/18 at 23:00 Acetaminophen (Tylenol Liquid) 650 mg Q4H PRN GTB MILD PAIN(1-3)OR ELEVATED TEMP; Start 06/30/18 at 23:00 Insulin Aspart (Novolog Insulin Pen) NOVOLOG *MILD* ALGORI... Q6H SC Last administered on 07/09/18at 00:07; Admin Dose 1 UNIT; Start 07/01/18 at 00:00 Diltiazem HCl (Cardizem Iv) 10 mg Q4H PRN IV for sustained HR>130 Last administered on 07/02/18at 17:05; Admin Dose 10 MG; Start 06/30/18 at 23:00 Lansoprazole (Prevacid) 30 mg DAILY@06 GTB Last administered on 07/12/18at 06:30; Admin Dose 30 MG; Start 07/01/18 at 09:00 Miscellaneous Information 1 ea NOTE XX ; Start 07/01/18 at 14:00 Glucose (Glutose) 15 gm Q15M PRN PO DECREASED GLUCOSE; Start 07/01/18 at 14:00 Glucose (Glutose) 22.5 gm Q15M PRN PO DECREASED GLUCOSE; Start 07/01/18 at 14:00 Dextrose (D50w Syringe) 25 ml Q15M PRN IV DECREASED GLUCOSE; Start 07/01/18 at 14:00 Dextrose (D50w Syringe) 50 ml Q15M PRN IV DECREASED GLUCOSE; Start 07/01/18 at 14:00 Glucagon (Glucagen) 1 mg Q15M PRN IM DECREASED GLUCOSE; Start 07/01/18 at 14:00 Glucose (Glutose) 15 gm Q15M PRN BUCCAL DECREASED GLUCOSE; Start 07/01/18 at 14:00 Atorvastatin Calcium (Lipitor) 10 mg HS GTB Last administered on 07/12/18 20:03; Admin Dose 10 MG; Start 07/01/18 at 21:00 Insulin Human NPH (Humulin N) 10 unit BID@08,20 SC Last administered on 07/12/18 20:05; Admin Dose 10 UNIT; Start 07/01/18 at 20:00 IV Flush (NS 10 ml) 10 ml PRN PRN IV IV PROTOCOL; Start 07/01/18 at 17:00 Apixaban (Eliquis) 2.5 mg BID PO Last administered on 07/12/18 20:03; Admin Dose 2.5 MG; Start 07/02/18 at 09:00 Docusate Sodium (Colace Liquid Cup) 100 mg BID GTB Last administered on 07/12/18 20:03; Admin Dose 100 MG; Start 07/04/18 at 10:00 Polyethylene Glycol (Miralax) 17 gm DAILY GTB Last administered on 07/12/18 09:24; Admin Dose 17 GM; Start 07/04/18 at 10:00 Mupirocin (Bactroban) 1 applic BID TOP Last administered on 07/12/18 20:10; Admin Dose 1 APPLIC; Start 07/06/18 at 09:00; Stop 07/16/18 at 08:59 Miscellaneous Information (Pending [facility] Order For Wound Care) This patient man... PRN PRN XX SLOUGH; Start 07/07/18 at 17:00 Vancomycin/Sodium Chloride 250 ml @ 125 mls/hr Q12H IVPB Last administered on 07/12/18 21:48; Admin Dose 125 MLS/HR; Start 07/11/18 at 10:00 Lorazepam (Ativan) 1 mg Q6H PRN IV AGITATION/ANXIETY Last administered on 07/12/18 21:00; Admin Dose 1 MG; Start 07/12/18 at 12:30 Morphine Sulfate (morphine) 2 mg Q4 PRN IV SEVERE PAIN LEVEL 7-10 Last administered on 07/12/18 17:43; Admin Dose 2 MG; Start 12/29/18 at 12:30 COREY LARIOS Jul 12, 2018 22:54
[2018-07-13] VITALS (26 sets, daily range): BP systolic 96–144; BP diastolic 54–99; PULSE 65–122; RESP 0–26
--- NOTE | 2018-07-13 01:44 | NUR ---
Report given to GUALBERTO Breaux from telemetry. All question answered.
--- NOTE | 2018-07-13 02:00 | NUR ---
Upon preparing patient transfer, patient appears restless with HR elevated >117, BP 140's. No sign of respiratory distress. Will await patient's HR to settle down before transfer. Addendum: 07/13/18 at 0239 by SHAD MESSER RN Charge nurse made and nursing supervisor records change made aware.
[2018-07-13] MEDS: LORAZEPAM 4 MG/ML VIAL IV PRN ×3 (02:31→15:03)
[2018-07-13] MEDS: LANSOPRAZOLE 30 MG CAP GTB SCH (05:22)
[2018-07-13] MEDS: INSULIN ASPART [NOVOLOG] 3 ML PEN SC SCH ×3 (05:27→18:00)
--- NOTE | 2018-07-13 06:17 | NUR ---
End of shift notes; Transferred in from ICU by bed accompanied by RN. Kept comfortable in bed. Reposition on sides. GT feeding of Diabetic source started. On same vent settings. Needs attended. Will continue to monitor . Endorsed to day shift RN.
--- NOTE | 2018-07-13 08:54 | NUR ---
JESICA NOTES: PT WAS A TRANSFERRED FROM ICU TO [facility]. PRIOR TO THE ADMISSION, PT CAME FROM [facility] [phone]. PT HAS A NEW TRACH. INFORMED ASSIGNED JESICA CASTRO TO MAKE REFERRALS TO [facility]. HE WILL FOLLOW UP. LIUDMILA BURRWOS CM [phone] Addendum: 07/13/18 at 0857 by LIUDMILA HESTER CM Amended: Links added.
[2018-07-13] MEDS: POLYETHYLENE GLYCOL 17 GM PACKET GTB SCH (09:00)
[2018-07-13] MEDS: DOCUSATE SODIUM 10 MG/ML (10ML CUP) GTB SCH ×2 (09:00→21:05)
--- NOTE | 2018-07-13 09:01 | CONS ---
Date/Time of Note Date/Time of Note DATE: 07/13/18 TIME: 08:59 Assessment/Plan Assessment/Plan Hospital Course Acute on chronic respiratory failure Atrial fibrillation with rapid ventricular rates, improved Preserved ejection fraction Hypotension off IV pressor Myasthenia gravis Assessment/Plan no change in cardiac care trach care rate improved Result Diagram: 07/12/18 0505 07/12/18 0505 Results 24hrs Laboratory Tests Test 07/12/18 09:19 07/12/18 12:46 07/12/18 17:42 07/12/18 19:42 Bedside Glucose 83 114 113 117 Test 07/12/18 23:37 07/13/18 05:27 Bedside Glucose 106 94 Consultation Date/Type/Reason Admit Date/Time Jun 30, 2018 at 18:05 Initial Consult Date 07/02/18 Type of Consult cv Requesting Provider: ALE CHUN MD 24 HR Interval Summary Free Text/Dictation on vent, no distress Subjective hx not possible: pt non-verbal Detailed Summary Respiratory: no complaints Cardiovascular: no complaints Gastrointestinal: no complaints Musculoskeletal: no complaints Skin: no complaints Neurologic: no complaints Exam/Review of Systems Vital Signs Vitals Vital Signs Date Temp Pulse Resp B/P (MAP) Pulse Ox O2 O2 Flow FiO2 Time Delivery Rate 07/13/18 99 08:56 07/13/18 98.9 22 129/94 100 Mechanical 08:27 (106) Ventilator 07/13/18 30 07:46 Intake and Output 07/12/18 07/12/18 07/13/18 1515:00 23:00 07:00 IntakeIntake Total 1089.5 ml 820 ml 480 ml OutputOutput Total 525 ml 270 ml 606 ml BalanceBalance 564.5 ml 550 ml -126 ml Exam Constitutional: non-verbal Head: normocephalic, atraumatic Neck: jvd Respiratory: clear to auscultation Cardiovascular: irregular rhythm Gastrointestinal: soft Musculoskeletal: nl extremities to inspection Medications Medications Current Medications Albuterol/ Ipratropium (Duoneb) 3 ml Q6H RESP THERAPY PRN HHN SHORTNESS OF BREATH Last administered on 07/02/18at 02:41; Admin Dose 3 ML; Start 06/30/18 at 23:00 Vancomycin HCl (Vanco Iv Per Pharmacy) VANCOMYCIN PER PHARMACY PER PROTOCOL XX ; Start 06/30/18 at 23:00 Acetaminophen (Tylenol Liquid) 650 mg Q4H PRN GTB MILD PAIN(1-3)OR ELEVATED TEMP; Start 06/30/18 at 23:00 Insulin Aspart (Novolog Insulin Pen) NOVOLOG *MILD* ALGORI... Q6H SC Last administered on 07/09/18at 00:07; Admin Dose 1 UNIT; Start 07/01/18 at 00:00 Diltiazem HCl (Cardizem Iv) 10 mg Q4H PRN IV for sustained HR>130 Last administered on 07/02/18at 17:05; Admin Dose 10 MG; Start 06/30/18 at 23:00 Lansoprazole (Prevacid) 30 mg DAILY@06 GTB Last administered on 07/13/18at 05:22; Admin Dose 30 MG; Start 07/01/18 at 09:00 Miscellaneous Information 1 ea NOTE XX ; Start 07/01/18 at 14:00 Glucose (Glutose) 15 gm Q15M PRN PO DECREASED GLUCOSE; Start 07/01/18 at 14:00 Glucose (Glutose) 22.5 gm Q15M PRN PO DECREASED GLUCOSE; Start 07/01/18 at 14:00 Dextrose (D50w Syringe) 25 ml Q15M PRN IV DECREASED GLUCOSE; Start 07/01/18 at 14:00 Dextrose (D50w Syringe) 50 ml Q15M PRN IV DECREASED GLUCOSE; Start 07/01/18 at 14:00 Glucagon (Glucagen) 1 mg Q15M PRN IM DECREASED GLUCOSE; Start 07/01/18 at 14: 00 Glucose (Glutose) 15 gm Q15M PRN BUCCAL DECREASED GLUCOSE; Start 07/01/18 at 14:00 Atorvastatin Calcium (Lipitor) 10 mg HS GTB Last administered on 07/12/18at 20:03; Admin Dose 10 MG; Start 07/01/18 at 21:00 Insulin Human NPH (Humulin N) 10 unit BID@08,20 SC Last administered on 07/12/18at 20:05; Admin Dose 10 UNIT; Start 07/01/18 at 20:00 IV Flush (NS 10 ml) 10 ml PRN PRN IV IV PROTOCOL; Start 07/01/18 at 17:00 Apixaban (Eliquis) 2.5 mg BID PO Last administered on 07/12/18at 20:03; Admin Dose 2.5 MG; Start 07/02/18 at 09:00 Docusate Sodium (Colace Liquid Cup) 100 mg BID GTB Last administered on 07/12/18 20:03; Admin Dose 100 MG; Start 07/04/18 at 10:00 Polyethylene Glycol (Miralax) 17 gm DAILY GTB Last administered on 07/12/18 09:24; Admin Dose 17 GM; Start 07/04/18 at 10:00 Mupirocin (Bactroban) 1 applic BID TOP Last administered on 07/12/18 20:10; Admin Dose 1 APPLIC; Start 07/06/18 at 09:00; Stop 07/16/18 at 08:59 Miscellaneous Information (Pending [facility] Order For Wound Care) This patient man... PRN PRN XX SLOUGH; Start 07/07/18 at 17:00 Vancomycin/Sodium Chloride 250 ml @ 125 mls/hr Q12H IVPB Last administered on 07/12/18 21:48; Admin Dose 125 MLS/HR; Start 07/11/18 at 10:00 Lorazepam (Ativan) 1 mg Q6H PRN IV AGITATION/ANXIETY Last administered on 07/13/18 02:31; Admin Dose 1 MG; Start 07/12/18 at 12:30 Morphine Sulfate (morphine) 2 mg Q4 PRN IV SEVERE PAIN LEVEL 7-10 Last administered on 07/12/18 23:08; Admin Dose 2 MG; Start 07/12/18 at 12:30 CARLEY WANG MD Jul 13, 2018 09:01
[2018-07-13] MEDS: APIXABAN 5 MG TABLET PO SCH ×2 (09:52→21:05)
[2018-07-13] MEDS: BALSAM PERU/CASTOR OIL 60 GM TUBE TOP SCH ×2 (09:53→21:05)
[2018-07-13] MEDS: MUPIROCIN 2% 22 GM OINT TOP SCH (09:53)
[2018-07-13] MEDS: NPH, HUMAN INSULIN ISOPHANE 3ML VIAL SC SCH ×2 (09:56→21:48)
[2018-07-13] MEDS: VANCOMYCIN 750 MG (PMX) 250 ML IVPB SCH ×2 (10:54→22:09)
--- NOTE | 2018-07-13 13:17 | PN ---
Date/Time of Note Date/Time of Note DATE: 07/13/18 TIME: 13:17 Assessment/Plan VTE Prophylaxis Risk score (from Ns)>0 risk: 10 SCD applied (from Ns): Yes Pharmacological prophylaxis: LMWH Lines/Catheters IV Catheter Type (from Nrs): PICC Line Central line still needed: Yes Urinary Cath still in place: Yes Reason Cath still needed: skin wounds contaminated by urine Assessment/Plan Hospital Course 1. Acute encephalopathy, improved. The patient is approaching his baseline. Continue to monitor closely. No sedative at this time. 2. Elevated white count; however, patient has no fever. - per ID - cont vancomycin and meropenem - pending result of urine and blood culture. 3. Atrial fibrillation. The patient after admission went into rapid ventricular response and had to be started on Cardizem and Eliquis. We will keep patient on telemetry. 4. Acute hypoxemic and hypercarbic respiratory failure. - PER pulmonary consult with Dr. Mustafa 5. Dysphagia. Continue G-tube feeding. 6. Diabetes. 7. Myasthenia gravis, status post thymectomy. 8. Dyslipidemia. The patient used to be on Lipitor. Again, the medication list from the [facility] facility has not been received. Continue Lipitor. 9. Hypertension and coronary artery disease. Continue metoprolol and p.r.n. IV diltiazem. 10. The patient apparently also has history of depression. We will resume Prozac. 11. The patient has mild dementia. We will continue Aricept. Result Diagram: 07/12/18 0505 07/12/18 0505 Results 24hrs Laboratory Tests Test 07/12/18 17:42 07/12/18 19:42 07/12/18 23:37 07/13/18 05:27 Bedside Glucose 113 117 106 94 Test 07/13/18 11:42 Bedside Glucose 104 Subjective 24 Hr Interval Summary Free Text/Dictation Patient has no complaints Exam/Review of Systems Vital Signs Vitals Vital Signs Date Temp Pulse Resp B/P (MAP) Pulse Ox O2 O2 Flow FiO2 Time Delivery Rate 07/13/18 65 12:35 07/13/18 97.8 18 101/61 100 Mechanical 11:12 (74) Ventilator 07/13/18 30 11:04 Intake and Output 07/12/18 07/12/18 07/13/18 1515:00 23:00 07:00 IntakeIntake Total 1089.5 ml 820 ml 480 ml OutputOutput Total 525 ml 270 ml 606 ml BalanceBalance 564.5 ml 550 ml -126 ml Exam Constitutional: well developed Head: normocephalic, atraumatic Neck: supple Respiratory: diminished breath sounds Cardiovascular: regular rate and rhythm Gastrointestinal: soft, non-tender Extremities: normal pulses Medications Medications Current Medications Albuterol/ Ipratropium (Duoneb) 3 ml Q6H RESP THERAPY PRN HHN SHORTNESS OF BREATH Last administered on 07/02/18at 02:41; Admin Dose 3 ML; Start 06/30/18 at 23:00 Vancomycin HCl (Vanco Iv Per Pharmacy) VANCOMYCIN PER PHARMACY PER PROTOCOL XX ; Start 06/30/18 at 23:00 Acetaminophen (Tylenol Liquid) 650 mg Q4H PRN GTB MILD PAIN(1-3)OR ELEVATED TEMP; Start 06/30/18 at 23:00 Insulin Aspart (Novolog Insulin Pen) NOVOLOG *MILD* ALGORI... Q6H SC Last administered on 07/09/18at 00:07; Admin Dose 1 UNIT; Start 07/01/18 at 00:00 Diltiazem HCl (Cardizem Iv) 10 mg Q4H PRN IV for sustained HR>130 Last administered on 07/02/18at 17:05; Admin Dose 10 MG; Start 06/30/18 at 23:00 Lansoprazole (Prevacid) 30 mg DAILY@06 GTB Last administered on 07/13/18at 05:22; Admin Dose 30 MG; Start 07/01/18 at 09:00 Miscellaneous Information 1 ea NOTE XX ; Start 07/01/18 at 14:00 Glucose (Glutose) 15 gm Q15M PRN PO DECREASED GLUCOSE; Start 07/01/18 at 14:00 Glucose (Glutose) 22.5 gm Q15M PRN PO DECREASED GLUCOSE; Start 07/01/18 at 14:00 Dextrose (D50w Syringe) 25 ml Q15M PRN IV DECREASED GLUCOSE; Start 07/01/18 at 14:00 Dextrose (D50w Syringe) 50 ml Q15M PRN IV DECREASED GLUCOSE; Start 07/01/18 at 14:00 Glucagon (Glucagen) 1 mg Q15M PRN IM DECREASED GLUCOSE; Start 07/01/18 at 14:00 Glucose (Glutose) 15 gm Q15M PRN BUCCAL DECREASED GLUCOSE; Start 07/01/18 at 14:00 Atorvastatin Calcium (Lipitor) 10 mg HS GTB Last administered on 07/12/18 20:03; Admin Dose 10 MG; Start 07/01/18 at 21:00 Insulin Human NPH (Humulin N) 10 unit BID@08,20 SC Last administered on 07/13/18 09:56; Admin Dose 10 UNIT; Start 07/01/18 at 20:00 IV Flush (NS 10 ml) 10 ml PRN PRN IV IV PROTOCOL; Start 07/01/18 at 17:00 Apixaban (Eliquis) 2.5 mg BID PO Last administered on 07/13/18 09:52; Admin Dose 2.5 MG; Start 07/02/18 at 09:00 Docusate Sodium (Colace Liquid Cup) 100 mg BID GTB Last administered on 07/12/18 20:03; Admin Dose 100 MG; Start 07/04/18 at 10:00 Polyethylene Glycol (Miralax) 17 gm DAILY GTB Last administered on 07/12/18 09:24; Admin Dose 17 GM; Start 07/04/18 at 10:00 Mupirocin (Bactroban) 1 applic BID TOP Last administered on 07/13/18 09:53; Admin Dose 1 APPLIC; Start 07/06/18 at 09:00; Stop 07/16/18 at 08:59 Miscellaneous Information (Pending [facility] Order For Wound Care) This patient man... PRN PRN XX SLOUGH; Start 07/07/18 at 17:00 Vancomycin/Sodium Chloride 250 ml @ 125 mls/hr Q12H IVPB Last administered on 07/13/18 10:54; Admin Dose 125 MLS/HR; Start 07/11/18 at 10:00 Lorazepam (Ativan) 1 mg Q6H PRN IV AGITATION/ANXIETY Last administered on 07/13/18 09:52; Admin Dose 1 MG; Start 07/12/18 at 12:30 Morphine Sulfate (morphine) 2 mg Q4 PRN IV SEVERE PAIN LEVEL 7-10 Last administered on 07/12/18 23:08; Admin Dose 2 MG; Start 07/12/18 at 12:30 Miscellaneous Information (*Rx Drug Level Order Reminder*) VANCO TROUGH @ 0,900 ONCE ONCE XX ; Start 07/14/18 at 09:00; Stop 07/14/18 at 09:01 LISA JAVIER Jul 13, 2018 13:17
--- NOTE | 2018-07-13 14:24 | CONS ---
Date/Time of Note Date/Time of Note DATE: 07/13/18 TIME: 14:23 Consult Date/Type/Reason Admit Date/Time Jun 30, 2018 at 18:05 Initial Consult Date 07/02/18 Type of Consultation: Pulmonary ICU Requesting Provider: ALE CHUN MD Subjective No events[facility] Objective Vital Signs Date Temp Pulse Resp B/P (MAP) Pulse Ox O2 O2 Flow FiO2 Time Delivery Rate 07/13/18 65 12:35 07/13/18 97.8 18 101/61 100 Mechanical 11:12 (74) Ventilator 07/13/18 30 11:04 Intake and Output 07/12/18 07/12/18 07/13/18 1414:59 22:59 06:59 IntakeIntake Total 1051.5 ml 695 ml 655 ml OutputOutput Total 450 ml 315 ml 636 ml BalanceBalance 601.5 ml 380 ml 19 ml Exam GENERAL: Elderly gentleman with trach in place VITAL SIGNS: per chart NECK: Supple. No JVD or lymphadenopathy. CARDIAC EXAM: S1, S2. No added sounds or murmurs. CHEST: Diminished air entry bilaterally ABDOMEN: Soft, nontender. No guarding or rebound. EXTREMITIES: No cyanosis, clubbing or edema. NEUROLOGIC: Generalized weakness. No focal deficits. Results/Medications Result Diagram: 07/12/18 0505 07/12/18 0505 Results 24 hrs Laboratory Tests Test 07/12/18 17:42 07/12/18 19:42 07/12/18 23:37 07/13/18 05:27 Bedside Glucose 113 117 106 94 Test 07/13/18 11:42 Bedside Glucose 104 Medications Current Medications Albuterol/ Ipratropium (Duoneb) 3 ml Q6H RESP THERAPY PRN HHN SHORTNESS OF BREATH Last administered on 07/02/18at 02:41; Admin Dose 3 ML; Start 06/30/18 at 23:00 Vancomycin HCl (Vanco Iv Per Pharmacy) VANCOMYCIN PER PHARMACY PER PROTOCOL XX ; Start 06/30/18 at 23:00 Acetaminophen (Tylenol Liquid) 650 mg Q4H PRN GTB MILD PAIN(1-3)OR ELEVATED TEMP; Start 06/30/18 at 23:00 Insulin Aspart (Novolog Insulin Pen) NOVOLOG *MILD* ALGORI... Q6H SC Last administered on 07/09/18at 00:07; Admin Dose 1 UNIT; Start 07/01/18 at 00:00 Diltiazem HCl (Cardizem Iv) 10 mg Q4H PRN IV for sustained HR>130 Last ad ministered on 07/02/18at 17:05; Admin Dose 10 MG; Start 06/30/18 at 23:00 Lansoprazole (Prevacid) 30 mg DAILY@06 GTB Last administered on 07/13/18at 05:22; Admin Dose 30 MG; Start 07/01/18 at 09:00 Miscellaneous Information 1 ea NOTE XX ; Start 07/01/18 at 14:00 Glucose (Glutose) 15 gm Q15M PRN PO DECREASED GLUCOSE; Start 07/01/18 at 14:00 Glucose (Glutose) 22.5 gm Q15M PRN PO DECREASED GLUCOSE; Start 07/01/18 at 14:00 Dextrose (D50w Syringe) 25 ml Q15M PRN IV DECREASED GLUCOSE; Start 07/01/18 at 14:00 Dextrose (D50w Syringe) 50 ml Q15M PRN IV DECREASED GLUCOSE; Start 07/01/18 at 14:00 Glucagon (Glucagen) 1 mg Q15M PRN IM DECREASED GLUCOSE; Start 07/01/18 at 14:00 Glucose (Glutose) 15 gm Q15M PRN BUCCAL DECREASED GLUCOSE; Start 07/01/18 at 14:00 Atorvastatin Calcium (Lipitor) 10 mg HS GTB Last administered on 07/12/18at 20:03; Admin Dose 10 MG; Start 07/01/18 at 21:00 Insulin Human NPH (Humulin N) 10 unit BID@08,20 SC Last administered on 07/13/18at 09:56; Admin Dose 10 UNIT; Start 07/01/18 at 20:00 IV Flush (NS 10 ml) 10 ml PRN PRN IV IV PROTOCOL; Start 07/01/18 at 17:00 Apixaban (Eliquis) 2.5 mg BID PO Last administered on 07/13/18at 09:52; Admin Dose 2.5 MG; Start 07/02/18 at 09:00 Docusate Sodium (Colace Liquid Cup) 100 mg BID GTB Last administered on 07/12/18at 20:03; Admin Dose 100 MG; Start 07/04/18 at 10:00 Polyethylene Glycol (Miralax) 17 gm DAILY GTB Last administered on 07/12/18at 09:24; Admin Dose 17 GM; Start 07/04/18 at 10:00 Mupirocin (Bactroban) 1 applic BID TOP Last administered on 07/13/18at 09:53; Admin Dose 1 APPLIC; Start 07/06/18 at 09:00; Stop 07/16/18 at 08:59 Miscellaneous Information (Pending [facility] Order For Wound Care) This patient man... PRN PRN XX SLOUGH; Start 07/07/18 at 17:00 Vancomycin/Sodium Chloride 250 ml @ 125 mls/hr Q12H IVPB Last administered on 07/13/18at 10:54; Admin Dose 125 MLS/HR; Start 07/11/18 at 10:00 Lorazepam (Ativan) 1 mg Q6H PRN IV AGITATION/ANXIETY Last administered on 07/13/18at 09:52; Admin Dose 1 MG; Start 07/12/18 at 12:30 Morphine Sulfate (morphine) 2 mg Q4 PRN IV SEVERE PAIN LEVEL 7-10 Last administered on 07/12/18at 23:08; Admin Dose 2 MG; Start 07/12/18 at 12:30 Miscellaneous Information (*Rx Drug Level Order Reminder*) VANCO TROUGH @ 0,900 ONCE ONCE XX ; Start 07/14/18 at 09:00; Stop 07/14/18 at 09:01 Assessment/Plan Additional Assessment/Plan IMP: 1. Acute hypoxemic respiratory failure--s/p trach 2. Encephalopathy with possible underlying dementia 3. Dysphagia with G-tube 4. Anemia likely of chronic disease rule out GI bleed 5. Septic shock with sternal abscess, MRSA 6. Chronic atrial fibrillation RECS: 1. Trach care 2. Continue tube feeding as tolerated 3. Antibiotics and wound care 4. Maintain off sedation 5. Monitor in tele MOMO LOTT MD Jul 13, 2018 14:24
--- NOTE | 2018-07-13 18:31 | PN ---
Date/Time of Note Date/Time of Note DATE: 07/13/18 TIME: 18:30 Assessment/Plan Lines/Catheters IV Catheter Type (from Nrsg): PICC Line Flanagan in Place (from Nrsg): Yes Assessment/Plan Assessment/Plan Respiratory failure Status post tracheostomy Tracheostomy site is clean no evidence of any bleeding Continue vent support Trach care Pulm toilet Subjective 24 Hr Interval Summary Constitutional: improved Pain Control: mild Exam/Review of Systems Vital Signs Vitals Vital Signs Date Temp Pulse Resp B/P (MAP) Pulse Ox O2 O2 Flow FiO2 Time Delivery Rate 07/13/18 101 20 97 30 17:12 07/13/18 97.6 132/99 Mechanical 16:00 (110) Ventilator Intake and Output 07/12/18 07/12/18 07/13/18 1515:00 23:00 07:00 IntakeIntake Total 1089.5 ml 820 ml 480 ml OutputOutput Total 525 ml 270 ml 606 ml BalanceBalance 564.5 ml 550 ml -126 ml Exam ENMT: nl external ears & nose, nl lips & teeth, nl nasal mucosa & septum, mucosa pink and moist Neck: supple, non-tender Respiratory: clear to auscultation, normal air movement Cardiovascular: regular rate and rhythm, nl pulses Gastrointestinal: soft, nl liver, spleen, non-tender Musculoskeletal: nl extremities to inspection, nl gait and stance Results Result Diagram: 07/12/18 0505 07/12/18 0505 MEHREEN HARRELL MD Jul 13, 2018 18:31
[2018-07-13] MEDS: DILTIAZEM 25 MG INJ IV PRN (19:27)
--- NOTE | 2018-07-13 20:22 | CONS ---
Date/Time of Note Date/Time of Note DATE: 07/13/18 TIME: 20:21 Assessment/Plan Assessment/Plan Hospital Course - S/p septic shock due to skin and soft tissue infection of the chest wall, resolved - skin and soft tissue infection of the chest wall due to MRSA - s/p MRSA bacteremia associated with skin and soft tissue infection. Repeat blood culture on 07/01/2018 showed neg x1 bottle, and MRSA x1 bottle. Repeat cultures 07/06/2018 were negative. transthoracic echo on 07/01/2018 does not mention any vegetation - UTI due to MRSA vs. colonization of the urinary tract by MRSA - MRSA nasal colonization - s/p acute hypercarbic respiratory failure due to tracheostomy dislodgement requiring oral intubation 07/01/2018->extubated - s/p acute on chronic encephalopathy - Atrial fibrillation with intermittent RVR - CAD - H/o HTN - T2DM - HLD - Myasthenia gravis - s/p thymectomy - dysphagia - h/o PEG placement - depression - on Prozac at [facility] - Mild dementia - on Aricept at [facility] - Moderate protein calorie malnutrition - Hypernatremia- resolved - Anemia Recommendations: - consider drainage of retrosternal fluid collection - continue vancomycin (06/30/2018-); Pt needs minimal 2 weeks of vancomycin from 07/06/2018 and continue until the fluid collection resolves - end mupirocin (07/06/2018-) today - continue chlorhexidine body wash daily Result Diagram: 07/12/18 0505 07/12/18 0505 Results 24hrs Laboratory Tests Test 07/12/18 23:37 07/13/18 05:27 07/13/18 11:42 07/13/18 18:18 Bedside Glucose 106 94 104 105 Consultation Date/Type/Reason Admit Date/Time Jun 30, 2018 at 18:05 Initial Consult Date 07/02/18 Requesting Provider: ALE CHUN MD 24 HR Interval Summary Subjective hx not possible: pt non-verbal Exam/Review of Systems Vital Signs Vitals Vital Signs Date Temp Pulse Resp B/P (MAP) Pulse Ox O2 O2 Flow FiO2 Time Delivery Rate 07/13/18 30 20:07 07/13/18 106 18 144/87 98 18:00 (106) 07/13/18 97.6 Mechanical 16:00 Ventilator Intake and Output 07/12/18 07/12/18 07/13/18 1515:00 23:00 07:00 IntakeIntake Total 1089.5 ml 820 ml 480 ml OutputOutput Total 525 ml 270 ml 606 ml BalanceBalance 564.5 ml 550 ml -126 ml Exam Constitutional: non-verbal, frail, other (restless) Psych: confusion Head: normocephalic, atraumatic Eyes: nl conjunctiva, nl lids, other (dry mucus membranes) ENMT: nl external ears & nose, nl nasal mucosa & septum Neck: other (not swollen, trach) Respiratory: diminished breath sounds, other (+sternal wound site is dressed, non-TTP) Cardiovascular: regular rate and rhythm, nl pulses Gastrointestinal: soft, non-tender, other (GT in place) Genitourinary - Male: other (FC) Musculoskeletal: No swelling Extremities: edema (e/l UEs) Neurological: confused, lethargic Skin: ecchymosis, other (superficial skin peeling) Medications Medications Current Medications Albuterol/ Ipratropium (Duoneb) 3 ml Q6H RESP THERAPY PRN HHN SHORTNESS OF BREATH Last administered on 07/02/18at 02:41; Admin Dose 3 ML; Start 06/30/18 at 23:00 Vancomycin HCl (Vanco Iv Per Pharmacy) VANCOMYCIN PER PHARMACY PER PROTOCOL XX ; Start 06/30/18 at 23:00 Acetaminophen (Tylenol Liquid) 650 mg Q4H PRN GTB MILD PAIN(1-3)OR ELEVATED TEMP; Start 06/30/18 at 23:00 Insulin Aspart (Novolog Insulin Pen) NOVOLOG *MILD* ALGORI... Q6H SC Last administered on 07/09/18at 00:07; Admin Dose 1 UNIT; Start 07/01/18 at 00:00 Diltiazem HCl (Cardizem Iv) 10 mg Q4H PRN IV for sustained HR>130 Last administered on 07/13/18at 19:27; Admin Dose 10 MG; Start 06/30/18 at 23:00 Lansoprazole (Prevacid) 30 mg DAILY@06 GTB Last administered on 07/13/18at 05:22; Admin Dose 30 MG; Start 07/01/18 at 09:00 Miscellaneous Information 1 ea NOTE XX ; Start 07/01/18 at 14:00 Glucose (Glutose) 15 gm Q15M PRN PO DECREASED GLUCOSE; Start 07/01/18 at 14:00 Glucose (Glutose) 22.5 gm Q15M PRN PO DECREASED GLUCOSE; Start 07/01/18 at 14:00 Dextrose (D50w Syringe) 25 ml Q15M PRN IV DECREASED GLUCOSE; Start 07/01/18 at 14:00 Dextrose (D50w Syringe) 50 ml Q15M PRN IV DECREASED GLUCOSE; Start 07/01/18 at 14:00 Glucagon (Glucagen) 1 mg Q15M PRN IM DECREASED GLUCOSE; Start 07/01/18 at 14:00 Glucose (Glutose) 15 gm Q15M PRN BUCCAL DECREASED GLUCOSE; Start 07/01/18 at 14:00 Atorvastatin Calcium (Lipitor) 10 mg HS GTB Last administered on 07/12/18at 20:03; Admin Dose 10 MG; Start 07/01/18 at 21:00 Insulin Human NPH (Humulin N) 10 unit BID@08,20 SC Last administered on 07/13/18 09:56; Admin Dose 10 UNIT; Start 07/01/18 at 20:00 IV Flush (NS 10 ml) 10 ml PRN PRN IV IV PROTOCOL; Start 07/01/18 at 17:00 Apixaban (Eliquis) 2.5 mg BID PO Last administered on 07/13/18 09:52; Admin Dose 2.5 MG; Start 07/02/18 at 09:00 Docusate Sodium (Colace Liquid Cup) 100 mg BID GTB Last administered on 07/12/18 20:03; Admin Dose 100 MG; Start 07/04/18 at 10:00 Polyethylene Glycol (Miralax) 17 gm DAILY GTB Last administered on 07/12/18 09:24; Admin Dose 17 GM; Start 07/04/18 at 10:00 Mupirocin (Bactroban) 1 applic BID TOP Last administered on 07/13/18 09:53; Admin Dose 1 APPLIC; Start 07/06/18 at 09:00; Stop 07/16/18 at 08:59 Miscellaneous [facility] This patient man... PRN PRN XX SLOUGH; Start 07/07/18 at 17:00 Vancomycin/Sodium Chloride 250 ml @ 125 mls/hr Q12H IVPB Last administered on 07/13/18at 10:54; Admin Dose 125 MLS/HR; Start 07/11/18 at 10:00 Lorazepam (Ativan) 1 mg Q6H PRN IV AGITATION/ANXIETY Last administered on 07/13/18at 15:03; Admin Dose 1 MG; Start 07/12/18 at 12:30 Morphine Sulfate (morphine) 2 mg Q4 PRN IV SEVERE PAIN LEVEL 7-10 Last adm inistered on 07/12/18at 23:08; Admin Dose 2 MG; Start 07/12/18 at 12:30 Miscellaneous Information (*Rx Drug Level Order Reminder*) VANCO TROUGH @ 0,900 ONCE ONCE XX ; Start 07/14/18 at 09:00; Stop 07/14/18 at 09:01 DHEERAJ FARIAS M.D. Jul 13, 2018 20:22
[2018-07-13] MEDS: ATORVASTATIN 10 MG TAB GTB SCH (21:05)
[2018-07-14] VITALS (23 sets, daily range): BP systolic 116–151; BP diastolic 61–96; PULSE 66–110; RESP 18–31
[2018-07-14] MEDS: LORAZEPAM 4 MG/ML VIAL IV PRN (03:17)
[2018-07-14] MEDS: INSULIN ASPART [NOVOLOG] 3 ML PEN SC SCH ×4 (06:00→17:40)
[2018-07-14] MEDS: LANSOPRAZOLE 30 MG CAP GTB SCH (06:03)
--- NOTE | 2018-07-14 06:53 | NUR ---
End of shift notes: Vital signs stable, but pt was so agitated, ativan 1 mg given but it seems it didnt help at all. Reposition every 2 hrs. Pt was almost up all nights. Keep safe and free form injury. Will continue to monitor. orders reviewed and acknowledged.
--- NOTE | 2018-07-14 09:54 | NUR ---
Restraint of the patient was not renewed. Re-order.
[2018-07-14] MEDS: APIXABAN 5 MG TABLET PO SCH (10:23)
[2018-07-14] MEDS: BALSAM PERU/CASTOR OIL 60 GM TUBE TOP SCH (10:23)
[2018-07-14] MEDS: POLYETHYLENE GLYCOL 17 GM PACKET GTB SCH (10:23)
[2018-07-14] MEDS: DOCUSATE SODIUM 10 MG/ML (10ML CUP) GTB SCH (10:23)
--- NOTE | 2018-07-14 10:36 | PN ---
Date/Time of Note Date/Time of Note DATE: 07/14/18 TIME: 10:35 Assessment/Plan Lines/Catheters IV Catheter Type (from Nrsg): PICC Line Flanagan in Place (from Nrsg): Yes Assessment/Plan Assessment/Plan Respiratory failure Status post tracheostomy Tracheostomy site is clean no evidence of any bleeding Continue vent support Trach care Pulm toilet Subjective 24 Hr Interval Summary Constitutional: improved Pain Control: mild Exam/Review of Systems Vital Signs Vitals Vital Signs Date Temp Pulse Resp B/P (MAP) Pulse Ox O2 O2 Flow FiO2 Time Delivery Rate 07/14/18 97.5 93 22 126/78 100 Mechanical 09:00 (94) Ventilator 07/14/18 30 07:55 Intake and Output 07/13/18 07/13/18 07/14/18 1515:00 23:00 07:00 IntakeIntake Total 250 ml 1000 ml OutputOutput Total 800 ml BalanceBalance 250 ml 200 ml Exam ENMT: nl external ears & nose, nl lips & teeth, nl nasal mucosa & septum, mucosa pink and moist Neck: supple, non-tender Respiratory: clear to auscultation, normal air movement Cardiovascular: regular rate and rhythm, nl pulses Gastrointestinal: soft, nl liver, spleen, non-tender Musculoskeletal: nl extremities to inspection, nl gait and stance Results Result Diagram: 07/12/18 0505 07/12/18 0505 MEHREEN HARRELL MD Jul 14, 2018 10:36
[2018-07-14] MEDS: NPH, HUMAN INSULIN ISOPHANE 3ML VIAL SC SCH (10:37)
--- NOTE | 2018-07-14 11:02 | NUR ---
Vancomycin per Rx Vancomycin trough = 16.9 SCr 0.65 Continue Vancomycin 750 mg IV q12h
[2018-07-14] MEDS: VANCOMYCIN 750 MG (PMX) 250 ML IVPB SCH (12:07)
--- NOTE | 2018-07-14 12:32 | CONS ---
Date/Time of Note Date/Time of Note DATE: 07/14/18 TIME: : Consult Date/Type/Reason Admit Date/Time Jun 30, 2018 at 18:05 Initial Consult Date 07/02/18 Type of Consultation: Pulmonary ICU Requesting Provider: ALE CHUN MD Subjective Remains stable, no overnight events. Objective Vital Signs Date Temp Pulse Resp B/P (MAP) Pulse Ox O2 O2 Flow FiO2 Time Delivery Rate 07/14/18 108 12:19 07/14/18 96.8 20 123/83 100 Mechanical 12:04 (96) Ventilator 07/14/18 30 07:55 Intake and Output 07/13/18 07/13/18 07/14/18 1414:59 22:59 06:59 IntakeIntake Total 250 ml 1000 ml OutputOutput Total 800 ml BalanceBalance 250 ml 200 ml Exam GENERAL: Elderly gentleman comfortable at rest no acute distress VITAL SIGNS: per chart NECK: Supple. No JVD or lymphadenopathy. CARDIAC EXAM: S1, S2. No added sounds or murmurs. CHEST: clear bilaterally, No added sounds, rales or wheezes ABDOMEN: Soft, nontender. No guarding or rebound. EXTREMITIES: No cyanosis, clubbing or edema. NEUROLOGIC: Generalized weakness. No focal deficits. Results/Medications Result Diagram: 07/12/18 0505 07/12/18 0505 Results 24 hrs Laboratory Tests Test 07/13/18 18:18 07/13/18 21:29 07/14/18 01:30 07/14/18 06:02 Bedside Glucose 105 111 125 139 Test 07/14/18 09:41 07/14/18 10:14 07/14/18 12:28 Vancomycin Level 16.9 Trough Bedside Glucose 144 134 Medications Current Medications Albuterol/ Ipratropium (Duoneb) 3 ml Q6H RESP THERAPY PRN HHN SHORTNESS OF BREATH Last administered on 07/02/18at 02:41; Admin Dose 3 ML; Start 06/30/18 at 23:00 Vancomycin HCl (Vanco Iv Per Pharmacy) VANCOMYCIN PER PHARMACY PER PROTOCOL XX ; Start 06/30/18 at 23:00 Acetaminophen (Tylenol Liquid) 650 mg Q4H PRN GTB MILD PAIN(1-3)OR ELEVATED TEMP; Start 06/30/18 at 23:00 Insulin Aspart (Novolog Insulin Pen) NOVOLOG *MILD* ALGORI... Q6H SC Last administered on 07/09/18at 00:07; Admin Dose 1 UNIT; Start 07/01/18 at 00:00 Diltiazem HCl (Cardizem Iv) 10 mg Q4H PRN IV for sustained HR>130 Last administered on 07/13/18at 19:27; Admin Dose 10 MG; Start 06/30/18 at 23:00 Lansoprazole (Prevacid) 30 mg DAILY@06 GTB Last administered on 07/14/18at 06:03; Admin Dose 30 MG; Start 07/01/18 at 09:00 Miscellaneous Information 1 ea NOTE XX ; Start 07/01/18 at 14:00 Glucose (Glutose) 15 gm Q15M PRN PO DECREASED GLUCOSE; Start 07/01/18 at 14:00 Glucose (Glutose) 22.5 gm Q15M PRN PO DECREASED GLUCOSE; Start 07/01/18 at 14:00 Dextrose (D50w Syringe) 25 ml Q15M PRN IV DECREASED GLUCOSE; Start 07/01/18 at 14:00 Dextrose (D50w Syringe) 50 ml Q15M PRN IV DECREASED GLUCOSE; Start 07/01/18 at 14:00 Glucagon (Glucagen) 1 mg Q15M PRN IM DECREASED GLUCOSE; Start 07/01/18 at 14:00 Glucose (Glutose) 15 gm Q15M PRN BUCCAL DECREASED GLUCOSE; Start 07/01/18 at 14:00 Atorvastatin Calcium (Lipitor) 10 mg HS GTB Last administered on 07/13/18at 21:05; Admin Dose 10 MG; Start 07/01/18 at 21:00 Insulin Human NPH (Humulin N) 10 unit BID@08,20 SC Last administered on 07/14/18at 10:37; Admin Dose 10 UNIT; Start 07/01/18 at 20:00 IV Flush (NS 10 ml) 10 ml PRN PRN IV IV PROTOCOL; Start 07/01/18 at 17:00 Apixaban (Eliquis) 2.5 mg BID PO Last administered on 07/14/18at 10:23; Admin Dose 2.5 MG; Start 07/02/18 at 09:00 Docusate Sodium (Colace Liquid Cup) 100 mg BID GTB Last administered on 07/14/18at 10:23; Admin Dose 100 MG; Start 07/04/18 at 10:00 Polyethylene Glycol (Miralax) 17 gm DAILY GTB Last administered on 07/14/18at 10:23; Admin Dose 17 GM; Start 07/04/18 at 10:00 Miscellaneous Information (Pending [facility] Order For Wound Care) This patient man... PRN PRN XX SLOUGH; Start 07/07/18 at 17:00 Vancomycin/Sodium Chloride 250 ml @ 125 mls/hr Q12H IVPB Last administered on 07/14/18at 12:07; Admin Dose 125 MLS/HR; Start 07/11/18 at 10:00 Lorazepam (Ativan) 1 mg Q6H PRN IV AGITATION/ANXIETY Last administered on 07/14/18at 03:17; Admin Dose 1 MG; Start 07/12/18 at 12:30 Morphine Sulfate (morphine) 2 mg Q4 PRN IV SEVERE PAIN LEVEL 7-10 Last administered on 07/12/18at 23:08; Admin Dose 2 MG; Start 07/12/18 at 12:30 Assessment/Plan Chief Complaint/Hosp Course IMP: 1. Acute hypoxemic respiratory failure--s/p trach 2. Encephalopathy with possible underlying dementia 3. Dysphagia with G-tube 4. Anemia likely of chronic disease rule out GI bleed 5. Septic shock with sternal abscess, MRSA 6. Chronic atrial fibrillation RECS: 1. Trach care 2. Continue tube feeding as tolerated 3. Antibiotics and wound care 4. Maintain off sedation 5. Monitor in tele [place] transfer MIRIAM NÚÑEZ MD, [facility] Jul 14, 2018 12:32
--- NOTE | 2018-07-14 13:12 | NUR ---
TRACHEOSTOMY: S/P tracheostomy on 07/11/18. Sutures in-place. Skin intact at this time. Discussed with charge nurseElise. Primary RNClaudia at lunch. RN to coordinate with Respiratory therapist to apply padding under lower pack of trach plate for skin protection. Charge NurseElise will work with Primary RN. - Maryjane Jaeger, BSN RN CWOCN
--- NOTE | 2018-07-14 13:40 | PN ---
Date/Time of Note Date/Time of Note DATE: 07/14/18 TIME: 13:39 Assessment/Plan VTE Prophylaxis Risk score (from Ns)>0 risk: 6 SCD applied (from Ns): Yes Pharmacological prophylaxis: LMWH Lines/Catheters IV Catheter Type (from Nrsg): PICC Line Central line still needed: Yes Urinary Cath still in place: Yes Reason Cath still needed: skin wounds contaminated by urine Assessment/Plan Hospital Course 1. Acute encephalopathy, improved. The patient is approaching his baseline. Continue to monitor closely. No sedative at this time. 2. Elevated white count; however, patient has no fever. - per ID - cont vancomycin and meropenem - pending result of urine and blood culture. 3. Atrial fibrillation. The patient after admission went into rapid ventricular response and had to be started on Cardizem and Eliquis. We will keep patient on telemetry. 4. Acute hypoxemic and hypercarbic respiratory failure. - PER pulmonary consult with Dr. Mustafa 5. Dysphagia. Continue G-tube feeding. 6. Diabetes. 7. Myasthenia gravis, status post thymectomy. 8. Dyslipidemia. The patient used to be on Lipitor. Again, the medication list from the [place] facility has not been received. Continue Lipitor. 9. Hypertension and coronary artery disease. Continue metoprolol and p.r.n. IV diltiazem. 10. The patient apparently also has history of depression. We will resume Prozac. 11. The patient has mild dementia. We will continue Aricept. Result Diagram: 07/12/18 0505 07/12/18 0505 Results 24hrs Laboratory Tests Test 07/13/18 18:18 07/13/18 21:29 07/14/18 01:30 07/14/18 06:02 Bedside Glucose 105 111 125 139 Test 07/14/18 09:41 07/14/18 10:14 07/14/18 12:28 Vancomycin Level 16.9 Trough Bedside Glucose 144 134 Subjective 24 Hr Interval Summary Free Text/Dictation Patient is stable on trach Exam/Review of Systems Vital Signs Vitals Vital Signs Date Temp Pulse Resp B/P (MAP) Pulse Ox O2 O2 Flow FiO2 Time Delivery Rate 07/14/18 108 12:19 07/14/18 96.8 20 123/83 100 Mechanical 12:04 (96) Ventilator 07/14/18 30 07:55 Intake and Output 07/13/18 07/13/18 07/14/18 1515:00 23:00 07:00 IntakeIntake Total 250 ml 1000 ml OutputOutput Total 800 ml BalanceBalance 250 ml 200 ml Exam Constitutional: well developed Head: normocephalic, atraumatic Neck: supple Respiratory: diminished breath sounds Cardiovascular: regular rate and rhythm Gastrointestinal: soft, non-tender Extremities: normal pulses Medications Medications Current Medications Albuterol/ Ipratropium (Duoneb) 3 ml Q6H RESP THERAPY PRN HHN SHORTNESS OF BREATH Last administered on 07/02/18at 02:41; Admin Dose 3 ML; Start 06/30/18 at 23:00 Vancomycin HCl (Vanco Iv Per Pharmacy) VANCOMYCIN PER PHARMACY PER PROTOCOL XX ; Start 06/30/18 at 23:00 Acetaminophen (Tylenol Liquid) 650 mg Q4H PRN GTB MILD PAIN(1-3)OR ELEVATED TEMP; Start 06/30/18 at 23:00 Insulin Aspart (Novolog Insulin Pen) NOVOLOG *MILD* ALGORI... Q6H SC Last administered on 07/09/18at 00:07; Admin Dose 1 UNIT; Start 07/01/18 at 00:00 Diltiazem HCl (Cardizem Iv) 10 mg Q4H PRN IV for sustained HR>130 Last administered on 07/13/18at 19:27; Admin Dose 10 MG; Start 06/30/18 at 23:00 Lansoprazole (Prevacid) 30 mg DAILY@06 GTB Last administered on 07/14/18at 06:03; Admin Dose 30 MG; Start 07/01/18 at 09:00 Miscellaneous Information 1 ea NOTE XX ; Start 07/01/18 at 14:00 Glucose (Glutose) 15 gm Q15M PRN PO DECREASED GLUCOSE; Start 07/01/18 at 14:00 Glucose (Glutose) 22.5 gm Q15M PRN PO DECREASED GLUCOSE; Start 07/01/18 at 14:00 Dextrose (D50w Syringe) 25 ml Q15M PRN IV DECREASED GLUCOSE; Start 07/01/18 at 14:00 Dextrose (D50w Syringe) 50 ml Q15M PRN IV DECREASED GLUCOSE; Start 07/01/18 at 14:00 Glucagon (Glucagen) 1 mg Q15M PRN IM DECREASED GLUCOSE; Start 07/01/18 at 14:00 Glucose (Glutose) 15 gm Q15M PRN BUCCAL DECREASED GLUCOSE; Start 07/01/18 at 14:00 Atorvastatin Calcium (Lipitor) 10 mg HS GTB Last administered on 07/13/18 21:05; Admin Dose 10 MG; Start 07/01/18 at 21:00 Insulin Human NPH (Humulin N) 10 unit BID@08,20 SC Last administered on 07/14/18at 10:37; Admin Dose 10 UNIT; Start 07/01/18 at 20:00 IV Flush (NS 10 ml) 10 ml PRN PRN IV IV PROTOCOL; Start 07/01/18 at 17:00 Apixaban (Eliquis) 2.5 mg BID PO Last administered on 07/14/18 10:23; Admin Dose 2.5 MG; Start 07/02/18 at 09:00 Docusate Sodium (Colace Liquid Cup) 100 mg BID GTB Last administered on 07/14/18 10:23; Admin Dose 100 MG; Start 07/04/18 at 10:00 Polyethylene Glycol (Miralax) 17 gm DAILY GTB Last administered on 07/14/18 10:23; Admin Dose 17 GM; Start 07/04/18 at 10:00 Miscellaneous Information (Pending [facility] Order For Wound Care) This patient man... PRN PRN XX SLOUGH; Start 07/07/18 at 17:00 Vancomycin/Sodium Chloride 250 ml @ 125 mls/hr Q12H IVPB Last administered on 07/14/18 12:07; Admin Dose 125 MLS/HR; Start 07/11/18 at 10:00 Lorazepam (Ativan) 1 mg Q6H PRN IV AGITATION/ANXIETY Last administered on 07/14/18 03:17; Admin Dose 1 MG; Start 07/12/18 at 12:30 Morphine Sulfate (morphine) 2 mg Q4 PRN IV SEVERE PAIN LEVEL 7-10 Last administered on 07/12/18 23:08; Admin Dose 2 MG; Start 07/12/18 at 12:30 LISA JAVIER Jul 14, 2018 13:40
--- NOTE | 2018-07-14 14:31 | CONS ---
Date/Time of Note Date/Time of Note DATE: 07/14/18 TIME: 14:30 Assessment/Plan Assessment/Plan Assessment/Plan Acute on chronic respiratory failure Atrial fibrillation with rapid ventricular rates, improved Preserved ejection fraction Myasthenia gravis Acute decompensated diastolic congestive heart failure -We will start gentle IV diuretics and continue his renal function blood pressure permits. Start beta-eddie and continue as blood pressure and heart rate permits. Check labs in the a.m. Result Diagram: 07/12/18 0505 07/12/18 0505 Results 24hrs Laboratory Tests Test 07/13/18 18:18 07/13/18 21:29 07/14/18 01:30 07/14/18 06:02 Bedside Glucose 105 111 125 139 Test 07/14/18 09:41 07/14/18 10:14 07/14/18 12:28 Vancomycin Level 16.9 Trough Bedside Glucose 144 134 Consultation Date/Type/Reason Admit Date/Time Jun 30, 2018 at 18:05 Initial Consult Date 07/01/18 Type of Consult cv Requesting Provider: ALE CHUN MD 24 HR Interval Summary Free Text/Dictation Patient seen and examined. Patient status post tracheostomy. Exam/Review of Systems Vital Signs Vitals Vital Signs Date Temp Pulse Resp B/P (MAP) Pulse Ox O2 O2 Flow FiO2 Time Delivery Rate 07/14/18 108 12:19 07/14/18 96.8 20 123/83 100 Mechanical 12:04 (96) Ventilator 07/14/18 30 07:55 Intake and Output 07/13/18 07/13/18 07/14/18 1414:59 22:59 06:59 IntakeIntake Total 250 ml 1000 ml OutputOutput Total 800 ml BalanceBalance 250 ml 200 ml Exam Looks at me when his name is called, no apparent distress Head: normocephalic Neck: other (Tracheostomy) Respiratory: other (Coarse breath sounds bilaterally, no wheezing) Cardiovascular: irregular rhythm, other (S1-S2 heard) Gastrointestinal: soft, non-tender, bowel sounds Extremities: edema (Trace) Medications Medications Current Medications Albuterol/ Ipratropium (Duoneb) 3 ml Q6H RESP THERAPY PRN HHN SHORTNESS OF BREATH Last administered on 07/02/18at 02:41; Admin Dose 3 ML; Start 06/30/18 at 23:00 Vancomycin HCl (Vanco Iv Per Pharmacy) VANCOMYCIN PER PHARMACY PER PROTOCOL XX ; Start 06/30/18 at 23:00 Acetaminophen (Tylenol Liquid) 650 mg Q4H PRN GTB MILD PAIN(1-3)OR ELEVATED TEMP; Start 06/30/18 at 23:00 Insulin Aspart (Novolog Insulin Pen) NOVOLOG *MILD* ALGORI... Q6H SC Last administered on 07/09/18at 00:07; Admin Dose 1 UNIT; Start 07/01/18 at 00:00 Diltiazem HCl (Cardizem Iv) 10 mg Q4H PRN IV for sustained HR>130 Last administered on 07/13/18at 19:27; Admin Dose 10 MG; Start 06/30/18 at 23:00 Lansoprazole (Prevacid) 30 mg DAILY@06 GTB Last administered on 07/14/18at 06:03; Admin Dose 30 MG; Start 07/01/18 at 09:00 Miscellaneous Information 1 ea NOTE XX ; Start 07/01/18 at 14:00 Glucose (Glutose) 15 gm Q15M PRN PO DECREASED GLUCOSE; Start 07/01/18 at 14:00 Glucose (Glutose) 22.5 gm Q15M PRN PO DECREASED GLUCOSE; Start 07/01/18 at 14:00 Dextrose (D50w Syringe) 25 ml Q15M PRN IV DECREASED GLUCOSE; Start 07/01/18 at 14:00 Dextrose (D50w Syringe) 50 ml Q15M PRN IV DECREASED GLUCOSE; Start 07/01/18 at 14:00 Glucagon (Glucagen) 1 mg Q15M PRN IM DECREASED GLUCOSE; Start 07/01/18 at 14:00 Glucose (Glutose) 15 gm Q15M PRN BUCCAL DECREASED GLUCOSE; Start 07/01/18 at 14:00 Atorvastatin Calcium (Lipitor) 10 mg HS GTB Last administered on 07/13/18at 21:05; Admin Dose 10 MG; Start 07/01/18 at 21:00 Insulin Human NPH (Humulin N) 10 unit BID@08,20 SC Last administered on 07/14/18at 10:37; Admin Dose 10 UNIT; Start 07/01/18 at 20:00 IV Flush (NS 10 ml) 10 ml PRN PRN IV IV PROTOCOL; Start 07/01/18 at 17:00 Apixaban (Eliquis) 2.5 mg BID PO Last administered on 07/14/18 10:23; Admin Dose 2.5 MG; Start 07/02/18 at 09:00 Docusate Sodium (Colace Liquid Cup) 100 mg BID GTB Last administered on 07/14/18 10:23; Admin Dose 100 MG; Start 07/04/18 at 10:00 Polyethylene Glycol (Miralax) 17 gm DAILY GTB Last administered on 07/14/18 10:23; Admin Dose 17 GM; Start 07/04/18 at 10:00 Miscellaneous Information (Pending [facility] Order For Wound Care) This patient man... PRN PRN XX SLOUGH; Start 07/07/18 at 17:00 Vancomycin/Sodium Chloride 250 ml @ 125 mls/hr Q12H IVPB Last administered on 07/14/18 12:07; Admin Dose 125 MLS/HR; Start 07/11/18 at 10:00 Lorazepam (Ativan) 1 mg Q6H PRN IV AGITATION/ANXIETY Last administered on 07/14/18 03:17; Admin Dose 1 MG; Start 07/12/18 at 12:30 Morphine Sulfate (morphine) 2 mg Q4 PRN IV SEVERE PAIN LEVEL 7-10 Last administered on 07/12/18 23:08; Admin Dose 2 MG; Start 07/12/18 at 12:30 Evan Armas DO Jul 14, 2018 14:31
--- NOTE | 2018-07-14 14:52 | NUR ---
Spoke to Dr. Parry regarding the restraint. aware and noted that order needs signature.
--- NOTE | 2018-07-14 15:25 | NUR ---
CM NOTES: PER YURI ([phone]) OF [facility], PT WAS ACCEPTED TO [facility] AND ASSIGNED TO ROOM 3354. PRABHAKAR MIRAMONTES, RNCM [id number]
--- NOTE | 2018-07-14 15:32 | NUR ---
Dr. Parry was notified that patient got a bed in [place] [address]. Asked if he can place DC order so patient can be transferred to [place]. noted.
[2018-07-14] MEDS ORDERED: FUROSEMIDE 20 MG INJ IV SCH (18:00)
--- NOTE | 2018-07-14 19:21 | CONS ---
Date/Time of Note Date/Time of Note DATE: 07/14/18 TIME: 19:19 Assessment/Plan Assessment/Plan Hospital Course - s/p septic shock due to skin and soft tissue infection of the chest wall, resolved - skin and soft tissue infection of the chest wall due to MRSA - s/p MRSA bacteremia associated with skin and soft tissue infection. Repeat blood culture on 07/01/2018 showed neg x1 bottle, and MRSA x1 bottle. Repeat cultures 07/06/2018 were negative. transthoracic echo on 07/01/2018 does not mention any vegetation - UTI due to MRSA vs. colonization of the urinary tract by MRSA - MRSA nasal colonization - s/p acute hypercarbic respiratory failure due to tracheostomy dislodgement requiring oral intubation 07/01/2018->extubated - s/p acute on chronic encephalopathy - Atrial fibrillation with intermittent RVR - CAD - H/o HTN - T2DM - HLD - Myasthenia gravis - s/p thymectomy - dysphagia - h/o PEG placement - depression - on Prozac at [facility] - Mild dementia - on Aricept at [facility] - Moderate protein calorie malnutrition - Hypernatremia- resolved - Anemia recommendations: - consider drainage of retrosternal fluid collection - continue vancomycin (06/30/2018-); Pt needs minimal 2 weeks of vancomycin from 07/06/2018 and continue until the fluid collection resolves Result Diagram: 07/12/18 0505 07/12/18 0505 Results 24hrs Laboratory Tests Test 07/13/18 21:29 07/14/18 01:30 07/14/18 06:02 07/14/18 09:41 Bedside Glucose 111 125 139 Vancomycin Level 16.9 Trough Test 07/14/18 10:14 07/14/18 12:28 07/14/18 17:37 Bedside Glucose 144 134 97 Consultation Date/Type/Reason Admit Date/Time Jun 30, 2018 at 18:05 Initial Consult Date 07/02/18 Requesting Provider: ALE CHUN MD 24 HR Interval Summary Subjective hx not possible: pt non-verbal Exam/Review of Systems Vital Signs Vitals Vital Signs Date Temp Pulse Resp B/P (MAP) Pulse Ox O2 O2 Flow FiO2 Time Delivery Rate 07/14/18 86 22 100 30 17:38 07/14/18 98.2 129/78 Mechanical 15:23 (95) Ventilator Intake and Output 07/13/18 07/13/18 07/14/18 1515:00 23:00 07:00 IntakeIntake Total 250 ml 1000 ml OutputOutput Total 800 ml BalanceBalance 250 ml 200 ml Exam Constitutional: non-verbal, frail Psych: confusion Head: normocephalic, atraumatic Eyes: nl conjunctiva, nl lids ENMT: nl external ears & nose, mucosa pink and moist Neck: other (+trach) Respiratory: crackles/rales, diminished breath sounds Cardiovascular: regular rate and rhythm, nl pulses Gastrointestinal: soft, non-tender, other (PEG+); No distended, No tender Musculoskeletal: nl extremities to inspection Extremities: normal pulses Neurological: confused, lethargic, other (responds to noxious stimuli only) Skin: rash or lesions (sternal wound is dressed) Medications Medications Current Medications Albuterol/ Ipratropium (Duoneb) 3 ml Q6H RESP THERAPY PRN HHN SHORTNESS OF BREATH Last administered on 07/02/18at 02:41; Admin Dose 3 ML; Start 06/30/18 at 23:00 Vancomycin HCl (Vanco Iv Per Pharmacy) VANCOMYCIN PER PHARMACY PER PROTOCOL XX ; Start 06/30/18 at 23:00 Acetaminophen (Tylenol Liquid) 650 mg Q4H PRN GTB MILD PAIN(1-3)OR ELEVATED TEMP; Start 06/30/18 at 23:00 Insulin Aspart (Novolog Insulin Pen) NOVOLOG *MILD* ALGORI... Q6H SC Last administered on 07/09/18at 00:07; Admin Dose 1 UNIT; Start 07/01/18 at 00:00 Diltiazem HCl (Cardizem Iv) 10 mg Q4H PRN IV for sustained HR>130 Last administered on 07/13/18at 19:27; Admin Dose 10 MG; Start 06/30/18 at 23:00 Lansoprazole (Prevacid) 30 mg DAILY@06 GTB Last administered on 07/14/18at 06:03; Admin Dose 30 MG; Start 07/01/18 at 09:00 Miscellaneous Information 1 ea NOTE XX ; Start 07/01/18 at 14:00 Glucose (Glutose) 15 gm Q15M PRN PO DECREASED GLUCOSE; Start 07/01/18 at 14:00 Glucose (Glutose) 22.5 gm Q15M PRN PO DECREASED GLUCOSE; Start 07/01/18 at 14:00 Dextrose (D50w Syringe) 25 ml Q15M PRN IV DECREASED GLUCOSE; Start 07/01/18 at 14:00 Dextrose (D50w Syringe) 50 ml Q15M PRN IV DECREASED GLUCOSE; Start 07/01/18 at 14:00 Glucagon (Glucagen) 1 mg Q15M PRN IM DECREASED GLUCOSE; Start 07/01/18 at 14:00 Glucose (Glutose) 15 gm Q15M PRN BUCCAL DECREASED GLUCOSE; Start 07/01/18 at 14:00 Atorvastatin Calcium (Lipitor) 10 mg HS GTB Last administered on 07/13/18at 21:05; Admin Dose 10 MG; Start 07/01/18 at 21:00 Insulin Human NPH (Humulin N) 10 unit BID@08,20 SC Last administered on 07/14/18at 10:37; Admin Dose 10 UNIT; Start 07/01/18 at 20:00 IV Flush (NS 10 ml) 10 ml PRN PRN IV IV PROTOCOL; Start 07/01/18 at 17:00 Apixaban (Eliquis) 2.5 mg BID PO Last administered on 07/14/18at 10:23; Admin Dose 2.5 MG; Start 07/02/18 at 09:00 Docusate Sodium (Colace Liquid Cup) 100 mg BID GTB Last administered on 8at 10:23; Admin Dose 100 MG; Start 07/04/18 at 10:00 Polyethylene Glycol (Miralax) 17 gm DAILY GTB Last administered on 07/14/18at 10:23; Admin Dose 17 GM; Start 07/04/18 at 10:00 Miscellaneous Information (Pending [facility] Order For Wound Care) This patient man... PRN PRN XX SLOUGH; Start 07/07/18 at 17:00 Vancomycin/Sodium Chloride 250 ml @ 125 mls/hr Q12H IVPB Last administered on 07/14/18at 12:07; Admin Dose 125 MLS/HR; Start 07/11/18 at 10:00 Lorazepam (Ativan) 1 mg Q6H PRN IV AGITATION/ANXIETY Last administered on 07/14/18at 03:17; Admin Dose 1 MG; Start 07/12/18 at 12:30 Morphine Sulfate (morphine) 2 mg Q4 PRN IV SEVERE PAIN LEVEL 7-10 Last administered on 07/12/18at 23:08; Admin Dose 2 MG; Start 07/12/18 at 12:30 Furosemide (Lasix) 20 mg BID DIURETICS IV Last administered on 07/14/18at 17:40; Admin Dose 20 MG; Start 07/14/18 at 18:00 Metoprolol Tartrate (Lopressor) 25 mg BID PO ; Start 07/14/18 at 21:00 DHEERAJ FARIAS M.D. Jul 14, 2018 19:21
--- NOTE | 2018-07-14 19:30 | NUR ---
Gave report to Boogie morocho [place]. Patient remain stable. Vented patient. Provided wound care, q2hr repositioning, monitoring for behavioral restraints. Followed protocol. Endorse to fidencio Terry.
--- NOTE | 2018-07-14 19:57 | NUR ---
NOTES TRANSFER TO [id number]. RELATIVES TRIED TO CALL AND LEAVE A MSG TO THE FIRST ONE ANSWER THE CALL THEN IT HANG UP. TRIED CALLING THEM BUT CANNOT LEAVE ANY MSG..
[2018-07-14] MEDS ORDERED: METOPROLOL 25 MG TAB PO SCH (21:00)
--- NOTE | 2018-07-15 13:24 | DS ---
Date/Time of Note Date/Time of Note DATE: 07/15/18 TIME: 13:24 Discharge Summary Admission/Discharge Info Admit Date/Time Jun 30, 2018 at 18:05 Discharge Date/Time Jul 14, 2018 at 19:56 Discharge Diagnosis 1. Acute encephalopathy, improved. The patient is approaching his baseline. Continue to monitor closely. No sedative at this time. 2. Elevated white count; however, patient has no fever. - per ID - cont vancomycin and meropenem - pending result of urine and blood culture. 3. Atrial fibrillation. The patient after admission went into rapid ventricular response and had to be started on Cardizem and Eliquis. We will keep patient on telemetry. 4. Acute hypoxemic and hypercarbic respiratory failure. - PER pulmonary consult with Dr. Mustafa 5. Dysphagia. Continue G-tube feeding. 6. Diabetes. 7. Myasthenia gravis, status post thymectomy. 8. Dyslipidemia. The patient used to be on Lipitor. Again, the medication list from the [facility] facility has not been received. Continue Lipitor. 9. Hypertension and coronary artery disease. Continue metoprolol and p.r.n. IV diltiazem. 10. The patient apparently also has history of depression. We will resume Prozac. 11. The patient has mild dementia. We will continue Aricept. Result Diagram: Patient Condition: Fair Consults Cardiology Pulmonary Infectious disease Procedures tracheostomy Hx of Present Illness Patient with encephalopathy, multiple sclerosis was admitted from SNF for altered level of consciousness. Hospital Course Patient with encephalopathy, multiple sclerosis was admitted from SNF for altered level of consciousness. Patient was found to have respiratory failure and sepsis requiring ventilator support and antibiotics treatment. Patient's mental status improved but his respiratory failure never improved. Patient underwent tracheostomy and because of his poor respiratory status, patient will be transferred to [facility] for continued care of his respiratory failure. 1. Acute encephalopathy, improved. The patient is approaching his baseline. Continue to monitor closely. No sedative at this time. 2. Elevated white count; however, patient has no fever. - per ID - cont vancomycin and meropenem - pending result of urine and blood culture. 3. Atrial fibrillation. The patient after admission went into rapid ventricular response and had to be started on Cardizem and Eliquis. We will keep patient on telemetry. 4. Acute hypoxemic and hypercarbic respiratory failure. - PER pulmonary consult with Dr. Mustafa 5. Dysphagia. Continue G-tube feeding. 6. Diabetes. 7. Myasthenia gravis, status post thymectomy. 8. Dyslipidemia. The patient used to be on Lipitor. Again, the medication list from the [facility] facility has not been received. Continue Lipitor. 9. Hypertension and coronary artery disease. Continue metoprolol and p.r.n. IV diltiazem. 10. The patient apparently also has history of depression. We will resume Prozac. 11. The patient has mild dementia. We will continue Aricept. Home Meds Reported Medications Zolpidem Tartrate* (Zolpidem Tartrate*) 5 Mg Tablet, 5 MG GTB Q24H PRN for INSOMNIA, #30 TAB 06/30/18 Fluoxetine Hcl* (Prozac*) 10 Mg Tablet, 10 MG GTB DAILY, TAB 06/30/18 Protein Supplement (Promod) 946 Ml Liquid, 30 ML GTB DAILY 06/30/18 Chlorhexidine Gluconate (Peridex) 473 Ml Mouthwash, 15 ML MM Q12H, BOTTLE 06/30/18 Ondansetron Hcl* (Zofran*) 4 Mg Tab, 4 MG GTB Q6H PRN for NAUSEA AND OR VOMITING, TAB 06/30/18 Multivitamin With Minerals (BIOSUPP) 473 Ml Liquid, 30 ML GTB DAILY 06/30/18 Metoprolol Tartrate* (Lopressor*) 25 Mg Tab, 37.5 MG GTB BID, #60 TAB HOLD IF SBP<110 OR HR<60 06/30/18 Lactobacillus Acidophilus* (Lactinex*) 1 Tab Chew, 1 TAB GTB TID, TAB 06/30/18 Insulin NPH Human Isophane (Humulin N) 100 Unit/1 Ml Vial, 10 UNIT SQ BID, VIAL 06/30/18 Glucagon,Human Recombinant (Glucagon Emergency Kit) 1 Mg Kit, 1 MG IJ NEEDED, KIT 06/30/18 Ferrous Sulfate* (Ferrous Sulfate*) 325 Mg Tabec, 325 MG GTB BID, TAB 06/30/18 Famotidine* (Famotidine*) 20 Mg Tablet, 20 MG GTB BID, #60 TAB 06/30/18 Ipratropium-Albuterol (Ipratropium-Albuterol) 0.5-3 Mg/3 Ml Ampul.neb, 3 ML INHALATION Q6 PRN for SHORTNESS OF BREATH, #30 VIAL 06/30/18 Donepezil* (Donepezil*) 10 Mg Tablet, 10 MG GTB DAILY, #30 TAB 06/30/18 Clonidine Hcl* (Clonidine Hcl*) 0.1 Mg Tab, 0.1 MG GTB Q6 PRN for NEEDED, TAB GIVE IF SBP>160 06/30/18 Atorvastatin Calcium (Atorvastatin Calcium) 10 Mg Tablet, 10 MG GTB QHS, #30 TAB 06/30/18 Amlodipine Besylate* (Amlodipine Besylate*) 2.5 Mg Tablet, 2.5 MG GTB DAILY, #30 TAB HOLD FOR SBP<110 OR HR<60 06/30/18 Insulin Lispro (Humalog Adolph Kwikpen) 100 Unit/1 Ml Ins.pen.hf, 0 SQ SLIDING SCALE IF BS 70-150=0 UNIT,151-200=2 UNITS,201-250=4 UNITS,251-300=6 UNITS,301-350=8 UNITS,351-400=10 UNITS,IF BS>400=12 UNITS AND CALL 06/30/18 Acetaminophen* (Acetaminophen* Susp) 325 Mg/10.15 Ml Solution, 650 MG GTB Q6H PRN for MILD PAIN LEVEL 1-3, ML 06/30/18 Primary Care Provider Delgado Dobbins MD Pending Labs Laboratory Tests Test 07/14/18 17:37 Bedside Glucose 97 mg/dL (70-220) LISA JAVIER Jul 15, 2018 13:24
== END 2018-07-14 19:56 | disposition short-term general hospital (02) | DRG 4 ==
LOC: E/R 15:00 → ICU 18:05 → EDBEDREQ 20:08 → TEL 07-13 01:55
PROVIDERS: ADMIT Internal Medicine; ATTEND Internal Medicine
PROC: 5A1955Z Respiratory Ventilation, Greater than 96 Consecutive Hours (ICD-10-PCS; 2018-07-01)
PROC: 0BH17EZ Insertion of Endotracheal Airway into Trachea, Via Natural or Artificial Opening (ICD-10-PCS; 2018-07-01)
PROC: 02HV33Z Insertion of Infusion Device into Superior Vena Cava, Percutaneous Approach (ICD-10-PCS; 2018-07-01)
PROC: 0B110F4 Bypass Trachea to Cutaneous with Tracheostomy Device, Open Approach (ICD-10-PCS; principal; 2018-07-11 13:30)
DX: A41.9 Sepsis, unspecified organism (principal); J96.22 Acute and chronic respiratory failure with hypercapnia; J18.9 Pneumonia, unspecified organism; J96.21 Acute and chronic respiratory failure with hypoxia; R65.21 Severe sepsis with septic shock; G93.41 Metabolic encephalopathy; J95.03 Malfunction of tracheostomy stoma; L03.313 Cellulitis of chest wall; E87.2 Acidosis; E44.0 Moderate protein-calorie malnutrition; E87.0 Hyperosmolality and hypernatremia; N39.0 Urinary tract infection, site not specified; L02.213 Cutaneous abscess of chest wall; D64.9 Anemia, unspecified; R13.10 Dysphagia, unspecified; E11.9 Type 2 diabetes mellitus without complications; I10 Essential (primary) hypertension; I48.2 Chronic atrial fibrillation; Z95.1 Presence of aortocoronary bypass graft; G70.00 Myasthenia gravis without (acute) exacerbation; I95.9 Hypotension, unspecified; I25.10 Atherosclerotic heart disease of native coronary artery without angina pectoris; F32.9 Major depressive disorder, single episode, unspecified; F03.90 Unspecified dementia, unspecified severity, without behavioral disturbance, psychotic disturbance, mood disturbance, and anxiety; Z68.22 Body mass index [BMI] 22.0-22.9, adult; K21.9 Gastro-esophageal reflux disease without esophagitis; Z88.0 Allergy status to penicillin
CPT/HCPCS: 31500; 36415; 36569; 36600; 71045; 71260; 76536; 76937; 80048; 80053; 80162; 80202; 81001; 82803; 82962; 83605; 83735; 84100; 84443; 84484; 85025; 85610; 85730; 86703; 86706; 86803; 87040; 87070; 87081; 87086; 87340; 89220; 93005; 93306; 94002; 94003; 94640; 94664; 94770; 96374; J0690; J1815; J1940; J2001; J2060; J2185; J2250; J2270; J2370; J3010; J3370; J3480; J7030; J7050; J7060; P9612; Q9967